=== PATIENT | female | born 1965 | race Caucasian/White ===

== ENCOUNTER 2025-09-09 21:37 | Inpatient (IN) | payer OTHER, SELFPAY ==
--- NOTE | ~2025-09-09 | XR_ITS ---
CLINICAL HISTORY: s p choking event, fever 1 view chest x-ray Comparison: None provided Findings: Strandy density projecting over right lung base. No large pleural effusion. No pneumothorax. Heart size at the upper end of normal. No acute soft tissue or osseous abnormality. Impression: 1. Strandy density projecting overlying lung base representing either atelectasis or developing infiltrate. 2. Additional findings as above. This document has been electronically signed by: Swetha De Souza MD on 09/20/2025 23:01:25
--- OUTSIDE RECORDS SUMMARY | 2025-09-09 21:43 | XMS_ITS | Encounter Summary ---
Author Organization [employer] [facility] ianve Address [address] [place] [address] Care Team Providers Care Lead Nitrate Processor Name Role Phone Gilbert Espinoza Primary Care Provider Unavaila ble Add, Provider Not In System Unavailable Unav ailable Add, Provider Not In System Primary Care Provide r Unavailable Reason for Visit * Reason Onset Date Comments Referral 08/05/2017 [facility] referral req uest Encounter Details Date Type Department Care Team (Late st Contact Info) Description 08/05/2017 Telephone [facility] Primary Care [facility] [address] [place] [address] Babita Hopkins Inactive Referral ([facility] referral request) Social History Tobacco Use Types Packs/Day Years Used Date Smoking Tobacco: Some Days Cigarettes Smokeless Tobacco: Never Comments:quit 3 days ago ( 08/08/16) ; intermittent (10/03/16) Alcohol Use Standard Drinks/Week Comments No 0 (1 standard drink = 0.6 oz pur e alcohol) Comments No Sex and Gender Information Value Date Recorded Sex Assigned at Not on file Legal Sex Female 5:16 PM EDT Gender Identity Not on file Sexual Orientation Not on file documented as of this encounter Plan of Treatment Not on file documented as of this encounter Visit Diagnoses Not on filedocumented in this encounter Care Teams Lead Nitrate Processor Relationship Specialty Start Date End Date Gilbert Espinoza PCP - General Internal Medicine 03/05/16 07/06/18 Add, Provider Not In System PCP - Insurance PCP 04/23/16 Add, Provider Not In System PCP - General Internal Medicine 07/07/18 documented as of this encounter
--- OUTSIDE RECORDS SUMMARY | 2025-09-09 21:43 | XMS_ITS | Encounter Summary ---
Author Organization [facility] iaide Address [address] [place] [address] Care Team Providers Care Hook Puller Name Role Phone Lynda Tate MD Primary Care Provider [phone] Julienne Garner MD Primary Care Provider Unavaila Gilbert Rivera Primary Care Provider Unavaila morales Add, Provider Not In System Unavailable Unav ailable Add, Provider Not In System Primary Care Provide r Unavailable Reason for Referral * Consult and Treat (Routine) - Closed Specialty Diagnoses / Procedures Referred By Contac t Referred To Contact Care Management / [facility] Global Diagnoses Opiate dependence (HCC) Lynda Tate MD Phone: tel:[phone] fax: Other Referral ID Status Reason Start Date Expiration Date V isits Requested Visits Authorized [id number] Closed Specialty not available at [facility] 12/29/2014 12/29/2015 365 365 Question Answer French Polisher Needed? No [10] Comments Reason / clinical indications for referral: For methadone dosing at home. Appointment scheduled for: Visiting Nurse Specialty Location: [facility] Specialist's name: facility planner's NPI#: [id number] Specialty Specialty Reason for appointment: 729.1, 337.00, 304.00, 780.79 Day of appt: Date of appt: 12/29/14 Patient Notification: Facility called requesting 365 visits If you have any questions concerning the referral authorization please call [phone]. If you have any questions concerning your appointment please call the specialty phone number above. Below are the patient's allergies, medications and problem list documented in the medical record as of the signing of this referral order. Patient's current Allergies: Nsaids Current Outpatient Prescriptions: cetirizine (ZYRTEC) 10 MG tablet, Take 1 tablet by mouth daily., Disp: 30 tablet, Rfl: 2 fluticasone (FLONASE) 50 MCG/ACT nasal spray, 2 times a day, Disp: 16 g, Rfl: 2 omeprazole (PRILOSEC) 20 MG capsule, 1 tab daily, Disp: 30 capsule, Rfl: 2 nicotine polacrilex (NICORETTE) 4 MG gum, Take 1 each by mouth as needed for Craving (Nicotine). Fruit flavor please., Disp: 50 each, Rfl: 3 methadone (DOLOPHINE) 10 mg/mL solution, Take 6 mLs by mouth daily. Max Daily Amount: 60 mg. Habit Opco - Giuliana, Disp: , Rfl: OXYCODONE HCL PO, Take by mouth., Disp: , Rfl: BACLOFEN 10 MG OR TABS, 1 tab 4 times a day, Disp: , Rfl: NEURONTIN 300 MG OR CAPS, 1 tab 3 times a day, Disp: , Rfl: PROAIR HFA 108 (90 BASE) MCG/ACT IN AERS, 2 x daily, Disp: , Rfl: DURAGESIC-75 75 MCG/HR TD PT72, every 3 days, Disp: , Rfl: CYMBALTA 60 MG OR CPEP, 2 times a day, Disp: , Rfl: CLONAZEPAM 1 MG OR TABS, 3 times a day, Disp: , Rfl: TRAZODONE HCL 100 MG OR TABS, 2 tabs QHS, Disp: , Rfl: AMBIEN 10 MG OR TABS, 1 tab QHS, Disp: , Rfl: RITALIN 20 MG OR TABS, 1 tab daily, Disp: , Rfl: No current facility-administered medications for this visit. 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 Candidiasis of vulva and vagina Panic disorder with agoraphobia Asthma, mild intermittent, well-controlled Migraine headache Peripheral neuropathy Herpes zoster without mention of complication Chronic pain Myalgia and myositis, unspecified Obesity, unspecified For further correspondence/information please refer to the contact information below: Lynda Tate MD [facility] [address] [facility] [address] Office Office Reason for Visit * Reason Onset Date Comments Referral 01/12/2015 [facility] r eferral request Encounter Details Date Type Department Care Team (Late st Contact Info) Description 01/12/2015 Telephone [facility] Primary Care - [facility] [address] [place] [address] Babita Hopkins Inactive Referral ([facility] referral request) Social History Tobacco Use Types Packs/Day Years Used Date Smoking Tobacco: Every Day Smokeless Tobacco: Never Alcohol Use Standard Drinks/Week Comments No 0 (1 standard drink = 0.6 oz pur e alcohol) Comments No Sex and Gender Information Value Date Recorded Sex Assigned at Not on file Legal Sex Female 5:16 PM EDT Gender Identity Not on file Sexual Orientation Not on file documented as of this encounter Progress Notes * Babita Hopkins - 01/12/2015 2:44 PM EST Appointment scheduled for: Visiting Nurse Specialty Location: [facility] Health Specialist's name: facility planner's NPI#: [id number] Specialty Specialty Reason for appointment: 729.1, 337.00, 304.00, 780.79 Day of appt: Date of appt: 12/29/14 Patient Notification: Facility called requesting 365 visits If you have any questions concerning the referral authorization please call [phone]. If you have any questions concerning your appointment please call the specialty phone number above. documented in this encounter Plan of Treatment Not on file documented as of this encounter Visit Diagnoses Diagnosis Opiate dependence (HCC)- Primary Opioid type dependence, unspecified documented in this encounter Care Teams Hook Puller Relationship Specialty Start Date End Date Lynda Tate MD PCP - General Internal Medicine 12/08/14 05/04/15 Julienne Garner MD PCP - General Internal Medicine 05/05/15 01/22/16 Gilbert Espinoza PCP - General Internal Medicine 03/05/16 07/06/18 Add, Provider Not In System PCP - Insurance PCP 04/23/16 Add, Provider Not In System PCP - General Internal Medicine 07/07/18 documented as of this encounter
--- OUTSIDE RECORDS SUMMARY | 2025-09-09 21:43 | XMS_ITS | Clinical Summary ---
Author Organization [facility] Address [address] [facility] [address] [place] [address] Care Team Providers Care Marketing Analytics Analyst Name Role Phone Gissel Worley MD Primary Care Provider [phone] Allergies Active Allergy Reactions Criticality Noted Date Comments Ciprofloxacin Unknown Medium 04/03/2023 Lactose Unknown High 01/23/2022 Sulfa (Sulfonamide Antibiotics) Unknown 05/22/2016 unknown Tolmetin Unknown Medium 11/14/2014 ? Meningitis vs fibromyalgia flare up Medications albuterol sulfate 90 mcg/actuation aerosol powdr breath activated Inhale 2 Inhalers every 6 (six) hours. 4 Active acetaminophen (Tylenol) 325 mg tablet Take 325 mg by mouth every 6 (six) hours if needed for pain score 1-3. Take 650 mg po Q 6 hours as needed. Active amlodipine besylate (AMLODIPINE ORAL) Take 5 mg by mouth once daily. Active apixaban (Eliquis) 5 mg tablet Take 5 mg by mouth twice daily. Active atorvastatin (Lipitor) 20 mg tablet Take 20 mg by mouth once daily. Active baclofen (Lioresal) 5 mg tablet Take 5 mg by mouth three times daily. Take 3 tablets TID Active cetirizine (ZyrTEC) 10 mg tablet Take 10 mg by mouth once daily. Active clonazePAM (KlonoPIN) 1 mg tablet Take 1 mg by mouth once daily. 1 tablet at bedtime, 1/2 tablet in am and 1/2 tablet at 4 pm Active diclofenac (Voltaren) 1 % topical gel Apply 2 g topically four times daily. 4 times a day to knees bilateral Active docusate sodium (Colace) 100 mg capsule Take 100 mg by mouth if needed in the morning and at bedtime for constipation. Active fluticasone furoate-vilante roL (BREO ELIPTA) 100-25 mcg/dose inhaler Inhale 1 puff once daily. Active FLUTICASONE PROPIONATE NASL Administer 50 mcg into affected nostril(s) once daily. 2 sprays in each nostril Active gabapentin (Neurontin) 300 mg capsule Take 300 mg by mouth three times daily. Take 1 capsule by mouth at 7 am,noon and 2 capsules at bedtime Active ipratropium-alb uteroL (Duo-Neb) 0.5-2.5 mg/3 mL nebulizer solution Take 3 mL by nebulization in the morning, 2 PM, and at bedtime. PRN Active lactobacillus (Culturelle) 10 billion cell capsule Take 1 capsule by mouth once daily. Active lurasidone (Latuda) 20 mg tablet Take 40 mg by mouth with breakfast. 120 mg , BID Active lidocaine (Lidoderm) 5 % patch Apply 1 patch topically once daily. Remove & discard patch within 12 hours or as directed by MD. Active lisinopril 40 mg tablet Take 40 mg by mouth once daily. Active methadone (Dolophine) 10 mg/mL solution Take 90 mg by mouth once daily. Active methylphenidate (Ritalin) 20 mg tablet Take 20 mg by mouth twice daily. Active MULTIVITAMIN ORAL Take 400 mcg by mouth once daily. With Folic Acid Active nicotine polacrilex (Commit) 4 mg lozenge Dissolve 4 mg in the mouth every 2 (two) hours if needed for smoking cessation. 1 lozenge inside cheek every 30 minutes as needed up 20 maximum. Active nystatin (Mycostatin) 100,000 unit/mL suspension Take 500,000 Units by mouth four times daily. As needed. Active ondansetron (Zofran) 4 mg tablet Take 4 mg by mouth every 8 (eight) hours if needed for nausea or vomiting. Active pantoprazole (ProtoNix) 40 mg EC tablet Take 40 mg by mouth before breakfast. Do not crush, chew, or split. Active polyethylene glycol (Glycolax) 17 gram packet Take 17 g by mouth once daily. PRN Active sennosides (Senokot) 8.6 mg tablet Take 1 tablet by mouth once daily. PRN Active traZODone (Desyrel) 150 mg tablet Take 150 mg by mouth at bedtime. Active ibuprofen 200 mg tablet Take 400 mg by mouth every 6 (six) hours if needed for pain score 1-3. Active Active Problems Problem Noted Date Diagnosed Date Malignant neoplasm of lower- outer quadrant of right breast of female, estrogen receptor positive 06/05/2023 Cancer Staging:Pathologic stage from 12/24/2022:Stage IA(pT1c, pN0, cM0, G2, ER+, ME+, HER2-) - Signed by Caro Diez MD on 06/05/2023 Encounters Date Type Department Care Team Description 06/17/2025 External Contact [facility] [address] [place] [address] Ezequiel, Default Authenticator 06/16/2025 External Contact [facility] [address] [place] [address] Bry Boyle MD from Last 3 Months Family History Medical History Relation Name Comments Breast cancer Mother Breast cancer Mother's Sister Relation Name Status Comments Mother Mother's Sister Social History Tobacco Use Types Packs/Day Years Used Date Smoking Tobacco: Every Day Cigarettes 0.5 42.8 Started: 11/1982 Smokeless Tobacco: Never Tobacco Cessation:Ready to Q uit: Not Asked; Counseling Given: Not Answered Alcohol Use Standard Drinks/Week Comments Never 0 (1 standard drink = 0.6 oz pur e alcohol) PHQ-2 Answer Date Recorded Patient Health Questionnaire-2 Score 0 06/05/2023 Comments Unknown Sex and Gender Information Value Date Recorded Sex Assigned at Female 05/07/2024 11:05 AM EDT Legal Sex Female 12:34 AM EST Gender Identity Female 05/07/2024 11:05 AM EDT Sexual Orientation Straight 05/07/2024 11 :05 AM EDT Last Filed Vital Signs Vital Sign Reading Time Taken Comments Blood Pressure 126/80 09/10/2023 1:15 PM EDT Pulse 76 09/10/2023 1:15 PM EDT Temperature 36.2 C (97.1 F) 09/10/2023 1:15 PM EDT Respiratory Rate 18 09/10/2023 1:15 PM EDT Oxygen Saturation 97% 09/10/2023 1:1 5 PM EDT on 2L O2 via nc Inhaled Oxygen Concentration - - Weight 94.1 kg (207 lb 7.3 oz) 09/10/2023 1:15 PM EDT Height 167.6 cm (5' 6 ) 04/03/2023 10:1 4 AM EDT Body Mass Index 33.48 04/03/2023 10:14 AM EDT Plan of Treatment Health Maintenance Due Date Last Done Comments CT Colonography 1965 Colonoscopy 1966 Colorectal Cancer Screening 1965 FIT-DNA 1966 FIT 1965 FOBT 1965 HIV Screening 1965 Sigmoidoscopy 1966 Tobacco Cessation Counseling 1966 MMR Vaccines (1 of 1 - Standard series) 1967 Hepatitis A Vaccines (1 of 2 - Risk 2-dose series) 1985 Zoster Vaccines (1 of 2) 1985 HPV/Cotest 1996 Hepatitis B Vaccines (2 of 3 - 19+ 3-dose series) 07/17/2017 06/19/2017, 12/29/2014 Cervical Cancer Screening 10/21/2018 Pap Smear 10/21/2018 10/21/2015 COVID-19 Vaccine (3 - Modern a risk series) 03/19/2022 02/19/2022, 09/15/2021 Diabetes Screening 11/29/2022 11/29/2019, 04/23/2019 Pneumococcal Vaccine: 50+ Years (2 of 2 - PCV) 03/08/2023 03/08/2022 DTaP/Tdap/Td Vaccines (2 - T d or Tdap) 09/14/2023 09/14/2013 Lipid Panel 09/16/2024 09/16/2019, 04/23/2019 Depression Screening 11/24/2024 06/05/2023 Influenza Vaccine (#1) 2025 2, 09/15/2021, 08/11/2020 Pneumococcal Vaccine: Pediatrics (0 to 5 Years) and At-Risk Patients (6 to 49 Years) Discontinued 03/08/2022 Mammogram Discontinued 05/28/2024, 05/28/2024 HIB Vaccines Aged Out No longer eligi ble based on patient's age to complete this topic HPV Vaccines Aged Out No longer eligi ble based on patient's age to complete this topic IPV Vaccines Aged Out No longer eligi ble based on patient's age to complete this topic Meningococcal B Vaccine Aged Out No l onger eligible based on patient's age to complete this topic Meningococcal Vaccine Aged Out No lupe remedios eligible based on patient's age to complete this topic Rotavirus Vaccines Aged Out No longer eligible based on patient's age to complete this topic Procedures Procedure Name Priority Date/Time Associated Diagnosis Comments DOPPLER ECHO, COMP 06/17/2025 12 :43 PM EDT BI BILATERAL MAMMOGRAM SCREENING Routine 05/28/2024 7:47 AM EDT from Last 3 Months or Most Recently Relevant to Health Maintenance Results * MCMW Dopppler Echo Complete (06/17/2025 12:43 PM EDT) Anatomical Region Laterality Modality Ultrasound 06/17/2025 12:4 3 PM EDT Narrative 06/17/2025 1:09 PM EDT Please click on link to see image. [id number]: Missing Attachment ATTACHMENT Can be viewed in source system Study ID: [id number] [place] [id number] Non-Invasive Cardiology Laboratory Transthoracic Echocardiogram Final Report Name: SHAWNA CADET Study Date: 06/17/2025 12:43 PM BP: 118/64 mmHg Patient Location: : 1965 Height: 66 in Age: 59 yrs Gender: Female Weight: 214 lb Reason For Study: Pulmonary HTN BSA: 2.1 m2 Ordering Physician: NANETTE WOO Referring Physician: ELIAZAR DORAN Performed By: Bianca Puga Fellow: [facility] Interpretation Summary Contrast injection with Definity was performed. 1.3 ml of activated Definity diluted in 8 ml of normal saline was drawn up into a 10 cc syringe. 4 cc of the diluted bolus was administered to the patient by IV injection, the unused portion was discarded. Compared with 04/05/22, similar findings. PASP could not be estimated due to incomplete TR Doppler envelope Left Ventricle Normal left ventricular size, thickness and systolic function with no regional wall motion abnormalities. There is no thrombus. The left ventricular ejection fraction is 60-65%. Right Ventricle Normal right ventricular size and function. Atria The left atrial size is normal. Right atrial size is normal. Mitral Valve Mildly thickened mitral valve leaflets. There is trace mitral regurgitation. Tricuspid Valve The tricuspid valve is normal in structure and function. There is mild tricuspid regurgitation. Pulmonary Artery Systolic Pressure could not be estimated because of incomplete tricuspid regurgitation Doppler jet envelope. Aortic Valve Trileaflet aortic valve with focally thickened leaflets. There is no aortic stenosis. No aortic regurgitation is present. Pulmonic Valve The pulmonic valve is normal in structure and function. Great Vessels The aortic root is normal size. The ascending aorta is normal in size. The Inferior Vena Cava is normal suggesting a normal right atrial pressure of 5 mm Hg. Pericardium/Pleural There is no pericardial effusion. MMode/2D Measurements \T\ Calculations IVSd: 1.0 cm LVIDd: 5.4 cm LVIDs: 2.8 cm LVPWd: 0.98 cm FS: 46.9 % Ao root diam: 3.3 cm EDV(Teich): 138.3 ml Ao root area: 8.6 cm2 ESV(Teich): 30.6 ml LA dimension: 3.7 cm asc Aorta Diam: 3.1 cm LVOT diam: 2.0 cm LVOT area: 3.1 cm2 Doppler Measurements \T\ Calculations MV E max morris: 54.0 cm/sec MV dec time: 0.16 sec MV A max morris: 65.5 cm/sec MV E/A: 0.82 Ao V2 max: 175.0 cm/sec LV V1 max P.7 mmHg Ao max P.3 mmHg LV V1 mean P.0 mmHg Ao V2 mean: 115.0 cm/sec LV V1 max: 138.5 cm/sec Ao mean P.0 mmHg LV V1 mean: 91.2 cm/sec Ao V2 VTI: 33.1 cm LV V1 VTI: 27.6 cm SANGITA(I,D): 2.6 cm2 SANGITA(V,D): 2.5 cm2 SV(LVOT): 86.7 ml E/Lat E': 3.9 E/Med E': 5.5 Electronically Signed By: Namrata Catherine MD 06/17/2025 02:24 PM Authenticated by NAMRATA CATHERINE MD [[id number]] on 06/17/2025 at 13:09:22 Patient Ordering physician: NANETET WOO Other providers: ALEXIA MILLER, ELIAZAR DORAN, ALEXIA MILLER, BRY SHEEHANRS , , , Procedure Note Ezequiel, Default Authenticator / Namrata Catherine MD - 06/17/2025 Please click on link to see image. [id number] Missing Attachment ATTACHMENT Can be viewed in sourcesystem Study ID: [id number] [place] [id number] Non-Invasive Cardiology Laboratory Transthoracic Echocardiogram Final Report Name: SHAWNA CADET Study Date: 06/17/2025 12:43 PM BP: 118/64mmHg Patient Location: : 1965 Height: 66in Age: 59 yrs Gender: Female Weight: 214lb Reason For Study: Pulmonary HTN BSA: 2.1m2 Ordering Physician: NANETTE WOO Referring Physician: ELIAZAR DORAN Performed By: Bianca Puga Fellow: [facility] Interpretation Summary Contrast injection with Definity was performed. 1.3 ml of activatedDefinity diluted in 8 ml of normal saline was drawn up into a 10 cc syringe. 4 ccof the diluted bolus was administered to the patient by IV injection, theunused portion was discarded. Compared with 04/05/22, similar findings. PASP couldnot be estimated due to incomplete TR Doppler envelope Left Ventricle Normal left ventricular size, thickness and systolic function with noregional wall motion abnormalities. There is no thrombus. The left ventricularejection fraction is 60-65%. Right Ventricle Normal right ventricular size and function. Atria The left atrial size is normal. Right atrial size is normal. Mitral Valve Mildly thickened mitral valve leaflets. There is trace mitralregurgitation. Tricuspid Valve The tricuspid valve is normal in structure and function. There is mild tricuspid regurgitation. Pulmonary Artery Systolic Pressure could not be estimated because of incomplete tricuspid regurgitation Doppler jetenvelope. Aortic Valve Trileaflet aortic valve with focally thickened leaflets. There is noaortic stenosis. No aortic regurgitation is present. Pulmonic Valve The pulmonic valve is normal in structure and function. Great Vessels The aortic root is normal size. The ascending aorta is normal in size.The Inferior Vena Cava is normal suggesting a normal right atrial pressure of5 mm Hg. Pericardium/Pleural There is no pericardial effusion. MMode/2D Measurements \T\ Calculations IVSd: 1.0 cm LVIDd: 5.4 cm LVIDs: 2.8 cm LVPWd: 0.98 cm FS: 46.9 % Ao root diam: 3.3 cm EDV(Teich): 138.3 ml Ao root area: 8.6 cm2 ESV(Teich): 30.6 ml LA dimension: 3.7 cm asc Aorta Diam: 3.1 cm LVOT diam: 2.0 cm LVOT area: 3.1 cm2 Doppler Measurements \T\ Calculations MV E max morris: 54.0 cm/sec MV dec time: 0.16 sec MV A max morris: 65.5 cm/sec MV E/A: 0.82 Ao V2 max: 175.0 cm/sec LV V1 max P.7 mmHg Ao max P.3 mmHg LV V1 mean P.0 mmHg Ao V2 mean: 115.0 cm/sec LV V1 max: 138.5 cm/sec Ao mean P.0 mmHg LV V1 mean: 91.2 cm/sec Ao V2 VTI: 33.1 cm LV V1 VTI: 27.6 cm SANGITA(I,D): 2.6 cm2 SANGITA(V,D): 2.5 cm2 SV(LVOT): 86.7 ml E/Lat E': 3.9 E/Med E': 5.5 Electronically Signed By: Namrata Catherine MD 06/17/2025 02:24 PM Authenticated by NAMRATA CATHERINE MD [[id number]] on 06/17/2025 at 13:09:22 Patient Ordering physician: NANETTE WOO Other providers: ALEXIA MILLER, ELIAZAR DORAN, ALEXIA MILLER, BRY BOYLE , , , us Bry Boyle MD CV ECHO PROCEDURES Final Result * BI BILATERAL MAMMOGRAM SCREENING (05/28/2024 7:47 AM EDT) Anatomical Region Laterality Modality Breast Bilateral Mammography us Historical Provider MD AVILEZ BI PROCEDURES Final R esult from Last 3 Months or Most Recently Relevant to Health Maintenance Insurance [place] [id number] Care Teams Marketing Analytics Analyst Relationship Specialty Start Date End Date Gissel Worley MD [address] [place] [address] [address] [place] [address] PCP - General Vocational Education Teacher 09/10/23
--- OUTSIDE RECORDS SUMMARY | 2025-09-09 21:43 | XMS_ITS | Encounter Summary ---
Author Organization [employer] [facility] iarie Address [address] [place] [address] Care Team Providers Care Dust Collector Ore Crushing Name Role Phone Gilbert Espinoza Primary Care Provider Unavaila ble Add, Provider Not In System Unavailable Unav ailable Add, Provider Not In System Primary Care Provide r Unavailable Reason for Visit * Reason Onset Date Comments Referral 10/29/2016 [facility] re ferral request Encounter Details Date Type Department Care Team (Late st Contact Info) Description 10/29/2016 Telephone [facility] Primary Care - [facility] [address] [place] [address] Babita Hopkins Inactive Referral ([facility] referral request) Social History Tobacco Use Types [...] on filedocumented in this encounter Care Teams Dust Collector Ore Crushing Relationship Specialty Start Date End Date Gilbert Espinoza PCP - General Internal Medicine 03/05/16 07/06/18 Add, Provider Not In System PCP - Insurance PCP 04/23/16 Add, Provider Not In System PCP - General Internal Medicine 07/07/18 documented as of this encounter
--- OUTSIDE RECORDS SUMMARY | 2025-09-09 21:43 | XMS_ITS | Encounter Summary ---
Author Organization [facility] [employer] [facility] iavte Address [address] [place] [address] Care Team Providers Care Car Hostler Name Role Phone Gilbert Espinoza Primary Care Provider Unavaila ble Add, Provider Not In System Unavailable Unav ailable Add, Provider Not In System Primary Care Provide r Unavailable Reason for Visit * Reason Onset Date Comments Referral 01/06/2017 [facility] re ferral request Encounter Details Date Type Department Care Team (Late st Contact Info) Description 01/06/2017 Telephone [facility] Primary Care - [facility] [address] [place] [address] Babita Hopkins Inactive Referral ([facility] referral [...] on filedocumented in this encounter Care Teams Car Hostler Relationship Specialty Start Date End Date Gilbert Espinoza PCP - General Internal Medicine 03/05/16 07/06/18 Add, Provider Not In System PCP - Insurance PCP 04/23/16 Add, Provider Not In System PCP - General Internal Medicine 07/07/18 documented as of this encounter
--- OUTSIDE RECORDS SUMMARY | 2025-09-09 21:43 | XMS_ITS | Encounter Summary ---
Author Organization [employer] [facility] Address [address] [place] [address] Care Team Providers Care Fiberglass Technician Name Role Phone Gilbert Espinoza Primary Care Provider Unavaila ble Add, Provider Not In System Unavailable Unav ailable Add, Provider Not In System Primary Care Provide r Unavailable Reason for Visit * Reason Onset Date Comments Prior Authorization 04/23/2017 Encounter Details Date Type Department Care Team (Late st Contact Info) Description 04/23/2017 Telephone [facility] [address] [place] [address] Gilbert Espinoza Prior Authorization Social History Tobacco Use Types Packs/Day Years [...] as of this encounter Visit Diagnoses Diagnosis Fibromyalgia and Myofascial Pain Syndrome Mylagia and myositis, unspecified documented in this encounter Care Teams Fiberglass Technician Relationship Specialty Start Date End Date Gilbert Espinoza PCP - General Internal Medicine 03/05/16 07/06/18 Add, Provider Not In System PCP - Insurance PCP 04/23/16 Add, Provider Not In System PCP - General Internal Medicine 07/07/18 documented as of this encounter
--- OUTSIDE RECORDS SUMMARY | 2025-09-09 21:43 | XMS_ITS | Encounter Summary ---
Author Organization [facility] Address [address] [facility] [address] [place] [address] Care Team Providers Care Bench Chemist Name Role Phone Gissel Worley MD Primary Care Provider [phone] Encounter Details Date Type Department Care Team (Late st Contact Info) Description 06/17/2025 External Contact EXT REF LAB [facility] [address] [facility] [place] [address] Ezequiel, Default Authenticator [address] [id number] Social History Tobacco Use Types Packs/Day Years Used Date Smoking Tobacco: Every Day Cigarettes 0.5 42.8 Started: 11/1982 Smokeless Tobacco: Never Alcohol Use Standard Drinks/Week Comments Never 0 [...] Orientation Straight 05/07/2024 11 :05 AM EDT documented as of this encounter Plan of Treatment Not on file documented as of this encounter Procedures Procedure Name Priority Date/Time Associated Diagnosis Comments DOPPLER ECHO, COMP 06/17/2025 12 :43 PM EDT documented in this encounter Results * MCMW Dopppler Echo Complete (06/17/2025 12:43 PM EDT) Anatomical Region Laterality Modality Ultrasound 06/17/2025 12:4 3 PM EDT Narrative 06/17/2025 1:09 PM EDT Please click on link to see image. [id number]: Missing Attachment ATTACHMENT Can be viewed in source system Study ID: [id number] [place] [id number] Non-Invasive Cardiology Laboratory Transthoracic Echocardiogram Final Report Name: SHAWNA CADET Study Date: 06/17/2025 12:43 PM BP: 118/64 mmHg Patient Location: : 1965 Height: 66 in Age: 59 yrs Gender: Female Weight: 214 lb Reason For Study: Pulmonary HTN BSA: 2.1 m2 Ordering Physician: NANETTE WOO Referring Physician: ELIAZAR DROAN Performed By: Bianca Puga Fellow: [facility] Interpretation Summary Contrast injection with Definity was [...] 02:24 PM Authenticated by NAMRATA CATHERINE MD [[id number]] on 06/17/2025 at 13:09:22 Patient Ordering physician: NANETTE WOO Other providers: ELIAZAR ROA, ALEXIA MILLER, BRY AMRITA , , , Procedure Note Ezequiel, Default Authenticator / Namrata Catherine MD - 06/17/2025 Please click on link to see image. [id number]: Missing Attachment ATTACHMENT Can be viewed in sourcesystem Study ID: [id number] [place] [address] Non-Invasive Cardiology Laboratory Transthoracic Echocardiogram Final Report Name: SHAWNA CADET Study Date: 06/17/2025 12:43 PM BP: 118/64mmHg Patient Location: 5F : 1965 Height: 66in Age: 59 yrs Gender: Female Weight: 214lb Reason For Study: Pulmonary HTN BSA: 2.1m2 Ordering Physician: NANETTE WOO Referring Physician: ELIAZAR DORAN Performed By: Bianca Puga Fellow: [facility] Interpretation Summary Contrast injection with Definity was [...] 02:24 PM Authenticated by NAMRATA CATHERINE MD [[id number]] on 06/17/2025 at 13:09:22 Patient Ordering physician: NANETTE WOO Other providers: ALEXIA MILLER, ELIAZAR DORAN, ALEXIA MILLER, BRY BOYLE , , , Bry Boyle MD CV ECHO PROCEDURES Final Result documented in this encounter Visit Diagnoses Not on filedocumented in this encounter Care Teams Bench Chemist Relationship Specialty Start Date End Date Gissel Worley MD [address] [place] [id number] PCP - General Big Data Solutions Architect 09/10/23 documented as of this encounter
--- OUTSIDE RECORDS SUMMARY | 2025-09-09 21:43 | XMS_ITS | Encounter Summary ---
Author Organization [employer] [facility] Address [address] [place] [address] Care Team Providers Care Production Analyst Name Role Phone Gilbert Espinoza Primary Care Provider Unavaila ble Add, Provider Not In System Unavailable Unav ailable Add, Provider Not In System Primary Care Provide r Unavailable Reason for Visit * Reason Onset Date Comments Referral 05/06/2017 [facility] referral request Encounter Details Date Type Department Care Team (Late st Contact Info) Description 05/06/2017 Telephone [facility] Primary Care - [facility] [address] [place] [address] Babita Hopkins Inactive Referral ([facility] referral request) Social History Tobacco Use Types [...] on filedocumented in this encounter Care Teams Production Analyst Relationship Specialty Start Date End Date Gilbert Espinoza PCP - General Internal Medicine 03/05/16 07/06/18 Add, Provider Not In System PCP - Insurance PCP 04/23/16 Add, Provider Not In System PCP - General Internal Medicine 07/07/18 documented as of this encounter
--- OUTSIDE RECORDS SUMMARY | 2025-09-09 21:43 | XMS_ITS ---
Author Organization [facility] Address [address] [facility] [address] [place] [address] Care Team Providers Care Obstetrics Gynecology Md Name Role Phone Gissel Worley MD Primary Care Provider Active Problems Problem Noted Date Diagnosed Date Malignant neoplasm of lower- outer quadrant of right breast of female, estrogen receptor positive 06/05/2023 Cancer Staging:Pathologic stage from 12/24/2022:Stage IA(pT1c, pN0, cM0, G2, ER+, ME+, HER2-) - Signed by Caro Diez MD on 06/05/2023 Current Treatment and Therapy Plans No current plan information found. Past Treatment and Therapy Plans No past plan information found. Current Radiation Episodes * 3D DYE CAN OPERATOR: Right BreastOverview* First Treatment Date Latest Treatment Date Treatment Site Technique Goal Episode Provider 04/24/2023 06/09/2023 Right Breast 3D DYE CAN OPERATOR Curative Amaris Diez MD * Linked Problems Malignant neoplasm of lower- outer quadrant of right breast of female, estrogen receptor positive Treatment Courses* Course 1 04/24/2023 - 06/09/2023 Treatment Period Fraction Dose Fractions Total Dose Plans Planned Rt Breast CD 05/29/2023 - 06/09/2023 250 cGy 4 / 4 1,000 cGy Rt Breast 04/24/2023 - 05/23/2023 266 cGy 16 16 4 ,256 cGy Reference Points Delivered R Breast CD 05/29/2023 - 06/09/2023 1,000 cGy RX R Breast 04/24/2023 - 05/23/2023 4,256 cGy
--- OUTSIDE RECORDS SUMMARY | 2025-09-09 21:43 | XMS_ITS | Encounter Summary ---
Author Organization [facility] Address [address] [facility] [address] [place] [address] Care Team Providers Care Book Retailer Name Role Phone Rudi Alonso MD Primary Care Provider [phone] Gissel Worley MD Primary Care Provider [phone] Encounter Details Date Type Department Care Team (Late st Contact Info) Description 10/22/2022 External Contact EXT REF LAB [facility] [address] [facility] [address] Ezequiel, Default Authenticator [address] [place], [place] [id number] Social History Tobacco Use Types Packs/Day Years Used Date Smoking Tobacco: Never Assessed Comments Unknown Sex and Gender Information Value Date Recorded Sex Assigned at Female 05/07/2024 11:05 AM EDT Legal Sex Female 12:34 AM EST Gender Identity Female 05/07/2024 11:05 AM EDT Sexual Orientation Straight 05/07/2024 11 :05 AM EDT documented as of this encounter Plan of Treatment Not on file documented as of this encounter Procedures Procedure Name Priority Date/Time Associated Diagnosis Comments EKG NO CHARGE 10/22/2022 6:00 PM EST documented in this encounter Results * MCMW EKG No Charge (10/22/2022 6:00 PM EST) NOTE [facility] Comment: Patient Ordering physician: Jaxon Littlejohn Other providers: Jaxon Littlejohn, , Kvng Delgadillo, No Physician, Kvng Delgadillo, Jaxon Littlejohn, Ada Physician 10/22/2022 6:00 PM EST Narrative [facility] - 10/22/2022 6:00 PM EST PATIENT: [facility] IN/MED F2F EKG INTERPRETATION HEART RATE 79 RR Interval 759 Atrial Rate 79 P-R Interval 156 P Duration 128 P Horizontal [place] 36 P Front [place] 50 Q Onset 504 QRSD Interval 88 QT Interval 408 QTcB 468 QTcF 447 QRS Horizontal [place] -53 QRS [place] 4 I-40 Horizontal [place] -8 I-40 Front [place] 22 T-40 Horizontal [place] -73 T-40 Front [place] 0 T Horizontal [place] -6 T Wave [place] 42 S-T Horizontal [place] 42 S-T Front [place] 59 ECG Severity - NORMAL ECG - ECG Impression Sinus rhythm ECG Impression Poor R Wave Progression ECG Impression No change from the previous tracing <Electronically signed by Kieran Dunham MD, (PO) in OV> (Electronically Signed by) Trans D 1800 Signed D 39 Report #: [id number] Procedure Note Kieran Dunham MD - 10/22/2022 PATIENT: SHAWNA CADET AD[facility] IN/MED F2F EKG INTERPRETATION HEART RATE 79 RR Interval 759 Atrial Rate 79 P-R Interval 156 P Duration 128 P Horizontal [place] 36 P Front [place] 50 Q Onset 504 QRSD Interval 88 QT Interval 408 QTcB 468 QTcF 447 QRS Horizontal [place] -53 QRS [place] 4 I-40 Horizontal [place] -8 I-40 Front [place] 22 T-40 Horizontal [place] -73 T-40 Front [place] 0 T Horizontal [place] -6 T Wave [place] 42 S-T Horizontal [place] 42 S-T Front [place] 59 ECG Severity - NORMAL ECG - ECG Impression Sinus rhythm ECG Impression Poor R Wave Progression ECG Impression No change from the previous tracing <Electronically signed by Kieran Dunham MD, (PO) inOV> (Electronically Signed by) Trans D 1800 Signed D Report #: [id number] us Kieran Dunham MD ECG ORDERABLES Final Result Performing Organization Address City/State/[facility] Co la Phone Number [facility] documented in this encounter Visit Diagnoses Not on filedocumented in this encounter Care Teams Book Retailer Relationship Specialty Start Date End Date Rudi Alonso MD [address] [place] [id number] PCP - General 12/28/21 09/09/23 Gissel Worley MD [address] [place] [address] [address] [place] [address] PCP - General Business And Marketing Teacher 09/10/23 documented as of this encounter
--- OUTSIDE RECORDS SUMMARY | 2025-09-09 21:43 | XMS_ITS | Encounter Summary ---
Author Organization [employer] [facility] Address [address] [place] [address] Care Team Providers Care Executive Creative Director Name Role Phone Gilbert Espinoza Primary Care Provider Unavaila ble Add, Provider Not In System Unavailable Unav ailable Add, Provider Not In System Primary Care Provide r Unavailable Reason for Visit * Reason Onset Date Comments Referral 05/02/2017 bacteriologist medical referr al request Encounter Details Date Type Department Care Team (Late st Contact Info) Description 05/02/2017 Telephone [facility] Care [facility] [address] [place] [address] Babita Hopkins Inactive Referral (bacteriologist medical referral request) Social History Tobacco Use Types [...] on filedocumented in this encounter Care Teams Executive Creative Director Relationship Specialty Start Date End Date Gilbert Espinoza PCP - General Internal Medicine 03/05/16 07/06/18 Add, Provider Not In System PCP - Insurance PCP 04/23/16 Add, Provider Not In System PCP - General Internal Medicine 07/07/18 documented as of this encounter
--- OUTSIDE RECORDS SUMMARY | 2025-09-09 21:43 | XMS_ITS | Encounter Summary ---
Author Organization [facility] Address [address] [facility] [address] [place] [address] Care Team Providers Care Biochemical Development Engineer Name Role Phone Gissel Worley MD Primary Care Provider [phone] Encounter Details Date Type Department Care Team (Late st Contact Info) Description 06/16/2025 External Contact EXT REF LAB [facility] [address] [facility] [place] [address] Bry rCowe MD [address] [facility] [address] [place] [address] Social History Tobacco Use Types Packs/Day Years [...] AM EDT documented as of this encounter Discharge Summaries * Yuri Sexton MD - 06/18/2025 11:24 AM EDT Discharge Summary EMR DATE/TIME NOTE CREATED: 06/18/2025 11:24:45 ADMISSION INFORMATION: DATE OF ADMISSION: 06/15/2025 15:27:00 ADMITTING PHYSICIAN: ALEXIA MCCOY MD [facility] COURSE: Discharge summary: Date of Admission: June 15 2025 Date of discharge: June 182024 Attending physician: Dr. Holley Reyna PCP: Dr. Laurence Connelly Admission diagnosis: Acute Hypoxix Respiratory Failure #AHRF #community acquired pneumonia Primary Discharge Diagnosis: 1.AHRF 2.Community acquired pneumonia Secondary Discharge Diagnosis: #schizoaffective disorder #diverticulosis #chronic sigmoid colitis #ISAIAS not on home CPAP #COPD on 2 L of oxygen at home during the night #hypertension #hyperlipidemia #fibromyalgia #history of pulmonary embolism #GERD #peripheral neuropathy #myofascial pain syndrome #substance use disorder #right breast cancer status post lumpectomy Discharge(Transfer) Medications: New medications: cefpodoxime 200 mg oral tablet 1 tablet(s) Oral Every 12 hours scheduled for 3 day(s) doxycycline 100 mg oral capsule 1 capsule(s) Oral Twice daily for 3 day(s) Beztri inhaler 2 puffs twice daily Changed medications: No change medication Stopped medications: No stop medication Continue home medications: Home Medications (21) Order Details albuterol-ipratropium amLODIPine 5 mg oral tablet apixaban 5 mg oral tablet 1 tablet(s) Oral Twice daily atorvastatin 20 mg oral tablet 1 tablet(s) Oral Daily baclofen 10 mg oral tablet buPROPion 150 mg/24 hours oral extended release tablet 1 tablet(s) Oral Every 24 hours scheduled cetirizine 10 mg oral tablet clonazePAM 0.5 mg oral tablet 1 tablet(s) Oral Three times a day esomeprazole 40 mg oral delayed release capsule fluticasone-vilanterol 200 mcg-25 mcg/inh inhalation powder 1 inhalation Oral Inhalation Once a Day lisinopril 40 mg oral tablet methylphenidate 10 mg oral tablet multivitamin 1 tablet(s) Oral Daily OLANZapine 10 mg oral tablet 1 tablet(s) Oral Nightly at bedtime predniSONE 10 mg oral tablet Days 1-3: Take 4 tablets (40 mg) daily.Days 4-6: Take 3 tablets (30 mg) daily.Days 7-9: Take 2 tablets (20 mg) daily.Days 10-12: Take 1 tablet (10 mg) daily.Day 13: Discontinue prednisone. traZODONE 50 mg oral tablet 3 tablet(s) Oral Nightly at bedtime zolpidem gabapentin 300 mg oral capsule 1 capsule(s) Oral Three times a day budesonide/formoterol/glycopyrrolate 160 mcg-9 mcg-4.8 mcg/inh inhalation aerosol 2 inhalation Oral Inhalation Twice daily cefpodoxime 200 mg oral tablet 1 tablet(s) Oral Every 12 hours scheduled for 3 day(s) doxycycline 100 mg oral capsule 1 capsule(s) Oral Twice daily for 3 day(s) Diet: Cardiac Diet Investigations/Procedures during the Hospitalization: None Pending lab or test results: None Consultants involved in Care: Pulmnology Immunizations given during admission: None Admission History: For the details of the history of present illness, past medical history, family history, social history, please refer to History & Physical written by Chen Hassan MD on behalf of Alexia Mccoy MD. Summary of hospital course: Mrs. Cadet was admitted to the hospital with worsening shortness of breath (SOB) and hypoxia. She has a complex medical history, including schizoaffective disorder, COPD, hypertension, hyperlipidemia, fibromyalgia, a history of pulmonary embolism, and right breast cancer status post-lumpectomy. She was previously hospitalized from June 01 to June 03, 2025, for a COPD exacerbation and pneumonia. Upon admission, Mrs. Cadet presented with acute hypoxia, with oxygen saturation dropping to the 70s on 2 L nasal cannula at home. In the emergency department, her saturation was 90% on 4 L nasal cannula. A chest X-ray revealed possible consolidation in the right lower lobe, suggestive of pneumonia or atelectasis. She was treated with ceftriaxone and doxycycline for suspected community-acquired pneumonia and COPD exacerbation. Throughout her hospital stay, Mrs. Cadet received supportive care, including oxygen therapy, nebulized bronchodilators (Foradil and budesonide), and systemic corticosteroids (prednisone). Her condition gradually improved, with her oxygen saturation stabilizing and her respiratory symptoms lessening. A transthoracic echocardiogram was ordered to evaluate for pulmonary hypertension, given her enlarged pulmonary artery on CT. Mrs. Cadet is to be discharged with instructions to continue her current medication regimen, including a new prescription for Breztri (2 puffs twice daily) to replace Breo Ellipta. She is advised to continue using albuterol as needed for wheezing. Smoking cessation counseling was provided, emphasizing the importance of quitting smoking to prevent future exacerbations. Discharge instructions: Written separately, please refer to discharge instruction documentation. Discharge disposition: Home with visiting services Condition at the time of discharge: Ahsan Follow-up Plans: -Please follow up with your PCP within 7 days of discharge. [ CONSULTING SERVICES: Pulmonology Patients instructions: During your hospital stay, you were treated for a worsening of your COPD and pneumonia, which caused your shortness of breath and low oxygen levels. You received antibiotics, steroids, and breathing treatments to help improve your symptoms. Your oxygen levels have stabilized, and you are feeling better, so you are ready to go home. You will continue taking your medications, including a new inhaler called Breztri, and use your albuterol inhaler as needed. It's important to quit smoking to help prevent future breathing problems. You will follow up with your deaf/hard of hearing specialist, Dr. Kimball, to keep track of your progress. If you notice any worsening of your symptoms, please seek medical attention promptly. Medications: cefpodoxime 200 mg oral tablet 1 tablet(s) Oral Every 12 hours scheduled for 3 day(s) doxycycline 100 mg oral capsule 1 capsule(s) Oral Twice daily for 3 day(s) Beztri inhaler 2 puffs twice daily PHYSICAL EXAM: VITAL SIGNS: Vital Signs: Last Charted: 24 Hr Minimum: 24 Hr Maximum: Temperature Oral 36.3 (06/18 08:18) 36.3 (06/18 08:18) 36.8 (06/17 15:00) Heart Rate 68 (06/18 09:07) 57 (L) (06/18 08:18) 72 (06/17 13:57) Respiratory Rate 17 (06/18 08:18) 16 (06/18 07:29) 20 (06/17 13:57) Systolic BP 124 (06/18 08:18) 112 (06/17 15:00) 124 (06/18 08:18) Diastolic BP 69 (06/18 08:18) 66 (06/17 15:00) 69 (06/18 08:18) SpO2/Pulse Oximetry 95 (06/18 08:18) 91 (06/17 20:00) 95 (06/18 07:29) Oxygen Flow 2 (06/18 08:18) 2 (06/17 15:00) 2 (06/17 15:00) General: ill-appearing, awake and alert, resting comfortably in no acute distress Head: grossly normocephalic, atraumatic Eyes: normal inspection, EOMI, PERRL, no conjunctival pallor, no scleral icterus Ear, Nose, Throat: normal external appearance, hearing grossly intact Neck: normal ROM, non-tender, carotid upstrokes brisk bilaterally Respiratory: Clear breath sounds bilaterally. unclear wheezing, mild rales in BL lungs but no rhonchi Cardiovascular: not tachycardic, RRR without murmur appreciated, normal S1/S2, radial pulses intact and normal GI: flat/nondistended, abdomen soft and nontender with no guarding or rebound; +BS normoactive in all 4 quadrants, no tympany to percussion Back: normal inspection of the back with good strength and ROM throughout all extremities Extremities: cool to touch, no BLE pitting edema, no calf tenderness, with 5/5 bilateral UE/LE strength Neurological: alert and oriented to person, place, and time, appropriately conversive, no gross motor or sensory defects noted; coordination appears adequate Skin: warm, dry, and intact; no noted rash DISCHARGE DIAGNOSES AND PLAN: Hypoxia (R09.02) Orders: cefpodoxime, 200 mg = 1 tab, Oral, Q12hr, X 3 day, # 6 tab, 0 Refill(s), Pharmacy: [facility], 1 tab Oral Q12hr,x3 day, 168, cm, 06/15/2025 18:24:00 EDT, Height, 97.3, kg, 06/15/2025 18:22:00 EDT, Dosing Weight doxycycline, 100 mg = 1 cap, Oral, BID, X 3 day, # 6 cap, 0 Refill(s), Pharmacy: [facility], 1 cap Oral BID,x3 day, 168, cm, 06/15/2025 18:24:00 EDT, Height, 97.3, kg, 06/15/2025 18:22:00 EDT, Dosing Weight PATIENT DISCHARGE CONDITION: Fare Discharge Disposition: Home with Services DATE OF DISCHARGE: 06/18/2025 DISCHARGE MEDICATIONS: Discharge Medications (23) Order Details Status New / Continued Meds: (21) albuterol-ipratropium 3 mL, Nebulizer, Q6hr, PRN: Shortness Continue of Breath and/or Wheezing amLODIPine 5 mg oral tablet 7.5 mg = 1.5 tab, Oral, Daily Continue apixaban 5 mg oral tablet 5 mg = 1 tab, Oral, BID Continue atorvastatin 20 mg oral tablet 20 mg = 1 tab, Oral, Daily Continue baclofen 10 mg oral tablet 10 mg = 1 tab, Oral, Q Bedtime Continue buPROPion 150 mg/24 hours oral extended 150 mg = 1 tab, Oral, Q24hr Continue release tablet cetirizine 10 mg oral tablet 10 mg = 1 tab, Oral, Daily Continue clonazePAM 0.5 mg oral tablet 0.5 mg = 1 tab, Oral, TID Continue esomeprazole 40 mg oral delayed release 40 mg = 1 cap, Oral, QAM Continue capsule fluticasone-vilanterol 200 mcg-25 1 inhalation, Inhalation Oral, RT Daily Continue mcg/inh inhalation powder lisinopril 40 mg oral tablet 40 mg = 1 tab, Oral, Daily Continue methylphenidate 10 mg oral tablet 10 mg = 1 tab, Oral, TID AC, HOLD DOS Continue multivitamin 1 tab, Oral, Daily Continue OLANZapine 10 mg oral tablet 10 mg = 1 tab, Oral, Q Bedtime Continue predniSONE 10 mg oral tablet , Days 1-3: Take 4 tablets (40 mg) Continue daily. Days 4-6: Take 3 tablets (30 mg) daily. Days 7-9: Take 2 tablets (20 mg) daily. Days 10-12: Take 1 tablet (10 mg) daily. Day 13: Discontinue prednisone. traZODONE 50 mg oral tablet 150 mg = 3 tab, Oral, Q Bedtime Continue zolpidem 10 mg, Oral, Q Bedtime Continue gabapentin 300 mg oral capsule 300 mg = 1 cap, Oral, Q Bedtime Continue with Changes budesonide/formoterol/glycopyrrolate 2 inhalation, Inhalation Oral, BID New 160 mcg-9 mcg-4.8 mcg/inh inhalation aerosol cefpodoxime 200 mg oral tablet 200 mg = 1 tab, Oral, Q12hr New doxycycline 100 mg oral capsule 100 mg = 1 cap, Oral, BID New Stopped Meds: (2) methadone 10 mg oral tablet 110 mg = 11 tab, Oral, QAM Stop Misc Prescription , OXYGEN 2L FACEMASK PRN +HS Stop FOLLOW UP: With When Contact Information REINALDO KIMBALL Within 5-7 days [address] [place] [address]- [phone] Business (1) Additional Instructions: IMAGES: Reason For Exam Chest Pain REPORT XR Chest 1 View Portable INDICATION : Chest Pain COMPARISON: June 01, 2025 FINDINGS: The heart is prominent. Aorta is ectatic and the arch is calcified. Hazy opacification is present within the lateral aspect of the right base. Linear opacifications present in the right base. Remote right-sided rib fractures. The left lung is clear. No pneumothorax. No definite pleural effusion. Pulmonary vessels are not engorged. IMPRESSION: 1. Cannot exclude developing airspace disease in the right lower lobe. Superimposed right basilar atelectasis. Reading site: [facility] Signature Line Final Report Dictated: 06/15/2025 3:06 pm Dictated By: MERI ROTHMAN MD Signature: 06/15/2025 3:07 pm Signed By: MERI ROTHMAN MD ATTESTATION: The details of the discharge and follow-up plans have been discussed thoroughly with the patient. nursing staff and residents. Total time spent for discharge, including coordination of care plan on day of dc, communicated with family, PCP, care team: [45 mins] ------ Care plan has been discussed with the patient, and all the concerns are addressed. The decisions regarding the care plan are made with shared decision making. I confirmed that the patient's Advance Care Plan is present, code status is documented, or surrogate decision maker is listed in the patient medical record. I have utilized all available immediate resources to obtain, update, or review the patient's current medications. OUTSTANDING ORDERS: Consults Order Date: Order Status: Dept Order Status: Pharmacy Anti-Microbial Stewardship surveillance 06/18/2025 04:00 Ordered Ordered Pharmacy Anti-Microbial Stewardship surveillance 06/18/2025 04:00 Ordered Ordered Pharmacy Anti-Microbial Stewardship surveillance 06/19/2025 04:00 Ordered Ordered Laboratory Order Date: Order Status: Dept Order Status: C Sputum 06/17/2025 15:58 InProcess Preliminary CovFluA+B 06/15/2025 14:07 Ordered Dispatched Electronically Signed On 06/18/25 12:46 EDT Jordi Wall Electronically Signed On 06/18/25 12:50 EDT Jordi Wall Electronically Signed On 06/18/25 14:34 EDT HOLLEY REYNA MD Patient Ordering physician: , Other providers: ALEXIA MCCOY, ELIAZAR DORAN, ALEXIA MCCOY, YURI SEXTON UNAVAILABLE PCP INFO, , , documented in this encounter Progress Notes * Bry Crowe MD - 06/17/2025 6:21 PM EDT Progress Note EMR SOAP DATE/TIME NOTE CREATED: 06/17/2025 18:21:31 SUBJECTIVE: Patient seen at bedside by medical team. The patient has been feeling much better, the patient mentioned that sill has some SOB and cough and does not feel fully recovered. She denies chest pain, chest pain, palpitation, nauseas, vomting, abdominal pain, diarrhea. REVIEW OF SYSTEMS: As mentioned above OBJECTIVE: VITAL SIGNS: Vital Signs: Last Charted: 24 Hr Minimum: 24 Hr Maximum: Temperature Oral 36.8 (06/17 15:00) 36.8 (06/17 15:00) 36.5 (06/16 20:00) Heart Rate 71 (06/17 15:00) 66 (06/16 19:35) 78 (06/17 07:34) Respiratory Rate 18 (06/17 15:00) 16 (06/16 19:35) 20 (06/17 13:57) Systolic BP 112 (06/17 15:00) 112 (06/17 15:00) 118 (06/16 20:00) Diastolic BP 66 (06/17 15:00) 64 (06/16 20:00) 66 (06/17 15:00) SpO2/Pulse Oximetry 93 (06/17 15:00) 93 (06/16 20:00) 95 (06/16 19:35) Oxygen Flow 2 (06/17 15:00) 2 (06/16 20:00) 2 (06/16 20:00) PHYSICAL EXAM: General: ill-appearing, awake and alert, resting comfortably in no acute distress Head: grossly normocephalic, atraumatic Eyes: normal inspection, EOMI, PERRL, no conjunctival pallor, no scleral icterus Ear, Nose, Throat: normal external appearance, hearing grossly intact Neck: normal ROM, non-tender, carotid upstrokes brisk bilaterally Respiratory: Clear breath sounds bilaterally. unclear wheezing, mild rales in BL lungs but no rhonchi Cardiovascular: not tachycardic, RRR without murmur appreciated, normal S1/S2, radial pulses intact and normal GI: flat/nondistended, abdomen soft and nontender with no guarding or rebound; +BS normoactive in all 4 quadrants, no tympany to percussion Back: normal inspection of the back with good strength and ROM throughout all extremities Extremities: cool to touch, no BLE pitting edema, no calf tenderness, with 5/5 bilateral UE/LE strength Neurological: alert and oriented to person, place, and time, appropriately conversive, no gross motor or sensory defects noted; coordination appears adequate Skin: warm, dry, and intact; no noted rash LAB RESULTS: Hematology Basic - Last 36 hours (19) Result Date/Time WBC 9.7 06/17 07:43 RBC 4.26 06/17 07:43 Hgb 12.4 06/17 07:43 Hct 38.3 06/17 07:43 MCV 89.8 06/17 07:43 MCH 29.2 06/17 07:43 MCHC 32.5 06/17 07:43 RDW 15.4 (H) 06/17 07:43 Platelet Count 258 06/17 07:43 Neutrophil Rel 90.9 06/16 07:07 Lymphocyte Rel 6.6 06/16 07:07 Monocyte Rel 2.4 06/16 07:07 Eosinophil Rel 0.0 06/16 07:07 Basophil Rel 0.1 06/16 07:07 Neutrophil Abs 10.30 (H) 06/16 07:07 Lymphocyte Abs 0.70 (L) 06/16 07:07 Monocyte Abs 0.30 06/16 07:07 Eosinophil Abs 0.00 06/16 07:07 Basophil Abs 0.00 06/16 07:07 Chemistry Comprehensive - Last 36 hours (17) Result Date/time Sodium Lvl 141 06/17 07:43 Potassium Lvl 4.4 06/17 07:43 Chloride Lvl 104 06/17 07:43 CO2 32 (H) 06/17 07:43 Glucose Level 77 06/17 07:43 BUN 18 06/17 07:43 Creatinine Lvl 0.76 06/17 07:43 AGAP 5 (L) 06/17 07:43 Total Protein 6.6 06/16 07:07 Albumin Lvl 3.8 06/16 07:07 Calcium Lvl 9.1 06/17 07:43 Alk Phos 59 06/16 07:07 AST 10 (L) 06/16 07:07 ALT 12 06/16 07:07 Magnesium Lvl 2.30 06/17 07:43 Phosphate 4.0 06/17 07:43 Bili Total 0.3 06/16 07:07 RADIOLOGY/DIAGNOSTIC RESULTS: Radiology - Last 36 hours (0) No results in past 36 hours Diagnostics - Non-Radiology (2) Cardiology Reports (06/17 12:43) Please review the final report in the patient???s chart. ED EKG-CernerCV (06/15 14:05) Please review the final report in the patient???s chart. ASSESSMENT/PLAN: Hypoxia (R09.02) This is a 59-year-old female with a past medical history significant for schizoaffective disorder, diverticulosis, chronic sigmoid colitis, ISAIAS not on home CPAP, COPD on 2 L of oxygen at home during the night, hypertension, hyperlipidemia, fibromyalgia, history of pulmonary embolism, GERD, peripheral neuropathy, myofascial pain syndrome, substance use disorder, right breast cancer status post lumpectomy comes to the hospital after experiencing respiratory symptoms was found to have AHRF likely COPD exacerbation. ACUTE ISSUES #AHRF likely community acquired pneumonia vs aspiration -The patient presented to the ED due to worsening of SOB, productive cough since week ago and acute hypoxia down to 70% at home. -Upon arrival to the ED the patient desalt to 80s on 2L NC (baseline), therefore the patient was on 4L NC. -Xray showed possible consolidation in the right lower lobe. Physical exam mild rales, unclear if she has wheezings. -The patient has received one dose Solu-Medrol 80 mg IV doxycycline 100 mg. -Unclear at this point if the patient is having COPD exacerbation, although the patient might have some pneumonia in the xray. - VBG: Ph7.35, pco2 57.8, pO2 116, BICARB: 31 Plan: -Continue with Ceftriaxone 1 gram (3rd day) - Increase prednisone 60 mg daily x 3 days and taper off. (today she received 60 mg, evaluate tomorrow with Primary team and pulomology) -Wean off the O2 as tolerated. -Follow pulmonology: Continue Foradil and budesonide nebs, and DuoNebs as needed. On discharge, please discontinue her Breo ellipta, and give her a prescription for Breztri 2 puffs twice daily. -Can consider inhaler if the patient really wheezing. CHRONIC ISSUES #schizoaffective disorder #diverticulosis #chronic sigmoid colitis #ISAIAS not on home CPAP #COPD on 2 L of oxygen at home during the night #hypertension #hyperlipidemia #fibromyalgia #history of pulmonary embolism #GERD #peripheral neuropathy #myofascial pain syndrome #substance use disorder #right breast cancer status post lumpectomy - We will switch his omeprazole to pantoprazole given our current formulary - Continue the rest of her home medications - Resume Methadone dose (110mg) after confirmation with [facility]. Medications (25) Active Scheduled: (22) amLODIPine 7.5 mg = 3 tab, Oral, Daily apixaban 5 mg = 1 tab, Oral, BID atorvastatin 20 mg = 1 tab, Oral, Daily baclofen 10 mg = 1 tab, Oral, Q Bedtime budesonide (Pulmicort Respules) 0.25 mg = 2 mL, Nebulizer, RT Q12hr buPROPion 150 mg = 1 tab, Oral, Q24hr cefTRIAXone 1 g, IV Piggyback, [id number] clonazePAM 0.5 mg = 1 tab, Oral, TID ethanol topical (Alcohol-Based Nasal Antiseptic Swab) 1 application, Each Nostril, BID formoterol (Perforomist 20 mcg/2 mL inhalation solution) 20 mcg = 2 mL, Nebulizer, RT Q12hr gabapentin 300 mg = 1 cap, Oral, TID lisinopril 40 mg = 2 tab, Oral, Daily loratadine (Claritin) 10 mg = 1 tab, Oral, Daily methadone 110 mg = 11 tab, Oral, Daily methylphenidate 10 mg = 1 tab, Oral, TID AC multivitamin (Multivitamins oral tablet) 1 tab, Oral, Daily nicotine (nicotine 7 mg/24 hr patch, extended release) 1 patch, TransDermal, Daily OLANZapine 15 mg = 1.5 tab, Oral, Q Bedtime pantoprazole (Protonix) 40 mg = 1 tab, Oral, Daily AC Patch Removal 1 patch, TransDermal, Once Scheduled predniSONE 40 mg = 2 tab, Oral, Daily traZODONE (traZODone) 150 mg = 3 tab, Oral, Q Bedtime Continuous: (0) PRN: (3) albuterol-ipratropium (albuterol-ipratropium inhalation solution) 3 mL, Nebulizer, Q6hr benzocaine-menthol topical (Cepacol Sore Throat) 1 lozenge, Mucous Memb, Q4hr melatonin 3 mg = 1 tab, Oral, Q Bedtime Checklist Fluid: [none] Diet: [cardiac diet] DVT prophylaxis: [Eliquis 5 mg BID] GI prophylaxis: [Pantoprazole 40 PO daily] Code status: Full code HCP: Petey Cadet, son, Disposition: [med/surg on telemetry] SARS COV 2: Negative on admission. Denied sick contacts, or upper resp symptoms. Jordi Marcelo MD PGY 1 TY Green Team Case discussed with Dr. Reyna ATTESTATION: I attest that I personally saw and examined the patient. I have reviewed and agree with the resident's findings, including all diagnostic interpretations and treatment plan as written made modifications to the Resident`s findings and plans of care as documented. I confirmed that the patient's Advance Care Plan is present, code status is documented, or surrogate decision maker is listed in the patient??s medical record. I have utilized all available immediate resources to obtain, update, or review the patient??s current medications (including all prescriptions, [id number]-[id number] products, herbals, cannabis/cannabidiol products, and vitamin/mineral/dietary (nutritional) supplements). Electronically Signed On 06/17/25 18:21 EDT Jordi Wall Electronically Signed On 06/18/25 12:38 EDT HOLLEY REYNA MD Patient Ordering physician: , Other providers: HLOLEY REYNA, ELIAZAR DORAN, ALEXIA MCCOY, BRY CROWE UNAVAILABLE PCP INFO, , , * Bry Crowe MD - 06/17/2025 11:12 AM EDT Progress Note DATE/TIME NOTE CREATED: 06/17/2025 11:13:17 SUBJECTIVE: Mrs. Cadet feels a little better today. She is coughing up thick white-yellow sputum. No hemoptysis. She has no chest pain. She has not exerted herself much today. REVIEW OF SYSTEMS: Review of Systems: CONST: [No fever, fatigue, or weight changes.] EYES: [No recent vision problems.] ENT: [No congestion, ear pain, or sore throat.] C/V: [No chest pain, palpitations, or edema.] RESP: [Shortness of breath cough and wheezing.] GI: [No abdominal pain, nausea, vomiting, constipation, or diarrhea.] : [No incontinence or dysuria.] M/S: [No joint pain or swelling.] SKIN: [No rash.] NEURO: [No headache, focal numbness or weakness, dizziness, or seizures.] PSYCH: [No depression or anxiety.] ENDO: [No thyroid problems. No polyuria or polydipsia.] HEME: [No abnormal bruising or bleeding.] LYMPH: [No swollen glands.] IMMUN: [No itching or hives.] OBJECTIVE: VITAL SIGNS: Vital Signs: Last Charted: 24 Hr Minimum: 24 Hr Maximum: Temperature Oral 36.5 (06/16 20:00) 36.5 (06/16 20:00) 36.6 (06/16 15:00) Heart Rate 78 (06/17 07:34) 66 (06/16 19:35) 78 (06/17 07:34) Respiratory Rate 16 (06/17 07:34) 16 (06/16 19:35) 18 (06/16 15:00) Systolic BP 118 (06/16 20:00) 115 (06/16 15:00) 118 (06/16 20:00) Diastolic BP 64 (06/16 20:00) 58 (L) (06/16 15:00) 64 (06/16 20:00) SpO2/Pulse Oximetry 95 (06/17 07:34) 93 (06/16 15:00) 95 (06/16 19:35) Oxygen Flow 2 (06/17 07:34) 2 (06/16 15:00) 2 (06/16 15:00) PHYSICAL EXAM: Physical Examination: GENERAL:[No acute distress, non-toxic appearing. Overweight.] HEAD: [Normal with no signs of head trauma.] EYES: [PERRLA, EOMI, conjunctiva normal, no discharge.] ENT: [Hearing grossly intact, normal oropharynx.] NECK: [Supple, no tenderness, no lymphadenopathy, no masses, no thyromegaly, no bruits, no JVD.] LUNGS: [Diminished breath sounds bilaterally. Bilateral rhonchi. Scattered expiratory wheezes. No rales.] HEART: [Regular rate and rhythm. Normal S1 and S2, without murmurs, rub or gallop.] VASC: [No edema. Peripheral pulses normal and equal in all extremities.] ABD: [Bowel sounds normal, soft, nontender, no masses, no organomegaly.] : [Normal] LYMPH: [No lymphadenopathy noted.] EXT: [Normal range of motion, no joint swelling, no clubbing, no cyanosis.] SKIN: [No rashes or lesions.] NEURO: [Alert and oriented x 3. Normal affect. Cranial nerves intact. No focal sensory or strength deficits. Reflexes symmetric.] Medications (25) Active Scheduled: (22) amLODIPine 7.5 mg = 3 tab, Oral, Daily apixaban 5 mg = 1 tab, Oral, BID atorvastatin 20 mg = 1 tab, Oral, Daily baclofen 10 mg = 1 tab, Oral, Q Bedtime budesonide (Pulmicort Respules) 0.25 mg = 2 mL, Nebulizer, RT Q12hr buPROPion 150 mg = 1 tab, Oral, Q24hr cefTRIAXone 1 g, IV Piggyback, [id number] clonazePAM 0.5 mg = 1 tab, Oral, TID ethanol topical (Alcohol-Based Nasal Antiseptic Swab) 1 application, Each Nostril, BID formoterol (Perforomist 20 mcg/2 mL inhalation solution) 20 mcg = 2 mL, Nebulizer, RT Q12hr gabapentin 300 mg = 1 cap, Oral, TID lisinopril 40 mg = 2 tab, Oral, Daily loratadine (Claritin) 10 mg = 1 tab, Oral, Daily methadone 110 mg = 11 tab, Oral, Daily methylphenidate 10 mg = 1 tab, Oral, TID AC multivitamin (Multivitamins oral tablet) 1 tab, Oral, Daily nicotine (nicotine 7 mg/24 hr patch, extended release) 1 patch, TransDermal, Daily OLANZapine 15 mg = 1.5 tab, Oral, Q Bedtime pantoprazole (Protonix) 40 mg = 1 tab, Oral, Daily AC Patch Removal 1 patch, TransDermal, Once Scheduled predniSONE 40 mg = 2 tab, Oral, Daily traZODONE (traZODone) 150 mg = 3 tab, Oral, Q Bedtime Continuous: (0) PRN: (3) albuterol-ipratropium (albuterol-ipratropium inhalation solution) 3 mL, Nebulizer, Q6hr benzocaine-menthol topical (Cepacol Sore Throat) 1 lozenge, Mucous Memb, Q4hr melatonin 3 mg = 1 tab, Oral, Q Bedtime LAB RESULTS: Hematology Basic - Last 36 hours (19) Result Date/Time WBC 9.7 06/17 07:43 RBC 4.26 06/17 07:43 Hgb 12.4 06/17 07:43 Hct 38.3 06/17 07:43 MCV 89.8 06/17 07:43 MCH 29.2 06/17 07:43 MCHC 32.5 06/17 07:43 RDW 15.4 (H) 06/17 07:43 Platelet Count 258 06/17 07:43 Neutrophil Rel 90.9 06/16 07:07 Lymphocyte Rel 6.6 06/16 07:07 Monocyte Rel 2.4 06/16 07:07 Eosinophil Rel 0.0 06/16 07:07 Basophil Rel 0.1 06/16 07:07 Neutrophil Abs 10.30 (H) 06/16 07:07 Lymphocyte Abs 0.70 (L) 06/16 07:07 Monocyte Abs 0.30 06/16 07:07 Eosinophil Abs 0.00 06/16 07:07 Basophil Abs 0.00 06/16 07:07 Chemistry Comprehensive - Last 36 hours (17) Result Date/time Sodium Lvl 141 06/17 07:43 Potassium Lvl 4.4 06/17 07:43 Chloride Lvl 104 06/17 07:43 CO2 32 (H) 06/17 07:43 Glucose Level 77 06/17 07:43 BUN 18 06/17 07:43 Creatinine Lvl 0.76 06/17 07:43 AGAP 5 (L) 06/17 07:43 Total Protein 6.6 06/16 07:07 Albumin Lvl 3.8 06/16 07:07 Calcium Lvl 9.1 06/17 07:43 Alk Phos 59 06/16 07:07 AST 10 (L) 06/16 07:07 ALT 12 06/16 07:07 Magnesium Lvl 2.30 06/17 07:43 Phosphate 4.0 06/17 07:43 Bili Total 0.3 06/16 07:07 RADIOLOGY/DIAGNOSTIC RESULTS: Radiology - Last 36 hours (1) XR Chest 1 View Portable (06/15 14:21) FINDINGS: The heart is prominent. Aorta is ectatic and the arch is calcified. Hazy opacification is present within the lateral aspect of the right base. Linear opacifications present in the right base. Remote right-sided rib fractures. The left lung is clear. No pneumothorax. No definite pleural effusion. Pulmonary vessels are not engorged. IMPRESSION: 1. Cannot exclude developing airspace disease in the right lower lobe. Superimposed right basilar atelectasis. Reading site: [facility] Diagnostics - Non-Radiology (1) ED EKG-[place] (06/15 14:05) Please review the final report in the patient???s chart. ASSESSMENT/PLAN: Hypoxia (R09.02) Assessment and plan: 59-year-old female with: 1. Recurrent hypoxemic respiratory failure She has hypercapnia. We are treating her for COPD exacerbation. She does have known underlying COPD and may have pulmonary hypertension. She still needs a transthoracic echo. Her lungs today sound a lot more rhonchorous. She has expiratory wheezes. She is coughing up a lot of thick yellow sputum. Her procalcitonin, however, was low. She just recently completed a course of antibiotics for pneumonia. She is therefore at increased risk of multidrug-resistant organisms. However, given the lack of other features of systemic infection, I would hold off on broadening her antibiotics for now. Her sputum Gram stain and culture is still pending. Continue ceftriaxone for now. Continue prednisone 40 mg daily. Continue Foradil and budesonide nebs, and DuoNebs as needed. On discharge, please discontinue her Breo ellipta, and give her a prescription for Breztri 2 puffs twice daily. She does have oxygen at home. We should continue to employee counselor her regarding smoking cessation. She will follow-up with her deaf/hard of hearing specialist, Dr. Kimball, as an outpatient. Thank you for allowing me to participate in the care of this patient. I will continue to follow along with you. Electronically Signed On 06/17/25 11:20 EDT AMRITA LOVETT ABA Patient Ordering physician: , Other providers: ALEXIA MCCOY, ELIAZAR DORAN, ALEXIA MCCOY, BRY CROWE UNAVAILABLE PCP INFO, , , * Bry Crowe MD - 06/16/2025 11:40 AM EDT Progress Note EMR DATE/TIME NOTE CREATED: 06/16/2025 11:40:17 SUBJECTIVE: Date: 06/16/25 Hospital Day 2 Interval Events -BALAJI overnight Subjective: -Today, the patient has been feeling much better, the patient mentioned that sill has some SOB and cough. REVIEW OF SYSTEMS: denies chest pain, chest pain, palpitation, nauseas, vomting, abdominal pain, diarrhea. OBJECTIVE: VITAL SIGNS: Vital Signs: Last Charted: 24 Hr Minimum: 24 Hr Maximum: Temperature Oral 36.5 (06/16 05:00) 36.5 (06/16 05:00) 36.5 (06/15 14:01) Heart Rate 62 (06/16 07:33) 60 (06/16 05:00) 123 (H) (06/15 23:06) Cardiac Rhythm Normal sin (06/16 05:06) Respiratory Rate 16 (06/16 07:33) 16 (06/16 07:33) 28 (H) (06/15 23:06) Systolic BP 127 (06/16 05:00) 115 (06/15 19:21) 139 (06/15 23:05) Diastolic BP 69 (06/16 05:00) 69 (06/15 19:21) 108 (H) (06/15 23:05) SpO2/Pulse Oximetry 96 (06/16 07:33) 85 (06/15 15:00) 96 (06/15 14:46) Oxygen Flow 4 (06/16 07:33) 2 (06/15 15:00) 4 (06/15 15:09) Dosing BMI 34 (06/15 18:22) 34 (06/15 18:22) 35 (06/15 14:01) BMI 34 (06/15 18:24) 34 (06/15 18:24) 34 (06/15 18:24) PHYSICAL EXAM: GENERAL: [No acute distress, non-toxic appearing.]_ HEAD: [Normal with no signs of head trauma.]_ EYES: [PERRLA, EOMI, conjunctiva normal, no discharge.]_ ENT: [Hearing grossly intact, normal oropharynx.]_ NECK: [Supple, no tenderness, no lymphadenopathy, no masses, no thyromegaly, no bruits, no JVD.]_ LUNGS: [Clear breath sounds bilaterally. unclear wheezing, mild rales in BL lungs but no rhonchi.]_ HEART: [Regular rate and rhythm. Normal S1 and S2, without murmurs, rub, or gallop.]_ VASC: [No edema. Peripheral pulses normal and equal in all extremities.]_ ABD: [Bowel sounds normal, soft, nontender, no masses, no organomegaly.]_ : [Normal.]_ LYMPH: [No lymphadenopathy noted.]_ EXT: [Normal range of motion, no joint swelling, no clubbing, no cyanosis.]_ SKIN: [No rashes or lesions.]_ TUBES/LINES/DRAINS: [None.]_ NEURO: [Alert and oriented x 3. Normal affect. Cranial nerves intact. No focal sensory or strength deficits. Reflexes symmetric.]_ LAB RESULTS: Hematology Basic - Last 36 hours (19) Result Date/Time WBC 11.4 (H) 06/16 07:07 RBC 4.42 06/16 07:07 Hgb 13.0 06/16 07:07 Hct 39.7 06/16 07:07 MCV 89.9 06/16 07:07 MCH 29.5 06/16 07:07 MCHC 32.8 06/16 07:07 RDW 14.9 (H) 06/16 07:07 Platelet Count 284 06/16 07:07 Neutrophil Rel 90.9 06/16 07:07 Lymphocyte Rel 6.6 06/16 07:07 Monocyte Rel 2.4 06/16 07:07 Eosinophil Rel 0.0 06/16 07:07 Basophil Rel 0.1 06/16 07:07 Neutrophil Abs 10.30 (H) 06/16 07:07 Lymphocyte Abs 0.70 (L) 06/16 07:07 Monocyte Abs 0.30 06/16 07:07 Eosinophil Abs 0.00 06/16 07:07 Basophil Abs 0.00 06/16 07:07 Chemistry Comprehensive - Last 36 hours (17) Result Date/time Sodium Lvl 140 06/16 07:07 Potassium Lvl 4.6 06/16 07:07 Chloride Lvl 102 06/16 07:07 CO2 30 06/16 07:07 Glucose Level 108 (H) 06/16 07:07 BUN 11 06/16 07:07 Creatinine Lvl 0.65 06/16 07:07 AGAP 8 (L) 07/24 07:07 Total Protein 6.6 06/16 07:07 Albumin Lvl 3.8 06/16 07:07 Calcium Lvl 9.0 06/16 07:07 Alk Phos 59 06/16 07:07 AST 10 (L) 06/16 07:07 ALT 12 06/16 07:07 Magnesium Lvl 2.40 06/16 07:07 Phosphate 3.5 06/16 07:07 Bili Total 0.3 06/16 07:07 RADIOLOGY/DIAGNOSTIC RESULTS: Radiology - Last 36 hours (1) XR Chest 1 View Portable (06/15 14:21) FINDINGS: The heart is prominent. Aorta is ectatic and the arch is calcified. Hazy opacification is present within the lateral aspect of the right base. Linear opacifications present in the right base. Remote right-sided rib fractures. The left lung is clear. No pneumothorax. No definite pleural effusion. Pulmonary vessels are not engorged. IMPRESSION: 1. Cannot exclude developing airspace disease in the right lower lobe. Superimposed right basilar atelectasis. Reading site: [facility] Diagnostics - Non-Radiology (1) ED EKG-[place]er[place] (06/15 14:05) Please review the final report in the patient???s chart. ASSESSMENT/PLAN: Hypoxia (R09.02) Orders: albuterol-ipratropium, 3 mL, Aerosol Solution, Nebulizer, Q6hr, PRN, For: Shortness of Breath and/or Wheezing, Start date 06/15/2025 17:21:00 EDT amLODIPine, 7.5 mg = 3 tab, Tab, Oral, Daily, Start date 06/16/2025 09:00:00 EDT apixaban, 5 mg = 1 tab, Tab, Oral, BID, Indication: DVT/PE - treatment, 06/15/2025 21:00:00 EDT atorvastatin, 20 mg = 1 tab, Tab, Oral, Daily, Start date 06/15/2025 21:00:00 EDT baclofen, 10 mg = 1 tab, Tab, Oral, Q Bedtime, Start date 06/15/2025 21:00:00 EDT buPROPion, 150 mg = 1 tab, Tab XL, Oral, Q24hr, Start date 06/16/2025 09:00:00 EDT cefTRIAXone, 1 g, Injection, IV Piggyback, [id number], Indication: Pneumonia ??? Aspiration, 06/15/2025 18:00:00 EDT clonazePAM, 0.5 mg = 1 tab, Tab, Oral, TID, Start date 06/15/2025 20:00:00 EDT doxycycline, 100 mg = 1 cap, Cap, Oral, Q12hr, Indication: Empiric Coverage; unknown source, 06/15/2025 21:00:00 EDT gabapentin, 300 mg = 1 cap, Cap, Oral, TID, Start date 06/15/2025 21:00:00 EDT lisinopril, 40 mg = 2 tab, Tab, Oral, Daily, Start date 06/16/2025 09:00:00 EDT methylphenidate, 10 mg = 1 tab, Tab, Oral, TID AC, Start date 06/15/2025 18:00:00 EDT multivitamin, 1 tab, Tab, Oral, Daily, Start date 06/16/2025 09:00:00 EDT nicotine, 1 patch, Patch, TransDermal, Daily, Start date 06/16/2025 09:00:00 EDT pantoprazole, 40 mg = 1 tab, Tab EC, Oral, Daily AC, Start date 06/16/2025 06:30:00 EDT predniSONE, 40 mg = 2 tab, Tab, Oral, Daily, Start date 06/15/2025 19:20:00 EDT traZODONE, 150 mg = 3 tab, Tab, Oral, Q Bedtime, Start date 06/15/2025 21:00:00 EDT Cardiac Diet D Dimer Diabetic Diet Intake and Output Legionella Antigen Urine Mycoplasma Pneumonia Antibody IgG. Mycoplasma Pneumonia Antibody IgM. Notify Care Team Notify Physician/Provider Vital Signs Regular Diet Routine Neurological Checks Routine Pulse Ox Spot Check Nursing Routine Vital Signs Sputum Culture Strep Pneumonia Urine Telemetry Class I (72 hrs) This is a 59-year-old female with a past medical history significant for schizoaffective disorder, diverticulosis, chronic sigmoid colitis, ISAIAS not on home CPAP, COPD on 2 L of oxygen at home during the night, hypertension, hyperlipidemia, fibromyalgia, history of pulmonary embolism, GERD, peripheral neuropathy, myofascial pain syndrome, substance use disorder, right breast cancer status post lumpectomy comes to the hospital after experiencing respiratory symptoms was found to have AHRF likely COPD exacerbation. #AHRF likely community acquired pneumonia vs aspiration -The patient presented to the ED due to worsening of SOB, productive cough since week ago and acute hypoxia down to 70% at home. -Upon arrival to the ED the patient desalt to 80s on 2L NC (baseline), therefore the patient was on 4L NC. -Xray showed possible consolidation in the right lower lobe. Physical exam mild rales, unclear if she has wheezings. -The patient has received one dose Solu-Medrol 80 mg IV doxycycline 100 mg. -Unclear at this point if the patient is having COPD exacerbation, although the patient might have some pneumonia in the xray. Plan: -Follow [facility] -Continue with Ceftriaxone 1 gram and doxycycline 100 mg BID. -Continue with prednisone 40 mg daily. -Wean off the O2 as tolerated. -Follow pulmonology -Can consider inhaler if the patient really wheezing. #schizoaffective disorder #diverticulosis #chronic sigmoid colitis #ISAIAS not on home CPAP #COPD on 2 L of oxygen at home during the night #hypertension #hyperlipidemia #fibromyalgia #history of pulmonary embolism #GERD #peripheral neuropathy #myofascial pain syndrome #substance use disorder #right breast cancer status post lumpectomy - We will switch his omeprazole to pantoprazole given our current formulary - Continue the rest of her home medications - Resume Methadone dose (110mg) after confirmation with [facility]. Checklist Fluid: [none] Diet: [cardiac diet] DVT prophylaxis: [Eliquis 5 mg BID] GI prophylaxis: [Pantoprazole 40 PO daily] Code status: Full code HCP: Petey Cadet, son, Disposition: [med/surg] SARS COV 2: Negative on admission. Denied sick contacts, or upper resp symptoms. Discussed with Dr. Holley Hassan PGY-3. ATTESTATION: I attest that I personally saw and examined the patient. I have reviewed and agree with the resident's findings, including all diagnostic interpretations and treatment plan as written made modifications to the Resident`s findings and plans of care as documented. I confirmed that the patient's Advance Care Plan is present, code status is documented, or surrogate decision maker is listed in the patient??s medical record. I have utilized all available immediate resources to obtain, update, or review the patient??s current medications (including all prescriptions, [id number] products, herbals, cannabis/cannabidiol products, and vitamin/mineral/dietary (nutritional) supplements). Electronically Signed On 06/16/25 11:40 EDT CHEN HASSAN MD Electronically Signed On 06/16/25 13:41 EDT HOLLEY REYNA MD Patient Ordering physician: , Other providers: ALEXIA MCCOY, ELIAZAR DORAN, ALEXIA MCCOY, BRY CROWE UNAVAILABLE PCP INFO, , , documented in this encounter Consult Notes * Bry Crowe MD - 06/16/2025 12:19 PM EDT Consultation Reports DATE/TIME NOTE CREATED: 06/16/2025 12:19:19 CHIEF COMPLAINT: SOB HISTORY OF PRESENT ILLNESS: I was asked to see Mrs. Cadet because of a recurrent COPD exacerbation. Mrs. Cadet is a 59-year-old female who was recently admitted to [facility] from 01 June 2025 to 03 June 2025 after an endoscopy with hypoxemic respiratory failure. She was found to have a pneumonia and COPD exacerbation. She was discharged from the hospital with cefpodoxime and azithromycin as well as a prednisone taper. She states that she was feeling well, but then 10 days later she started feeling short of breath again. She apparently measured her pulse oximetry, and it had gone down to the 70s on 2 L nasal cannula. In the ED, she was found to be saturating 90% on 4 L nasal cannula. She uses oxygen 24 hours daily at home, 2 L by nasal cannula. She sees Dr. Kimball at [facility]. At baseline she walks with a walker. She rarely climbs stairs. She has chronic dyspnea on exertion. She is able to walk down the hallway before having to stop. She sleeps on 1 pillow and has no orthopnea or PND. Her legs are chronically swollen. She has a chronic cough, productive of yellow sputum. No hemoptysis. She wheezes persistently. No chest tightness. She has diffuse body pain, including her chest. This is due to fibromyalgia. She has no pleuritic chest pain. She has had no palpitations or syncopal episodes. She denies any recent fever chills or night sweats. Her weight has been stable. She does describe environmental allergies. She gets hayfever in the spring. She does not suffer from conjunctivitis or eczema/urticaria. She states that she has previously been diagnosed with asthma. She has no current rhinorrhea, nasal congestion or sinus pain or pressure. No postnasal drip. She does not suffer from heartburn. She has a history of obstructive sleep apnea, but does not use CPAP. She continues to smoke 5 to 6 cigarettes a day. REVIEW OF SYSTEMS: Review of Systems: CONST: [No fever, fatigue, or weight changes.] EYES: [No recent vision problems.] ENT: [No congestion, ear pain, or sore throat.] C/V: [No chest pain, palpitations, or edema.] RESP: [Shortness of breath cough and wheezing.] GI: [No abdominal pain, nausea, vomiting, constipation, or diarrhea.] : [No incontinence or dysuria.] M/S: [No joint pain or swelling.] SKIN: [No rash.] NEURO: [No headache, focal numbness or weakness, dizziness, or seizures.] PSYCH: [No depression or anxiety.] ENDO: [No thyroid problems. No polyuria or polydipsia.] HEME: [No abnormal bruising or bleeding.] LYMPH: [No swollen glands.] IMMUN: [No itching or hives.] PHYSICAL EXAM: VITAL SIGNS: Vital Signs: Last Charted: 24 Hr Minimum: 24 Hr Maximum: Temperature Oral 36.5 (06/16 05:00) 36.5 (06/16 05:00) 36.5 (06/15 14:01) Heart Rate 62 (06/16 07:33) 60 (06/16 05:00) 123 (H) (06/15 23:06) Cardiac Rhythm Normal sin (06/16 05:06) Respiratory Rate 16 (06/16 07:33) 16 (06/16 07:33) 28 (H) (06/15 23:06) Systolic BP 127 (06/16 05:00) 115 (06/15 19:21) 139 (06/15 23:05) Diastolic BP 69 (06/16 05:00) 69 (06/15 19:21) 108 (H) (06/15 23:05) SpO2/Pulse Oximetry 96 (06/16 07:33) 85 (06/15 15:00) 96 (06/15 14:46) Oxygen Flow 4 (06/16 07:33) 2 (06/15 15:00) 4 (06/15 15:09) Dosing BMI 34 (06/15 18:22) 34 (06/15 18:22) 35 (06/15 14:01) BMI 34 (06/15 18:24) 34 (06/15 18:24) 34 (06/15 18:24) Physical Examination: GENERAL:[No acute distress, non-toxic appearing. Obese.] HEAD: [Normal with no signs of head trauma.] EYES: [PERRLA, EOMI, conjunctiva normal, no discharge.] ENT: [Hearing grossly intact, normal oropharynx.] NECK: [Supple, no tenderness, no lymphadenopathy, no masses, no thyromegaly, no bruits, no JVD.] LUNGS: [Diminished breath sounds bilaterally. Scattered rhonchi. No wheezes or rales.] HEART: [Regular rate and rhythm. Normal S1 and S2, without murmurs, rub or gallop.] VASC: [No edema. Peripheral pulses normal and equal in all extremities.] ABD: [Bowel sounds normal, soft, nontender, no masses, no organomegaly.] : [Normal] LYMPH: [No lymphadenopathy noted.] EXT: [Normal range of motion, no joint swelling, no clubbing, no cyanosis.] SKIN: [No rashes or lesions.] NEURO: [Alert and oriented x 3. Normal affect. Cranial nerves intact. No focal sensory or strength deficits. Reflexes symmetric.] ASSESSMENT/PLAN: Hypoxia (R09.02) Assessment and plan: 59-year-old female with: 1. Recurrent hypoxemic respiratory failure She was just recently admitted to [facility] and treated for a bibasilar pneumonia as well as COPD exacerbation. Her chest x-ray continues to show some basilar airspace disease. This may be residual from her pneumonia earlier this month. Her procalcitonin is low, arguing against recurrent infection. She does have underlying COPD. She has chronic hypercapnia. However, her CT chest from 01 June fails to show much emphysematous changes. She seems to be too hypoxemic for her age and her degree of COPD. Her CT chest does demonstrate an enlarged pulmonary artery. Please check a transthoracic echo, looking for pulmonary hypertension. Continue to maintain O2 saturations greater than 90% at all times. I am not too concerned that she desaturates when she exerts herself. Pulmonary embolism is unlikely as she takes Eliquis. Her CTPA earlier this month was negative. Continue prednisone 40 mg daily Continue Foradil and budesonide nebs. Continue DuoNebs as needed. Doxycycline can be discontinued. We need to come up with a strategy to prevent frequent hospitalizations in the future. On discharge, she should discontinue Breo Ellipta. Instead, she should be prescribed Breztri, to use 2 puffs twice daily. She can continue using albuterol as needed. I counseled her regarding smoking cessation. It is imperative for her to completely quit smoking. She appears euvolemic. She does not require any diuretics. On discharge she will follow-up with her deaf/hard of hearing specialist, Dr. Kimball. Thank you for the consultation. I will continue to follow along with you. PROBLEM LIST/PAST MEDICAL HISTORY: Ongoing ADHD (Patient Stated) Anxiety and depression (Patient Stated) Arthritis (Patient Stated) Breast cancer (Patient Stated) COPD (chronic obstructive pulmonary disease) (Patient Stated) Fibromyalgia (Patient Stated) GERD (gastroesophageal reflux disease) (Patient Stated) HLD (hyperlipidemia) (Patient Stated) HTN (hypertension) (Patient Stated) IBS (irritable bowel syndrome) (Patient Stated) Myofascial pain syndrome (Patient Stated) OAB (overactive bladder) (Patient Stated) ISAIAS (obstructive sleep apnea) (Patient Stated) PE (pulmonary thromboembolism) (Patient Stated) PTSD (post-traumatic stress disorder) (Patient Stated) Vertigo (Patient Stated) Historical No qualifying data PROCEDURE/SURGICAL HISTORY: Foot Mastectomy SOCIAL HISTORY: Alcohol Use: Denies use., 05/31/2025 Home/Environment Lives with Alone. Human Trafficking Red Flags None., 05/31/2025 Smoking/Tobacco Use Smoking tobacco use: Current every day smoker. per day 4., 06/15/2025 Substance Abuse Use: Denies use., 05/31/2025 She is a current everyday smoker. She smokes 6 cigarettes/day. She used to smoke a pack of cigarettes per day. She does not drink alcohol. She does have a history of prior substance abuse. She currently takes methadone. She is currently on disability. No known occupational exposures. She has no pets or birds at home, and has had no recent travel FAMILY HISTORY: Noncontributory MEDICATIONS: Medications (24) Active Scheduled: (21) amLODIPine 7.5 mg = 3 tab, Oral, Daily apixaban 5 mg = 1 tab, Oral, BID atorvastatin 20 mg = 1 tab, Oral, Daily baclofen 10 mg = 1 tab, Oral, Q Bedtime budesonide (Pulmicort Respules) 0.25 mg = 2 mL, Nebulizer, RT Q12hr buPROPion 150 mg = 1 tab, Oral, Q24hr cefTRIAXone 1 g, IV Piggyback, [id number] clonazePAM 0.5 mg = 1 tab, Oral, TID doxycycline 100 mg = 1 cap, Oral, Q12hr formoterol (Perforomist 20 mcg/2 mL inhalation solution) 20 mcg = 2 mL, Nebulizer, RT Q12hr gabapentin 300 mg = 1 cap, Oral, TID lisinopril 40 mg = 2 tab, Oral, Daily loratadine (Claritin) 10 mg = 1 tab, Oral, Daily methylphenidate 10 mg = 1 tab, Oral, TID AC multivitamin (Multivitamins oral tablet) 1 tab, Oral, Daily nicotine (nicotine 7 mg/24 hr patch, extended release) 1 patch, TransDermal, Daily OLANZapine 15 mg = 1.5 tab, Oral, Q Bedtime pantoprazole (Protonix) 40 mg = 1 tab, Oral, Daily AC Patch Removal 1 patch, TransDermal, Once Scheduled predniSONE 40 mg = 2 tab, Oral, Daily traZODONE (traZODone) 150 mg = 3 tab, Oral, Q Bedtime Continuous: (0) PRN: (3) albuterol-ipratropium (albuterol-ipratropium inhalation solution) 3 mL, Nebulizer, Q6hr benzocaine-menthol topical (Cepacol Sore Throat) 1 lozenge, Mucous Memb, Q4hr melatonin 3 mg = 1 tab, Oral, Q Bedtime ALLERGIES: Allergies (1) Active Reaction NKA None Documented IMMUNIZATIONS: Vaccine Date Status influenza virus vaccine, inactivated 01/11/2025 Given LAB RESULTS: Hematology Basic - Last 36 hours (19) Result Date/Time WBC 11.4 (H) 06/16 07:07 RBC 4.42 06/16 07:07 Hgb 13.0 06/16 07:07 Hct 39.7 06/16 07:07 MCV 89.9 06/16 07:07 MCH 29.5 06/16 07:07 MCHC 32.8 06/16 07:07 RDW 14.9 (H) 06/16 07:07 Platelet Count 284 06/16 07:07 Neutrophil Rel 90.9 06/16 07:07 Lymphocyte Rel 6.6 06/16 07:07 Monocyte Rel 2.4 06/16 07:07 Eosinophil Rel 0.0 06/16 07:07 Basophil Rel 0.1 06/16 07:07 Neutrophil Abs 10.30 (H) 06/16 07:07 Lymphocyte Abs 0.70 (L) 06/16 07:07 Monocyte Abs 0.30 06/16 07:07 Eosinophil Abs 0.00 06/16 07:07 Basophil Abs 0.00 06/16 07:07 Chemistry Comprehensive - Last 36 hours (17) Result Date/time Sodium Lvl 140 06/16 07:07 Potassium Lvl 4.6 06/16 07:07 Chloride Lvl 102 06/16 07:07 CO2 30 06/16 07:07 Glucose Level 108 (H) 06/16 07:07 BUN 11 06/16 07:07 Creatinine Lvl 0.65 06/16 07:07 AGAP 8 (L) 06/16 07:07 Total Protein 6.6 06/16 07:07 Albumin Lvl 3.8 06/16 07:07 Calcium Lvl 9.0 06/16 07:07 Alk Phos 59 06/16 07:07 AST 10 (L) 06/16 07:07 ALT 12 06/16 07:07 Magnesium Lvl 2.40 06/16 07:07 Phosphate 3.5 06/16 07:07 Bili Total 0.3 06/16 07:07 RADIOLOGY/DIAGNOSTIC RESULTS: Radiology - Last 36 hours (1) XR Chest 1 View Portable (06/15 14:21) FINDINGS: The heart is prominent. Aorta is ectatic and the arch is calcified. Hazy opacification is present within the lateral aspect of the right base. Linear opacifications present in the right base. Remote right-sided rib fractures. The left lung is clear. No pneumothorax. No definite pleural effusion. Pulmonary vessels are not engorged. IMPRESSION: 1. Cannot exclude developing airspace disease in the right lower lobe. Superimposed right basilar atelectasis. Reading site: [facility] Diagnostics - Non-Radiology (1) ED EKG-CernerCV (06/15 14:05) Please review the final report in the patient???s chart. Patient Ordering physician: , Other providers: ALEXIA MCCOY, ELIAZAR DORAN, ALEXIA MCCOY, BRY CROWE UNAVAILABLE PCP INFO, , , documented in this encounter Plan of Treatment Not on file documented as of this encounter Visit Diagnoses Not on filedocumented in this encounter Care Teams Biochemical Development Engineer Relationship Specialty Start Date End Date Gissel Worley MD [address] [place] [id number] PCP - General Senior Recruiter 09/10/23 documented as of this encounter
--- OUTSIDE RECORDS SUMMARY | 2025-09-09 21:43 | XMS_ITS | Encounter Summary ---
Author Organization [facility] iaaze Address [address] [place] [address] Care Team Providers Care Telephone Station Repairer Name Role Phone Gilbert Espinoza Primary Care Provider Unavaila ble Add, Provider Not In System Unavailable Unav ailable Add, Provider Not In System Primary Care Provide r Unavailable Reason for Visit * Reason Onset Date Comments Referral 01/06/2017 [facility] Rheumatology referral request Encounter Details Date Type Department Care Team (Late st Contact Info) Description 01/06/[address] [facility] [address] [place] [address] Babita Hopkins Inactive Referral ([facility] Rheumatology referral request) Social History Tobacco Use Types [...] on filedocumented in this encounter Care Teams Telephone Station Repairer Relationship Specialty Start Date End Date Gilbert Espinoza PCP - General Internal Medicine 03/05/16 07/06/18 Add, Provider Not In System PCP - Insurance PCP 04/23/16 Add, Provider Not In System PCP - General Internal Medicine 07/07/18 documented as of this encounter
--- OUTSIDE RECORDS SUMMARY | 2025-09-09 21:43 | XMS_ITS | Encounter Summary ---
Author Organization [facility] iamte Address [address] [place] [address] Care Team Providers Care Memorial Marker Designer Name Role Phone Gilbert Espinoza Primary Care Provider Unavaila ble Add, Provider Not In System Unavailable Unav ailable Add, Provider Not In System Primary Care Provide r Unavailable Reason for Visit * Reason Onset Date Comments Med Question 09/20/2016 Encounter Details Date Type Department Care Team (Late st Contact Info) Description 09/20/2016 Telephone [facility] Primary Care - [facility] [address] [place] [address] Gilbert Espinoza Med Question Social History Tobacco Use Types Packs/Day Years Used Date Smoking Tobacco: Every Day Cigarettes Smokeless Tobacco: Never Comments:quit 3 days ago ( 08/08/16) Alcohol Use Standard Drinks/Week Comments No 0 (1 standard drink = 0.6 oz pur e alcohol) Comments No Sex and Gender Information Value Date Recorded Sex Assigned at Not on file Legal Sex Female 5:16 PM EDT Gender Identity Not on file Sexual Orientation Not on file documented as of this encounter Miscellaneous Notes * Telephone Encounter - Matthew Radha. - 10/08/2016 3:34 PM EST ----- Message from [place] sent at 10/08/2016 2:55 PM EST ----- Regarding: VN requests script for a commode Shawna Cadet [id number], 51 year old, female Calls today: VNA/Intermediate/Other Agency: non urgent call Name of VNA [facility] Name of person calling Elana Pimentel Reason for call - requests a script for a COMMODE Return phone number [phone] FAX NUMBER: [phone] NOTE: Urgent calls are a warm handoff Patient's language of care: Colombian Patient does not need an crown attacher. Patient's PCP: Gilbert Espinoza MD documented in this encounter Plan of Treatment Not on file documented as of this encounter Visit Diagnoses Not on filedocumented in this encounter Care Teams Memorial Marker Designer Relationship Specialty Start Date End Date Gilbert Espinoza PCP - General Internal Medicine 03/05/16 07/06/18 Add, Provider Not In System PCP - Insurance PCP 04/23/16 Add, Provider Not In System PCP - General Internal Medicine 07/07/18 documented as of this encounter
--- OUTSIDE RECORDS SUMMARY | 2025-09-09 21:43 | XMS_ITS | Clinical Summary ---
Author Organization [facility] iamse Address [address] [place] [address] Care Team Providers Care Mcat Instructor Name Role Phone Add, Provider Not In System Unavailable Unav ailable Add, Provider Not In System Primary Care Provide r Unavailable Allergies Active Allergy Reactions Criticality Noted Date Comments Nsaids Other (See Comments) 11/14/2014 ? Meningitis vs fibromyalgia flare up Sulfa Antibiotics Other (See Comments) 05/22/20 16 unknown Medications clonazePAM (KLONOPIN) 1 MG tablet Take 1 mg by mouth 3 (three) times daily as needed for Anxiety (prescribed by Dr Ariza) Active polyethylene glycol (GLYCOLAX/MIRALAX) packet Take 1 packet by mouth daily 1 Package 08/08/20 16 Active docusate sodium (COLACE) 100 MG capsule Take 1 capsule by mouth 3 (three) times daily 90 capsule 11 08/08/20 16 Active cloNIDine (CATAPRES) 0.1 MG tablet TAKE 1 TABLET BY MOUTH 2 (TWO) TIMES DAILY 60 tablet 2 05/26/20 17 Active haloperidol (HALDOL) 10 MG tablet Take 10 mg by mouth 2 (two) times daily 06/25/20 17 Active hydrocortisone 1 % cream Apply 1 Unspecified topically 2 (two) times daily 06/25/20 17 Active sennosides (SENOKOT) 8.6 MG tablet Take 1 tablet by mouth nightly 06/25/20 17 Active simethicone (MYLICON) 80 MG chewable tablet Take 80 mg by mouth every 6 (six) hours as needed for Gas pain 06/25/20 17 Active cholecalciferol (VITAMIN D3) 2000 UNIT tabletIndications: Fibromyalgia,Chron ic pain syndrome Take 1 tablet by mouth daily 30 tablet 11 08/07/20 17 Active methylphenidate (RITALIN) 20 MG tablet Take 20 mg by mouth 3 (three) times daily Per Dr Stormy Murry Active traZODone (DESYREL) 100 MG tablet Take 2 tablets by mouth nightly 60 tablet 5 01/02/20 18 Active mirtazapine (REMERON) 30 MG tabletIndications: Mood disorder (HCC) Take 1 tablet by mouth nightly 30 tablet 02/13/20 18 Active atorvastatin (LIPITOR) 80 MG tabletIndications: Hyperlipidemia, unspecified hyperlipidemia type Take 1 tablet by mouth nightly 30 tablet 02/13/20 18 Active fluticasone (FLOVENT HFA) 110 MCG/ACT inhalerIndications :Centrilobular emphysema (HCC) Inhale 2 puffs into the lungs 2 (two) times daily 1 Inhaler 5 02/13/20 18 Active methadone (DOLOPHINE) 10 mg/mL solution Take 10 mLs by mouth daily Active amitriptyline (ELAVIL) 10 MG tabletIndications: Fibromyalgia Take 2 tablets nightly, increase up to 4 tablets nightly if no effect 90 tablet 05/04/20 18 Active gabapentin (NEURONTIN) 250 MG/5ML solutionIndication s:Peripheral polyneuropathy TAKE ONE TEASPOONFUL BY MOUTH 4 TIMES DAILY 600 mL 1 05/04/20 18 Active lisinopril (PRINIVIL,ZESTRIL) 10 MG tabletIndications: HTN, goal below 140/90 TAKE 1 TABLET BY MOUTH ONCE DAILY 30 tablet 03/11/20 19 Active Active Problems Patient Care Coordination No te Formatting of this note migh t be different from the original. Lynda Tate, 04/10/2015, 2:26 PM Primary nurse is Sohan Mon cell [phone] - she will forward name of psychiatric providers to me. Psychiatry care is in [place] - Dr Ariza is listed in [facility] as providing klonopin rx. Therapist is Stormy Galvan; [address] [place] [address] . Received Home Health certification and Plan of Care - Need to clarify medications - the following meds are on VNA list but not in EPIC: Clonidine 0.1 mg daily. Fluconazole 150 mg weekly. Gabapentin 800 mg TID. Klonopin wafers 0.5 mg TID Lamotrigine 25 mg mg daily Methadone 75 mg daily Promethazine 50 mg TID Seroquel 50 mg nightly Tizanidine 4 mg nightly. Dose of trazodone on VNA list is 100 mg - instead of 200 as in EPIC. Problem Noted Date Diagnosed Date Centrilobular emphysema 02/12/2018 Overview (02/12/2018): On 2L O2 oxygen 24 hours a day (including overnight) Since Dec 2017 Gilbert Espinoza MD, 02/12/2018, 8:34 AM Umbilical hernia without obstruction and without gangrene 10/23/2015 Mood disorder 10/23/2015 Obesity, Class III, BMI 40-49.9 (morbid obesity) 10/23/2015 Overview (02/12/2018): Body mass index is 47.65 kg/m . Gilbert Espinoza MD, 02/12/2018, 9:00 AM Methadone maintenance therapy patient 02/28/2015 Overview (02/28/2015): 02/2015 - [facility] - monitors patient at home. [phone]; fax [phone] Essential hypertension 02/13/2015 Chronic pain 12/12/2014 Overview (02/16/2018): In the setting of fibromyalgia/myofascial pain syndrome Was prescribed opiates by Dr Alonso - rheumatology Pain evaluation by [facility] fall 2013 - Not recommended for opiate thearpy Referral to [facility] for consideration of trigger point injections of back Fibromyalgia and Myofascial Pain Syndrome 2014 Overview (02/12/2018): Previously seen by Answering Service Telephone Operator -Dr Alonso - for trigger point injections. On methadone maintenance therapy Panic disorder with agoraphobia 12/08/2014 Overview (12/23/2014): [facility] - plan is to connect her with psychiatrist at [facility] in [place]. [phone] x [phone].; . 12/23/14 Seen by Guillermo, psych fellow and Jeffrey. This is a 49 years old woman with panic disorder with agoraphobia, fibromyalgia, tobacco use disorder, hep C seen as a consult for further management of her panic symptoms. Currently on lexapro, lamotrigine, clonazepam. Patient started seeing a in home therapist (sees therapist q 2 weeks) last month and a psychiatrist this month (will see him monthly). Based on history gathered likely meet criteria for panic disorder with agoraphobia. In the differential substance induced anxiety disorder. Patient likely would benefit from more therapy visit. We will contact patient psychiatrist for care coordination and update him about this visit. Not manic, not psychotic, no SI/HI DX: Panic disorder with agoraphobia, tobacco use disorder. Rule substance induced mood disorder PLAN: 1.We will communicate with patient's psychiatrist 2- Continue to monitor symptoms 3- Discussed with patient if feeling suicidal/homocidal or worsening symptoms to go to nearest ER or call 911 4- Encourage to follow up with your psychiatrist/therapist 5. Return care to PCP. 6. Patient was seen and discussed with Dr. Murphy who agrees with the plan Shae Li MD Psychosomatic Medicine Service (Consultation-Liaison Service) Migraine headache 12/08/2014 Peripheral neuropathy 12/08/2014 Overview (12/08/2014): Pain bottom of foot - hx of falls - Herpes zoster without mention of complication Overview (12/08/2014): Two episodes Tobacco use disorder 11/14/2014 Overview (08/08/2016): Attempted to quit Jul 2016 Gilbert Espinoza MD, 08/08/2016, 11:07 PM Unspecified viral hepatitis C without hepatic co ma 11/14/2014 Overview (11/14/2014): Positive for Hep C on 10/06/14 - labs obtained from methadone clinic [place] PA-C, 11/14/2014, 7:11 PM Candidiasis of vulva and vagina 11/14/2014 Overview (11/14/2014): Recurrent sharla infection, currently on fluconazole po once/week [place] PA-C, 11/14/2014, 7:11 PM Resolved Problems Problem Noted Date Diagnosed Date Resolved Date Suicidal ideation 06/02/2017 02/12/2018 Overview (06/02/2017): Currently inpatient at [facility] 11 [place] PA-C, 06/02/2017, 6:12 PM Falls frequently 12/05/2016 02/12/2018 Generalized abdominal pain 10/23/2015 0 02/12/2018 DP-CARE COORDINATION PROGRAM PARTICIPANT 11/16/2009 01/22/2010 Overview (01/22/2010): Inactivated in Care Coordination. Not seen by PCP (LG) DPH enrollment Immunizations Immunization Administration Dates Next Due HEP B ADULT 3 DOSE 20 and > 12/29/2014 Tdap 09/14/2013 Family History Medical History Relation Comments Diabetes Father 1 Heart Father 2 s/p CT multiple stents - started age 55 Cancer - Other Mother 1 throat cancer (s moker) Cancer - Other Mother 2 stomach cancer Cancer - Other Mother 3 vaginal cancer Diabetes Paternal Aunt 1 Cancer - Other Paternal Aunt 2 spine cancer - m etastasized. Psychiatric Illness Sister 1 bipolar Alcohol/Drug Abuse Sister 2 heroin Relation Status Comments Father 1 Father 2 Mother 1 Mother 2 Mother 3 Paternal Aunt 1 Paternal Aunt 2 Sister 1 Sister 2 Social History Tobacco Use Types Packs/Day Years Used Date Smoking Tobacco: Some Days Cigarettes Smokeless Tobacco: Never Tobacco Cessation:Ready to Q uit: Yes; Counseling Given: Yes Comments:quit 3 days ago ( 08/08/16) ; intermittent (10/03/16) Alcohol Use Standard Drinks/Week Comments No 0 (1 standard drink = 0.6 oz pur e alcohol) Comments No Sex and Gender Information Value Date Recorded Sex Assigned at Not on file Legal Sex Female 5:16 PM EDT Gender Identity Not on file Sexual Orientation Not on file Last Filed Vital Signs Vital Sign Reading Time Taken Comments Blood Pressure 121/86 05/04/2018 10:25 AM EDT Pulse 84 05/04/2018 10:25 AM EDT Temperature 36.7 C (98 F) 05/04/2018 10:25 AM EDT Respiratory Rate 20 03/04/2016 2:59 PM EDT Oxygen Saturation 92% 05/04/2018 10:25 AM EDT Inhaled Oxygen Concentration - - Weight 122 kg (269 lb) 02/12/2018 8:11 AM EDT Height 160 cm (5' 3 ) 10/03/2016 2:09 PM EST Body Mass Index 47.65 10/03/2016 2:09 PM EST Plan of Treatment Health Maintenance Due Date Last Done Comments COLONOSCOPY 1966 HIV SCREENING 1979 COLON CA SCREENING FLEX SIG EVERY 5 YRS 1984 PNEUMOCOCCAL VACCINE SERIES (< 65) (1 of 2 - PCV) 1985 PHYSICAL EXAM 1988 Colorectal Cancer Screening 2011 FECAL OCCULT BLOOD AGE 45-75 2011 FIT- DNA (Cologuard) 2011 ZOSTER VACCINE (1 of 2) 2016 HEPATITIS B VACCINE SERIES (2 of 3 - 19+ 3-dose series) 07/17/2017 06/19/2017, 06/19/2017, 12/29/2014 AWQ Questionnaire 08/07/2018 08/07/2017, (Completed at [facility]), 03/26/2016, Additional history exists MAMMOGRAPHY 09/05/2018 09/05/2016 (Discussed/Declined (reset due date to next due date per frequency)), 03/18/2003 PAP SMEAR 10/21/2018 10/21/2015, 10/05/2003 HEALTH CARE PROXY 12/08/2019 12/08/2014 Cervical Cancer Screening 10/21/2020 HPV SCREENING 10/21/2020 10/21/2015 LIPID SCREENING 02/12/2023 02/12/2018 TETANUS VACCINE (2 - Td or Tdap) 09/14/2023 09/14/2013 COVID-19 Vaccine (3 - 2025-26 season) 2025 02/19/2022, 09/15/2021 INFLUENZA VACCINE (#1) 2025 3, 11/15/2022, 08/11/2020, Additional history exists HEP C SCREEN Completed 08/18/2015, 08/18/2015 MENINGOCOCCAL B VACCINE SERIES Aged Out No longer eligible based on patient's age to complete this topic Procedures Procedure Name Priority Date/Time Associated Diagnosis Comments LIPID PANEL Routine 02/12/2018 9:46 AM EDT Screening for cholesterol level HUMAN PAPILLOMAVIRUS (HPV) Routine 10/21/2015 3:08 PM EST Screening for cervical cancer CYTOPATH, C/V, THIN LAYER Routine 10/21/2015 12:00 AM EST Screening for cervical cancer HEPATITIS C VIRUS GENOTYPING Routine 08/18/2015 12:18 PM EDT Unspecified viral hepatitis C without hepatic coma Epigastric abdominal pain MA SCREENING MAMMO BILATERAL WITH CAD Routine 03/18/2003 11:22 AM EDT from Last 3 Months or Most Recently Relevant to Health Maintenance Results * (ABNORMAL) LIPID PANEL (02/12/2018 9:46 AM EDT) Cholesterol 168 0 - 239 mg/dL [facility] Comment: The ATP Classification of Cholesterol: <200 Desirable 200-239 Borderline High >ms=690 High TRIGLYCERIDES 154(H) 0 - 150 mg/dL [facility] HIGH DENSITY LIPOPROTEIN 62 40- mg/dL [facility] LOW DENSITY LIPOPROTEIN DIRECT 91 0 - 189 mg/dL [facility] Comment: The ATP III Classification of LDL Cholesterol: < 100 Optimal 100-129 Near Optimal 130-159 Borderline High 160-189 High >se=511 Very High Patients with CHD or CHD risk equivalents (10 year risk >20%)should have an LDL goal of <100. Patients with 2 or more risk factors (10 year risk < or = 20%)should have an LDL goal of <130. Patients with 0-1 risk factor should have an LDL goal of <160. For further information consult the complete guidelines at: https://www.nhlbi.nih.gov/guidelines/cholesterol 02/12/2018 9:46 AM EDT 02/12/2018 3:45 PM EDT Gilbert Espinoza LABORATORY Final Result Performing Organization Address City/[facility]/[place] [address], [place] * HUMAN PAPILLOMAVIRUS (10/21/2015 3:08 PM EST) HUMAN PAPILLOMAVIRUS Negative for HPV High Risk mRNA (HPV types: 16,18,31,33, 35,39,45,51, 52,56,58,59, 66,68) [facility] THINPREP CYTOLOGY TECHNIQUE / Unknown 10/21/2015 3:08 PM EST 10/23/2015 7:24 AM EST Sanjuanita Garner MD MICROBIOLOGY Final Result Performing Organization Address [facility] [place] [address], [place] * CYTP CERV/VAG AUTO THIN LAYER PREP MNL SCREEN (10/21/2015 12:00 AM EST) Pathologist [facility] PATHOLOGY REPORT SPEC #: [id number] RECD: 10/21/15 STATUS: ISABEL SP TYPE: ANSWERING SERVICE TELEPHONE OPERATOR JULIANA: 10/21/15- SUB DR: SANJUANITA GARNER MD ENTERED: 10/21/15 ORDERED: [id number] THIN PREP >>FINAL DIAGNOSIS<< ENDOCERVIX/EXOCERV IX (THINPREP PAP): NEGATIVE FOR INTRAEPITHELIAL LESION OR MALIGNANCY. SATISFACTORY FOR EVALUATION, TRANSFORMATION ZONE COMPONENT IS PRESENT. The Pap smear is a screening test in which both false positive and false negative results can occur. Thus, it should not be the sole means to diagnosis or exclude malignancy or a premalignant condition. Diagnosis by: TRIXIE FUCHS(ASCP) Cytology patient information Cancer screening? Y ThinPrep ONLY? Y Number of slides? 1 Clinical diagnosis? SCREENING FOR CERVICAL CA First day LMP? 12/31/09 Regular cycle? ? Postmenopausal? Y Hx of abnormal PAP? UNKNOWN Current ANSWERING SERVICE TELEPHONE OPERATOR exam? VAGINITIS NON SPECIFIC VAGINITIS Reason for PAP: SCREENING Path procedures [id number] THIN PREP PAP (59703) RKT Signed (signatu re on file) TRIXIE FUCHS(ASCP) 10/30/15 -- Endocervix/Exocer vix 10/21/2015 10/21/2015 7:00 PM EST Sanjuanita Garner MD PATHOLOGY Final Result * HEPATITIS C VIRUS GENOTYPING (08/18/2015 12:18 PM EDT) Pathologist [facility] HEPATITIS C VIRUS GENOTYPE 1b . [facility] HCV GENOTYPE PLEASE NOTE [facility] Comment: This test was developed and its performance characteristics determined by [facility]. It has not been cleared or approved by the U.S. Food and Drug Administration. The FDA has determined that such clearance or approval is not necessary. This test is used for clinical purposes. It should not be regarded as investigational or for research. Performed at: [address] [id number] Coal Trimmer: Rudi Mcqueen MD, Phone: [phone] 08/18/2015 12:1 8 PM EDT 08/18/2015 7:41 PM EDT us Sanjuanita Garner MD LABORATORY Final Result [facility] [address] [place] [address], * BILATERAL MAMMOGRAM-SCREENING (03/18/2003 11:22 AM EDT) MAMMOGRAPHY REPORT-[address] [address] Department of Diagnostic Radiology PATIENT: LARISSA CADET : 67 AGE: 38 S[facility]: [id number] UNIT#: [id number] STATUS: REG REF ORD PHY: NATALIA PEACE MD Exam Date: 03/09/03 Exam Status: Signed EXAMS: BILATERAL MAMMOGRAM-SCREENING CLINICAL INDICATION: SCREENING MAMMOGRAM: The patient's previous mammogram from an outside institution dated 08/11/88 is now available for comparison. Routine views plus true lateral and exaggerate craniocaudal views of both breasts were obtained on today's examination. Examination shows some involution of breast stroma over this interval since 08/11/98. Nevertheless, there is still inhomogeneously dense stroma, especially in the upper quadrant of both breasts, which does decrease the sensitivity of this examination. As seen, there is no evidence of dominant mass, developing density or areas of architectural distortion. No abnormal clustering of microcalcifications are noted. IMPRESSION: Since previous examination of 08/11/98, there has been some involution of breast stroma, though dense stroma does still persist, which does decrease the sensitivity of this examination. As seen, there is no evidence of dominant mass. Comment: The patient gives a history of lumpy breasts. Therefore, the decision to biopsy a lump should be based on clinical criteria. Based on the mammogram itself, would recommend a follow-up examination in 1 year as per guideline. BIRADS 1, negative. Send a normal letter to the patient. MILO/giuliano Technologist: CPShaq Transcribed Date/Time: [id number] 112 by [id number] Printed Date/Time: 03/22/03 0710Report #: [id number] Ordering Doctor: NATALIA PEACE MD Dictating Doctor: Marsha LINDO Primary Care Location: Anatomical Region Laterality Modality Chest Bilateral Other 03/18/2003 11:2 2 AM EDT Cedric Peace RAD BREAST IMAGING ORDER DISHA Final Result from Last 3 Months or Most Recently Relevant to Health Maintenance Insurance [facility] [place] [phone] Advance Directives * Not Discussed (Latest Code Status on File) Date Activated Date Inactivated Comments 12/08/2014 5:56 PM Alternate - Ib monik Cadet (son) [phone]. Question Answer Comments Proxy Name: Alex Cadet Proxy Relationship: son Proxy Care Teams Mcat Instructor Relationship Specialty Start Date End Date Add, Provider Not In System PCP - Insurance PCP 04/23/16 Add, Provider Not In System PCP - General Internal Medicine 07/07/18
--- OUTSIDE RECORDS SUMMARY | 2025-09-09 21:43 | XMS_ITS | Encounter Summary ---
Author Organization [facility] iaaze Address [address] [place] [address] Care Team Providers Care Cardiovascular Surgeon Name Role Phone Gilbert Espinoza Primary Care Provider Unavaila ble Add, Provider Not In System Unavailable Unav ailable Add, Provider Not In System Primary Care Provide r Unavailable Encounter Details Date Type Department Care Team (Late st Contact Info) Description 03/09/2016 Brief Documentation Enc [facility] Primary Care - [facility] [address] [place] [address] Anam Romano Inactive Social History Tobacco Use Types Packs/Day Years Used Date Smoking Tobacco: Former Smokeless Tobacco: Never Alcohol Use Standard Drinks/Week [...] on filedocumented in this encounter Care Teams Cardiovascular Surgeon Relationship Specialty Start Date End Date Gilbert Espinoza PCP - General Internal Medicine 03/05/16 07/06/18 Add, Provider Not In System PCP - Insurance PCP 04/23/16 Add, Provider Not In System PCP - General Internal Medicine 07/07/18 documented as of this encounter
--- OUTSIDE RECORDS SUMMARY | 2025-09-09 21:43 | XMS_ITS | Encounter Summary ---
Author Organization [facility] Address [address] [facility] [address] [place] [address] Care Team Providers Care Manager Transfer Name Role Phone Rudi Alonso MD Primary Care Provider [phone] Gissel Worley MD Primary Care Provider [phone] Encounter Details Date Type Department Care Team (Late st Contact Info) Description 04/05/2022 External Contact EXT REF LAB [facility] [address] [facility] [place] [address] Ezequiel, Default Authenticator [address] [place], [place] [id number] Social History Tobacco Use Types Packs/Day Years [...] Procedure Name Priority Date/Time Associated Diagnosis Comments ECHO - CMP 2D DOP-COLOR 04/05/2022 2:00 PM EDT documented in this encounter Results * MCMW Complete 2D Echo (04/05/2022 2:00 PM EDT) NOTE [facility] Comment: Patient Ordering physician: Elicia Gan Other providers: Benedict Phelps, , Lindsey Soria, No Physician, Elicia Gan, No Physician, Benedict Soria Anatomical Region Laterality Modality Ultrasound 04/05/2022 2:00 PM EDT Narrative 04/05/2022 2:00 PM EDT [facility] Echocardiogram [address] [address] Name: SHAWNAAISHWARYA CADET Ordering Physician: Lucy Gallegos MD : 67 Exam: ECHO - CMP 2D DOP-COLOR DOS: 04/05/22 Study ID: [id number] [address] [address] Non-Invasive Cardiology Laboratory Transthoracic Echocardiogram Final Report Name: SHAWNA CADET Study Date: 04/05/2022 02:00 PMBP: 132/76 mmHg : 1965 Height: 66 in Age: 56 yrs Gender: Female Weight: 190 lb Reason For Study: PE, to assess RV BSA: 2.0 m2 Ordering Physician: Elicia aGn Referring Physician: MIKE Performed By: Bianca Puga Fellow: [facility], Interpretation Summary There is no comparison study available. Left Ventricle Normal left ventricular size, thickness and systolic function with no regional wall motion abnormalities. The left ventricular ejection fraction is 60-65%. Normal left ventricular diastolic doppler indices. Right Ventricle Right ventricular size, wall thickness, and function are normal. Atria The left atrium is mildly dilated. Right atrial size is normal. Mitral Valve Mildly thickened mitral valve leaflets. There is mild mitral regurgitation. Tricuspid Valve There is mild to moderate tricuspid regurgitation. Pulmonary Artery Systolic Pressure is 35 mms of Hg. Aortic Valve The aortic valve is trileaflet. There is no aortic stenosis. No aortic regurgitation is present. Pulmonic Valve The pulmonic valve is not well seen, but is grossly normal. Great Vessels The aortic root is normal size. The ascending aorta is normal in size. The Inferior Vena Cava is normal suggesting a normal right atrial pressure of 5 mm Hg. Pericardium/Pleural There is no pericardial effusion. MMode/2D Measurements Calculations IVSd: 1.0 cm LVIDd: 5.1 cm LVIDs: 3.0 cm LVPWd: 0.92 cm FS: 41.1 % Ao root diam: 3.5 cm EDV(Teich): 121.8 ml Ao root area: 9.9 cm2 ESV(Teich): 34.4 ml LA dimension: 3.4 cm asc Aorta Diam: 3.3 cm LVOT diam: 2.0 cm LVOT area: 3.1 cm2 LA Area AP2C: 20.8 cm2 LA Area AP4C: 20.0 cm2 LA Length: 5.7 cm LA Vol: 61.9 ml LA Vol Index: 31.6 ml/m2 Time Measurements Aortic R-R: 0.70 sec Aortic HR: 85.7 BPM Doppler Measurements Calculations MV E max morris: 95.6 cm/sec MV dec slope: 724.3 cm/sec2 MV A max morris: 70.3 cm/sec MV dec time: 0.13 sec MV E/A: 1.4 Ao V2 max: 143.9 cm/sec LV V1 max P.6 mmHg Ao max P.3 mmHg LV V1 mean P.9 mmHg Ao V2 mean: 107.6 cm/sec LV V1 max: 118.4 cm/sec Ao mean P.1 mmHg LV V1 mean: 78.1 cm/sec Ao V2 VTI: 29.0 cm LV V1 VTI: 22.7 cm SANGITA(I,D): 2.4 cm2 SANGITA(V,D): 2.6 cm2 CO(LVOT): 6.1 l/min TR max morris: 271.5 cm/sec SV(LVOT): 70.9 ml TR max P.5 mmHg E/Lat E': 8.6 E/Med E': 10.3 Electronically Signed By: Cj Ritchie MD 04/05/2022 03:20 PM [email or web address] modality=us <Electronically signed by Cj Ritchie MD, (PO) in OV> Electronically Signed by: Transcribed by: TAI Pearson Trans D 1400 Report #: [id number] Signed D 1520 Copies to: Lucy Sotomayor MD Procedure Note Cj Ritchie MD - 07/04/2022 [facility] [address] Name: SHAWNA CADET Ordering Physician: Lucy Gallegos MD : 67 Exam: ECHO - CMP 2D DOP-COLOR DOS: 04/05/22 Study ID: [id number] [place] [address] Non-Invasive Cardiology Laboratory Transthoracic Echocardiogram Final Report Name: SHAWNA CADET Study Date: 04/05/2022 02:00 PMBP: 132/76 mmHg : 1965 Height: 66 in Age: 56 yrs Gender: Female Weight: 190 lb Reason For Study: PE, to assess RV BSA: 2.0 m2 Ordering Physician: Elicia Gan Referring Physician: Performed By: Bianca Puga Fellow: [facility], Interpretation Summary There is no comparison study available. Left Ventricle Normal left ventricular size, thickness and systolic function with no regional wall motion abnormalities. The left ventricular ejection fraction is 60-65%. Normal left ventricular diastolic doppler indices. Right Ventricle Right ventricular size, wall thickness, and function are normal. Atria The left atrium is mildly dilated. Right atrial size is normal. Mitral Valve Mildly thickened mitral valve leaflets. There is mild mitral regurgitation. Tricuspid Valve There is mild to moderate tricuspid regurgitation. Pulmonary Artery Systolic Pressure is 35 mms of Hg. Aortic Valve The aortic valve is trileaflet. There is no aortic stenosis. No aortic regurgitation is present. Pulmonic Valve The pulmonic valve is not well seen, but is grossly normal. Great Vessels The aortic root is normal size. The ascending aorta is normal in size. The Inferior Vena Cava is normal suggesting a normal right atrial pressure of 5 mm Hg. Pericardium/Pleural There is no pericardial effusion. MMode/2D Measurements Calculations IVSd: 1.0 cm LVIDd: 5.1 cm LVIDs: 3.0 cm LVPWd: 0.92 cm FS: 41.1 % Ao root diam: 3.5 cm EDV(Teich): 121.8 ml Ao root area: 9.9 cm2 ESV(Teich): 34.4 ml LA dimension: 3.4 cm asc Aorta Diam: 3.3 cm LVOT diam: 2.0 cm LVOT area: 3.1 cm2 LA Area AP2C: 20.8 cm2 LA Area AP4C: 20.0 cm2 LA Length: 5.7 cm LA Vol: 61.9 ml LA Vol Index: 31.6 ml/m2 Time Measurements Aortic R-R: 0.70 sec Aortic HR: 85.7 BPM Doppler Measurements Calculations MV E max morris: 95.6 cm/sec MV dec slope: 724.3 cm/sec2 MV A max morris: 70.3 cm/sec MV dec time: 0.13 sec MV E/A: 1.4 Ao V2 max: 143.9 cm/sec LV V1 max P.6 mmHg Ao max P.3 mmHg LV V1 mean P.9 mmHg Ao V2 mean: 107.6 cm/sec LV V1 max: 118.4 cm/sec Ao mean P.1 mmHg LV V1 mean: 78.1 cm/sec Ao V2 VTI: 29.0 cm LV V1 VTI: 22.7 cm SANGITA(I,D): 2.4 cm2 SANGITA(V,D): 2.6 cm2 CO(LVOT): 6.1 l/min TR max morris: 271.5 cm/sec SV(LVOT): 70.9 ml TR max P.5 mmHg E/Lat E': 8.6 E/Med E': 10.3 Electronically Signed By: Cj Ritchie MD 04/05/2022 03:20 PM [email or web address] = [email or web address] modality=us <Electronically signed by Cj Ritchie MD, (PO) in OV> Electronically Signed by: Transcribed by: ReportsTo,ITS Trans D 1400 Report #: [id number] Signed D 1520 Copies to: Lucy Sotomayor MD us Cj Ritchie MD CV ECHO PROCEDURES Final Result documented in this encounter Visit Diagnoses Not on filedocumented in this encounter Care Teams Manager Transfer Relationship Specialty Start Date End Date Rudi Alonso MD [address] [place] [id number] PCP - General 12/28/21 09/09/23 Gissel Worley MD [address] [place] [address] [address] [place] [address] PCP - [employer] 09/10/23 documented as of this encounter
[2025-09-09 22:17] VITALS: BP 137/70; PULSE 62; RESP 18; TEMP 36.4; O2SAT 88
[2025-09-10 03:37] VITALS: BMI 33.1
--- NOTE | 2025-09-10 03:47 | PC.ADMIT ---
Shawna arrived at [facility] on M5 at 22:00 on 09/09/2015. She was initially seen at [facility] in [place] on 09/08/2025 where after presenting for abdominal and generalized pain she was found to be paranoid, delusional and was experiencing AVH. Immediately upon entering the unit a full body skin check was done which was negative. She was compliant with the admission process and per the N2N her son stated that she had not been taking her medications for an unknown amount of time. There is a questionable history of substance abuse in the past and she is on Methadone, through [facility]. Pt. stated that she is taking this medication for pain.
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
--- NOTE | 2025-09-10 08:49 | HE.PHANOTE ---
Re Methadone Pt recieves 120mg from [facility], last there on 09/01/25 where they got a dose and 13 take home bottles to last through 09/14/25.
[2025-09-10 08:55] VITALS: BP 154/79; PULSE 71; TEMP 36.8; O2SAT 94
[2025-09-10] MEDS: methADONE HCl 20 MG/2 ML ORAL.CONC 120 MG PO (08:58)
[2025-09-10] MEDS: Nicotine 7 MG PATCH.TD24 TRANSDERMA (08:59)
[2025-09-10] MEDS: buPROPion HCl XL 150 MG TAB.ER.24H PO (09:00)
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
[2025-09-10] MEDS: Nicotine Polacrilex Lozenge 2 MG LOZENGE BUCCAL ×3 (13:38→20:40)
[2025-09-10] MEDS: Lidocaine 4 % Patch ADH..PATCH 1 PATCH TRANSDERMA (13:38)
[2025-09-10 19:50] VITALS: BP 105/58; PULSE 67; RESP 18; TEMP 36.9; O2SAT 93
[2025-09-11 08:00] VITALS: BP 138/65; PULSE 68; TEMP 36.4; O2SAT 94
[2025-09-11] MEDS: methADONE HCl 20 MG/2 ML ORAL.CONC 120 MG PO (08:07)
[2025-09-11] MEDS: Nicotine 7 MG PATCH.TD24 TRANSDERMA (08:09)
[2025-09-11] MEDS: Lidocaine 4 % Patch ADH..PATCH 1 PATCH TRANSDERMA (08:09)
[2025-09-11] MEDS: buPROPion HCl XL 150 MG TAB.ER.24H PO (08:09)
[2025-09-11] MEDS: Nicotine Polacrilex Lozenge 2 MG LOZENGE BUCCAL (08:13)
--- NOTE | 2025-09-11 09:31 | HO.PSYCHPN ---
Subjective Subjective Date of Service: 09/11/25 Reason For Visit: F25.0 Interim History: Patient with multiple requests. Asks for increase in nicotine patch dose. (counseled about smoking cessation and risks being on home O2 and smoking. Says she does it outside). Biotene for dry mouth. Asking for her Breo inhaler she said she has in her belongings (RN saw only Ventolin inhaler), Diflucan for Peggy on my tongue, esophagus and vagina . No evidence of thrush. Rollator that son will be bringing, CPAP (respiratory evaluation ordered), and wants RN to bring her the Methadone in the morning because she has pain on walking to the RN station. She appears in no distress. She is cooperative. Polite. Denies SI. Denies perceptual disturbances or delusional thoughts she had prior to admission. Review of Systems Review of Systems endorses generalized pain Yes all other systems are reviewed and are negative Constitutional: Denies chills and Denies fever(s) Cardiovascular: Denies chest pain and Denies dyspnea Respiratory: Denies cough and Denies dyspnea Gastrointestinal: Denies abdominal pain and Denies diarrhea Mental Status Exam Mental Status Exam Narrative: General appearance: hospital gown. Good hygiene.? Eye contact: WNL. Musculoskeletal: Uses a walker. .??? Manner/behavior: cooperative and not guarded Speech:? Fluent, with normal rate, tone and volume. Language: No receptive or expressive language impairment? Mood: Anxious Affect: Constricted range, congruent to mood and without lability? Thought process/associations: Linear with no flight of ideas or loose associations.?? Thought content:?Paranoid delusions?? Hallucinations: AVH reported when at home. Subsided. Suicidality/self-destructive behavior: SI without a plan? ? Homicidally/violence: none.? Reliability: good.? ? Judgment: preserved.? ? Insight: preserved Cognition: Alert and oriented to time, place and person. Attention, concentration and fund of knowledge are normal.? Impulse control and emotional regulation: preserved. Intelligence estimate: average.? Diagnostics Vital Signs (24Hr): Vital Signs - 24 hr 09/10/25 19:50 09/11/25 08:00 Temperature 98.5 F 97.5 F Pulse Rate 67 68 Respiratory Rate 18 Blood Pressure 105/58 L 138/65 Pulse Oximetry 93 94 Oxygen Delivery Method Room Air Room Air BMI result Body Mass Index 33.1 Medications Medications Current Medications Acetaminophen (Acetaminophen 325 Mg Tablet) 650 mg PO Q6H PRN PRN Reason: Headache/Pain, Scale 1-10 Last Admin: 09/10/25 20:40 Dose: 650 mg Al Hydroxide/Mg Hydroxide (Magnesium Hydrox/Alum Hydrox 30 Ml Oral.Susp) 30 ml PO Q6H PRN PRN Reason: Heartburn/Nausea Albuterol/Ipratropium (Albuterol/Iprat 2.5/0.5mg 3 Ml Ampul.Neb) 3 ml INHALE RQ6H WHILE AWAKE PRN PRN Reason: Shortness of Breath/Wheezing Amlodipine Besylate (Amlodipine Besylate 5 Mg Tablet) 5 mg PO DAILY [facility]; Protocol Last Admin: 09/11/25 08:09 Dose: 5 mg Apixaban (Apixaban 5 Mg Tablet) 5 mg PO BID [facility] Last Admin: 09/11/25 08:09 Dose: 5 mg Baclofen (Baclofen 10 Mg Tablet) 10 mg PO BID [facility] Last Admin: 09/11/25 08:09 Dose: 10 mg Benzocaine (Throat Lozenge, Medicated Lozenge) 1 lozenge MUCOUS MEM Q2H PRN PRN Reason: Sore Throat Bupropion HCl (Bupropion Hcl Xl 150 Mg Tab.Er.24h) 150 mg PO DAILY [facility] Last Admin: 09/11/25 08:09 Dose: 150 mg Clonazepam (Clonazepam 0.5 Mg Tablet) 0.5 mg PO TID PRN PRN Reason: Anxiety Last Admin: 09/10/25 21:50 Dose: 0.5 mg Fluticasone Propionate (Fluticasone Propionate Nasal 16 Gm [place]) 2 spray NOSTRIL-B DAILY [facility] Last Admin: 09/11/25 08:09 Dose: 2 spray Gabapentin (Gabapentin 300 Mg Capsule) 300 mg PO BID@0800,1500 [facility] Last Admin: 09/11/25 08:09 Dose: 300 mg Gabapentin (Gabapentin 600 Mg Tablet) 600 mg PO BEDTIME [facility] Last Admin: 09/10/25 20:40 Dose: 600 mg Hydroxyzine HCl (Hydroxyzine Hcl 25 Mg Tablet) 25 mg PO Q6H PRN PRN Reason: mild anxiety Last Admin: 09/10/25 01:54 Dose: 25 mg Lidocaine (Lidocaine 4 % Patch Adh..Patch) 1 patch TRANSDERMA DAILY [facility]; Protocol Last Admin: 09/11/25 08:09 Dose: 1 patch Lisinopril (Lisinopril 20 Mg Tablet) 40 mg PO DAILY [facility]; Protocol Last Admin: 09/11/25 08:09 Dose: 40 mg Loratadine (Loratadine 10 Mg Tablet) 10 mg PO DAILY PRN PRN Reason: allergies Magnesium Hydroxide (Milk Of Magnesia 30 Ml Oral.Susp) 30 ml PO DAILY PRN PRN Reason: Constipation Melatonin (Melatonin 3 Mg Tablet) 6 mg PO BEDTIME [facility] Last Admin: 09/10/25 21:50 Dose: 6 mg Methadone HCl (Methadone Hcl 20 Mg/2 Ml Oral.Conc) 120 mg PO DAILY@0800 [facility] Last Admin: 09/11/25 08:07 Dose: 120 mg Methylphenidate HCl (Methylphenidate Hcl 10 Mg Tablet) 10 mg PO TID@0700,1100,1600 [facility] Last Admin: 09/11/25 07:02 Dose: 10 mg Nicotine (Nicotine 7 Mg Patch.Td24) 7 mg TRANSDERMA DAILY [facility] Last Admin: 09/11/25 08:09 Dose: 7 mg Nicotine Polacrilex (Nicotine Polacrilex Lozenge 2 Mg Lozenge) 2 mg BUCCAL Q2H PRN PRN Reason: Nicotine Cravings Last Admin: 09/11/25 08:13 Dose: 2 mg Olanzapine (Olanzapine 5 Mg Tablet) 5 mg PO BID PRN PRN Reason: agitation Last Admin: 09/10/25 01:54 Dose: 5 mg Olanzapine (Olanzapine 5 Mg Tablet) 5 mg PO BEDTIME [facility] Last Admin: 09/10/25 21:50 Dose: 5 mg Olanzapine (Olanzapine 10 Mg Tablet) 10 mg PO BEDTIME [facility] Last Admin: 09/10/25 21:50 Dose: 10 mg Omeprazole (Omeprazole 20 Mg Capsule.Dr) 20 mg PO DAILY [facility] Last Admin: 09/11/25 08:09 Dose: 20 mg Ondansetron HCl (Ondansetron Odt 4 Mg Tab.Rapdis) 4 mg TRANSLINGU DAILY PRN PRN Reason: Nausea Trazodone HCl (Trazodone Hcl 50 Mg Tablet) 50 mg PO BEDTIME MRX1 PRN PRN Reason: Insomnia Last Admin: 09/10/25 01:53 Dose: 50 mg Trazodone HCl (Trazodone Hcl 50 Mg Tablet) 150 mg PO BEDTIME [facility] Last Admin: 09/10/25 21:51 Dose: 150 mg Allergies Allergies Allergy/AdvReac Type Severity Reaction Status Date / Time No Known Allergies Allergy Verified 09/09/25 20:29 Assessment & Plan Assessment & Plan (1) Schizoaffective disorder: Status: Acute Code(s): F25.9 - Schizoaffective disorder, unspecified Plan 60 year old female with history of schizoaffective disorder bipolar type admitted with worsening psychosis. She has chronic pain and multiple medical comorbidities. PLAN: - Admit to inpatient psychiatry - CV - Collateral information from family and providers. - Milieu treatment and group therapy. - Medications: Continue home medications for now. - Social work evaluation. - Disposition planning. 09/11: Continue current management and treatment plan. Patient's requests addressed. Would clarify with PCP patient's home medications. Reason for continued inpatient stay Substantial Risk for: harm to self, inability to function, rapid decompensation and med/psych decompensation Time Spent With Patient Time: Total time managing care of this patient today ____ minutes.
[2025-09-11] MEDS: Nicotine 14 MG PATCH.TD24 TRANSDERMA (10:53)
[2025-09-11 20:30] VITALS: BP 125/80; PULSE 85; RESP 16; TEMP 37; O2SAT 94
[2025-09-12] MEDS: methADONE HCl 20 MG/2 ML ORAL.CONC 120 MG PO (08:06)
[2025-09-12 08:11] VITALS: BP 149/60
[2025-09-12 08:12] VITALS: BP 140/66; PULSE 67; RESP 14; TEMP 36.6; O2SAT 88
[2025-09-12] MEDS: buPROPion HCl XL 150 MG TAB.ER.24H PO (08:12)
[2025-09-12] MEDS: Nicotine 14 MG PATCH.TD24 TRANSDERMA (08:13)
[2025-09-12] MEDS: Nicotine Polacrilex Lozenge 2 MG LOZENGE BUCCAL ×4 (08:14→15:56)
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
[2025-09-12] MEDS: Fluticasone/Vilanterol 200/25 BLST.W.DEV 1 PUFF INHALE (08:16)
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
[2025-09-12] MEDS: Lidocaine 4 % Patch ADH..PATCH 1 PATCH TRANSDERMA (11:44)
[2025-09-12 21:36] VITALS: BP 120/59; PULSE 75; RESP 18; TEMP 36.4; O2SAT 91
[2025-09-13 08:00] VITALS: BP 132/61; PULSE 55; TEMP 36.3; O2SAT 92
[2025-09-13] MEDS: methADONE HCl 20 MG/2 ML ORAL.CONC 120 MG PO (08:07)
[2025-09-13] MEDS: Nicotine 14 MG PATCH.TD24 TRANSDERMA (08:10)
[2025-09-13] MEDS: buPROPion HCl XL 150 MG TAB.ER.24H PO (08:10)
[2025-09-13] MEDS: Fluticasone/Vilanterol 200/25 BLST.W.DEV 1 PUFF INHALE (08:11)
[2025-09-13 08:45] LABS: Alanine Aminotransferase 11 U/L (0-31); Albumin Level 3.8 g/dL (3.5-5.0); Alkaline Phosphatase 63 U/L (39-117); Anion Gap 10 (12-20); Aspartate Amino Transferase 16 U/L (5-31); Blood Urea Nitrogen 12 mg/dL (9-16); Calcium 8.9 mg/dL (8.4-10.2); Carbon Dioxide 33 mmol/L (22-29); Chloride 104 mmol/L (96-108); Cholesterol 170 mg/dL (<200); Creatinine Clr Calc Pharmacy 103.9; Estimated Glomerular Filt Rate > 60; HDL Cholesterol 57 mg/dL (>40); Potassium 4.2 mmol/L (3.3-5.1); Sodium 143 mmol/L (135-145); Total Protein 6.5 g/dL (6.5-8.0); Triglycerides 127 mg/dL (<150)
[2025-09-13] MEDS: Nicotine Polacrilex Lozenge 2 MG LOZENGE BUCCAL ×4 (09:46→15:31)
[2025-09-13] MEDS: Lidocaine 4 % Patch ADH..PATCH 1 PATCH TRANSDERMA (09:59)
[2025-09-13 11:06] LABS: Free T4 (Free Thyroxine) 0.95 ng/dL (0.71-1.85); Thyroid Stimulating Hormone 1.43 uIU/mL (0.32-4.0)
--- NOTE | 2025-09-13 18:05 | HO.PSYCHPN ---
Subjective Subjective Date of Service: 09/13/25 Reason For Visit: F25.0 Subjective Notes: Conditional Voluntary Healthcare Proxy: No Guardianship: No Medical Problems Affecting Mental Status: No Interim History: Team report observing agitation, lability, paranoia. Asks for help with washing her hair, however, declines as her son has not brought in her conditioner at this time. Pt reports she slept well last evening, but still is not in receipt of CPAP. Will reorder. Declines med changes, denies AH today, So much looks better since I slept. Denies SI,HI,AH,VH. Depressive, anxious sx persist. Medication Compliance: Yes Side effects from medications: No Attending Groups: Intermittent Review of Systems Acute medical concerns: Yes Chronic pain Medical Review of Systems: unchanged Review of Systems Review of Systems Chronic pain described by Shawna Mental Status Exam Mental Status Exam Patient Appearance: Fatigued Patient Orientation: Person, Place, Time and Situation Level of Consciousness: Alert Patient Behavior: Talkative and Good Eye Contact Mood Description: Depressed and Sad Affect Description: Flat Patient Cognition Impaired: No Ability to Follow Directions: Good Speech Pattern: Spontaneous Speech Memory Description: Episodic Impaired Hallucinations: Auditory Delusions: Not Present Perceptual Disturbances: Depersonalization and Derealization Thought Process: Rumination Thought Content: positive for Perseveration and positive for Suicidal Ideation (denies) Depressive Symptoms: Thoughts of /Suicide (denies) Judgement: Fair Diagnostics Vital Signs (24Hr): Vital Signs - 24 hr 09/12/25 21:36 09/13/25 08:00 Temperature 97.5 F 97.3 F Pulse Rate 75 55 Respiratory Rate 18 Blood Pressure 120/59 L 132/61 Pulse Oximetry 91 L 92 Oxygen Delivery Method Room Air Room Air BMI result Body Mass Index 33.1 Labs 09/13/25 08:01 Labs: Laboratory Results - last 48 hr 09/13/25 08:01 Sodium 143 Potassium 4.2 Chloride 104 Carbon Dioxide 33 H Anion Gap 10 L BUN 12 Creatinine 0.67 Estim Creat Clear Calc 103.9 Estimated GFR > 60 Random Glucose 99 Estimat Average Glucose 123 Hemoglobin A1c % 5.9 Calcium 8.9 Total Bilirubin 0.3 AST 16 ALT 11 Alkaline Phosphatase 63 Total Protein 6.5 Albumin 3.8 Triglycerides 127 Cholesterol 170 LDL Cholesterol, Calc 88 HDL Cholesterol 57 TSH 1.43 Free T4 0.95 Medications Medications Current Medications Acetaminophen (Acetaminophen 325 Mg Tablet) 650 mg PO Q6H PRN PRN Reason: Headache/Pain, Scale 1-10 Last Admin: 09/12/25 12:07 Dose: 650 mg Al Hydroxide/Mg Hydroxide (Magnesium Hydrox/Alum Hydrox 30 Ml Oral.Susp) 30 ml PO Q6H PRN PRN Reason: Heartburn/Nausea Albuterol/Ipratropium (Albuterol/Iprat 2.5/0.5mg 3 Ml Ampul.Neb) 3 ml INHALE RQ6H WHILE AWAKE PRN PRN Reason: Shortness of Breath/Wheezing Amlodipine Besylate (Amlodipine Besylate 5 Mg Tablet) 5 mg PO DAILY [facility]; Protocol Last Admin: 09/13/25 08:10 Dose: 5 mg Apixaban (Apixaban 5 Mg Tablet) 5 mg PO BID [facility] Last Admin: 09/13/25 08:10 Dose: 5 mg Baclofen (Baclofen 10 Mg Tablet) 10 mg PO BID [facility] Last Admin: 09/13/25 08:10 Dose: 10 mg Benzocaine (Throat Lozenge, Medicated Lozenge) 1 lozenge MUCOUS MEM Q2H PRN PRN Reason: Sore Throat Bupropion HCl (Bupropion Hcl Xl 150 Mg Tab.Er.24h) 150 mg PO DAILY [facility] Last Admin: 09/13/25 08:10 Dose: 150 mg Clonazepam (Clonazepam 0.5 Mg Tablet) 0.5 mg PO TID PRN PRN Reason: Anxiety Last Admin: 09/13/25 08:52 Dose: 0.5 mg Fluticasone Propionate (Fluticasone Propionate Nasal 16 Gm Hematite) 2 spray NOSTRIL-B DAILY [facility] Last Admin: 09/13/25 08:11 Dose: 2 spray Fluticasone/Vilanterol (Fluticasone/Vilanterol 200/25 Blst.W.Dev) 1 puff INHALE RDAILY [facility] Last Admin: 09/13/25 08:11 Dose: 1 puff Gabapentin (Gabapentin 300 Mg Capsule) 300 mg PO BID@0800,1500 [facility] Last Admin: 09/13/25 15:32 Dose: 300 mg Gabapentin (Gabapentin 600 Mg Tablet) 600 mg PO BEDTIME [facility] Last Admin: 09/12/25 21:39 Dose: 600 mg Hydroxyzine HCl (Hydroxyzine Hcl 25 Mg Tablet) 25 mg PO Q6H PRN PRN Reason: mild anxiety Last Admin: 09/13/25 11:48 Dose: 25 mg Lidocaine (Lidocaine 4 % Patch Adh..Patch) 1 patch TRANSDERMA DAILY [facility]; Protocol Last Admin: 09/13/25 09:59 Dose: 1 patch Lisinopril (Lisinopril 20 Mg Tablet) 40 mg PO DAILY [facility]; Protocol Last Admin: 09/13/25 08:09 Dose: 40 mg Loratadine (Loratadine 10 Mg Tablet) 10 mg PO DAILY PRN PRN Reason: allergies Magnesium Hydroxide (Milk Of Magnesia 30 Ml Oral.Susp) 30 ml PO DAILY PRN PRN Reason: Constipation Melatonin (Melatonin 3 Mg Tablet) 6 mg PO BEDTIME [facility] Last Admin: 09/12/25 21:40 Dose: 6 mg Methadone HCl (Methadone Hcl 20 Mg/2 Ml Oral.Conc) 120 mg PO DAILY@0800 [facility] Last Admin: 09/13/25 08:07 Dose: 120 mg Methylphenidate HCl (Methylphenidate Hcl 10 Mg Tablet) 10 mg PO TID@0700,1100,1600 [facility] Last Admin: 09/13/25 15:32 Dose: 10 mg Nicotine (Nicotine 14 Mg Patch.Td24) 14 mg TRANSDERMA DAILY [facility] Last Admin: 09/13/25 08:10 Dose: 14 mg Nicotine Polacrilex (Nicotine Polacrilex Lozenge 2 Mg Lozenge) 2 mg BUCCAL Q2H PRN PRN Reason: Nicotine Cravings Last Admin: 09/13/25 15:31 Dose: 2 mg Non-Formulary Medication (Biotene) 1 spray PO 5XD PRN PRN Reason: Dry Mouth Non-Formulary Medication (Clean Coat Mouthwash) 5 ml PO TID [facility] Olanzapine (Olanzapine 5 Mg Tablet) 5 mg PO BID PRN PRN Reason: agitation Last Admin: 09/11/25 21:01 Dose: 5 mg Olanzapine (Olanzapine 5 Mg Tablet) 5 mg PO BEDTIME [facility] Last Admin: 09/12/25 21:40 Dose: 5 mg Olanzapine (Olanzapine 10 Mg Tablet) 10 mg PO BEDTIME [facility] Last Admin: 09/12/25 21:40 Dose: 10 mg Omeprazole (Omeprazole 20 Mg Capsule.Dr) 20 mg PO DAILY [facility] Last Admin: 09/13/25 08:10 Dose: 20 mg Ondansetron HCl (Ondansetron Odt 4 Mg Tab.Rapdis) 4 mg TRANSLINGU DAILY PRN PRN Reason: Nausea Last Admin: 09/12/25 19:47 Dose: 4 mg Trazodone HCl (Trazodone Hcl 50 Mg Tablet) 50 mg PO BEDTIME MRX1 PRN PRN Reason: Insomnia Last Admin: 09/11/25 21:00 Dose: 50 mg Trazodone HCl (Trazodone Hcl 50 Mg Tablet) 150 mg PO BEDTIME [facility] Last Admin: 09/12/25 21:41 Dose: 150 mg Allergies Allergies Allergy/AdvReac Type Severity Reaction Status Date / Time No Known Allergies Allergy Verified 09/09/25 20:29 Assessment & Plan Assessment & Plan (1) Schizoaffective disorder: Status: Acute Code(s): F25.9 - Schizoaffective disorder, unspecified Assessment and Plan: 09/13/25: No med changes Continue tx. Plan 60-year-old female with a past medical history listed below, presents to the ED with hallucinations, now admitted for further care and treatment. Schizoaffective disorder/hallucinations Treatment per psychiatric team COPD Not in acute exacerbation Continue Breo Ellipta and DuoNeb inhalers as needed Hypertension Continue Norvasc and lisinopril Blood pressure stable on review Fibromyalgia/myofascial pain Patient on methadone 120 mg daily, baclofen, gabapentin Tylenol as needed History of PE on Eliquis Continue omeprazole and Eliquis as needed No outside records available for review Thank you for allowing me to participate in the care of this patient. Will follow with you, please notify medical provider with any changes in condition or concerns. Reason for continued inpatient stay Substantial Risk for: med/psych decompensation Time Spent With Patient Time: Total time managing care of this patient today ____ minutes.
[2025-09-13 21:01] VITALS: BP 129/62; PULSE 69; RESP 18; TEMP 36.3; O2SAT 89
[2025-09-13 22:18] VITALS: PULSE 72; RESP 12; O2SAT 93
[2025-09-14] MEDS: methADONE HCl 20 MG/2 ML ORAL.CONC 120 MG PO (07:45)
[2025-09-14 08:00] VITALS: BP 154/67; PULSE 62; RESP 15; TEMP 36.2; O2SAT 90
[2025-09-14] MEDS: buPROPion HCl XL 150 MG TAB.ER.24H PO (08:18)
[2025-09-14] MEDS: Nicotine 14 MG PATCH.TD24 TRANSDERMA (08:19)
[2025-09-14] MEDS: Fluticasone/Vilanterol 200/25 BLST.W.DEV 1 PUFF INHALE (08:20)
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
[2025-09-14] MEDS: Nicotine Polacrilex Lozenge 2 MG LOZENGE BUCCAL ×2 (11:26→15:52)
[2025-09-14] MEDS: Lidocaine 4 % Patch ADH..PATCH 1 PATCH TRANSDERMA (11:26)
[2025-09-14 20:00] VITALS: BP 125/61; PULSE 63; RESP 16; TEMP 36.4; O2SAT 91
[2025-09-14 23:07] VITALS: RESP 15
[2025-09-15 07:00] VITALS: BMI 33.7
[2025-09-15] MEDS: methADONE HCl 20 MG/2 ML ORAL.CONC 120 MG PO (07:49)
[2025-09-15 08:00] VITALS: BP 137/82; PULSE 60; TEMP 37.2; O2SAT 92
[2025-09-15] MEDS: Lidocaine 4 % Patch ADH..PATCH 1 PATCH TRANSDERMA (08:41)
[2025-09-15] MEDS: buPROPion HCl XL 150 MG TAB.ER.24H PO (08:41)
[2025-09-15] MEDS: Fluticasone/Vilanterol 200/25 BLST.W.DEV 1 PUFF INHALE (08:41)
[2025-09-15] MEDS: Nicotine 14 MG PATCH.TD24 TRANSDERMA (08:41)
[2025-09-15] MEDS: Nicotine Polacrilex Lozenge 2 MG LOZENGE BUCCAL ×2 (08:52→21:37)
--- NOTE | 2025-09-15 16:04 | HO.PSYCHPN ---
Subjective Subjective Date of Service: 09/15/25 Reason For Visit: F25.0 Subjective Notes: Conditional Voluntary Healthcare Proxy: No Guardianship: No Medical Problems Affecting Mental Status: No Interim History: Reports pain secondary to mattress- Requests bed transfer to [facility] for a medical bed. Discussed discharge planning. Asks for a methadone clinic closer to her home. [facility] she reports are helpful- will leave in place Asks to re-start Ritalin 20 mg tid- discussed doing this with OP provider when discharged. Asks to increase Klonopin due to sx of anxiety, panic- will increase prn to 0.75 mg tid from 0.5 mg tid, an increase of 0.75 daily. Overall pt reports feeling better. Reports her children have checked on her home and no one has been in the home which is reassuring for her and helps her to feel calmer. Seems to be initiating her own reality testing on some of these concerns which is offering her relief. Medication Compliance: Yes Side effects from medications: No Attending Groups: Intermittent Review of Systems chronic pain Medical Review of Systems: unchanged Review of Systems Review of Systems chronic pain Mental Status Exam Mental Status Exam Patient Appearance: Appropriate Patient Orientation: Person, Place, Time and Situation Level of Consciousness: Alert Patient Behavior: Talkative and Good Eye Contact Mood Description: Appropriate Affect Description: Appropriate Patient Cognition Impaired: No Ability to Follow Directions: Good Speech Pattern: Spontaneous Speech Memory Description: Episodic Impaired Hallucinations: None (denies today) and Auditory Delusions: Not Present (increase in her reality testing) Perceptual Disturbances: Depersonalization and Derealization Thought Process: Goal Oriented Thought Content: positive for Goal Oriented and positive for Suicidal Ideation (denies) Depressive Symptoms: Thoughts of /Suicide (denies) Judgement: Good Diagnostics Vital Signs (24Hr): Vital Signs - 24 hr 09/14/25 20:00 09/14/25 23:07 09/15/25 08:00 Temperature 97.6 F 99 F Pulse Rate 63 60 Respiratory Rate 16 15 Blood Pressure 125/61 137/82 Pulse Oximetry 91 L 92 Oxygen Delivery Method Room Air Room Air BMI result Body Mass Index 33.7 Labs 09/13/25 08:01 Medications Medications Current Medications Acetaminophen (Acetaminophen 325 Mg Tablet) 650 mg PO Q6H PRN PRN Reason: Headache/Pain, Scale 1-10 Last Admin: 09/15/25 11:48 Dose: 650 mg Al Hydroxide/Mg Hydroxide (Magnesium Hydrox/Alum Hydrox 30 Ml Oral.Susp) 30 ml PO Q6H PRN PRN Reason: Heartburn/Nausea Albuterol/Ipratropium (Albuterol/Iprat 2.5/0.5mg 3 Ml Ampul.Neb) 3 ml INHALE RQ6H WHILE AWAKE PRN PRN Reason: Shortness of Breath/Wheezing Amlodipine Besylate (Amlodipine Besylate 5 Mg Tablet) 5 mg PO DAILY [facility]; Protocol Last Admin: 09/15/25 08:41 Dose: 5 mg Apixaban (Apixaban 5 Mg Tablet) 5 mg PO BID [facility] Last Admin: 09/15/25 08:40 Dose: 5 mg Baclofen (Baclofen 10 Mg Tablet) 10 mg PO BID [facility] Last Admin: 09/15/25 08:40 Dose: 10 mg Benzocaine (Throat Lozenge, Medicated Lozenge) 1 lozenge MUCOUS MEM Q2H PRN PRN Reason: Sore Throat Bupropion HCl (Bupropion Hcl Xl 150 Mg Tab.Er.24h) 150 mg PO DAILY [facility] Last Admin: 09/15/25 08:41 Dose: 150 mg Clonazepam (Clonazepam 0.5 Mg Tablet) 0.5 mg PO TID PRN PRN Reason: Anxiety Last Admin: 09/15/25 12:56 Dose: 0.5 mg Fluticasone Propionate (Fluticasone Propionate Nasal 16 Gm [place]) 2 spray NOSTRIL-B DAILY [facility] Last Admin: 09/15/25 08:41 Dose: 2 spray Fluticasone/Vilanterol (Fluticasone/Vilanterol 200/25 Blst.W.Dev) 1 puff INHALE RDAILY [facility] Last Admin: 09/15/25 08:41 Dose: 1 puff Gabapentin (Gabapentin 300 Mg Capsule) 300 mg PO BID@0800,1500 [facility] Last Admin: 09/15/25 15:47 Dose: 300 mg Gabapentin (Gabapentin 600 Mg Tablet) 600 mg PO BEDTIME [facility] Last Admin: 09/14/25 22:33 Dose: 600 mg Hydroxyzine HCl (Hydroxyzine Hcl 25 Mg Tablet) 25 mg PO Q6H PRN PRN Reason: mild anxiety Last Admin: 09/15/25 11:48 Dose: 25 mg Lidocaine (Lidocaine 4 % Patch Adh..Patch) 1 patch TRANSDERMA DAILY [facility]; Protocol Last Admin: 09/15/25 08:41 Dose: 1 patch Lisinopril (Lisinopril 20 Mg Tablet) 40 mg PO DAILY [facility]; Protocol Last Admin: 09/15/25 08:41 Dose: 40 mg Loratadine (Loratadine 10 Mg Tablet) 10 mg PO DAILY PRN PRN Reason: allergies Magnesium Hydroxide (Milk Of Magnesia 30 Ml Oral.Susp) 30 ml PO DAILY PRN PRN Reason: Constipation Melatonin (Melatonin 3 Mg Tablet) 6 mg PO BEDTIME [facility] Last Admin: 09/14/25 22:35 Dose: 6 mg Methadone HCl (Methadone Hcl 20 Mg/2 Ml Oral.Conc) 120 mg PO DAILY@0800 [facility] Last Admin: 09/15/25 07:49 Dose: 120 mg Methylphenidate HCl (Methylphenidate Hcl 10 Mg Tablet) 10 mg PO TID@0700,1100,1600 [facility] Last Admin: 09/15/25 15:47 Dose: 10 mg Nicotine (Nicotine 14 Mg Patch.Td24) 14 mg TRANSDERMA DAILY [facility] Last Admin: 09/15/25 08:41 Dose: 14 mg Nicotine Polacrilex (Nicotine Polacrilex Lozenge 2 Mg Lozenge) 2 mg BUCCAL Q2H PRN PRN Reason: Nicotine Cravings Last Admin: 09/15/25 08:52 Dose: 2 mg Olanzapine (Olanzapine 5 Mg Tablet) 5 mg PO BID PRN PRN Reason: agitation Last Admin: 09/11/25 21:01 Dose: 5 mg Olanzapine (Olanzapine 5 Mg Tablet) 5 mg PO BEDTIME [facility] Last Admin: 09/14/25 22:34 Dose: 5 mg Olanzapine (Olanzapine 10 Mg Tablet) 10 mg PO BEDTIME [facility] Last Admin: 09/14/25 22:34 Dose: 10 mg Omeprazole (Omeprazole 20 Mg Capsule.Dr) 20 mg PO DAILY [facility] Last Admin: 09/15/25 08:41 Dose: 20 mg Ondansetron HCl (Ondansetron Odt 4 Mg Tab.Rapdis) 4 mg TRANSLINGU DAILY PRN PRN Reason: Nausea Last Admin: 09/12/25 19:47 Dose: 4 mg Pregabalin (Pregabalin 25 Mg Capsule) 25 mg PO BID [facility] Last Admin: 09/15/25 08:41 Dose: 25 mg Risperidone (Risperidone 0.5 Mg Tablet) 0.5 mg PO BID [facility] Last Admin: 09/15/25 08:41 Dose: 0.5 mg Trazodone HCl (Trazodone Hcl 50 Mg Tablet) 50 mg PO BEDTIME MRX1 PRN PRN Reason: Insomnia Last Admin: 09/11/25 21:00 Dose: 50 mg Trazodone HCl (Trazodone Hcl 50 Mg Tablet) 150 mg PO BEDTIME [facility] Last Admin: 09/14/25 22:34 Dose: 150 mg Allergies Allergies Allergy/AdvReac Type Severity Reaction Status Date / Time No Known Allergies Allergy Verified 09/09/25 20:29 Assessment & Plan Assessment & Plan (1) Schizoaffective disorder: Status: Acute Code(s): F25.9 - Schizoaffective disorder, unspecified Assessment and Plan: 09/13/25: No med changes Continue tx. Plan 60-year-old female with a past medical history listed below, presents to the ED with hallucinations, now admitted for further care and treatment. Schizoaffective disorder/hallucinations Treatment per psychiatric team COPD Not in acute exacerbation Continue Breo Ellipta and DuoNeb inhalers as needed Hypertension Continue Norvasc and lisinopril Blood pressure stable on review Fibromyalgia/myofascial pain Patient on methadone 120 mg daily, baclofen, gabapentin Tylenol as needed History of PE on Eliquis Continue omeprazole and Eliquis as needed No outside records available for review Thank you for allowing me to participate in the care of this patient. Will follow with you, please notify medical provider with any changes in condition or concerns. 09/14: Risperdal 0.5 mg bid Lyrica 25 mg bid 09/15: Increase Klonopin to 0.75 mg tid prn from 0.5 mg tid prn Patient educated on: medication risk/benefits Informed Consent: understands Reason for continued inpatient stay Substantial Risk for: rapid decompensation and med/psych decompensation Time Spent With Patient Time: Total time managing care of this patient today ____ minutes.
[2025-09-15 20:00] VITALS: BP 142/69; PULSE 78; RESP 16; TEMP 36.8; O2SAT 96
[2025-09-16 01:30] VITALS: RESP 16
[2025-09-16] MEDS: methADONE HCl 20 MG/2 ML ORAL.CONC 120 MG PO (07:57)
[2025-09-16 08:00] VITALS: BP 134/67; PULSE 66; TEMP 36.2; O2SAT 89
[2025-09-16] MEDS: Fluticasone/Vilanterol 200/25 BLST.W.DEV 1 PUFF INHALE (08:43)
[2025-09-16] MEDS: Lidocaine 4 % Patch ADH..PATCH 1 PATCH TRANSDERMA (08:43)
[2025-09-16] MEDS: Nicotine 14 MG PATCH.TD24 TRANSDERMA (08:44)
[2025-09-16] MEDS: buPROPion HCl XL 150 MG TAB.ER.24H PO (08:45)
[2025-09-16] MEDS: Nicotine Polacrilex Lozenge 2 MG LOZENGE BUCCAL ×3 (09:08→21:25)
--- NOTE | 2025-09-16 12:40 | P.PNPSI_ITS ---
Subjective Subjective Date of Service: 09/16/25 Reason For Visit: F25.0 Subjective Notes: Conditional Voluntary Healthcare Proxy: No Guardianship: No Medical Problems Affecting Mental Status: No Interim History: Pt interactive in milieu. Reports some improvement. Today, she is up, dressed, makeup on, doing stretching in the kitchen with peers. Continues to ask to move to geriatrics for a bed that is more accomodating. Reports a derease in symptoms and is brighter and more engaged. She continues to challenge some of her own fears regarding people being in her home and sabotaging her. Medication Compliance: Yes Side effects from medications: No Attending Groups: Intermittent Review of Systems Acute medical concerns: No Medical Review of Systems: unchanged Review of Systems Review of Systems chronic pain Mental Status Exam Mental Status Exam Patient Appearance: Appropriate Patient Orientation: Person, Place, Time and Situation Level of Consciousness: Alert Patient Behavior: Talkative and Good Eye Contact Mood Description: Appropriate Affect Description: Appropriate Patient Cognition Impaired: No Ability to Follow Directions: Good Speech Pattern: Spontaneous Speech Memory Description: Episodic Impaired Hallucinations: None (denies today) and Auditory Delusions: Not Present (increase in her reality testing) Perceptual Disturbances: Depersonalization and Derealization Thought Process: Goal Oriented Thought Content: positive for Goal Oriented and positive for Suicidal Ideation (denies) Depressive Symptoms: Thoughts of /Suicide (denies) Judgement: Good Diagnostics Vital Signs (24Hr): Vital Signs - 24 hr 09/15/25 20:00 09/16/25 01:30 09/16/25 08:00 Temperature 98.2 F 97.2 F Pulse Rate 78 66 Respiratory Rate 16 16 Blood Pressure 142/69 H 134/67 Pulse Oximetry 96 89 L Oxygen Delivery Method Room Air Room Air BMI result Body Mass Index 33.7 Labs 09/13/25 08:01 Medications Medications Current Medications Acetaminophen (Acetaminophen 325 Mg Tablet) 650 mg PO Q6H PRN PRN Reason: Headache/Pain, Scale 1-10 Last Admin: 09/15/25 21:13 Dose: 650 mg Al Hydroxide/Mg Hydroxide (Magnesium Hydrox/Alum Hydrox 30 Ml Oral.Susp) 30 ml PO Q6H PRN PRN Reason: Heartburn/Nausea Albuterol/Ipratropium (Albuterol/Iprat 2.5/0.5mg 3 Ml Ampul.Neb) 3 ml INHALE RQ6H WHILE AWAKE PRN PRN Reason: Shortness of Breath/Wheezing Amlodipine Besylate (Amlodipine Besylate 5 Mg Tablet) 5 mg PO DAILY [facility]; Protocol Last Admin: 09/16/25 08:45 Dose: 5 mg Apixaban (Apixaban 5 Mg Tablet) 5 mg PO BID [facility] Last Admin: 09/16/25 08:45 Dose: 5 mg Baclofen (Baclofen 10 Mg Tablet) 10 mg PO BID [facility] Last Admin: 09/16/25 08:45 Dose: 10 mg Benzocaine (Throat Lozenge, Medicated Lozenge) 1 lozenge MUCOUS MEM Q2H PRN PRN Reason: Sore Throat Bupropion HCl (Bupropion Hcl Xl 150 Mg Tab.Er.24h) 150 mg PO DAILY [facility] Last Admin: 09/16/25 08:45 Dose: 150 mg Clonazepam (Clonazepam 0.5 Mg Tablet) 0.75 mg PO TID PRN PRN Reason: Anxiety Last Admin: 09/16/25 11:54 Dose: 0.75 mg Fluticasone Propionate (Fluticasone Propionate Nasal 16 Gm [place]) 2 spray NOSTRIL-B DAILY [facility] Last Admin: 09/16/25 08:42 Dose: 2 spray Fluticasone/Vilanterol (Fluticasone/Vilanterol 200/25 Blst.W.Dev) 1 puff INHALE RDAILY [facility] Last Admin: 09/16/25 08:43 Dose: 1 puff Gabapentin (Gabapentin 300 Mg Capsule) 300 mg PO BID@0800,1500 [facility] Last Admin: 09/16/25 08:45 Dose: 300 mg Gabapentin (Gabapentin 600 Mg Tablet) 600 mg PO BEDTIME [facility] Last Admin: 09/15/25 22:03 Dose: 600 mg Hydroxyzine HCl (Hydroxyzine Hcl 25 Mg Tablet) 25 mg PO Q6H PRN PRN Reason: mild anxiety Last Admin: 09/15/25 22:03 Dose: 25 mg Lidocaine (Lidocaine 4 % Patch Adh..Patch) 1 patch TRANSDERMA DAILY [facility]; Protocol Last Admin: 09/16/25 08:43 Dose: 1 patch Lisinopril (Lisinopril 20 Mg Tablet) 40 mg PO DAILY [facility]; Protocol Last Admin: 09/16/25 08:45 Dose: 40 mg Loratadine (Loratadine 10 Mg Tablet) 10 mg PO DAILY PRN PRN Reason: allergies Magnesium Hydroxide (Milk Of Magnesia 30 Ml Oral.Susp) 30 ml PO DAILY PRN PRN Reason: Constipation Melatonin (Melatonin 3 Mg Tablet) 6 mg PO BEDTIME [facility] Last Admin: 09/15/25 22:09 Dose: 6 mg Methadone HCl (Methadone Hcl 20 Mg/2 Ml Oral.Conc) 120 mg PO DAILY@0800 [facility] Last Admin: 09/16/25 07:57 Dose: 120 mg Methylphenidate HCl (Methylphenidate Hcl 10 Mg Tablet) 10 mg PO TID@0700,1100,1600 [facility] Last Admin: 09/16/25 12:22 Dose: 10 mg Nicotine (Nicotine 14 Mg Patch.Td24) 14 mg TRANSDERMA DAILY [facility] Last Admin: 09/16/25 08:44 Dose: 14 mg Nicotine Polacrilex (Nicotine Polacrilex Lozenge 2 Mg Lozenge) 2 mg BUCCAL Q2H PRN PRN Reason: Nicotine Cravings Last Admin: 09/16/25 09:08 Dose: 2 mg Olanzapine (Olanzapine 5 Mg Tablet) 5 mg PO BID PRN PRN Reason: agitation Last Admin: 09/11/25 21:01 Dose: 5 mg Olanzapine (Olanzapine 5 Mg Tablet) 5 mg PO BEDTIME [facility] Last Admin: 09/15/25 22:03 Dose: 5 mg Olanzapine (Olanzapine 10 Mg Tablet) 10 mg PO BEDTIME [facility] Last Admin: 09/15/25 22:10 Dose: 10 mg Omeprazole (Omeprazole 20 Mg Capsule.Dr) 20 mg PO DAILY [facility] Last Admin: 09/16/25 08:45 Dose: 20 mg Ondansetron HCl (Ondansetron Odt 4 Mg Tab.Rapdis) 4 mg TRANSLINGU DAILY PRN PRN Reason: Nausea Last Admin: 09/12/25 19:47 Dose: 4 mg Pregabalin (Pregabalin 25 Mg Capsule) 25 mg PO BID [facility] Last Admin: 09/16/25 08:45 Dose: 25 mg Risperidone (Risperidone 0.5 Mg Tablet) 0.5 mg PO BID [facility] Last Admin: 09/16/25 08:45 Dose: 0.5 mg Trazodone HCl (Trazodone Hcl 50 Mg Tablet) 50 mg PO BEDTIME MRX1 PRN PRN Reason: Insomnia Last Admin: 09/11/25 21:00 Dose: 50 mg Trazodone HCl (Trazodone Hcl 50 Mg Tablet) 150 mg PO BEDTIME [facility] Last Admin: 09/15/25 22:04 Dose: 150 mg Allergies Allergies Allergy/AdvReac Type Severity Reaction Status Date / Time No Known Allergies Allergy Verified 09/09/25 20:29 Assessment & Plan Assessment & Plan (1) Schizoaffective disorder: Status: Acute Code(s): F25.9 - Schizoaffective disorder, unspecified Assessment and Plan: 09/13/25: No med changes Continue tx. Plan 60-year-old female with a past medical history listed below, presents to the ED with hallucinations, now admitted for further care and treatment. Schizoaffective disorder/hallucinations Treatment per psychiatric team COPD Not in acute exacerbation Continue Breo Ellipta and DuoNeb inhalers as needed Hypertension Continue Norvasc and lisinopril Blood pressure stable on review Fibromyalgia/myofascial pain Patient on methadone 120 mg daily, baclofen, gabapentin Tylenol as needed History of PE on Eliquis Continue omeprazole and Eliquis as needed No outside records available for review Thank you for allowing me to participate in the care of this patient. Will follow with you, please notify medical provider with any changes in condition or concerns. 09/14: Risperdal 0.5 mg bid Lyrica 25 mg bid 09/15: Increase Klonopin to 0.75 mg tid prn from 0.5 mg tid prn 09/16: Continue tx Reason for continued inpatient stay Substantial Risk for: rapid decompensation Time Spent With Patient Time: Total time managing care of this patient today ____ minutes.
[2025-09-16 20:00] VITALS: BP 128/60; PULSE 86; RESP 16; TEMP 36.1; O2SAT 94
[2025-09-16 22:51] VITALS: O2SAT 96
[2025-09-17 08:00] VITALS: BP 149/79; PULSE 66; RESP 18; TEMP 35.7; O2SAT 95
[2025-09-17] MEDS: methADONE HCl 20 MG/2 ML ORAL.CONC 120 MG PO (08:12)
[2025-09-17] MEDS: Fluticasone/Vilanterol 200/25 BLST.W.DEV 1 PUFF INHALE (08:50)
[2025-09-17] MEDS: buPROPion HCl XL 150 MG TAB.ER.24H PO (08:52)
[2025-09-17] MEDS: Nicotine 14 MG PATCH.TD24 TRANSDERMA (08:52)
--- NOTE | 2025-09-17 09:46 | HO.PSYCHPN ---
Subjective Subjective Date of Service: 09/17/25 Reason For Visit: F25.0 Interim History: Pt interactive in milieu. More visible. Coming out of room. Reports some improvement. Complains of the pain and wants a medical bed to sleep because it is uncomfortable. Today, she is up, dressed, makeup on. Continues to ask to move to geriatrics for a bed that is more accommodating. Reports a derease in symptoms and is brighter and more engaged. Denies SI. Denies AH. Review of Systems Review of Systems chronic pain Yes all other systems are reviewed and are negative Constitutional: Denies chills and Denies fever(s) Cardiovascular: Denies chest pain and Denies dyspnea Respiratory: Denies cough and Denies dyspnea Gastrointestinal: Denies abdominal pain and Denies diarrhea Mental Status Exam Mental Status Exam Narrative: General appearance: hospital gown. Good hygiene.? Eye contact: WNL. Musculoskeletal: Uses a walker. .??? Manner/behavior: cooperative and not guarded Speech:? Fluent, with normal rate, tone and volume. Language: No receptive or expressive language impairment? Mood: Anxious Affect: Constricted range, congruent to mood and without lability? Thought process/associations: Linear with no flight of ideas or loose associations.?? Thought content:?Paranoid delusions?? Hallucinations: AVH reported when at home. Subsided. Suicidality/self-destructive behavior: SI without a plan? ? Homicidally/violence: none.? Reliability: good.? ? Judgment: preserved.? ? Insight: preserved Cognition: Alert and oriented to time, place and person. Attention, concentration and fund of knowledge are normal.? Impulse control and emotional regulation: preserved. Intelligence estimate: average.? Patient Appearance: Appropriate Patient Orientation: Person, Place, Time and Situation Level of Consciousness: Alert Patient Behavior: Talkative and Good Eye Contact Mood Description: Appropriate Affect Description: Appropriate Patient Cognition Impaired: No Ability to Follow Directions: Good Speech Pattern: Spontaneous Speech Memory Description: Episodic Impaired Diagnostics Vital Signs (24Hr): Vital Signs - 24 hr 09/16/25 20:00 09/16/25 22:51 09/17/25 08:00 Temperature 97 F 96.3 F L Pulse Rate 86 66 Respiratory Rate 16 18 Blood Pressure 128/60 149/79 H Pulse Oximetry 94 96 95 Oxygen Delivery Method Room Air Nasal Cannula Nasal Cannula Oxygen Flow Rate 2 BMI result Body Mass Index 33.7 Labs 09/13/25 08:01 Medications Medications Current Medications Acetaminophen (Acetaminophen 325 Mg Tablet) 650 mg PO Q6H PRN PRN Reason: Headache/Pain, Scale 1-10 Last Admin: 09/15/25 21:13 Dose: 650 mg Al Hydroxide/Mg Hydroxide (Magnesium Hydrox/Alum Hydrox 30 Ml Oral.Susp) 30 ml PO Q6H PRN PRN Reason: Heartburn/Nausea Albuterol/Ipratropium (Albuterol/Iprat 2.5/0.5mg 3 Ml Ampul.Neb) 3 ml INHALE RQ6H WHILE AWAKE PRN PRN Reason: Shortness of Breath/Wheezing Amlodipine Besylate (Amlodipine Besylate 5 Mg Tablet) 5 mg PO DAILY [facility]; Protocol Last Admin: 09/17/25 08:52 Dose: 5 mg Apixaban (Apixaban 5 Mg Tablet) 5 mg PO BID [facility] Last Admin: 09/17/25 08:52 Dose: 5 mg Baclofen (Baclofen 10 Mg Tablet) 10 mg PO BID [facility] Last Admin: 09/17/25 08:52 Dose: 10 mg Benzocaine (Throat Lozenge, Medicated Lozenge) 1 lozenge MUCOUS MEM Q2H PRN PRN Reason: Sore Throat Bupropion HCl (Bupropion Hcl Xl 150 Mg Tab.Er.24h) 150 mg PO DAILY [facility] Last Admin: 09/17/25 08:52 Dose: 150 mg Clonazepam (Clonazepam 0.5 Mg Tablet) 0.75 mg PO TID PRN PRN Reason: Anxiety Last Admin: 09/17/25 06:23 Dose: 0.75 mg Fluticasone Propionate (Fluticasone Propionate Nasal 16 Gm [place]) 2 spray NOSTRIL-B DAILY [facility] Last Admin: 09/17/25 08:50 Dose: 2 spray Fluticasone/Vilanterol (Fluticasone/Vilanterol 200/25 Blst.W.Dev) 1 puff INHALE RDAILY [facility] Last Admin: 09/17/25 08:50 Dose: 1 puff Gabapentin (Gabapentin 300 Mg Capsule) 300 mg PO BID@0800,1500 [facility] Last Admin: 09/17/25 08:52 Dose: 300 mg Gabapentin (Gabapentin 600 Mg Tablet) 600 mg PO BEDTIME [facility] Last Admin: 09/16/25 21:25 Dose: 600 mg Hydroxyzine HCl (Hydroxyzine Hcl 25 Mg Tablet) 25 mg PO Q6H PRN PRN Reason: mild anxiety Last Admin: 09/15/25 22:03 Dose: 25 mg Lidocaine (Lidocaine 4 % Patch Adh..Patch) 1 patch TRANSDERMA DAILY [facility]; Protocol Last Admin: 09/16/25 08:43 Dose: 1 patch Lisinopril (Lisinopril 20 Mg Tablet) 40 mg PO DAILY [facility]; Protocol Last Admin: 09/17/25 08:51 Dose: 40 mg Loratadine (Loratadine 10 Mg Tablet) 10 mg PO DAILY PRN PRN Reason: allergies Magnesium Hydroxide (Milk Of Magnesia 30 Ml Oral.Susp) 30 ml PO DAILY PRN PRN Reason: Constipation Melatonin (Melatonin 3 Mg Tablet) 6 mg PO BEDTIME [facility] Last Admin: 09/16/25 21:25 Dose: 6 mg Methadone HCl (Methadone Hcl 20 Mg/2 Ml Oral.Conc) 120 mg PO DAILY@0800 [facility] Last Admin: 09/17/25 08:12 Dose: 120 mg Methylphenidate HCl (Methylphenidate Hcl 10 Mg Tablet) 10 mg PO TID@0700,1100,1600 [facility] Last Admin: 09/17/25 06:25 Dose: 10 mg Nicotine (Nicotine 14 Mg Patch.Td24) 14 mg TRANSDERMA DAILY [facility] Last Admin: 09/17/25 08:52 Dose: 14 mg Nicotine Polacrilex (Nicotine Polacrilex Lozenge 2 Mg Lozenge) 2 mg BUCCAL Q2H PRN PRN Reason: Nicotine Cravings Last Admin: 09/16/25 21:25 Dose: 2 mg Pt Own ([place] ([place])) 1 each PO TID PRN PRN Reason: dry mouth Last Admin: 09/17/25 08:50 Dose: 1 each Olanzapine (Olanzapine 5 Mg Tablet) 5 mg PO BID PRN PRN Reason: agitation Last Admin: 09/11/25 21:01 Dose: 5 mg Olanzapine (Olanzapine 5 Mg Tablet) 5 mg PO BEDTIME [facility] Last Admin: 09/16/25 21:25 Dose: 5 mg Olanzapine (Olanzapine 10 Mg Tablet) 10 mg PO BEDTIME [facility] Last Admin: 09/16/25 21:26 Dose: 10 mg Omeprazole (Omeprazole 20 Mg Capsule.Dr) 20 mg PO DAILY [facility] Last Admin: 09/17/25 08:52 Dose: 20 mg Ondansetron HCl (Ondansetron Odt 4 Mg Tab.Rapdis) 4 mg TRANSLINGU DAILY PRN PRN Reason: Nausea Last Admin: 09/12/25 19:47 Dose: 4 mg Pregabalin (Pregabalin 25 Mg Capsule) 25 mg PO BID [facility] Last Admin: 09/17/25 08:52 Dose: 25 mg Risperidone (Risperidone 0.5 Mg Tablet) 0.5 mg PO BID [facility] Last Admin: 09/17/25 08:52 Dose: 0.5 mg Trazodone HCl (Trazodone Hcl 50 Mg Tablet) 50 mg PO BEDTIME MRX1 PRN PRN Reason: Insomnia Last Admin: 09/11/25 21:00 Dose: 50 mg Trazodone HCl (Trazodone Hcl 50 Mg Tablet) 150 mg PO BEDTIME [facility] Last Admin: 09/16/25 21:25 Dose: 150 mg Allergies Allergies Allergy/AdvReac Type Severity Reaction Status Date / Time No Known Allergies Allergy Verified 09/09/25 20:29 Assessment & Plan Assessment & Plan (1) Schizoaffective disorder: Status: Acute Code(s): F25.9 - Schizoaffective disorder, unspecified Assessment and Plan: 09/13/25: No med changes Continue tx. Plan 60-year-old female with a past medical history listed below, presents to the ED with hallucinations, now admitted for further care and treatment. Schizoaffective disorder/hallucinations Treatment per psychiatric team COPD Not in acute exacerbation Continue Breo Ellipta and DuoNeb inhalers as needed Hypertension Continue Norvasc and lisinopril Blood pressure stable on review Fibromyalgia/myofascial pain Patient on methadone 120 mg daily, baclofen, gabapentin Tylenol as needed History of PE on Eliquis Continue omeprazole and Eliquis as needed No outside records available for review Thank you for allowing me to participate in the care of this patient. Will follow with you, please notify medical provider with any changes in condition or concerns. 09/14: Risperdal 0.5 mg bid Lyrica 25 mg bid 09/15: Increase Klonopin to 0.75 mg tid prn from 0.5 mg tid prn 09/16: Continue tx 09/17: continue current management and treatment plan. Reason for continued inpatient stay Substantial Risk for: inability to function and rapid decompensation Time Spent With Patient Time: Total time managing care of this patient today ____ minutes.
[2025-09-17] MEDS: Nicotine Polacrilex Lozenge 2 MG LOZENGE BUCCAL ×2 (10:29→13:52)
[2025-09-17] MEDS: Lidocaine 4 % Patch ADH..PATCH 1 PATCH TRANSDERMA (12:01)
[2025-09-17 20:00] VITALS: BP 132/65; PULSE 78; RESP 15; TEMP 36.1; O2SAT 94
[2025-09-18] MEDS: methADONE HCl 20 MG/2 ML ORAL.CONC 120 MG PO (07:45)
[2025-09-18 08:00] VITALS: BP 134/80; PULSE 69; RESP 16; TEMP 36.3; O2SAT 95
--- NOTE | 2025-09-18 09:34 | P.PNPSI_ITS ---
Subjective Subjective Date of Service: 09/18/25 Reason For Visit: F25.0 Interim History: Pt interactive in milieu. More visible. Coming out of room. Reports some improvement. Would like to increase her ADHD meds to 20 mg three times a day and the Klonopin to 1 mg three times a day . Will defer to primary team for final decision on this. She appears well, more engaged, not focused on her fears and paranoid thoughts. Today, she is up, dressed, makeup on. Overall reports a decrease in symptoms and is brighter and more engaged. Denies SI. Denies AH. Review of Systems Review of Systems chronic pain Yes all other systems are reviewed and are negative Constitutional: Denies chills and Denies fever(s) Cardiovascular: Denies chest pain and Denies dyspnea Respiratory: Denies cough and Denies dyspnea Gastrointestinal: Denies abdominal pain and Denies diarrhea Mental Status Exam Mental Status Exam Narrative: General appearance: hospital gown. Good hygiene.? Eye contact: WNL. Musculoskeletal: Uses a walker. .??? Manner/behavior: cooperative and not guarded Speech:? Fluent, with normal rate, tone and volume. Language: No receptive or expressive language impairment? Mood: Anxious Affect: Constricted range, congruent to mood and without lability? Thought process/associations: Linear with no flight of ideas or loose associations.?? Thought content:?Paranoid delusions?? Hallucinations: AVH reported when at home. Subsided. Suicidality/self-destructive behavior: SI without a plan? ? Homicidally/violence: none.? Reliability: good.? ? Judgment: preserved.? ? Insight: preserved Cognition: Alert and oriented to time, place and person. Attention, concentration and fund of knowledge are normal.? Impulse control and emotional regulation: preserved. Intelligence estimate: average.? Patient Appearance: Appropriate Patient Orientation: Person, Place, Time and Situation Level of Consciousness: Alert Patient Behavior: Talkative and Good Eye Contact Mood Description: Appropriate Affect Description: Appropriate Patient Cognition Impaired: No Ability to Follow Directions: Good Speech Pattern: Spontaneous Speech Memory Description: Episodic Impaired Diagnostics Vital Signs (24Hr): Vital Signs - 24 hr 09/17/25 20:00 09/18/25 08:00 Temperature 97.0 F 97.3 F Pulse Rate 78 69 Respiratory Rate 15 16 Blood Pressure 132/65 134/80 Pulse Oximetry 94 95 BMI result Body Mass Index 33.7 Labs 09/13/25 08:01 Medications Medications Current Medications Acetaminophen (Acetaminophen 325 Mg Tablet) 650 mg PO Q6H PRN PRN Reason: Headache/Pain, Scale 1-10 Last Admin: 09/17/25 22:08 Dose: 650 mg Al Hydroxide/Mg Hydroxide (Magnesium Hydrox/Alum Hydrox 30 Ml Oral.Susp) 30 ml PO Q6H PRN PRN Reason: Heartburn/Nausea Albuterol/Ipratropium (Albuterol/Iprat 2.5/0.5mg 3 Ml Ampul.Neb) 3 ml INHALE RQ6H WHILE AWAKE PRN PRN Reason: Shortness of Breath/Wheezing Amlodipine Besylate (Amlodipine Besylate 5 Mg Tablet) 5 mg PO DAILY [facility]; Protocol Last Admin: 09/17/25 08:52 Dose: 5 mg Apixaban (Apixaban 5 Mg Tablet) 5 mg PO BID [facility] Last Admin: 09/17/25 21:55 Dose: 5 mg Baclofen (Baclofen 10 Mg Tablet) 10 mg PO BID [facility] Last Admin: 09/17/25 21:55 Dose: 10 mg Benzocaine (Throat Lozenge, Medicated Lozenge) 1 lozenge MUCOUS MEM Q2H PRN PRN Reason: Sore Throat Bupropion HCl (Bupropion Hcl Xl 150 Mg Tab.Er.24h) 150 mg PO DAILY [facility] Last Admin: 09/17/25 08:52 Dose: 150 mg Clonazepam (Clonazepam 0.5 Mg Tablet) 0.75 mg PO TID PRN PRN Reason: Anxiety Last Admin: 09/17/25 22:07 Dose: 0.75 mg Fluticasone Propionate (Fluticasone Propionate Nasal 16 Gm [place]) 2 spray NOSTRIL-B DAILY [facility] Last Admin: 09/17/25 08:50 Dose: 2 spray Fluticasone/Vilanterol (Fluticasone/Vilanterol 200/25 Blst.W.Dev) 1 puff INHALE RDAILY [facility] Last Admin: 09/17/25 08:50 Dose: 1 puff Gabapentin (Gabapentin 300 Mg Capsule) 300 mg PO BID@0800,1500 [facility] Last Admin: 09/17/25 15:39 Dose: 300 mg Gabapentin (Gabapentin 600 Mg Tablet) 600 mg PO BEDTIME [facility] Last Admin: 09/17/25 21:54 Dose: 600 mg Hydroxyzine HCl (Hydroxyzine Hcl 25 Mg Tablet) 25 mg PO Q6H PRN PRN Reason: mild anxiety Last Admin: 09/15/25 22:03 Dose: 25 mg Lidocaine (Lidocaine 4 % Patch Adh..Patch) 1 patch TRANSDERMA DAILY [facility]; Protocol Last Admin: 09/17/25 12:01 Dose: 1 patch Lisinopril (Lisinopril 20 Mg Tablet) 40 mg PO DAILY [facility]; Protocol Last Admin: 09/17/25 08:51 Dose: 40 mg Loratadine (Loratadine 10 Mg Tablet) 10 mg PO DAILY PRN PRN Reason: allergies Last Admin: 09/17/25 10:27 Dose: 10 mg Magnesium Hydroxide (Milk Of Magnesia 30 Ml Oral.Susp) 30 ml PO DAILY PRN PRN Reason: Constipation Melatonin (Melatonin 3 Mg Tablet) 6 mg PO BEDTIME [facility] Last Admin: 09/17/25 21:54 Dose: 6 mg Methadone HCl (Methadone Hcl 20 Mg/2 Ml Oral.Conc) 120 mg PO DAILY@0800 [facility] Last Admin: 09/18/25 07:45 Dose: 120 mg Methylphenidate HCl (Methylphenidate Hcl 10 Mg Tablet) 10 mg PO TID@0700,1100,1600 [facility] Last Admin: 09/17/25 15:43 Dose: 10 mg Nicotine (Nicotine 14 Mg Patch.Td24) 14 mg TRANSDERMA DAILY [facility] Last Admin: 09/17/25 08:52 Dose: 14 mg Nicotine Polacrilex (Nicotine Polacrilex Lozenge 2 Mg Lozenge) 2 mg BUCCAL Q2H PRN PRN Reason: Nicotine Cravings Last Admin: 09/17/25 13:52 Dose: 2 mg Pt Own (Dry Mouth ([place])) 1 each PO TID PRN PRN Reason: dry mouth Last Admin: 09/17/25 15:40 Dose: 1 each Olanzapine (Olanzapine 5 Mg Tablet) 5 mg PO BID PRN PRN Reason: agitation Last Admin: 09/11/25 21:01 Dose: 5 mg Olanzapine (Olanzapine 5 Mg Tablet) 5 mg PO BEDTIME [facility] Last Admin: 09/17/25 21:56 Dose: 5 mg Olanzapine (Olanzapine 10 Mg Tablet) 10 mg PO BEDTIME [facility] Last Admin: 09/17/25 21:55 Dose: 10 mg Omeprazole (Omeprazole 20 Mg Capsule.Dr) 20 mg PO DAILY [facility] Last Admin: 09/17/25 08:52 Dose: 20 mg Ondansetron HCl (Ondansetron Odt 4 Mg Tab.Rapdis) 4 mg TRANSLINGU DAILY PRN PRN Reason: Nausea Last Admin: 09/12/25 19:47 Dose: 4 mg Pregabalin (Pregabalin 25 Mg Capsule) 25 mg PO BID [facility] Last Admin: 09/17/25 21:55 Dose: 25 mg Risperidone (Risperidone 0.5 Mg Tablet) 0.5 mg PO BID [facility] Last Admin: 09/17/25 21:55 Dose: 0.5 mg Trazodone HCl (Trazodone Hcl 50 Mg Tablet) 50 mg PO BEDTIME MRX1 PRN PRN Reason: Insomnia Last Admin: 09/17/25 22:09 Dose: 50 mg Trazodone HCl (Trazodone Hcl 50 Mg Tablet) 150 mg PO BEDTIME [facility] Last Admin: 09/17/25 21:54 Dose: 150 mg Allergies Allergies Allergy/AdvReac Type Severity Reaction Status Date / Time No Known Allergies Allergy Verified 09/09/25 20:29 Assessment & Plan Assessment & Plan (1) Schizoaffective disorder: Status: Acute Code(s): F25.9 - Schizoaffective disorder, unspecified Assessment and Plan: 09/13/25: No med changes Continue tx. Plan 60-year-old female with a past medical history listed below, presents to the ED with hallucinations, now admitted for further care and treatment. Schizoaffective disorder/hallucinations Treatment per psychiatric team COPD Not in acute exacerbation Continue Breo Ellipta and DuoNeb inhalers as needed Hypertension Continue Norvasc and lisinopril Blood pressure stable on review Fibromyalgia/myofascial pain Patient on methadone 120 mg daily, baclofen, gabapentin Tylenol as needed History of PE on Eliquis Continue omeprazole and Eliquis as needed No outside records available for review Thank you for allowing me to participate in the care of this patient. Will follow with you, please notify medical provider with any changes in condition or concerns. 09/14: Risperdal 0.5 mg bid Lyrica 25 mg bid 09/15: Increase Klonopin to 0.75 mg tid prn from 0.5 mg tid prn 09/16: Continue tx 09/17: continue current management and treatment plan. 09/18: continue current management and treatment plan. Reason for continued inpatient stay Substantial Risk for: inability to function and rapid decompensation Time Spent With Patient Time: Total time managing care of this patient today ____ minutes.
[2025-09-18] MEDS: Fluticasone/Vilanterol 200/25 BLST.W.DEV 1 PUFF INHALE (09:38)
[2025-09-18] MEDS: buPROPion HCl XL 150 MG TAB.ER.24H PO (09:40)
[2025-09-18] MEDS: Lidocaine 4 % Patch ADH..PATCH 1 PATCH TRANSDERMA (09:41)
[2025-09-18] MEDS: Nicotine 14 MG PATCH.TD24 TRANSDERMA (09:42)
[2025-09-18] MEDS: Nicotine Polacrilex Lozenge 2 MG LOZENGE BUCCAL ×3 (12:54→20:53)
[2025-09-18 20:00] VITALS: BP 134/63; PULSE 67; RESP 15; TEMP 36.8; O2SAT 94
[2025-09-19] MEDS: methADONE HCl 20 MG/2 ML ORAL.CONC 120 MG PO (07:49)
[2025-09-19 08:00] VITALS: BP 136/76; PULSE 60; TEMP 36.1; O2SAT 95
[2025-09-19] MEDS: Nicotine 14 MG PATCH.TD24 TRANSDERMA (08:22)
[2025-09-19] MEDS: Fluticasone/Vilanterol 200/25 BLST.W.DEV 1 PUFF INHALE (08:22)
[2025-09-19] MEDS: Lidocaine 4 % Patch ADH..PATCH 1 PATCH TRANSDERMA (08:23)
[2025-09-19] MEDS: buPROPion HCl XL 150 MG TAB.ER.24H PO (08:24)
--- NOTE | 2025-09-19 09:43 | P.PNPSI_ITS ---
Subjective Subjective Date of Service: 09/19/25 Reason For Visit: F25.0 Subjective Notes: Conditional Voluntary Healthcare Proxy: No Guardianship: No Medical Problems Affecting Mental Status: No Interim History: Pt discussed wanting to increase Ritalin and Klonopin. Reviewed OP team decrease of dose and discussed risks/benefits of klonopin titration. Discussed sx prior to admission-premonitions, feeling that she is being called the devil, a serpent, feeling that she was being burned alive and tortured. Discussed meds for these current sx would be an increase in Risperdal and that titrations of Ritalin/Klonopin could precipitate sx increase. She is willing to trial an increase. Meeting with team 09/21 11am Medication Compliance: Yes Side effects from medications: No Attending Groups: Intermittent Review of Systems Acute medical concerns: No Medical Review of Systems: unchanged Review of Systems Review of Systems Denied today Mental Status Exam Mental Status Exam Patient Appearance: Appropriate Patient Orientation: Person, Place, Time and Situation Level of Consciousness: Alert Patient Behavior: Talkative, Distractible and Good Eye Contact Mood Description: Constricted Affect Description: Constricted Patient Cognition Impaired: No Ability to Follow Directions: Good Speech Pattern: Spontaneous Speech Memory Description: Episodic Impaired Hallucinations: Auditory Delusions: Paranoid Ideation and Present Thought Process: Distracted Thought Content: positive for Circumstantial, positive for Perseveration and positive for Suicidal Ideation (denies) Depressive Symptoms: Increased Fatigue and Loss of Energy Judgement: Fair Diagnostics Vital Signs (24Hr): Vital Signs - 24 hr 09/18/25 20:00 09/19/25 08:00 Temperature 98.2 F 96.9 F Pulse Rate 67 60 Respiratory Rate 15 Blood Pressure 134/63 136/76 Pulse Oximetry 94 95 Oxygen Delivery Method Room Air BMI result Body Mass Index 33.7 Labs 09/13/25 08:01 Medications Medications Current Medications Acetaminophen (Acetaminophen 325 Mg Tablet) 650 mg PO Q6H PRN PRN Reason: Headache/Pain, Scale 1-10 Last Admin: 09/18/25 21:53 Dose: 650 mg Al Hydroxide/Mg Hydroxide (Magnesium Hydrox/Alum Hydrox 30 Ml Oral.Susp) 30 ml PO Q6H PRN PRN Reason: Heartburn/Nausea Albuterol/Ipratropium (Albuterol/Iprat 2.5/0.5mg 3 Ml Ampul.Neb) 3 ml INHALE RQ6H WHILE AWAKE PRN PRN Reason: Shortness of Breath/Wheezing Amlodipine Besylate (Amlodipine Besylate 5 Mg Tablet) 5 mg PO DAILY [facility]; Protocol Last Admin: 09/19/25 08:25 Dose: 5 mg Apixaban (Apixaban 5 Mg Tablet) 5 mg PO BID [facility] Last Admin: 09/19/25 08:24 Dose: 5 mg Baclofen (Baclofen 10 Mg Tablet) 10 mg PO BID [facility] Last Admin: 09/19/25 08:25 Dose: 10 mg Benzocaine (Throat Lozenge, Medicated Lozenge) 1 lozenge MUCOUS MEM Q2H PRN PRN Reason: Sore Throat Bupropion HCl (Bupropion Hcl Xl 150 Mg Tab.Er.24h) 150 mg PO DAILY [facility] Last Admin: 09/19/25 08:24 Dose: 150 mg Clonazepam (Clonazepam 0.5 Mg Tablet) 0.75 mg PO TID PRN PRN Reason: Anxiety Last Admin: 09/19/25 08:24 Dose: 0.75 mg Docusate Sodium (Docusate Sodium 100 Mg Capsule) 100 mg PO BID [facility] Last Admin: 09/19/25 08:24 Dose: 100 mg Fluticasone Propionate (Fluticasone Propionate Nasal 16 Gm [place]) 2 spray NOSTRIL-B DAILY [facility] Last Admin: 09/19/25 08:22 Dose: 2 spray Fluticasone/Vilanterol (Fluticasone/Vilanterol 200/25 Blst.W.Dev) 1 puff INHALE RDAILY [facility] Last Admin: 09/19/25 08:22 Dose: 1 puff Gabapentin (Gabapentin 300 Mg Capsule) 300 mg PO BID@0800,1500 [facility] Last Admin: 09/19/25 08:25 Dose: 300 mg Gabapentin (Gabapentin 600 Mg Tablet) 600 mg PO BEDTIME [facility] Last Admin: 09/18/25 21:53 Dose: 600 mg Hydroxyzine HCl (Hydroxyzine Hcl 25 Mg Tablet) 25 mg PO Q6H PRN PRN Reason: mild anxiety Last Admin: 09/19/25 00:32 Dose: 25 mg Lidocaine (Lidocaine 4 % Patch Adh..Patch) 1 patch TRANSDERMA DAILY [facility]; Protocol Last Admin: 09/19/25 08:23 Dose: 1 patch Lisinopril (Lisinopril 20 Mg Tablet) 40 mg PO DAILY [facility]; Protocol Last Admin: 09/19/25 08:25 Dose: 40 mg Loratadine (Loratadine 10 Mg Tablet) 10 mg PO DAILY PRN PRN Reason: allergies Last Admin: 09/18/25 09:40 Dose: 10 mg Magnesium Hydroxide (Milk Of Magnesia 30 Ml Oral.Susp) 30 ml PO DAILY PRN PRN Reason: Constipation Melatonin (Melatonin 3 Mg Tablet) 6 mg PO BEDTIME [facility] Last Admin: 09/18/25 21:53 Dose: 6 mg Methadone HCl (Methadone Hcl 20 Mg/2 Ml Oral.Conc) 120 mg PO DAILY@0800 [facility] Last Admin: 09/19/25 07:49 Dose: 120 mg Methylphenidate HCl (Methylphenidate Hcl 10 Mg Tablet) 10 mg PO TID@0700,1100,1600 [facility] Last Admin: 09/19/25 08:24 Dose: 10 mg Nicotine (Nicotine 14 Mg Patch.Td24) 14 mg TRANSDERMA DAILY [facility] Last Admin: 09/19/25 08:22 Dose: 14 mg Nicotine Polacrilex (Nicotine Polacrilex Lozenge 2 Mg Lozenge) 2 mg BUCCAL Q2H PRN PRN Reason: Nicotine Cravings Last Admin: 09/18/25 20:53 Dose: 2 mg Pt Own (Dry Mouth ([place])) 1 each PO TID PRN PRN Reason: dry mouth Last Admin: 09/18/25 15:04 Dose: 1 each Non-Formulary Medication (Biotene Dry Mouth [place]) 2 sprays PO QID PRN PRN Reason: dry mouth Olanzapine (Olanzapine 5 Mg Tablet) 5 mg PO BID PRN PRN Reason: agitation Last Admin: 09/11/25 21:01 Dose: 5 mg Olanzapine (Olanzapine 5 Mg Tablet) 5 mg PO BEDTIME [facility] Last Admin: 09/18/25 21:54 Dose: 5 mg Olanzapine (Olanzapine 10 Mg Tablet) 10 mg PO BEDTIME [facility] Last Admin: 09/18/25 21:53 Dose: 10 mg Omeprazole (Omeprazole 20 Mg Capsule.Dr) 20 mg PO DAILY [facility] Last Admin: 09/19/25 08:24 Dose: 20 mg Ondansetron HCl (Ondansetron Odt 4 Mg Tab.Rapdis) 4 mg TRANSLINGU DAILY PRN PRN Reason: Nausea Last Admin: 09/12/25 19:47 Dose: 4 mg Pregabalin (Pregabalin 25 Mg Capsule) 25 mg PO BID [facility] Last Admin: 09/19/25 08:25 Dose: 25 mg Risperidone (Risperidone 0.5 Mg Tablet) 0.5 mg PO BID [facility] Last Admin: 09/19/25 08:25 Dose: 0.5 mg Trazodone HCl (Trazodone Hcl 50 Mg Tablet) 50 mg PO BEDTIME MRX1 PRN PRN Reason: Insomnia Last Admin: 09/19/25 00:32 Dose: 50 mg Trazodone HCl (Trazodone Hcl 50 Mg Tablet) 150 mg PO BEDTIME [facility] Last Admin: 09/18/25 21:54 Dose: 150 mg Allergies Allergies Allergy/AdvReac Type Severity Reaction Status Date / Time No Known Allergies Allergy Verified 09/09/25 20:29 Assessment & Plan Assessment & Plan (1) Schizoaffective disorder: Status: Acute Code(s): F25.9 - Schizoaffective disorder, unspecified Assessment and Plan: 09/13/25: No med changes Continue tx. Plan 60-year-old female with a past medical history listed below, presents to the ED with hallucinations, now admitted for further care and treatment. Schizoaffective disorder/hallucinations Treatment per psychiatric team COPD Not in acute exacerbation Continue Breo Ellipta and DuoNeb inhalers as needed Hypertension Continue Norvasc and lisinopril Blood pressure stable on review Fibromyalgia/myofascial pain Patient on methadone 120 mg daily, baclofen, gabapentin Tylenol as needed History of PE on Eliquis Continue omeprazole and Eliquis as needed No outside records available for review Thank you for allowing me to participate in the care of this patient. Will follow with you, please notify medical provider with any changes in condition or concerns. 09/14: Risperdal 0.5 mg bid Lyrica 25 mg bid 09/15: Increase Klonopin to 0.75 mg tid prn from 0.5 mg tid prn 09/16: Continue tx 09/17: continue current management and treatment plan. 09/18: continue current management and treatment plan. 09/19: Increase Risperdal to 1 mg bid Patient educated on: medication risk/benefits Reason for continued inpatient stay Substantial Risk for: rapid decompensation Time Spent With Patient Time: Total time managing care of this patient today ____ minutes.
[2025-09-19] MEDS: Nicotine Polacrilex Lozenge 2 MG LOZENGE BUCCAL ×4 (10:59→20:47)
[2025-09-19] MEDS: Throat Lozenge, Medicated LOZENGE 1 LOZENGE MUCOUS MEM (17:58)
[2025-09-19 19:52] VITALS: BP 113/62; PULSE 81; RESP 16; TEMP 37.3; O2SAT 93
[2025-09-20] MEDS: methADONE HCl 20 MG/2 ML ORAL.CONC 120 MG PO (07:55)
[2025-09-20] MEDS: buPROPion HCl XL 150 MG TAB.ER.24H PO (07:58)
[2025-09-20] MEDS: Nicotine 14 MG PATCH.TD24 TRANSDERMA (07:59)
[2025-09-20 08:00] VITALS: BP 129/71; PULSE 59; RESP 16; TEMP 36.4; O2SAT 93
[2025-09-20] MEDS: Fluticasone/Vilanterol 200/25 BLST.W.DEV 1 PUFF INHALE (08:02)
[2025-09-20] MEDS: Lidocaine 4 % Patch ADH..PATCH 1 PATCH TRANSDERMA (08:03)
--- NOTE | 2025-09-20 08:56 | P.PNPSI_ITS ---
Subjective Subjective Date of Service: 09/20/25 Reason For Visit: F25.0 Subjective Notes: Conditional Voluntary Healthcare Proxy: No Guardianship: No Medical Problems Affecting Mental Status: No Interim History: Pt continues to discuss feeling that her ADHD is not properly treated without Ritalin increase. Discussed calling her out pt provider to discuss potential interventions that they are comfortable keepin when pt discharges, however, she declined, stating she was aware provider would not agree. Discussed other options for treating sx, she declined. Team reports pt had an episode of choking at lunch. Hospitalist consult was requested, bedside swallow eval was ordered. Hospitalist recommended to continue to check temperature q shift. Pt reports no further adverse sx. She reports she had esophageal stretching in July and has choked in the past. We await bedside swallow results. Medication Compliance: Yes Side effects from medications: No Attending Groups: Intermittent Review of Systems episode of choking at lunch today Medical Review of Systems: unchanged Review of Systems Review of Systems episode of choking at lunch today. Denies further adverse effects Mental Status Exam Mental Status Exam Patient Appearance: Appropriate Patient Orientation: Person, Place, Time and Situation Level of Consciousness: Alert Patient Behavior: Talkative and Good Eye Contact Mood Description: Flat Affect Description: Flat Patient Cognition Impaired: No Ability to Follow Directions: Good Speech Pattern: Spontaneous Speech Memory Description: Episodic Impaired Hallucinations: None Delusions: Paranoid Ideation (fears what is going on at home) Thought Process: Rumination Thought Content: positive for Circumstantial, positive for Perseveration (focus on ritalin dosing) and positive for Suicidal Ideation (denies) Depressive Symptoms: Thoughts of /Suicide (denies) Judgement: Fair Diagnostics Vital Signs (24Hr): Vital Signs - 24 hr 09/19/25 19:52 09/20/25 08:00 Temperature 99.1 F 97.5 F Pulse Rate 81 59 Respiratory Rate 16 16 Blood Pressure 113/62 129/71 Pulse Oximetry 93 93 Oxygen Delivery Method Room Air Room Air BMI result Body Mass Index 33.7 Labs 09/13/25 08:01 Medications Medications Current Medications Acetaminophen (Acetaminophen 325 Mg Tablet) 650 mg PO Q6H PRN PRN Reason: Headache/Pain, Scale 1-10 Last Admin: 09/19/25 17:58 Dose: 650 mg Al Hydroxide/Mg Hydroxide (Magnesium Hydrox/Alum Hydrox 30 Ml Oral.Susp) 30 ml PO Q6H PRN PRN Reason: Heartburn/Nausea Albuterol/Ipratropium (Albuterol/Iprat 2.5/0.5mg 3 Ml Ampul.Neb) 3 ml INHALE RQ6H WHILE AWAKE PRN PRN Reason: Shortness of Breath/Wheezing Amlodipine Besylate (Amlodipine Besylate 5 Mg Tablet) 5 mg PO DAILY [facility]; Protocol Last Admin: 09/20/25 07:57 Dose: 5 mg Apixaban (Apixaban 5 Mg Tablet) 5 mg PO BID [facility] Last Admin: 09/20/25 07:58 Dose: 5 mg Baclofen (Baclofen 10 Mg Tablet) 10 mg PO BID [facility] Last Admin: 09/20/25 07:58 Dose: 10 mg Benzocaine (Throat Lozenge, Medicated Lozenge) 1 lozenge MUCOUS MEM Q2H PRN PRN Reason: Sore Throat Last Admin: 09/19/25 17:58 Dose: 1 lozenge Bupropion HCl (Bupropion Hcl Xl 150 Mg Tab.Er.24h) 150 mg PO DAILY [facility] Last Admin: 09/20/25 07:58 Dose: 150 mg Clonazepam (Clonazepam 0.5 Mg Tablet) 0.75 mg PO TID PRN PRN Reason: Anxiety Last Admin: 09/20/25 07:58 Dose: 0.75 mg Docusate Sodium (Docusate Sodium 100 Mg Capsule) 100 mg PO BID [facility] Last Admin: 09/20/25 07:57 Dose: 100 mg Fluticasone Propionate (Fluticasone Propionate Nasal 16 Gm [place]) 2 spray NOSTRIL-B DAILY [facility] Last Admin: 09/20/25 08:03 Dose: 2 spray Fluticasone/Vilanterol (Fluticasone/Vilanterol 200/25 Blst.W.Dev) 1 puff INHALE RDAILY [facility] Last Admin: 09/20/25 08:02 Dose: 1 puff Gabapentin (Gabapentin 300 Mg Capsule) 300 mg PO BID@0800,1500 [facility] Last Admin: 09/20/25 07:59 Dose: 300 mg Gabapentin (Gabapentin 600 Mg Tablet) 600 mg PO BEDTIME [facility] Last Admin: 09/19/25 22:04 Dose: 600 mg Hydroxyzine HCl (Hydroxyzine Hcl 25 Mg Tablet) 25 mg PO Q6H PRN PRN Reason: mild anxiety Last Admin: 09/19/25 00:32 Dose: 25 mg Lidocaine (Lidocaine 4 % Patch Adh..Patch) 1 patch TRANSDERMA DAILY [facility]; Protocol Last Admin: 09/20/25 08:03 Dose: 1 patch Lisinopril (Lisinopril 20 Mg Tablet) 40 mg PO DAILY [facility]; Protocol Last Admin: 09/20/25 07:58 Dose: 40 mg Loratadine (Loratadine 10 Mg Tablet) 10 mg PO DAILY PRN PRN Reason: allergies Last Admin: 09/18/25 09:40 Dose: 10 mg Magnesium Hydroxide (Milk Of Magnesia 30 Ml Oral.Susp) 30 ml PO DAILY PRN PRN Reason: Constipation Melatonin (Melatonin 3 Mg Tablet) 6 mg PO BEDTIME [facility] Last Admin: 09/19/25 22:03 Dose: 6 mg Methadone HCl (Methadone Hcl 20 Mg/2 Ml Oral.Conc) 120 mg PO DAILY@0800 [facility] Last Admin: 09/20/25 07:55 Dose: 120 mg Methylphenidate HCl (Methylphenidate Hcl 10 Mg Tablet) 10 mg PO TID@0700,1100,1600 [facility] Last Admin: 09/20/25 06:51 Dose: 10 mg Nicotine (Nicotine 14 Mg Patch.Td24) 14 mg TRANSDERMA DAILY [facility] Last Admin: 09/20/25 07:59 Dose: 14 mg Nicotine Polacrilex (Nicotine Polacrilex Lozenge 2 Mg Lozenge) 2 mg BUCCAL Q2H PRN PRN Reason: Nicotine Cravings Last Admin: 09/19/25 20:47 Dose: 2 mg Pt Own (Dry Mouth ([place])) 1 each PO TID PRN PRN Reason: dry mouth Last Admin: 09/18/25 15:04 Dose: 1 each Pt Own (Biotene Dry Mouth [place] 2 Sprays ) 2 sprays PO QID PRN PRN Reason: dry mouth Last Admin: 09/20/25 08:02 Dose: 2 sprays Olanzapine (Olanzapine 5 Mg Tablet) 5 mg PO BID PRN PRN Reason: agitation Last Admin: 09/11/25 21:01 Dose: 5 mg Olanzapine (Olanzapine 5 Mg Tablet) 5 mg PO BEDTIME [facility] Last Admin: 09/19/25 22:04 Dose: 5 mg Olanzapine (Olanzapine 10 Mg Tablet) 10 mg PO BEDTIME [facility] Last Admin: 09/19/25 22:03 Dose: 10 mg Omeprazole (Omeprazole 20 Mg Capsule.) 20 mg PO DAILY [facility] Last Admin: 09/20/25 07:58 Dose: 20 mg Ondansetron HCl (Ondansetron Odt 4 Mg Tab.Rapdis) 4 mg TRANSLINGU DAILY PRN PRN Reason: Nausea Last Admin: 09/19/25 22:03 Dose: 4 mg Pregabalin (Pregabalin 25 Mg Capsule) 25 mg PO BID [facility] Last Admin: 09/20/25 07:57 Dose: 25 mg Risperidone (Risperidone 1 Mg Tablet) 1 mg PO BID [facility] Last Admin: 09/20/25 07:58 Dose: 1 mg Trazodone HCl (Trazodone Hcl 50 Mg Tablet) 50 mg PO BEDTIME MRX1 PRN PRN Reason: Insomnia Last Admin: 09/19/25 00:32 Dose: 50 mg Trazodone HCl (Trazodone Hcl 50 Mg Tablet) 150 mg PO BEDTIME [facility] Last Admin: 09/19/25 22:04 Dose: 150 mg Allergies Allergies Allergy/AdvReac Type Severity Reaction Status Date / Time No Known Allergies Allergy Verified 09/09/25 20:29 Assessment & Plan Assessment & Plan (1) Schizoaffective disorder: Status: Acute Code(s): F25.9 - Schizoaffective disorder, unspecified Assessment and Plan: 09/13/25: No med changes Continue tx. Plan 60-year-old female with a past medical history listed below, presents to the ED with hallucinations, now admitted for further care and treatment. Schizoaffective disorder/hallucinations Treatment per psychiatric team COPD Not in acute exacerbation Continue Breo Ellipta and DuoNeb inhalers as needed Hypertension Continue Norvasc and lisinopril Blood pressure stable on review Fibromyalgia/myofascial pain Patient on methadone 120 mg daily, baclofen, gabapentin Tylenol as needed History of PE on Eliquis Continue omeprazole and Eliquis as needed No outside records available for review Thank you for allowing me to participate in the care of this patient. Will follow with you, please notify medical provider with any changes in condition or concerns. 09/14: Risperdal 0.5 mg bid Lyrica 25 mg bid 09/15: Increase Klonopin to 0.75 mg tid prn from 0.5 mg tid prn 09/16: Continue tx 09/17: continue current management and treatment plan. 09/18: continue current management and treatment plan. 09/20: continue regime team meeting with pt 09/21. Reason for continued inpatient stay Substantial Risk for: rapid decompensation Time Spent With Patient Time: Total time managing care of this patient today ____ minutes.
[2025-09-20] MEDS: Nicotine Polacrilex Lozenge 2 MG LOZENGE BUCCAL ×3 (09:08→15:32)
--- NOTE | 2025-09-20 13:24 | PC.NURSE ---
Staff overheard several patients shout She's choking from the kitchen. When staff entered the kitchen pt was alert and talking. Peers reported pt had an episode of choking while eating her lunch and stated another patient performd the Heimlich maneuver (unwitnessed by staff but reported by pt and peers). Pt then stated she was able to cough up remaining pieces of her food. Pt then finished her lunch without issue. Covering provider made aware of incident.
--- NOTE | 2025-09-20 13:46 | P.PNIM_ITS ---
Subjective Subjective Date of Service: 09/21/25 Interval History: Choked Physical Exam 2 Vital Signs: Vital Signs: Last Vital Signs Temp 97.5 F 09/20/25 08:00 Pulse 59 09/20/25 08:00 Resp 16 09/20/25 08:00 BP 129/71 09/20/25 08:00 Pulse Ox 93 09/20/25 08:00 O2 Del Method Room Air 09/20/25 08:00 O2 Flow Rate 2 09/17/25 08:00 Oxygen Flow Rate 2 09/10/25 03:38 BMI result Body Mass Index 33.7 Objective Data Active Medications Acetaminophen (Acetaminophen 325 Mg Tablet) 650 mg PO Q6H PRN PRN Reason: Headache/Pain, Scale 1-10 Last Admin: 09/19/25 17:58 Dose: 650 mg Documented By: MARTINE Al Hydroxide/Mg Hydroxide (Magnesium Hydrox/Alum Hydrox 30 Ml Oral.Susp) 30 ml PO Q6H PRN PRN Reason: Heartburn/Nausea Albuterol/Ipratropium (Albuterol/Iprat 2.5/0.5mg 3 Ml Ampul.Neb) 3 ml INHALE RQ6H WHILE AWAKE PRN PRN Reason: Shortness of Breath/Wheezing Amlodipine Besylate (Amlodipine Besylate 5 Mg Tablet) 5 mg PO DAILY [facility]; Protocol Last Admin: 09/20/25 07:57 Dose: 5 mg Documented By: REBECA Apixaban (Apixaban 5 Mg Tablet) 5 mg PO BID [facility] Last Admin: 09/20/25 07:58 Dose: 5 mg Documented By: REBECA Baclofen (Baclofen 10 Mg Tablet) 10 mg PO BID [facility] Last Admin: 09/20/25 07:58 Dose: 10 mg Documented By: REBECA Benzocaine (Throat Lozenge, Medicated Lozenge) 1 lozenge MUCOUS MEM Q2H PRN PRN Reason: Sore Throat Last Admin: 09/19/25 17:58 Dose: 1 lozenge Documented By: MARTINE Bupropion HCl (Bupropion Hcl Xl 150 Mg Tab.Er.24h) 150 mg PO DAILY [facility] Last Admin: 09/20/25 07:58 Dose: 150 mg Documented By: REBECA Clonazepam (Clonazepam 0.5 Mg Tablet) 0.75 mg PO TID PRN PRN Reason: Anxiety Last Admin: 09/20/25 07:58 Dose: 0.75 mg Documented By: REBECA Docusate Sodium (Docusate Sodium 100 Mg Capsule) 100 mg PO BID [facility] Last Admin: 09/20/25 07:57 Dose: 100 mg Documented By: REBECA Fluticasone Propionate (Fluticasone Propionate Nasal 16 Gm [place]) 2 spray NOSTRIL-B DAILY [facility] Last Admin: 09/20/25 08:03 Dose: 2 spray Documented By: REBECA Fluticasone/Vilanterol (Fluticasone/Vilanterol 200/25 Blst.W.Dev) 1 puff INHALE RDAILY [facility] Last Admin: 09/20/25 08:02 Dose: 1 puff Documented By: REBECA Gabapentin (Gabapentin 300 Mg Capsule) 300 mg PO BID@0800,1500 [facility] Last Admin: 09/20/25 07:59 Dose: 300 mg Documented By: REBECA Gabapentin (Gabapentin 600 Mg Tablet) 600 mg PO BEDTIME [facility] Last Admin: 09/19/25 22:04 Dose: 600 mg Documented By: JOSE CARLOS Hydroxyzine HCl (Hydroxyzine Hcl 25 Mg Tablet) 25 mg PO Q6H PRN PRN Reason: mild anxiety Last Admin: 09/19/25 00:32 Dose: 25 mg Documented By: LUCINA Lidocaine (Lidocaine 4 % Patch Adh..Patch) 1 patch TRANSDERMA DAILY [facility]; Protocol Last Admin: 09/20/25 08:03 Dose: 1 patch Documented By: REBECA Lisinopril (Lisinopril 20 Mg Tablet) 40 mg PO DAILY [facility]; Protocol Last Admin: 09/20/25 07:58 Dose: 40 mg Documented By: REBECA Loratadine (Loratadine 10 Mg Tablet) 10 mg PO DAILY PRN PRN Reason: allergies Last Admin: 09/18/25 09:40 Dose: 10 mg Documented By: MAIKEL Magnesium Hydroxide (Milk Of Magnesia 30 Ml Oral.Susp) 30 ml PO DAILY PRN PRN Reason: Constipation Melatonin (Melatonin 3 Mg Tablet) 6 mg PO BEDTIME [facility] Last Admin: 09/19/25 22:03 Dose: 6 mg Documented By: JOSE CARLOS Methadone HCl (Methadone Hcl 20 Mg/2 Ml Oral.Conc) 120 mg PO DAILY@0800 [facility] Last Admin: 09/20/25 07:55 Dose: 120 mg Documented By: REBECA Co-signed By: ALDO Methylphenidate HCl (Methylphenidate Hcl 10 Mg Tablet) 10 mg PO TID@0700,1100,1600 [facility] Last Admin: 09/20/25 11:23 Dose: 10 mg Documented By: REBECA Nicotine (Nicotine 14 Mg Patch.Td24) 14 mg TRANSDERMA DAILY [facility] Last Admin: 09/20/25 07:59 Dose: 14 mg Documented By: REBECA Nicotine Polacrilex (Nicotine Polacrilex Lozenge 2 Mg Lozenge) 2 mg BUCCAL Q2H PRN PRN Reason: Nicotine Cravings Last Admin: 09/20/25 12:42 Dose: 2 mg Documented By: PB Pt Own (Dry Mouth ([place])) 1 each PO TID PRN PRN Reason: dry mouth Last Admin: 09/18/25 15:04 Dose: 1 each Documented By: MAIKEL Pt Own (Biotene Dry Mouth [place] 2 Sprays ) 2 sprays PO QID PRN PRN Reason: dry mouth Last Admin: 09/20/25 08:02 Dose: 2 sprays Documented By: REBECA Olanzapine (Olanzapine 5 Mg Tablet) 5 mg PO BID PRN PRN Reason: agitation Last Admin: 09/11/25 21:01 Dose: 5 mg Documented By: EVELIN Olanzapine (Olanzapine 5 Mg Tablet) 5 mg PO BEDTIME [facility] Last Admin: 09/19/25 22:04 Dose: 5 mg Documented By: JOSE CARLOS Olanzapine (Olanzapine 10 Mg Tablet) 10 mg PO BEDTIME [facility] Last Admin: 09/19/25 22:03 Dose: 10 mg Documented By: JOSE CARLOS Omeprazole (Omeprazole 20 Mg Capsule.Dr) 20 mg PO DAILY [facility] Last Admin: 09/20/25 07:58 Dose: 20 mg Documented By: REBECA Ondansetron HCl (Ondansetron Odt 4 Mg Tab.Rapdis) 4 mg TRANSLINGU DAILY PRN PRN Reason: Nausea Last Admin: 09/19/25 22:03 Dose: 4 mg Documented By: JOSE CARLOS Pregabalin (Pregabalin 25 Mg Capsule) 25 mg PO BID [facility] Last Admin: 09/20/25 07:57 Dose: 25 mg Documented By: REBECA Risperidone (Risperidone 1 Mg Tablet) 1 mg PO BID [facility] Last Admin: 09/20/25 07:58 Dose: 1 mg Documented By: REBECA Trazodone HCl (Trazodone Hcl 50 Mg Tablet) 50 mg PO BEDTIME MRX1 PRN PRN Reason: Insomnia Last Admin: 09/19/25 00:32 Dose: 50 mg Documented By: LUCINA Trazodone HCl (Trazodone Hcl 50 Mg Tablet) 150 mg PO BEDTIME [facility] Last Admin: 09/19/25 22:04 Dose: 150 mg Documented By: JOSE CARLOS [facility] 09/20/25 22:51 09/20/25 22:51
[2025-09-20 15:28] VITALS: TEMP 36.8
[2025-09-20 19:50] VITALS: BP 133/63; PULSE 76; RESP 16; TEMP 38.4; O2SAT 92
--- NOTE | 2025-09-20 21:08 | PC.NURSE ---
Addendum entered by Tina Wade RN 09/20/25 22:55: MD notified of changes in VS. Hospitalist notified as well and Stat CXR, BW ordered. Pt temp not resolved after PO Tylenol at 101.8 MD aware. Pt returned from XR and One time order of Motrin given. Hospitalist will transfer pt to medical floor for treatment. Original Note: Fever, Patient alert and orientated x3. Walking with WW and boot. O2 on 2L at night. Patient states she had a choking episode today. Evening vitals showed a 101.1 temp done by [facility]. Recheck by RN is also 101.1, RR 17 HR 76 BP 133/63 O2 93%. Lungs Dim throughout, No acute respiratory distress at this time of assessment, encouraged pt to go to room if need to have her O2. Pt concerned she may be getting sick.
[2025-09-20 21:17] VITALS: PULSE 76; RESP 17; TEMP 38.4; O2SAT 93
[2025-09-20 22:16] VITALS: BP 136/66; PULSE 69; RESP 24; TEMP 38.8; O2SAT 92
[2025-09-20 23:00] LABS: MANUAL DIFF FLAG NO
[2025-09-20 23:01] LABS: Hematocrit 39.9 % (37.0-47.0); Hemoglobin 12.5 g/dl (12.0-16.0); Imm Gran Abs Auto 0.01 X10*3/uL (0.00-0.03); Imm Gran Pct Auto 0.2 % (0.0-0.4); Lymphocytes Absolute Auto 2.0 X10*3/uL (1.2-4.9); Mean Corpuscular HGB Conc 31.3 g/dl (31.0-35.0); Mean Corpuscular Hemoglobin 26.9 pg (27.0-33.0); Mean Corpuscular Volume 85.8 fL (80.0-98.0); NRBC Abs Auto 0.000 X10*3/uL (0.0-0.012); NRBC Pct Auto 0.0 /100WBC (0.0-0.2); Platelet Count 233 X10*3/uL (160-400); Red Blood Count 4.65 X10*6/uL (4.20-5.50); White Blood Count 4.5 X10*3/uL (4.8-10.8)
--- NOTE | 2025-09-20 23:04 | PM.PSYDC ---
DS: Providers Provider Date of Service: 09/20/25 Date of admission: 09/09/25 21:37 Date of discharge: 09/20/25 Primary care physician: Unknown Physician Admitting clinician: Rachel Saenz Consults: 09/09/25 20:29 Consult to Hospitalist Routine Comment: Consulting Provider: [facility] Reason For Exam: New external admit H+P 09/20/25 13:44 Consult to Hospitalist Routine Comment: Consulting Provider: [facility] Reason For Exam: s/p choking episode Attending physician on discharge: Ko Weaver DS: Diagnosis Discharge Diagnosis (1) Schizoaffective disorder: Status: Acute DS: Medications Discharge Medications Home Medications: Home Medications ?Medication ?Instructions ?Recorded ?Confirmed amlodipine 5 mg tablet 5 mg PO DAILY 09/10/25 09/10/25 apixaban 5 mg tablet (Eliquis) 5 mg PO BID 09/10/25 09/10/25 baclofen 10 mg tablet 10 mg PO DAILY 09/10/25 09/10/25 bupropion HCl 150 mg tablet,12 hr 150 mg PO DAILY 09/10/25 09/10/25 sustained-release cetirizine 10 mg tablet 10 mg PO DAILY PRN allergies 09/10/25 09/10/25 clonazepam 0.5 mg tablet 0.5 mg PO TID PRN anxiety 09/10/25 09/10/25 esomeprazole magnesium 40 mg 40 mg PO QAM 09/10/25 09/10/25 capsule,delayed release gabapentin 300 mg capsule 300 mg PO BID@0900,1700 09/10/25 09/10/25 gabapentin 300 mg capsule 600 mg PO BEDTIME 09/10/25 09/10/25 gabapentin 300 mg capsule 600 mg PO DAILY PRN pain / anxiety 09/10/25 09/10/25 lisinopril 40 mg tablet 40 mg PO DAILY 09/10/25 09/10/25 melatonin 5 mg tablet 5 mg PO BEDTIME 09/10/25 09/10/25 methadone 10 mg/mL oral 120 mg PO DAILY 09/10/25 09/10/25 concentrate (Methadone Intensol) methylphenidate HCl 10 mg tablet 10 mg PO TID 09/10/25 09/10/25 olanzapine 10 mg tablet 10 mg PO BEDTIME 09/10/25 09/10/25 olanzapine 5 mg tablet 5 mg PO BEDTIME 09/10/25 09/10/25 ondansetron HCl 4 mg tablet 4 mg PO DAILY PRN nausea 09/10/25 09/10/25 trazodone 150 mg tablet 150 mg PO BEDTIME 09/10/25 09/10/25 Previous Rx's ?Medication ?Instructions ?Recorded Biotene Dry Mouth [place] 2 sprays PO QID PRN ##0 09/20/25 Non-Formulary Medication 1 ea PO TID PRN ##0 09/20/25 benzocaine 15 mg-menthol 3.6 mg 1 nandini mucous membrane Q2H PRN Sore 09/20/25 lozenges (Sore Throat (benzocaine Throat #0 ea with menthol)) docusate sodium 100 mg capsule 100 mg PO BID #0 caps 09/20/25 fluticasone furoate 200 1 inh inhalation RDAILY #0 ea 09/20/25 mcg-vilanterol 25 mcg/dose inhalation powder (Breo Ellipta) fluticasone propionate 50 2 spray intranasal DAILY #0 grams 09/20/25 mcg/actuation nasal spray,suspension gabapentin 300 mg capsule 300 mg PO BID@0800,1500 #0 caps 09/20/25 hydroxyzine HCl 25 mg tablet 25 mg PO Q6H PRN mild anxiety #0 09/20/25 tabs ipratropium 0.5 mg-albuterol 3 mg 3 ml inhalation RQ6H WHILE AWAKE 09/20/25 (2.5 mg base)/3 mL nebulization PRN Shortness Of Breath/Wheezing soln #0 mL lidocaine 4 % topical patch 1 patch transdermal DAILY #0 ea 09/20/25 (Lidocaine Pain Relief) magnesium hydroxide 400 mg/5 mL 30 ml PO DAILY PRN Constipation #0 09/20/25 oral suspension (Milk of Magnesia) mL methadone 10 mg/mL oral 120 mg (12 mL) PO DAILY@0800 #0 mL 09/20/25 concentrate (Methadose) nicotine (polacrilex) 2 mg buccal 2 mg buccal Q2H PRN Nicotine 09/20/25 lozenge Cravings #0 ea nicotine 14 mg/24 hr daily 14 mg transdermal DAILY #0 ea 09/20/25 transdermal patch olanzapine 5 mg tablet 5 mg PO BID PRN agitation #0 tabs 09/20/25 pregabalin 25 mg capsule 25 mg PO BID #0 caps 09/20/25 risperidone 1 mg tablet 1 mg PO BID #0 tabs 09/20/25 trazodone 50 mg tablet 50 mg PO BEDTIME MRX1 PRN Insomnia 09/20/25 #0 tabs Mental Status Exam Mental Status Exam Narrative: transferred to medical floor Data Data Completed and Pending Completed studies during hospitalization [Text1]: 09/20/25 09/20/25 14:02 22:51 WBC 4.5 L RBC 4.65 Hgb 12.5 Hct 39.9 MCV 85.8 MCH 26.9 L MCHC 31.3 RDW 16.4 H Plt Count 233 MPV 9.5 Immature Gran % (Auto) 0.2 Neut % (Auto) 41.4 L Lymph % (Auto) 44.9 H [place] % (Auto) 11.3 H Eos % (Auto) 1.8 Baso % (Auto) 0.4 Lymph # (Auto) 2.0 [place] # (Auto) 0.5 Eos # (Auto) 0.1 Baso # (Auto) 0.0 Abs Immat Gran (auto) 0.01 Absolute Neuts (auto) 1.9 L Absolute Nucleated RBC 0.000 Nucleated RBC % (auto) 0.0 Sodium Pending Potassium Pending Chloride Pending Carbon Dioxide Pending Anion Gap Pending BUN Pending Creatinine Pending Estim Creat Clear Calc Pending Estimated GFR Pending Random Glucose Pending Lactic Acid Pending Calcium Pending Total Bilirubin Pending AST Pending ALT Pending Alkaline Phosphatase Pending Total Protein Pending Albumin Pending Ceruloplasmin Pending 09/20/25 22:51 Blood - Venous Blood Culture - Pending 09/20/25 22:51 Blood - Venous Blood Culture - Pending DS: Summary Hospital Course Hospital Course: 60-year-old female with a past medical history listed below, presents to the ED with hallucinations treated but transferred to medical floor for possible pneumonia Time Spent with Patient Time attestation: Total time managing care of this patient today ____ minutes. Discharge Plan Discharge Anticipated Discharge Date/Time: 09/20/25 23:03 Patient Disposition: Xfer Other Discharge Diagnosis: schizoaffective Referrals: [facility] [Other] - 1 Week Referral Note: Ct will resume services at D/C when she returns home. Physician,Unknown J [Primary Care Provider, Medical] - 1 Week Discharge Medications: New nicotine 14 mg/24 hr Patch 24 Hour 14 mg transdermal DAILY Qty: 0 0RF ipratropium-albuterol 0.5 mg-3 mg(2.5 mg base)/3 mL Solution For Nebulization 3 ml inhalation RQ6H WHILE AWAKE PRN (Reason: Shortness Of Breath/Wheezing) Qty: 0 0RF lidocaine [Lidocaine Pain Relief] 4 % Adhesive Patch,Medicated 1 patch transdermal DAILY Qty: 0 0RF Protocol: Apply to: Apply to: back trazodone 50 mg Tablet 50 mg PO BEDTIME MRX1 PRN (Reason: Insomnia) Qty: 0 0RF olanzapine 5 mg Tablet 5 mg PO BID PRN (Reason: agitation) Qty: 0 0RF magnesium hydroxide [Milk of Magnesia] 400 mg/5 mL Suspension 30 ml PO DAILY PRN (Reason: Constipation) Qty: 0 0RF docusate sodium 100 mg Capsule 100 mg PO BID Qty: 0 0RF gabapentin 300 mg Capsule 300 mg PO BID@0800,1500 Qty: 0 0RF hydroxyzine HCl 25 mg Tablet 25 mg PO Q6H PRN (Reason: mild anxiety) Qty: 0 0RF methadone [Methadose] 10 mg/mL Concentrate 120 mg PO DAILY@0800 Qty: 0 0RF Rx Instructions: Partial Fill upon patient request. fluticasone propionate 50 mcg/actuation [place],Suspension 2 spray intranasal DAILY Qty: 0 0RF risperidone 1 mg Tablet 1 mg PO BID Qty: 0 0RF nicotine (polacrilex) 2 mg Lozenge 2 mg buccal Q2H PRN (Reason: Nicotine Cravings) Qty: 0 0RF pregabalin 25 mg Capsule 25 mg PO BID Qty: 0 0RF Sore Throat (benzocaine-menth) 15-3.6 mg Lozenge 1 nandini mucous membrane Q2H PRN (Reason: Sore Throat) Qty: 0 0RF fluticasone furoate-vilanterol [Breo Ellipta] 200-25 mcg/dose Blister With Device 1 inh inhalation RDAILY Qty: 0 0RF Biotene Dry [place] 2 sprays PO QID PRNQty: 0 0RF Non-Formulary Medication 1 ea PO TID PRNQty: 0 0RF Continued bupropion HCl 150 mg tablet sustained-release 12 hr 150 mg PO DAILY cetirizine 10 mg tablet 10 mg PO DAILY PRN (Reason: allergies) methylphenidate HCl 10 mg tablet 10 mg PO TID clonazepam 0.5 mg tablet 0.5 mg PO TID PRN (Reason: anxiety) olanzapine 5 mg tablet 5 mg PO BEDTIME amlodipine 5 mg tablet 5 mg PO DAILY trazodone 150 mg tablet 150 mg PO BEDTIME gabapentin 300 mg capsule 300 mg PO BID@0900,1700 lisinopril 40 mg tablet 40 mg PO DAILY melatonin 5 mg tablet 5 mg PO BEDTIME Eliquis 5 mg tablet 5 mg PO BID ondansetron HCl 4 mg tablet 4 mg PO DAILY PRN (Reason: nausea) olanzapine 10 mg tablet 10 mg PO BEDTIME baclofen 10 mg tablet 10 mg PO DAILY esomeprazole magnesium 40 mg capsule,delayed release(DR/EC) 40 mg PO QAM methadone [Methadone Intensol] 10 mg/mL Concentrate 120 mg PO DAILY gabapentin 300 mg capsule 600 mg PO BEDTIME gabapentin 300 mg capsule 600 mg PO DAILY PRN (Reason: pain / anxiety) Discharge Orders: Discharge Order (Routine); Ordered 09/20/25 Ordered By: Ko Weaver Diet: Regular diet Activity on Discharge: As tolerated Stand Alone Forms: Patient Portal Discharge page Print Language: Sami Care Plan Goals: transferred to medical floor Health Concerns: transferred to medical floor Plan of Treatment: transferred to medical floor Assessment: transferred to medical floor
[2025-09-20 23:18] LABS: Alanine Aminotransferase 25 U/L (0-31); Albumin Level 4.3 g/dL (3.5-5.0); Alkaline Phosphatase 110 U/L (39-117); Anion Gap 14 (12-20); Aspartate Amino Transferase 21 U/L (5-31); Blood Urea Nitrogen 13 mg/dL (9-16); Calcium 9.3 mg/dL (8.4-10.2); Carbon Dioxide 31 mmol/L (22-29); Chloride 100 mmol/L (96-108); Creatinine Clr Calc Pharmacy 86.6; Estimated Glomerular Filt Rate > 60; Potassium 4.3 mmol/L (3.3-5.1); Sodium 141 mmol/L (135-145); Total Protein 7.5 g/dL (6.5-8.0)
[2025-09-21 00:58] LABS: Reflex Lactate? Lactic Acid Added
[2025-09-21 02:12] LABS: ~Lactic Acid-LAB USE ONLY 1.2 mmol/L (0.5-2.0)
--- NOTE | 2025-09-21 14:56 | PM.EVENT ---
Event Note Date of Service: 09/21/25 Event Note: Patient reported to have choked during lunch. Per nursing notes staff over her patient's yelling that patient was choking and another patient performed the Heimlich maneuver. Arrived to floor to evaluate patient she was in a group unavailable for physical evaluation. Advised staff to monitor her temp Q shift and notify hospitalist with any fevers or hypoxia. Time Spent With Patient Time: Total time managing care of this patient today ____ minutes.
== END 2025-09-20 23:38 | disposition other institution (70) | DRG 885 ==
PROVIDERS: Nurse Practitioner Family; Nurse Practitioner Psychiatric/Mental Health; Admitting Provider Psychiatry & Neurology Psychiatry; Visit Provider Clinical Nurse Specialist Psychiatric/Mental Health, Adult
DX: F25.9 Schizoaffective disorder, unspecified (principal); F11.20 Opioid dependence, uncomplicated; I10 Essential (primary) hypertension; G89.29 Other chronic pain; M79.7 Fibromyalgia; G62.9 Polyneuropathy, unspecified; J44.9 Chronic obstructive pulmonary disease, unspecified; G47.33 Obstructive sleep apnea (adult) (pediatric); F17.210 Nicotine dependence, cigarettes, uncomplicated; Z71.6 Tobacco abuse counseling; Z86.711 Personal history of pulmonary embolism; Z79.899 Other long term (current) drug therapy
CPT/HCPCS: 36415; 71045; 80053; 80061; 82390; 83036; 83605; 84439; 84443; 85025; 87040; 94660

== ENCOUNTER 2025-09-09 21:37 | Outpatient (BNV) | payer MEDICAID, SELFPAY | END 2025-09-20 22:00 | PROVIDERS: Admitting Provider Psychiatry & Neurology Psychiatry; Visit Provider Radiology Diagnostic Radiology | DX: R50.9 Fever, unspecified (principal) | CPT/HCPCS: 71045 ==

== ENCOUNTER → 2025-09-09 21:37 | Outpatient (BNV) | payer MEDICAID, SELFPAY | PROVIDERS: Admitting Provider Psychiatry & Neurology Psychiatry; Visit Provider Physician Assistant Medical | DX: Z00.00 Encounter for general adult medical examination without abnormal findings (principal) | CPT/HCPCS: 99429 ==

== ENCOUNTER → 2025-09-09 21:37 | Outpatient (BNV) | payer OTHER, SELFPAY | PROVIDERS: Admitting Provider Psychiatry & Neurology Psychiatry; Visit Provider Psychiatry & Neurology Psychiatry | DX: F25.9 Schizoaffective disorder, unspecified (principal) | CPT/HCPCS: 99223; 99232 ==

== ENCOUNTER 2025-09-20 23:18 | Outpatient (BNV) | payer MEDICAID, SELFPAY | END 2025-09-21 11:49 | PROVIDERS: Admitting Provider Nurse Practitioner Family; Visit Provider Internal Medicine | DX: R94.31 Abnormal electrocardiogram [ECG] [EKG] (principal); Z13.6 Encounter for screening for cardiovascular disorders | CPT/HCPCS: 93010 ==

== ENCOUNTER 2025-09-20 23:18 | Inpatient (IN) | payer MEDICAID, SELFPAY ==
--- NOTE | 2025-09-20 23:20 | PM.IMHP ---
History of Present Illness Date of Service: 09/20/25 Attending physician on admission: Cyn Michael Chief Complaint: Fever s/p choking episode Pt is a 60 yo female with PMH HTN. COPD, Fibromyalgia, Myofascial syndrome, ISAIAS, GERD, HTN and schizoaffective D/O is being transferred from psychiatry inpt floor to medical surgical floor for concerns of aspiration PNA s/p earlier choking episode during the day requiring the Heimlich manuever. Pt developed a temp 101.8 tonight without hypoxia. CXR ordered and notes developing RLL PNA. Pt stated earlier at lunch time, pt was eating a chicken sandwich and the food bolus got lodged and she could not cough or speak. Pt received Heimlich manuever with success. Pt states she has dysphagia due to her fibromyalgia but has not been worked up for this in the community. Pt otherwise offers no specific medical complaints to include chest pain, SOB at rest or with exertion, ABD pain, N/V, lower leg pain, STILL or feeling SI, HI or having hallucinations. Pt does use inhouse CPAP for her ISAIAS. Plan discussed with Dr. Weaver and Dr. Palomino regarding need to manage pt's current symptoms and suspicion for Aspiration PNA on medical floor requiring DC from psych and admission to medical surgical unit. All in agreement and worked with warehouse inventory clerk to manage transfer. Dr. Weaver was able to completed DC summary and place DC order. Review of Systems Review of Systems: Pt states she has dysphagia due to her fibromyalgia but has not been worked up for this in the community. Pt otherwise offers no specific medical complaints to include chest pain, SOB at rest or with exertion, ABD pain, N/V, lower leg pain, STILL or feeling SI, HI or having hallucinations.Pt denies productive cough, chills and temp has gone down since earlier. Yes all other systems are reviewed and are negative [facility] Medical History (Updated 09/20/25 @ 23:21 by BEATRIZ Butt) ISAIAS (obstructive sleep apnea) Pulmonary embolism Fibromyalgia Myofascial pain dysfunction syndrome HTN (hypertension) COPD (chronic obstructive pulmonary disease) Cognitive capacity: A/O X3 Functional capacity: independent ambulation Patient : No Social History Household Members: None Housing: Apartment Do you presently have visiting nurse or other home services: Yes (PC 2hours a day and VNA for meds daily) Patient Tobacco Use Status: Current everyday Tobacco user Tobacco use type: Cigarette Cigarettes Per Day: 7 Second Hand Smoke Exposure: No Advance Directives: No Advance Directives Information Provided: No service: No Sexual orientation: Straight/Heterosexual Ebola Risk: Travel/Contact With Anyone From Affected Area/s: No Has Patient Experienced Ebola Symptoms: No Meds Allergies Allergy/AdvReac Type Severity Reaction Status Date / Time No Known Allergies Allergy Verified 09/09/25 20:29 Home Medications ?Medication ?Instructions ?Recorded ?Confirmed ?Last Taken ?Type amlodipine 5 mg tablet 5 mg PO DAILY 09/10/25 09/10/25 09/08/25 History 5 mg apixaban 5 mg tablet (Eliquis) 5 mg PO BID 09/10/25 09/10/25 09/08/25 History 5 mg baclofen 10 mg tablet 10 mg PO DAILY 09/10/25 09/10/25 09/08/25 History 10 mg bupropion HCl 150 mg tablet,12 hr 150 mg PO DAILY 09/10/25 09/10/25 09/08/25 History sustained-release 150 mg cetirizine 10 mg tablet 10 mg PO DAILY PRN allergies 09/10/25 09/10/25 09/08/25 History 10 mg clonazepam 0.5 mg tablet 0.5 mg PO TID PRN anxiety 09/10/25 09/10/25 09/09/25 History 0.5 mg esomeprazole magnesium 40 mg 40 mg PO QAM 09/10/25 09/10/25 09/08/25 History capsule,delayed release 40 mg gabapentin 300 mg capsule 300 mg PO BID@0900,1700 09/10/25 09/10/25 09/09/25 History 300 mg gabapentin 300 mg capsule 600 mg PO BEDTIME 09/10/25 09/10/25 Unknown History gabapentin 300 mg capsule 600 mg PO DAILY PRN pain / anxiety 09/10/25 09/10/25 Unknown History lisinopril 40 mg tablet 40 mg PO DAILY 09/10/25 09/10/25 09/08/25 History 40 mg melatonin 5 mg tablet 5 mg PO BEDTIME 09/10/25 09/10/25 09/08/25 History 5 mg methadone 10 mg/mL oral 120 mg PO DAILY 09/10/25 09/10/25 09/09/25 08:00 History concentrate (Methadone Intensol) methylphenidate HCl 10 mg tablet 10 mg PO TID 09/10/25 09/10/25 09/09/25 History 10 olanzapine 10 mg tablet 10 mg PO BEDTIME 09/10/25 09/10/25 09/08/25 History 10 mg olanzapine 5 mg tablet 5 mg PO BEDTIME 09/10/25 09/10/25 09/08/25 History 5 mg ondansetron HCl 4 mg tablet 4 mg PO DAILY PRN nausea 09/10/25 09/10/25 09/08/25 History 4 mg trazodone 150 mg tablet 150 mg PO BEDTIME 09/10/25 09/10/25 09/08/25 History 150 Physical Exam Vital Signs and Narrative: Pt A/O X3, NAD Neuro: CN II-XII intact HEENT: PERRLA, sclera nonicteric, conjunctiva pink, lips moist, oral mucosa moist, thyroid normal in size Cardiac: S1S2 RRR, no murmur Resp: Lungs dimsinehd R>L no adventitous sounds EXT: no edema Psych: mood stable, insight and judgement good Results Imaging Radiologist's Impressions: CXR Findings: Strandy density projecting over right lung base. No large pleural effusion. No pneumothorax. Heart size at the upper end of normal. No acute soft tissue or osseous abnormality. Impression: 1. Strandy density projecting overlying lung base representing either atelectasis or developing infiltrate. 2. Additional findings as above. Assessment and Plan (1) Choking: Qualifiers: Encounter type: initial encounter Qualified Code(s): T17.308A - Unspecified foreign body in larynx causing other injury, initial encounter Status: Acute (2) Aspiration pneumonia: Qualifiers: Aspiration pneumonia type: due to regurgitated food Laterality: unspecified laterality Lung location: unspecified part of lung Qualified Code(s): J69.0 - Pneumonitis due to inhalation of food and vomit Status: Acute Plan Pt is a 60 yo female with PMH HTN. COPD, Fibromyalgia, Myofascial syndrome, GERD, ISAIAS, HTN and schizoaffective D/O is being transferred from psychiatry inpt floor to medical surgical floor for concerns of aspiration PNA s/p earlier choking episode during the day requiring the Heimlich manuever. pt developed a temp 101.8 tonight without hypoxia. CXR ordered and notes developing RLL PNA. Pt admitted on RA, fever trending down. Aspiration PNA likely secondary to choking episode earlier in the day/ Hx of dysphagia secondary to fibromyalgia Pt started on ceftriaxone and doxycyline Pt does not meet criteria for sepsis on admission LA 2.1, IVF ordered low rate BC X2 pending Screen for COVID, FLU, RSV IS Supportive care with antitussives, nebs, oxygen prn ST eval requested noting choking episode earlier today, pt notes chronic dysphaghia secondary to fibromyalgia, no work up as an outpatient COPD Duo nebs prn HTN Continue Amlodipine Low Na diet ISAIAS CPAP ordered HX of PE Continue Eliquis Fibromyalgia Continue gabapentin and Lyrica YOEL on methadone Continue methadone Tobacco use disorder Continue Nicotine patch Pt counselled on importance of continued smoking cessation with known COPD Schizoaffective D/O Psychiatry consulted to follow pt while admitted to the medical surgical floor Pt will likely transfer back to psychiatry inpatient once medically cleared DVT prophylaxis: Eliquis MED REC PENDING FULL CODE Quality Stroke Does the patient have a stroke diagnosis?: No Reason for No Anti-thrombotic by Day Two: N/A - Med Ordered VTE Prior VTE?: No VTE Risk Level:: Medical - moderate - high VTE Device Contraindication: N/A - Device Ordered VTE Drug Contraindication: N/A - Med Ordered
--- NOTE | 2025-09-21 | ECG_ITS ---
Test Reason : QTC CHECK Blood Pressure : */* mmHG Vent. Rate : 67 BPM Atrial Rate : 67 BPM P-R Int : 166 ms QRS Dur : 78 ms QT Int : 428 ms P-R-T Axes : 33 9 22 degrees QTcB Int : 452 ms Normal sinus rhythm cannot exclude old Inferior infarct , age undetermined could be related to body habitus Abnormal ECG No previous ECGs available Referred By: Yesenia Rodríguez Electronically Signed By: RILEY OLGUIN
[2025-09-21 00:08] VITALS: BMI 34.7
[2025-09-21] MEDS: 0.9 % Sodium Chloride Flush 3 ML SYRINGE IVFLUSH ×2 (00:50→21:31)
[2025-09-21 02:59] VITALS: BP 120/58; PULSE 60; RESP 18; TEMP 36.6; O2SAT 94
[2025-09-21 04:00] VITALS: BP 120/60; PULSE 58; RESP 19; TEMP 36.1; O2SAT 94
[2025-09-21 04:05] LABS: Resp Syncy Virus RNA Qual PCR NEGATIVE (Negative); SARS COV2 PCR INHOUSE NEGATIVE (Negative)
[2025-09-21 05:46] LABS: Hematocrit 34.5 % (37.0-47.0); Hemoglobin 11.1 g/dl (12.0-16.0); Mean Corpuscular HGB Conc 32.2 g/dl (31.0-35.0); Mean Corpuscular Hemoglobin 27.5 pg (27.0-33.0); Mean Corpuscular Volume 85.4 fL (80.0-98.0); NRBC Abs Auto 0.000 X10*3/uL (0.0-0.012); NRBC Pct Auto 0.0 /100WBC (0.0-0.2); Platelet Count 211 X10*3/uL (160-400); Red Blood Count 4.04 X10*6/uL (4.20-5.50); White Blood Count 4.2 X10*3/uL (4.8-10.8)
[2025-09-21 06:14] LABS: Alanine Aminotransferase 17 U/L (0-31); Albumin Level 3.5 g/dL (3.5-5.0); Alkaline Phosphatase 85 U/L (39-117); Anion Gap 11 (12-20); Aspartate Amino Transferase 18 U/L (5-31); Blood Urea Nitrogen 15 mg/dL (9-16); Calcium 8.4 mg/dL (8.4-10.2); Carbon Dioxide 31 mmol/L (22-29); Chloride 103 mmol/L (96-108); Creatinine Clr Calc Pharmacy 108.0; Estimated Glomerular Filt Rate > 60; Potassium 3.9 mmol/L (3.3-5.1); Sodium 141 mmol/L (135-145); Total Protein 6.2 g/dL (6.5-8.0)
[2025-09-21 07:48] VITALS: BP 120/55; PULSE 59; RESP 16; TEMP 36; O2SAT 94
--- NOTE | 2025-09-21 07:51 | HE.PHANOTE ---
Re Methadone 09/10/25: Pt receives 120mg from [facility], last there on 09/01/25 where they got a dose and 13 take home bottles to last through 09/14/25. 09/21/25: Pt transferred from M5 to S3 on 09/20/25. Last dose in M5 was 120mg 09/20/28 @ 0755.
--- NOTE | 2025-09-21 07:53 | PHA.MEDREC ---
Pharmacy Consult ? Medication Reconciliation Pharmacy has completed the medication reconciliation. Pt was transferred from ([id number]). Utilized discharge packet to complete med rec.
[2025-09-21] MEDS: BIOTENE DRY MOUTH 2 EACH PO (09:45)
[2025-09-21] MEDS: Nicotine 14 MG PATCH.TD24 TRANSDERMA (10:40)
[2025-09-21] MEDS: buPROPion HCl XL 150 MG TAB.ER.24H PO (10:40)
[2025-09-21] MEDS: methADONE HCl 20 MG/2 ML ORAL.CONC 120 MG PO (10:40)
[2025-09-21] MEDS: Fluticasone/Vilanterol 200/25 BLST.W.DEV 1 PUFF INHALE (11:04)
[2025-09-21] MEDS: Nicotine Polacrilex Lozenge 2 MG LOZENGE BUCCAL ×3 (11:04→19:49)
--- NOTE | 2025-09-21 11:20 | MHC.SL.SWA ---
Speech Pathologist Impression: Mild orophayrngeal dysphagia Risk of Aspiration Due to: recent choking episode and ? developing aspiration pneumonia Dysphasia Diet Status: REC: NDD3, Thin Liquids Liquid Consistency and Strategies for Safe Swallow: Liquid Intake Recommendation: Thin Liquid Intake Strategies: Solid Food Consistency: Dietary Recommendations: Chopped/Advanced (NDD3) Additional Modifications to Solid Foods: Oral Medication Intake: Whole with Liquid Please contact the pharmacy regarding appropriate crushable or liquid drug formulations that are available whenever modified delivery is recommended. Compensatory Strategies and Precautions to be Taken for Safe Swallow: Supervision While Eating and Drinking for Safe Swallow: Intermittent Supervision Foods to Avoid: Swallowing Recommended Treatments: 1-2x follow-up Recommendation for Speech: Inpatient Speech Therapy Comment: Patient presents with mild oropharyngeal dysphagia characterized by occasional munch vs rotary chew, patient reported difficulties with swallowing, adequate cohesion, adequate clearance. Patient with no s/sx of penetration/aspiration during evaluation. Patient's dysphagia exacerbated by dentition status, current conditioning and recent choking episode. Patient reports eating regular diet at baseline- does cut up meats into bite sizes for management. Patient with PMHx of GERD, manages with prescription medication and does endorse occasional globus sensation. No esophageal s/sx noted during evaluation. Recommend DOWNGRADE to NDD3, Thin liquids. SLEEVE PRESSER OPERATOR to follow-up. Medications whole w/ thin liquids. Encourage patient OOB during meals to increase alterness. Recommendations commmunicated with MD, RD, and RN via secure chat. Frequency/Duration: Date Range for Service Req: Timeline to reassess: Personalized Living Assistant Clinican/Clinical Fellow: No Supervisory Statement: I have reviewed and agree with the student/clinical fellow's documentation: No Speech Language Pathologist: Chelsea Live M.A., [facility] PRESSER OPERATOR
--- NOTE | 2025-09-21 12:55 | P.PNIM_ITS ---
Subjective Subjective Date of Service: 09/21/25 Interval History: Pt seen this am, sitting in chair eating her food, speech therapist at bedside, reccs DL3 diet, pt does not have dentures which makes eating hard/solid food difficult, currently she denies any sx, Review of Systems -ve except as stated above Physical Exam 2 Exam: Exam: Pt A/O X3, NAD Neuro: CN II-XII intact , moving all extremities, sensations intact, Cardiac: S1S2 RRR, no murmur Resp: CTAB, on RA EXT: no edema Psych: mood stable, insight and judgement good Vital Signs: Vital Signs: Last Vital Signs Temp 96.8 F 09/21/25 07:48 Pulse 59 09/21/25 07:48 Resp 16 09/21/25 07:48 BP 120/55 L 09/21/25 07:48 Pulse Ox 94 09/21/25 07:48 O2 Del Method Nasal Cannula 09/21/25 07:48 O2 Flow Rate 2 09/21/25 07:48 BMI result Body Mass Index 34.7 Objective Data Active Medications Acetaminophen (Acetaminophen 325 Mg Tablet) 650 mg PO Q6H PRN PRN Reason: Pain, Mild 1-3,fever,headache Albuterol/Ipratropium (Albuterol/Iprat 2.5/0.5mg 3 Ml Ampul.Neb) 3 ml INHALE Q4H PRN PRN Reason: Shortness of Breath/Wheezing Apixaban (Apixaban 5 Mg Tablet) 5 mg PO BID [facility] Last Admin: 09/21/25 10:40 Dose: 5 mg Documented By: SARAH Baclofen (Baclofen 10 Mg Tablet) 10 mg PO BID [facility] Last Admin: 09/21/25 10:40 Dose: 10 mg Documented By: SARAH Bupropion HCl (Bupropion Hcl Xl 150 Mg Tab.Er.24h) 150 mg PO DAILY [facility] Last Admin: 09/21/25 10:40 Dose: 150 mg Documented By: SARAH Calcium Carbonate (Calcium Carbonate 750 Mg Tab.Chew) 750 mg PO Q4H PRN PRN Reason: Heartburn Clonazepam (Clonazepam 0.5 Mg Tablet) 0.75 mg PO TID PRN PRN Reason: Anxiety Last Admin: 09/21/25 10:54 Dose: 0.75 mg Documented By: SARAH Fluticasone Propionate (Fluticasone Propionate Nasal 16 Gm [place]) 2 spray NOSTRIL-B DAILY [facility] Last Admin: 09/21/25 10:54 Dose: 2 spray Documented By: SARAH Fluticasone/Vilanterol (Fluticasone/Vilanterol 200/25 Blst.W.Dev) 1 puff INHALE RDAILY [facility] Last Admin: 09/21/25 11:04 Dose: 1 puff Documented By: SARAH Gabapentin (Gabapentin 300 Mg Capsule) 600 mg PO BEDTIME [facility] Gabapentin (Gabapentin 300 Mg Capsule) 300 mg PO BID@0800,1500 [facility] Last Admin: 09/21/25 10:40 Dose: 300 mg Documented By: SARAH Guaifenesin (Guaifenesin 200 Mg/10 Ml 10 Ml Liquid) 10 ml PO Q4H PRN PRN Reason: Cough Hydroxyzine HCl (Hydroxyzine Hcl 25 Mg Tablet) 25 mg PO Q6H PRN PRN Reason: mild anxiety Sodium Chloride (Ns) 1,000 mls @ 80 mls/hr IVCONT .[id number] [facility] Last Infusion: 09/21/25 02:55 Dose: 80 mls/hr Documented By: DANITA Ceftriaxone Sodium 1 gm/ (Sodium Chloride) 50 mls @ 100 mls/hr IV Q24H [facility] Last Infusion: 09/21/25 01:18 Dose: Infused Documented By: DANITA Doxycycline Hyclate 100 mg/ (Sodium Chloride) 250 mls @ 166.67 mls/hr IV Q12H [facility] Last Infusion: 09/21/25 12:13 Dose: Infused Documented By: SARAH Magnesium Hydroxide (Milk Of Magnesia 30 Ml Oral.Susp) 30 ml PO DAILY PRN PRN Reason: Constipation Melatonin (Melatonin 3 Mg Tablet) 6 mg PO BEDTIME PRN PRN Reason: Insomnia Methadone HCl (Methadone Hcl 20 Mg/2 Ml Oral.Conc) 120 mg PO DAILY@0800 [facility] Last Admin: 09/21/25 10:40 Dose: 120 mg Documented By: SARAH Co-signed By: HARRY Nicotine (Nicotine 14 Mg Patch.Td24) 14 mg TRANSDERMA DAILY [facility] Last Admin: 09/21/25 10:40 Dose: 14 mg Documented By: SARAH Nicotine Polacrilex (Nicotine Polacrilex Lozenge 2 Mg Lozenge) 2 mg BUCCAL Q2H PRN PRN Reason: Nicotine Cravings Last Admin: 09/21/25 11:04 Dose: 2 mg Documented By: SARAH Olanzapine (Olanzapine 5 Mg Tablet) 5 mg PO BEDTIME [facility] Olanzapine (Olanzapine 10 Mg Tablet) 10 mg PO BEDTIME [facility] Olanzapine (Olanzapine 5 Mg Tablet) 5 mg PO BID PRN PRN Reason: agitation Polyethylene Glycol (Polyethylene Glycol 3350 17 Gm Powd.Pack) 17 gm PO DAILY PRN PRN Reason: Constipation Pregabalin (Pregabalin 25 Mg Capsule) 25 mg PO BID [facility] Risperidone (Risperidone 1 Mg Tablet) 1 mg PO BID [facility] Last Admin: 09/21/25 10:40 Dose: 1 mg Documented By: SARAH Sodium Chloride (0.9 % Sodium Chloride Flush 3 Ml Syringe) 3 ml IVFLUSH QSHIFT [facility] Last Admin: 09/21/25 09:36 Dose: Not Given Documented By: SARAH Non-Admin Reason: IV Running Trazodone HCl (Trazodone Hcl 50 Mg Tablet) 150 mg PO BEDTIME [facility] Trazodone HCl (Trazodone Hcl 50 Mg Tablet) 50 mg PO BEDTIME MRX1 PRN PRN Reason: Insomnia Labs 09/21/25 05:22 09/21/25 05:22 Labs: Laboratory Results - last 24 hr 09/21/25 09/21/25 03:00 05:22 MCV 85.4 MCH 27.5 MCHC 32.2 RDW 16.2 H Plt Count 211 MPV 9.6 Absolute Nucleated RBC 0.000 Nucleated RBC % (auto) 0.0 Anion Gap 11 L Estim Creat Clear Calc 108.0 Estimated GFR > 60 Random Glucose 97 Lactic Acid 1.2 Calcium 8.4 D Total Bilirubin 0.2 AST 18 ALT 17 Alkaline Phosphatase 85 Total Protein 6.2 L Albumin 3.5 Influenza Type A (PCR) NEGATIVE Influenza Type B (PCR) NEGATIVE RSV RNA Qual (PCR) NEGATIVE SARS-CoV-2 RNA (RT-PCR) NEGATIVE Assessment and Plan (1) Schizoaffective disorder: Status: Acute (2) Choking: Status: Acute (3) Aspiration pneumonia: Status: Acute Plan Pt is a 60 yo female with PMH HTN. COPD, Fibromyalgia, Myofascial syndrome, GERD, ISAIAS, HTN and schizoaffective D/O is being transferred from psychiatry inpt floor to medical surgical floor for concerns of aspiration PNA s/p earlier choking episode during the day requiring the Heimlich manuever. pt developed a temp 101.8 tonight without hypoxia. CXR ordered and notes developing RLL PNA. Pt admitted on RA, fever trending down. Aspiration PNA likely secondary to choking episode earlier in the day/ Hx of dysphagia secondary to fibromyalgia Pt started on ceftriaxone and doxycycline Pt does not meet criteria for sepsis on admission LA 2.1, BC X2 pending IS Supportive care with antitussives, nebs, oxygen prn ST eval , given absence of dentures, DL3 diet, dc IVF today COPD Duo nebs prn HTN Continue Amlodipine Low Na diet ISAIAS CPAP ordered HX of PE Continue Eliquis Fibromyalgia Continue gabapentin and Lyrica YOEL on methadone Continue methadone Tobacco use disorder Continue Nicotine patch Pt counselled on importance of continued smoking cessation with known COPD Schizoaffective D/O Psychiatry consulted to follow pt while admitted to the medical surgical floor Pt will likely transfer back to psychiatry inpatient once medically cleared DVT prophylaxis: Eliquis FULL CODE OMN: dc IVF today, monitor on DL3 diet, if remains stable, ok to dc back to psych tomorrow. Quality Stroke Does the patient have a stroke diagnosis?: No Reason for No Anti-thrombotic by Day Two: N/A - Med Ordered VTE Prior VTE?: No VTE Risk Level:: Medical - moderate - high VTE Device Contraindication: N/A - Device Ordered VTE Drug Contraindication: N/A - Med Ordered
[2025-09-21 15:39] VITALS: BP 133/64; PULSE 59; RESP 18; TEMP 36.3; O2SAT 93
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
[2025-09-21 19:10] VITALS: BP 138/68; PULSE 81; RESP 18; TEMP 36.1; O2SAT 92
[2025-09-22 03:38] VITALS: BP 122/59; PULSE 57; RESP 18; TEMP 36.5; O2SAT 97
[2025-09-22 07:17] VITALS: BP 137/68; PULSE 56; RESP 14; TEMP 36.3; O2SAT 94
[2025-09-22] MEDS: buPROPion HCl XL 150 MG TAB.ER.24H PO (09:40)
[2025-09-22] MEDS: methADONE HCl 20 MG/2 ML ORAL.CONC 120 MG PO (09:41)
[2025-09-22] MEDS: Nicotine 14 MG PATCH.TD24 TRANSDERMA (09:41)
[2025-09-22] MEDS: Nicotine Polacrilex Lozenge 2 MG LOZENGE BUCCAL ×2 (10:22→14:42)
[2025-09-22] MEDS: Lidocaine 4 % Patch ADH..PATCH 1 PATCH TRANSDERMA (10:22)
[2025-09-22] MEDS: Fluticasone/Vilanterol 200/25 BLST.W.DEV 1 PUFF INHALE (11:16)
[2025-09-22 11:18] VITALS: PULSE 63; RESP 18; O2SAT 93
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
--- NOTE | 2025-09-22 12:00 | PC.NURSE ---
Approximately 1100- plan was for patient to discharge home after clearance by CARE team. Patient then endorsed SI if she was sent home. MD and CM notified. 1:1 sitter placed at bedside. Safety scan of room performed and ligature risk items secured.
--- NOTE | 2025-09-22 12:07 | HO.PM.IMPN ---
Subjective Subjective Date of Service: 09/22/25 Interval History: Pt seen this am, denies any sx, tolerating PO ok, on DL3 diet, cleared medically to go back to [facility]. Review of Systems -ve for all sx Physical Exam Exam: Exam: Pt A/O X3, NAD Neuro: CN II-XII intact , moving all extremities, sensations intact, Cardiac: S1S2 RRR, no murmur Resp: CTAB, on RA EXT: no edema Psych: mood stable, insight and judgement good Vital Signs: Vital Signs: Last Vital Signs Temp 97.4 F 09/22/25 07:17 Pulse 63 09/22/25 11:18 Resp 18 09/22/25 11:18 BP 137/68 09/22/25 07:17 Pulse Ox 94 09/22/25 07:17 O2 Del Method Nasal Cannula 09/22/25 07:17 O2 Flow Rate 2 09/22/25 07:17 BMI result Body Mass Index 34.7 Objective Data Active Medications Acetaminophen (Acetaminophen 325 Mg Tablet) 650 mg PO Q6H PRN PRN Reason: Pain, Mild 1-3,fever,headache Last Admin: 09/21/25 19:49 Dose: 650 mg Documented By: TOSIN Albuterol/Ipratropium (Albuterol/Iprat 2.5/0.5mg 3 Ml Ampul.Neb) 3 ml INHALE Q4H PRN PRN Reason: Shortness of Breath/Wheezing Apixaban (Apixaban 5 Mg Tablet) 5 mg PO BID [facility] Last Admin: 09/22/25 09:40 Dose: 5 mg Documented By: KOBE Baclofen (Baclofen 10 Mg Tablet) 10 mg PO BID [facility] Last Admin: 09/22/25 09:40 Dose: 10 mg Documented By: KOBE Bupropion HCl (Bupropion Hcl Xl 150 Mg Tab.Er.24h) 150 mg PO DAILY [facility] Last Admin: 09/22/25 09:40 Dose: 150 mg Documented By: KOBE Calcium Carbonate (Calcium Carbonate 750 Mg Tab.Chew) 750 mg PO Q4H PRN PRN Reason: Heartburn Clonazepam (Clonazepam 0.5 Mg Tablet) 0.75 mg PO TID PRN PRN Reason: Anxiety Last Admin: 09/22/25 10:23 Dose: 0.75 mg Documented By: KOBE Doxycycline Monohydrate (Doxycycline Monohydrate 100 Mg Capsule) 100 mg PO Q12H [facility] Last Admin: 09/22/25 10:22 Dose: 100 mg Documented By: KOBE Fluticasone Propionate (Fluticasone Propionate Nasal 16 Gm [place]) 2 spray NOSTRIL-B DAILY [facility] Last Admin: 09/22/25 09:41 Dose: 2 spray Documented By: KOBE Fluticasone/Vilanterol (Fluticasone/Vilanterol 200/25 Blst.W.Dev) 1 puff INHALE RDAILY [facility] Last Admin: 09/22/25 11:16 Dose: 1 puff Documented By: BORIS Gabapentin (Gabapentin 300 Mg Capsule) 600 mg PO BEDTIME [facility] Last Admin: 09/21/25 21:30 Dose: 600 mg Documented By: TOSIN Gabapentin (Gabapentin 300 Mg Capsule) 300 mg PO BID@0800,1500 [facility] Last Admin: 09/22/25 09:40 Dose: 300 mg Documented By: KOBE Guaifenesin (Guaifenesin 200 Mg/10 Ml 10 Ml Liquid) 10 ml PO Q4H PRN PRN Reason: Cough Hydroxyzine HCl (Hydroxyzine Hcl 25 Mg Tablet) 25 mg PO Q6H PRN PRN Reason: mild anxiety Ceftriaxone Sodium 1 gm/ (Sodium Chloride) 50 mls @ 100 mls/hr IV Q24H [facility] Last Infusion: 09/21/25 23:41 Dose: Infused Documented By: TOSIN Lidocaine (Lidocaine 4 % Patch Adh..Patch) 1 patch TRANSDERMA DAILY [facility]; Protocol Last Admin: 09/22/25 10:22 Dose: 1 patch Documented By: KOBE Magnesium Hydroxide (Milk Of Magnesia 30 Ml Oral.Susp) 30 ml PO DAILY PRN PRN Reason: Constipation Melatonin (Melatonin 3 Mg Tablet) 6 mg PO BEDTIME PRN PRN Reason: Insomnia Methadone HCl (Methadone Hcl 20 Mg/2 Ml Oral.Conc) 120 mg PO DAILY@0800 [facility] Last Admin: 09/22/25 09:41 Dose: 120 mg Documented By: KOBE Co-signed By: SUZY Comments: Patient requested to take after breakfast. Methylphenidate HCl (Methylphenidate Hcl 10 Mg Tablet) 10 mg PO TID@0700,1100,1600 [facility] Nicotine (Nicotine 14 Mg Patch.Td24) 14 mg TRANSDERMA DAILY [facility] Last Admin: 09/22/25 09:41 Dose: 14 mg Documented By: KOBE Nicotine Polacrilex (Nicotine Polacrilex Lozenge 2 Mg Lozenge) 2 mg BUCCAL Q2H PRN PRN Reason: Nicotine Cravings Last Admin: 09/22/25 10:22 Dose: 2 mg Documented By: KOBE Pt Own Medication ( Biotene Dry Mouth [place] 2 Sprays) 2 sprays PO QID PRN PRN Reason: Dry Mouth Last Admin: 09/21/25 09:45 Dose: 2 sprays Documented By: SARAH Olanzapine (Olanzapine 5 Mg Tablet) 5 mg PO BEDTIME [facility] Last Admin: 09/21/25 21:31 Dose: 5 mg Documented By: TOSIN Olanzapine (Olanzapine 10 Mg Tablet) 10 mg PO BEDTIME [facility] Last Admin: 09/21/25 21:31 Dose: 10 mg Documented By: TOSIN Olanzapine (Olanzapine 5 Mg Tablet) 5 mg PO BID PRN PRN Reason: agitation Polyethylene Glycol (Polyethylene Glycol 3350 17 Gm Powd.Pack) 17 gm PO DAILY PRN PRN Reason: Constipation Pregabalin (Pregabalin 25 Mg Capsule) 25 mg PO BID [facility] Last Admin: 09/22/25 09:40 Dose: 25 mg Documented By: KOBE Risperidone (Risperidone 1 Mg Tablet) 1 mg PO BID [facility] Last Admin: 09/22/25 09:40 Dose: 1 mg Documented By: KOBE Sodium Chloride (0.9 % Sodium Chloride Flush 3 Ml Syringe) 3 ml IVFLUSH QSHIFT [facility] Last Admin: 09/22/25 09:46 Dose: Not Given Documented By: KOBE Non-Admin Reason: Previously Administered Trazodone HCl (Trazodone Hcl 50 Mg Tablet) 150 mg PO BEDTIME [facility] Last Admin: 09/21/25 21:31 Dose: 150 mg Documented By: TOSIN Trazodone HCl (Trazodone Hcl 50 Mg Tablet) 50 mg PO BEDTIME MRX1 PRN PRN Reason: Insomnia Labs 09/21/25 05:22 09/21/25 05:22 Assessment and Plan (1) Schizoaffective disorder: Status: Acute (2) Choking: Status: Acute (3) Aspiration pneumonia: Status: Acute Plan Pt is a 60 yo female with PMH HTN. COPD, Fibromyalgia, Myofascial syndrome, GERD, ISAIAS, HTN and schizoaffective D/O is being transferred from psychiatry inpt floor to medical surgical floor for concerns of aspiration PNA s/p earlier choking episode during the day requiring the Heimlich manuever. pt developed a temp 101.8 tonight without hypoxia. CXR ordered and notes developing RLL PNA. Pt admitted on RA, fever trending down. Aspiration PNA likely secondary to choking episode earlier in the day/ Hx of dysphagia secondary to fibromyalgia Pt started on ceftriaxone and doxycycline dx2 Pt does not meet criteria for sepsis on admission LA 2.1, BC X2 NTD IS Supportive care with antitussives, nebs, oxygen prn ST eval , given absence of dentures, DL3 diet, dc IVF switch to PO Abx upon dc COPD Duo nebs prn HTN hold Amlodipine, interpretive naturalist stable wo it Low Na diet ISAIAS CPAP ordered HX of PE Continue Eliquis Fibromyalgia Continue gabapentin and Lyrica YOEL on methadone Continue methadone Tobacco use disorder Continue Nicotine patch Pt counselled on importance of continued smoking cessation with known COPD Schizoaffective D/O cont psych meds, medically ready for dc to psych unit, accepted, awaiting bed DVT prophylaxis: Shaila FULL CODE OMN: medically ready for psych dc Quality Stroke Does the patient have a stroke diagnosis?: No Reason for No Anti-thrombotic by Day Two: N/A - Med Ordered VTE Prior VTE?: No VTE Risk Level:: Medical - moderate - high VTE Device Contraindication: N/A - Device Ordered VTE Drug Contraindication: N/A - Med Ordered
--- NOTE | 2025-09-22 14:54 | PM.DS ---
DS: Providers Provider Date of Service: 09/22/25 Date of admission: 09/20/25 23:18 Date of discharge: 09/22/25 Primary care physician: Unknown Physician Consults: 09/20/25 23:22 Consult to Psychiatry Routine Consulting Provider: [facility] Psych Covering Reason for consultation: following pt while on med surg was transferred from psych Has provider been notified: No 09/22/25 09:09 Inpt CARE Team Crisis Consult Routine Comment: Reason for consultation: pt is medically ready for discharge DS: Diagnosis Discharge Diagnosis (1) Schizoaffective disorder: Status: Acute (2) Choking: Status: Acute (3) Aspiration pneumonia: Status: Acute DS: Summary Hospital Course Hospital Course: Pt is a 60 yo female with PMH HTN. COPD, Fibromyalgia, Myofascial syndrome, GERD, ISAIAS, HTN and schizoaffective D/O is being transferred from psychiatry inpt floor to medical surgical floor for concerns of aspiration PNA s/p earlier choking episode during the day requiring the Heimlich manuever. pt developed a temp 101.8 tonight without hypoxia. CXR ordered and notes developing RLL PNA. Pt admitted on RA, fever trending down. Aspiration PNA likely secondary to choking episode earlier in the day/ Hx of dysphagia secondary to fibromyalgia Pt started on ceftriaxone and doxycycline dx2 Pt does not meet criteria for sepsis on admission LA 2.1, BC X2 NTD IS Supportive care with antitussives, nebs, oxygen prn ST eval , given absence of dentures, DL3 diet, dc IVF switch to PO Abx upon dc COPD Duo nebs prn HTN hold Amlodipine, hospital pharmacy director stable wo it Low Na diet ISAIAS CPAP ordered HX of PE Continue Eliquis Fibromyalgia Continue gabapentin and Lyrica YOEL on methadone Continue methadone Tobacco use disorder Continue Nicotine patch Pt counselled on importance of continued smoking cessation with known COPD Schizoaffective D/O cont psych meds, medically ready for dc to psych unit, accepted, awaiting bed Time Attestation Discharge Coordination Time (in mins): 40 mins Quality: Safe Use of Opioids Does Pt have an Active Cancer Diagnosis on the Problem List?: No Quality: Stroke Does the patient have a stroke diagnosis?: No Physical Exam Exam: Exam: Pt A/O X3, NAD Neuro: CN II-XII intact , moving all extremities, sensations intact, Cardiac: S1S2 RRR, no murmur Resp: CTAB, on RA EXT: no edema Psych: mood stable, insight and judgement good Vital Signs: Vital Signs: Last Vital Signs Temp 97.4 F 09/22/25 07:17 Pulse 63 09/22/25 11:18 Resp 18 09/22/25 11:18 BP 137/68 09/22/25 07:17 Pulse Ox 94 09/22/25 07:17 O2 Del Method Nasal Cannula 09/22/25 07:17 O2 Flow Rate 2 09/22/25 07:17 BMI result Body Mass Index 34.7 Discharge Plan Discharge Anticipated Discharge Date/Time: 09/22/25 10:38 Patient Disposition: Home Health Service Discharge Diagnosis: dysphagia, PNA Referrals: Physician,Unknown J [Primary Care Provider, Medical] - 1 Week Discharge Medications: New lidocaine [Lidocaine Pain Relief] 4 % Adhesive Patch,Medicated 1 patch transdermal DAILY Qty: 5 0RF Protocol: Apply to: Apply to: Back amoxicillin-pot clavulanate [Augmentin] 500-125 mg tablet 1 tab PO BID 3 Days Qty: 6 0RF doxycycline hyclate 100 mg tablet 100 mg PO BID 3 Days Qty: 6 0RF Continued bupropion HCl 150 mg tablet sustained-release 12 hr 150 mg PO DAILY cetirizine 10 mg tablet 10 mg PO DAILY PRN (Reason: allergies) methylphenidate HCl 10 mg tablet 10 mg PO TID@0700,1100,1600 clonazepam 0.5 mg tablet 0.75 mg PO TID PRN (Reason: anxiety) olanzapine 5 mg tablet 5 mg PO BEDTIME amlodipine 5 mg tablet 5 mg PO DAILY trazodone 150 mg tablet 150 mg PO BEDTIME lisinopril 40 mg tablet 40 mg PO DAILY melatonin 5 mg tablet 5 mg PO BEDTIME Eliquis 5 mg tablet 5 mg PO BID ondansetron HCl 4 mg tablet 4 mg PO DAILY PRN (Reason: nausea) olanzapine 10 mg tablet 10 mg PO BEDTIME baclofen 10 mg tablet 10 mg PO BID esomeprazole magnesium 40 mg capsule,delayed release(DR/EC) 40 mg PO DAILY@0630 gabapentin 300 mg capsule 600 mg PO BEDTIME nicotine 14 mg/24 hr Patch 24 Hour 14 mg transdermal DAILY Qty: 0 0RF ipratropium-albuterol 0.5 mg-3 mg(2.5 mg base)/3 mL Solution For Nebulization 3 ml inhalation RQ6H WHILE AWAKE PRN (Reason: Shortness Of Breath/Wheezing) Qty: 0 0RF lidocaine [Lidocaine Pain Relief] 4 % Adhesive Patch,Medicated 1 patch transdermal DAILY Qty: 0 0RF Protocol: Apply to: Apply to: back trazodone 50 mg Tablet 50 mg PO BEDTIME MRX1 PRN (Reason: Insomnia) Qty: 0 0RF olanzapine 5 mg Tablet 5 mg PO BID PRN (Reason: agitation) Qty: 0 0RF magnesium hydroxide [Milk of Magnesia] 400 mg/5 mL Suspension 30 ml PO DAILY PRN (Reason: Constipation) Qty: 0 0RF docusate sodium 100 mg Capsule 100 mg PO BID Qty: 0 0RF gabapentin 300 mg Capsule 300 mg PO BID@0800,1500 Qty: 0 0RF hydroxyzine HCl 25 mg Tablet 25 mg PO Q6H PRN (Reason: mild anxiety) Qty: 0 0RF methadone [Methadose] 10 mg/mL Concentrate 120 mg PO DAILY@0800 Qty: 0 0RF Rx Instructions: Partial Fill upon patient request. fluticasone propionate 50 mcg/actuation [place],Suspension 2 spray intranasal DAILY Qty: 0 0RF risperidone 1 mg Tablet 1 mg PO BID Qty: 0 0RF nicotine (polacrilex) 2 mg Lozenge 2 mg buccal Q2H PRN (Reason: Nicotine Cravings) Qty: 0 0RF pregabalin 25 mg Capsule 25 mg PO BID Qty: 0 0RF Sore Throat (benzocaine-menth) 15-3.6 mg Lozenge 1 nandini mucous membrane Q2H PRN (Reason: Sore Throat) Qty: 0 0RF fluticasone furoate-vilanterol [Breo Ellipta] 200-25 mcg/dose Blister With Device 1 inh inhalation RDAILY Qty: 0 0RF Biotene Dry Jackie 2 sprays PO QID PRNQty: 0 0RF Discharge Orders: Discharge Order (Routine); Ordered 09/22/25 Ordered By: Yesenia Rodríguez Activity on Discharge: As tolerated Stand Alone Forms: Patient Portal Discharge page Print Language: Occitan Care Plan Goals: Pt was admitted to medicine service due to choking on food while eating and ?? aspiration. She was transiently hypoxic and was started on Abx for aspiration PNA. evaluated by speech, reccs DL3 diet, discharged on PO abx, Health Concerns: see above Plan of Treatment: see above Assessment: see above
--- NOTE | 2025-09-22 15:30 | MHC.SL.SWA ---
Speech Pathologist Impression: Risk of Aspiration Due to: Dysphasia Diet Status: Liquid Consistency and Strategies for Safe Swallow: Liquid Intake Recommendation: Thin Liquid Intake Strategies: Solid Food Consistency: Dietary Recommendations: Chopped/Advanced (NDD3) Additional Modifications to Solid Foods: Oral Medication Intake: Whole with Liquid Please contact the pharmacy regarding appropriate crushable or liquid drug formulations that are available whenever modified delivery is recommended. Compensatory Strategies and Precautions to be Taken for Safe Swallow: Sitting Upright (90 deg) Small Bites and Sips Alternate Liquids/Solids Rate of Ingestion Change Supervision While Eating and Drinking for Safe Swallow: Intermittent Supervision Foods to Avoid: Swallowing Recommended Treatments: Compens. Strategy Educat. Recommendation for Speech: Inpatient Speech Therapy Comment: Patient met in room during lunch for dysphagia therapy. Patient seen OOB in chair with lunch of NDD3 solids, Thin liquids. teacher's aide in room upon arrival, directly supervising patient. Patient consuming adequate amount of lunch. Patient observed with bite-sized pieces of chicken; adequate mastication, adequate cohesion and adequate clearance. Patient also seen with ice cream, raspberry sherbet and thin liquids. Patient with no overt s/sx of penetration/aspiration. Patient reporting no mastication difficulties of softer solids. Patient medically cleared by MD and discharged from med unit for re-admission to psych. Per Hospitalist Discharge note: Pt was admitted to medicine service due to choking on food while eating and ?? aspiration.She was transiently hypoxic and was started on Abx for aspiration PNA. evaluated by speech, reccs DL3 diet, discharged on PO abx. Patient educated on compensatory strategies of OOB for meals, Upright 90 degrees for PO intake, small sips/bites, alternate liquids solids, and modification of self-feeding rate. Patient tolerating current diet. Patient educated on reasons for modifications; patient showing understanding and agreeing to ST POC. ST to follow-up. Frequency/Duration: M-F daily Date Range for Service Req: Timeline to reassess: Dinkey Mechanic Clinican/Clinical Fellow: No Supervisory Statement: I have reviewed and agree with the student/clinical fellow's documentation: No Speech Language Pathologist: Chelsea Live M.A., CCC-[employer]ARCH FACTORY LABORER
[2025-09-22 16:00] VITALS: BP 133/76; PULSE 72; RESP 16; TEMP 36.6; O2SAT 92
--- NOTE | 2025-09-22 16:11 | PHA.MEDREC ---
Pharmacy Consult ? Medication Reconciliation Pharmacy has completed the medication reconciliation. Patient was Admitted to 09/09/25 and moved to Floor 350 today. Utilized discharge summary notes from 09/20/25 to confirm med list
== END 2025-09-22 16:26 | disposition home health service (06) | DRG 137 ==
LOC: HO.EDOVER 23:44 → HO.S3 23:59
PROVIDERS: Admitting Provider Nurse Practitioner Family; Visit Provider Hospitalist
DX: J69.0 Pneumonitis due to inhalation of food and vomit (principal); F25.9 Schizoaffective disorder, unspecified; F11.20 Opioid dependence, uncomplicated; F17.210 Nicotine dependence, cigarettes, uncomplicated; Z71.6 Tobacco abuse counseling; G47.33 Obstructive sleep apnea (adult) (pediatric); M79.7 Fibromyalgia; R13.10 Dysphagia, unspecified; Z20.822 Contact with and (suspected) exposure to COVID-19; Z86.711 Personal history of pulmonary embolism; Z79.01 Long term (current) use of anticoagulants; Z79.51 Long term (current) use of inhaled steroids; Z79.899 Other long term (current) drug therapy
CPT/HCPCS: 36415; 80053; 83605; 85027; 87637; 92610; 93005; J0696; J1271; S9485

== ENCOUNTER → 2025-09-20 23:18 | Outpatient (BNV) | payer MEDICAID, SELFPAY | PROVIDERS: Admitting Provider Nurse Practitioner Family; Visit Provider Hospitalist | DX: J69.0 Pneumonitis due to inhalation of food and vomit (principal); T17.308A Unspecified foreign body in larynx causing other injury, initial encounter; F25.9 Schizoaffective disorder, unspecified | CPT/HCPCS: 99239; 99499 ==

== ENCOUNTER → 2025-09-20 23:18 | Outpatient (BNV) | payer OTHER, SELFPAY | PROVIDERS: Admitting Provider Nurse Practitioner Family; Visit Provider Clinical Nurse Specialist Psychiatric/Mental Health, Adult | DX: F25.0 Schizoaffective disorder, bipolar type (principal) | CPT/HCPCS: 99222 ==

== ENCOUNTER 2025-09-22 15:00 | Inpatient (IN) | payer OTHER, MEDICAID, SELFPAY ==
--- NOTE | 2025-09-22 16:26 | HE.PHANOTE ---
Re Methadone 09/10/25: Pt receives 120mg from [facility], last there on 09/01/25 where they got a dose and 13 take home bottles to last through 09/14/25. 09/21/25: Pt transferred from M5 to S3 on 09/20/25. Last dose in M5 was 120mg 09/20/25 @ 0755. 09/22/25: Pt transferred from S3 to M5 on 09/22/25. Last dose in S3 was 120mg 09/22/25 @ 0941.
[2025-09-22 18:02] VITALS: BP 138/89; PULSE 99; RESP 16; TEMP 36.8; O2SAT 99
--- OUTSIDE RECORDS SUMMARY | 2025-09-22 18:22 | XMS_ITS | Encounter Summary ---
Author Organization [employer] [facility] iaore Address [address] [place] [address] Care Team Providers Care Surveyor Rod Helper Name Role Phone Gilbert Espinoza Primary Care Provider Unavaila ble Add, Provider Not In System Unavailable Unav ailable Add, Provider Not In System Primary Care Provide r Unavailable Reason for Visit * Reason Onset Date Comments Referral 05/02/2017 coach cleaner referr al request Encounter Details Date Type Department Care Team (Late st Contact Info) Description 05/02/2017 Telephone [facility] [address] [place] [address] Babita Hopkins Inactive Referral (coach cleaner referral request) Social History Tobacco Use Types [...] on filedocumented in this encounter Care Teams Surveyor Rod Helper Relationship Specialty Start Date End Date Gilbert Espinoza PCP - General Internal Medicine 03/05/16 07/06/18 Add, Provider Not In System PCP - Insurance PCP 04/23/16 Add, Provider Not In System PCP - General Internal Medicine 07/07/18 documented as of this encounter
--- OUTSIDE RECORDS SUMMARY | 2025-09-22 18:22 | XMS_ITS | Encounter Summary ---
Author Organization [facility] Address [address] [place] [address] Care Team Providers Care Commanding Officer Motorized Squad Name Role Phone Gissel Worley MD Primary Care Provider [phone] Encounter Details Date Type Department Care Team (Late st Contact Info) Description 06/16/2025 External Contact EXT REF LAB [facility] [address] [place] [address] Bry Crowe MD [address] [place] [address] Social History Tobacco Use Types Packs/Day Years [...] 06/15/2025 15:27:00 ADMITTING PHYSICIAN: ALEXIA MCCOY MD [facility] COURSE: Discharge summary: Date of Admission: June [...] problems. You will follow up with your box order person, Dr. Kimball, to keep track of your [...] day, # 6 tab, 0 Refill(s), Pharmacy: [facility], 1 tab Oral Q12hr,x3 day, 168, cm, 06/15/2025 18:24:00 EDT, Height, 97.3, kg, 06/15/2025 18:22:00 EDT, Dosing Weight doxycycline, 100 mg = 1 cap, Oral, BID, X 3 day, # 6 cap, 0 Refill(s), Pharmacy: [facility], 1 cap Oral [...] Information REINALDO KIMBALL Within 5-7 days [address] [place] [address]- [phone] Business (1) Additional Instructions: IMAGES: Reason For [...] lobe. Superimposed right basilar atelectasis. Reading site: [facility] Signature Line Final Report Dictated: 06/15/2025 3:06 [...] in this encounter Progress Notes * Bry Corwe MD - 06/17/2025 6:21 PM EDT Progress [...] Resume Methadone dose (110mg) after [facility]. Medications (25) Active Scheduled: (22) amLODIPine 7.5 mg = 3 tab, Oral, Daily apixaban 5 mg = 1 tab, Oral, BID atorvastatin 20 mg = 1 tab, Oral, Daily baclofen 10 mg = 1 tab, Oral, Q Bedtime budesonide (Pulmicort Respules) 0.25 mg = 2 mL, Nebulizer, RT Q12hr buPROPion 150 mg = 1 tab, Oral, Q24hr cefTRIAXone 1 g, IV Piggyback, [id number] clonazePAM 0.5 mg = 1 tab, Oral, [...] the patient??s current medications (including all prescriptions, bruo-bpm-tlshbsx products, herbals, cannabis/cannabidiol products, and vitamin/mineral/dietary (nutritional) supplements). Electronically Signed On 06/17/25 18:21 EDT Jordi Wall Electronically Signed On 06/18/25 12:38 EDT HOLLEY REYNA MD Patient Ordering physician: , Other providers: HOLLEY REYNA, ELIAZAR DORAN, ALEXIA MCCOY, BRY CROWE [...] Oral, Q24hr cefTRIAXone 1 g, IV Piggyback, [id number] clonazePAM 0.5 mg = 1 tab, Oral, [...] lobe. Superimposed right basilar atelectasis. Reading site: [facility] Diagnostics - Non-Radiology (1) ED EKG-Hyacinth (06/15 [...] oxygen at home. We should continue to residential child care counselor her regarding smoking cessation. She will follow-up with her box order person, Dr. Kimball, as an outpatient. Thank you [...] lobe. Superimposed right basilar atelectasis. Reading site: [facility] Diagnostics - Non-Radiology (1) ED EKG-CernerCV (06/15 [...] EDT cefTRIAXone, 1 g, Injection, IV Piggyback, [id number], Indication: Pneumonia ??? Aspiration, 06/15/2025 18:00:00 EDT [...] Resume Methadone dose (110mg) after confirmation [facility]. Checklist Fluid: [none] Diet: [cardiac diet] [...] the patient??s current medications (including all prescriptions, royt-deh-xgopqzb products, herbals, cannabis/cannabidiol products, and vitamin/mineral/dietary (nutritional) [...] 59-year-old female who was recently admitted to [facility] from 01 June 2025 to 03 [...] nasal cannula. She sees Dr. Kimball at [facility]. At baseline she walks with a [...] failure She was just recently admitted to [facility] and treated for a bibasilar pneumonia [...] On discharge she will follow-up with her box order person, Dr. Kimball. Thank you for the consultation. [...] Oral, Q24hr cefTRIAXone 1 g, IV Piggyback, [id number] clonazePAM 0.5 mg = 1 tab, Oral, [...] lobe. Superimposed right basilar atelectasis. Reading site: [facility] Diagnostics - Non-Radiology (1) ED EKG-CernerCV (06/15 14:05) Please review the final report in the patient???s chart. Patient Ordering physician: , Other providers: ALEXIA MCCOY, ELIAZAR DORAN, ALEXIA MCCOY, BRY CROWE UNAVAILABLE PCP INFO, , , documented in this encounter Plan of Treatment Not on file documented as of this encounter Visit Diagnoses Not on filedocumented in this encounter Care Teams Commanding Officer Motorized Squad Relationship Specialty Start Date End Date Gissel Worley MD [address] [place] [id number] PCP - General Shuttlecock Feather Trimmer 09/10/23 documented as of this encounter
--- OUTSIDE RECORDS SUMMARY | 2025-09-22 18:22 | XMS_ITS | Encounter Summary ---
Author Organization [employer] [facility] iasce Address [address] [place] [address] Care Team Providers Care Linen Tech Name Role Phone Gilbert Espinoza Primary Care Provider Unavaila ble Add, Provider Not In System Unavailable Unav ailable Add, Provider Not In System Primary Care Provide r Unavailable Reason for Visit * Reason Onset Date Comments Referral 01/06/2017 [facility] Rheumatology referral request Encounter Details Date Type Department Care Team (Late st Contact Info) Description 01/06/2017 [facility] [address] [place] [address] Babita Hopkins Inactive Referral ([facility] Rheumatology referral request) Social History Tobacco Use [...] on filedocumented in this encounter Care Teams Linen Tech Relationship Specialty Start Date End Date Gilbert Espinoza PCP - General Internal Medicine 03/05/16 07/06/18 Add, Provider Not In System PCP - Insurance PCP 04/23/16 Add, Provider Not In System PCP - General Internal Medicine 07/07/18 documented as of this encounter
--- OUTSIDE RECORDS SUMMARY | 2025-09-22 18:22 | XMS_ITS | Encounter Summary ---
Author Organization [facility] [facility] iaake Address [address] [place] [address] Care Team Providers Care Machine Candle Molder Name Role Phone Gilbert Espinoza Primary Care Provider Unavaila ble Add, Provider Not In System Unavailable Unav ailable Add, Provider Not In System Primary Care Provide r Unavailable Reason for Visit * Reason Onset Date Comments Referral 01/06/2017 [facility] re ferral request Encounter Details Date Type Department Care Team (Late st Contact Info) Description 01/06/2017 Telephone [facility] Primary Care - [facility] [address] [place] [address] Babita Hopkins Inactive Referral ([facility] referral [...] on filedocumented in this encounter Care Teams Machine Candle Molder Relationship Specialty Start Date End Date Gilbert Espinoza PCP - General Internal Medicine 03/05/16 07/06/18 Add, Provider Not In System PCP - Insurance PCP 04/23/16 Add, Provider Not In System PCP - General Internal Medicine 07/07/18 documented as of this encounter
--- OUTSIDE RECORDS SUMMARY | 2025-09-22 18:22 | XMS_ITS | Encounter Summary ---
Author Organization [facility] iawae Address [address] [place] [address] Care Team Providers Care Optimization Consultant Name Role Phone Gilbert Espinoza Primary Care Provider Unavaila ble Add, Provider Not In System Unavailable Unav ailable Add, Provider Not In System Primary Care Provide r Unavailable Reason for Visit * Reason Onset Date Comments Med Question 09/20/2016 Encounter Details Date Type Department Care Team (Late st Contact Info) Description 09/20/2016 Telephone [facility] Primary Care - [facility] [address] [place] [address] Gilbert Espinoza Med Question Social History Tobacco [...] requests script for a commode Shawna Cadet [id number], 51 year old, female Calls today: [facility]Other Agency: non urgent call Name of [facility] Name of person calling Elana Pimentel Reason for call - requests a script for a COMMODE Return phone number [phone] FAX NUMBER: [phone] NOTE: Urgent calls are a warm handoff Patient's language of care: [place] Patient does not need an family counselor. Patient's PCP: Gilbert Espinoza MD documented in this encounter Plan of Treatment Not on file documented as of this encounter Visit Diagnoses Not on filedocumented in this encounter Care Teams Optimization Consultant Relationship Specialty Start Date End Date Gilbert Espinoza PCP - General Internal Medicine 03/05/16 07/06/18 Add, Provider Not In System PCP - Insurance PCP 04/23/16 Add, Provider Not In System PCP - General Internal Medicine 07/07/18 documented as of this encounter
--- OUTSIDE RECORDS SUMMARY | 2025-09-22 18:22 | XMS_ITS | Encounter Summary ---
Author Organization [employer] [facility] iaoke Address [address] [place] [address] Care Team Providers Care Janitor Head Name Role Phone Gilbert Espinoza Primary Care Provider Unavaila ble Add, Provider Not In System Unavailable Unav ailable Add, Provider Not In System Primary Care Provide r Unavailable Reason for Visit * Reason Onset Date Comments Referral 10/29/2016 [facility] re ferral request Encounter Details Date Type Department Care Team (Late st Contact Info) Description 10/29/2016 Telephone [facility] Primary Care - [facility] [address] [place] [address] Babita Hopkins Inactive Referral ([facility] referral [...] on filedocumented in this encounter Care Teams Janitor Head Relationship Specialty Start Date End Date Gilbert Espinoza PCP - General Internal Medicine 03/05/16 07/06/18 Add, Provider Not In System PCP - Insurance PCP 04/23/16 Add, Provider Not In System PCP - General Internal Medicine 07/07/18 documented as of this encounter
--- OUTSIDE RECORDS SUMMARY | 2025-09-22 18:22 | XMS_ITS | Encounter Summary ---
Author Organization [facility] Address [address] [facility] [address] [place] [address] Care Team Providers Care Contact Clerk Name Role Phone Gissel Worley MD Primary Care Provider [phone] Encounter Details Date Type Department Care Team (Late st Contact Info) Description 06/17/2025 External Contact EXT REF LAB [facility] [address] [facility] [place] [address] Ezequiel, Default Authenticator [address] [id number] Social History Tobacco Use Types Packs/Day Years [...] Please click on link to see image. [id number]: Missing Attachment ATTACHMENT Can be viewed in source system Study ID: [id number] [place] [id number] Non-Invasive Cardiology Laboratory Transthoracic Echocardiogram Final Report Name: SHAWNA CADET Study Date: 06/17/2025 12:43 PM BP: 118/64 mmHg Patient Location: : 1965 Height: 66 in Age: 59 yrs Gender: Female Weight: 214 lb Reason For Study: Pulmonary HTN BSA: 2.1 m2 Ordering Physician: NANETTE WOO Referring Physician: ELIAZAR DORAN Performed By: Bianca Puga Fellow: [facility] Interpretation Summary Contrast injection with Definity [...] 02:24 PM Authenticated by NAMRATA CATHERINE MD [[id number]] on 06/17/2025 at 13:09:22 Patient Ordering physician: NANETTE WOO Other providers: ELIAZAR ROA, ALEXIA MILLER, BRY AMRITA , , , Procedure Note Ezequiel, Default Authenticator / Namrata Catherine MD - 06/17/2025 Please click on link to see image. [id number]: Missing Attachment ATTACHMENT Can be viewed in sourcesystem Study ID: [id number] [place] [address] Non-Invasive Cardiology Laboratory Transthoracic Echocardiogram Final Report [...] 02:24 PM Authenticated by NAMRATA CATHERINE MD [[id number]] on 06/17/2025 at 13:09:22 Patient Ordering physician: NANETTE WOO Other providers: ALEXIA MILLER, ELIAZAR DORAN, ALEXIA MILLER, BRY BOYLE , , , Bry Boyle MD CV ECHO PROCEDURES Final Result documented in this encounter Visit Diagnoses Not on filedocumented in this encounter Care Teams Contact Clerk Relationship Specialty Start Date End Date Gissel Worley MD [address] [place] [address] PCP - General Railway Head Tender 09/10/23 documented as of this encounter
--- OUTSIDE RECORDS SUMMARY | 2025-09-22 18:22 | XMS_ITS | Encounter Summary ---
Author Organization [employer] [facility] iamae Address [address] [place] [address] Care Team Providers Care Final Block Press Operator Name Role Phone Gilbert Espinoza Primary Care Provider Unavaila ble Add, Provider Not In System Unavailable Unav ailable Add, Provider Not In System Primary Care Provide r Unavailable Reason for Visit * Reason Onset Date Comments Referral 08/05/2017 [facility] referral req uest Encounter Details Date Type Department Care Team (Late st Contact Info) Description 08/05/2017 Telephone [facility] Primary Care [facility] [address] [place] [address] Babita Hopkins Inactive Referral ([facility] referral request) [...] on filedocumented in this encounter Care Teams Final Block Press Operator Relationship Specialty Start Date End Date Gilbert Espinoza PCP - General Internal Medicine 03/05/16 07/06/18 Add, Provider Not In System PCP - Insurance PCP 04/23/16 Add, Provider Not In System PCP - General Internal Medicine 07/07/18 documented as of this encounter
--- OUTSIDE RECORDS SUMMARY | 2025-09-22 18:22 | XMS_ITS | Encounter Summary ---
Author Organization [facility] Address [address] [facility] [address] [place] [address] Care Team Providers Care Casino Accountant Name Role Phone Rudi Alonso MD Primary Care Provider [phone] Gissel Worley MD Primary Care Provider [phone] Encounter Details Date Type Department Care Team (Late st Contact Info) Description 10/22/2022 External Contact EXT REF LAB [facility] [address] [place] [address] Ezequiel, Default Authenticator [address] [place], [place] [phone] Social History Tobacco Use Types Packs/Day Years [...] 10/22/2022 6:00 PM EST PATIENT: SHAWNA CADET [facility] IN/MED F2F EKG INTERPRETATION HEART RATE 79 RR Interval 759 Atrial Rate 79 P-R Interval 156 P Duration 128 P Horizontal [place] 36 P Front [place] 50 Q Onset 504 QRSD Interval 88 QT Interval 408 QTcB 468 QTcF 447 QRS Horizontal [place] -53 QRS [place] 4 I-40 Horizontal [place] -8 I-40 Front [place] 22 T-40 Horizontal [place] -73 T-40 Front [place] 0 T Horizontal [place] -6 T Wave [place] 42 S-T Horizontal [place] 42 S-T Front [place] 59 ECG Severity - NORMAL ECG - ECG Impression Sinus rhythm ECG Impression Poor R Wave Progression ECG Impression No change from the previous tracing <Electronically signed by Kieran Dunham MD, (PO) in OV> (Electronically Signed by) Trans D 1800 Signed D 39 Report #: [id number] Procedure Note Kieran Dunham MD - 10/22/2022 PATIENT: SHAWNA CADET ADM IN/MED F2F EKG INTERPRETATION HEART RATE 79 RR Interval 759 Atrial Rate 79 P-R Interval 156 P Duration 128 P Horizontal [place] 36 P Front [place] 50 Q Onset 504 QRSD Interval 88 QT Interval 408 QTcB 468 QTcF 447 QRS Horizontal [place] -53 QRS [place] 4 I-40 Horizontal [place] -8 I-40 Front [place] 22 T-40 Horizontal [place] -73 T-40 Front [place] 0 T Horizontal [place] -6 T Wave [place] 42 S-T Horizontal [place] 42 S-T Front [place] 59 ECG Severity - NORMAL ECG - ECG Impression Sinus rhythm ECG Impression Poor R Wave Progression ECG Impression No change from the previous tracing <Electronically signed by Kieran Dunham MD, (PO) inOV> (Electronically Signed by) Trans D 1800 Signed D Report #: [id number] us Kieran Dunham MD ECG ORDERABLES Final Result Performing Organization Address City/State/[facility] Co hi Phone Number [facility] documented in this encounter Visit Diagnoses Not on filedocumented in this encounter Care Teams Casino Accountant Relationship Specialty Start Date End Date Rudi Alonso MD [address] [place] [address] PCP - General 12/28/21 09/09/23 Gissel Worley MD [address] [place] [address] [address] [place] [address] PCP - General Labor Utilization Superintendent 09/10/23 documented as of this encounter
--- OUTSIDE RECORDS SUMMARY | 2025-09-22 18:22 | XMS_ITS | Encounter Summary ---
Author Organization [facility] Address [address] [facility] [address] [place] [address] Care Team Providers Care Aerobics Instructor Name Role Phone Rudi Alonso MD Primary Care Provider [phone] Gissel Worley MD Primary Care Provider [phone] Encounter Details Date Type Department Care Team (Late st Contact Info) Description 04/05/2022 External Contact EXT REF LAB [facility] [address] [facility] [place] [address] Ezequiel, Default Authenticator [address] [place], [place] [id number] Social History Tobacco Use Types Packs/Day Years [...] PM EDT Narrative 04/05/2022 2:00 PM EDT [facility] Echocardiogram [address] [address] Name: SHAWNAAISHWARYA CADET Ordering Physician: Lucy Gallegos MD : 67 Exam: ECHO - CMP 2D DOP-COLOR DOS: 04/05/22 Study ID: [id number] [address] [address] Non-Invasive Cardiology Laboratory Transthoracic Echocardiogram Final Report Name: SHAWNA CADET Study Date: 04/05/2022 02:00 PMBP: 132/76 mmHg : 1965 Height: 66 in Age: 56 yrs Gender: Female Weight: 190 lb Reason For Study: PE, to assess RV BSA: 2.0 m2 Ordering Physician: Elicia Gan Referring Physician: MIKE Performed By: Bianca Puga Fellow: [facility], Interpretation Summary There is no comparison study [...] By: Cj Ritchie MD 04/05/2022 03:20 PM [email or web address] = [email or web address] modality=us <Electronically signed by Cj Ritchie MD, (PO) in OV> Electronically Signed by: Transcribed by: TAI Pearson Trans D 1400 Report #: [id number] Signed D 1520 Copies to: Lucy Sotomayor MD Procedure Note Cj Ritchie MD - 07/04/2022 [facility] [place] [address] Name: SHAWNA CADET Ordering Physician: Lucy Gallegos MD : [birth year] Exam: ECHO - CMP 2D DOP-COLOR DOS: 04/05/22 Study ID: [id number] [place] [address] Non-Invasive Cardiology Laboratory Transthoracic Echocardiogram Final Report Name: SHAWNA CADET Study Date: 04/05/2022 02:00 PMBP: 132/76 mmHg : 1965 Height: 66 in Age: 56 yrs Gender: Female Weight: 190 lb Reason For Study: PE, to assess RV BSA: 2.0 m2 Ordering Physician: Elicia Gan Referring Physician: Performed By: Bianca Puga Fellow: [facility], Interpretation Summary There is no comparison study [...] By: Cj Ritchie MD 04/05/2022 03:20 PM [email or web address] = [email or web address] modality=us <Electronically signed by Cj Ritchie MD, (PO) in OV> Electronically Signed by: Transcribed by: ReportsTo,ITS Trans D 1400 Report #: [id number] Signed D 1520 Copies to: Lucy Sotomayor MD us Cj Ritchie MD CV ECHO PROCEDURES Final Result documented in this encounter Visit Diagnoses Not on filedocumented in this encounter Care Teams Aerobics Instructor Relationship Specialty Start Date End Date Rudi Alonso MD [address] [place] [address] PCP - General 12/28/21 09/09/23 Gissel Worley MD [address] [place] [address] 9 [place] [address] PCP - General Paramedic Supervisor 09/10/23 documented as of this encounter
--- OUTSIDE RECORDS SUMMARY | 2025-09-22 18:22 | XMS_ITS | Clinical Summary ---
Author Organization [employer] [facility] iavae Address [address] [place] [address] Care Team Providers Care Dealer Development Manager Name Role Phone Add, Provider Not In [...] PM Primary nurse is Sohan Mon cell [phone] - she will forward name of psychiatric providers to me. Psychiatry care is in [place] - Dr Ariza is listed in [facility] as providing klonopin rx. Therapist is Stormy Galvan; [address] [place] [address] . Received Home Health certification and Plan [...] therapy patient 02/28/2015 Overview (02/28/2015): 02/2015 - [facility] - monitors patient at home. [phone]; fax [phone] Essential hypertension 02/13/2015 Chronic pain 12/12/2014 Overview (02/16/2018): In the setting of fibromyalgia/myofascial pain syndrome Was prescribed opiates by Dr Alonso - rheumatology Pain evaluation by [facility] fall 2013 - Not recommended for opiate thearpy Referral to [facility] for consideration of trigger point injections of back Fibromyalgia and Myofascial Pain Syndrome 2014 Overview (02/12/2018): Previously seen by Market Risk Manager -Dr Alonso - for trigger point injections. On methadone maintenance therapy Panic disorder with agoraphobia 12/08/2014 Overview (12/23/2014): [facility] home - [facility] - plan is to connect her with psychiatrist at [facility] in [place]. [phone] x [phone].; . 12/23/14 Seen by Guillermo, [...] 06/02/2017 02/12/2018 Overview (06/02/2017): Currently inpatient at [facility] [address] PA-C, 06/02/2017, 6:12 PM [...] Diabetes Father 1 Heart Father 2 s/p [place] multiple stents - started age 56 Cancer [...] EVERY 5 YRS 1984 PNEUMOCOCCAL VACCINE SERIES (1 of 2 - PCV) 1985 PHYSICAL EXAM 1988 Colorectal Cancer Screening 2011 FECAL OCCULT BLOOD AGE 45-75 2011 FIT- DNA (Cologuard) 2011 ZOSTER VACCINE (1 of 2) 2016 HEPATITIS B VACCINE SERIES (2 of 3 - 19+ 3-dose series) 07/17/2017 06/19/2017, 06/19/2017, 12/29/2014 AWQ Questionnaire 08/07/2018 08/07/2017, (Completed at [facility]), 03/26/2016, Additional history exists MAMMOGRAPHY 09/05/2018 09/05/2016 (Discussed/Declined (reset due date to next due date per frequency)), 03/18/2003 PAP SMEAR 10/21/2018 10/21/2015, 10/05/2003 HEALTH CARE PROXY 12/08/2019 12/08/2014 Cervical Cancer Screening 10/21/2020 HPV SCREENING 10/21/2020 10/21/2015 LIPID SCREENING 02/12/2023 02/12/2018 TETANUS VACCINE (2 - Td or Tdap) 09/14/2023 09/14/2013 COVID-19 Vaccine (3 - season) 2025 02/19/2022, 09/15/2021 INFLUENZA VACCINE (#1) 2025 3, 11/15/2022, 08/11/2020, Additional history exists HEP C SCREEN Completed 08/18/2015, 08/18/2015 HPV VACCINE SERIES Aged Out No longer eligible based on patient's age to complete this topic MENINGOCOCCAL (MCV4) VACCINE SERIES Aged Out No longer eligible based on patient's age to complete this topic MENINGOCOCCAL B VACCINE SERIES Aged Out No [...] EDT) Cholesterol 168 0 - 239 mg/dL [facility] Comment: The ATP Classification of Cholesterol: <200 Desirable 200-239 Borderline High >hw=556 High TRIGLYCERIDES 154(H) 0 - 150 mg/dL [facility] HIGH DENSITY LIPOPROTEIN 62 40- mg/dL [facility] LOW DENSITY LIPOPROTEIN DIRECT 91 0 - 189 mg/dL [facility] Comment: The ATP III Classification of LDL Cholesterol: < 100 Optimal 100-129 Near Optimal 130-159 Borderline High 160-189 High >xz=045 Very High Patients with CHD or CHD [...] Espinoza LABORATORY Final Result Performing Organization Address City/[facility]/[place]IP [place] [address], [place] * HUMAN PAPILLOMAVIRUS (10/21/2015 3:08 PM EST) Pathologist [facility] HUMAN PAPILLOMAVIRUS Negative for HPV High Risk mRNA (HPV types: 16,18,31,33, 35,39,45,51, 52,56,58,59, 66,68) [facility] THINPREP CYTOLOGY TECHNIQUE / Unknown 10/21/2015 3:08 PM EST 10/23/2015 7:24 AM EST Sanjuanita Garner MD MICROBIOLOGY Final Result Performing Organization Address [facility] [place] [address], [place] * CYTP CERV/VAG AUTO THIN LAYER PREP MNL SCREEN (10/21/2015 12:00 AM EST) Pathologist [facility] PATHOLOGY REPORT SPEC #: [id number] RECD: 10/21/15 STATUS: ISABEL TAMAYO TYPE: ORDER PROCESSING CLERK JULIANA: 10/21/15- SUB DR: SANJUANITA GARNER MD ENTERED: 10/21/15 ORDERED: [id number] THIN PREP >>FINAL DIAGNOSIS<< ENDOCERVIX/EXOCERV IX (THINPREP [...] Y Hx of abnormal PAP? UNKNOWN Current ORDER PROCESSING CLERK exam? VAGINITIS NON SPECIFIC VAGINITIS Reason for PAP: SCREENING Path procedures [id number] THIN PREP PAP (12286) RKT Signed (signatu re on file) TRIXIE FUCHS(ASCP) 10/30/15 -- Endocervix/Exocer vix 10/21/2015 10/21/2015 7:00 PM EST Sanjuanita Garner MD PATHOLOGY Final Result * HEPATITIS C VIRUS GENOTYPING (08/18/2015 12:18 PM EDT) HEPATITIS C VIRUS GENOTYPE 1b . [facility] HCV GENOTYPE PLEASE NOTE [facility] Comment: This test was developed and its performance characteristics determined by [facility]. It has not been cleared or approved by the U.S. Food and Drug Administration. The FDA has determined that such clearance or approval is not necessary. This test is used for clinical purposes. It should not be regarded as investigational or for research. Performed at: [address] [id number] Auto Service Dispatcher: Rudi Mcqueen MD, Phone: [phone] 08/18/2015 12:1 8 PM EDT 08/18/2015 7:41 PM EDT Sanjuanita Garner MD LABORATORY Final Result [facility] [address] [place] [address], * BILATERAL MAMMOGRAM-SCREENING (03/18/2003 11:22 AM EDT) MAMMOGRAPHY REPORT-[facility] [address] [facility] [address] Department of Diagnostic Radiology PATIENT: LARISSA CADET : [birth year] AGE: 38 SEX: F LOCATION: [facility] UNIT#: [id number] STATUS: REG REF ORD PHY: NATALIA PEACE [...] patient. MILO/giuliano Technologist: CPShaq Transcribed Date/Time: [id number] 1122 by [email or web address] Printed Date/Time: 03/22/03 0710Report #: [id number] Ordering Doctor: NATALIA PEACE MD Dictating Doctor: Marsha LINDO Primary Care Location: Anatomical Region Laterality Modality Chest Bilateral Other 03/18/2003 11:2 2 AM EDT Cedric Peace RAD BREAST IMAGING ORDER DISHA Final Result from Last 3 Months or Most Recently Relevant to Health Maintenance Insurance [facility] [place] [id number] Advance Directives * Not Discussed (Latest Code Status on File) Date Activated Date Inactivated Comments 12/08/2014 5:56 PM Alternate - Ib monik Cadet (son) [phone]. Question Answer Comments Proxy Name: Alex Cadet Proxy Relationship: son Proxy Care Teams Dealer Development Manager Relationship Specialty Start Date End Date Add, Provider Not In System PCP - Insurance PCP 04/23/16 Add, Provider Not In System PCP - General Internal Medicine 07/07/18
--- OUTSIDE RECORDS SUMMARY | 2025-09-22 18:22 | XMS_ITS | Clinical Summary ---
Author Organization [facility] Address [address] [facility] [address] [place] [address] Care Team Providers Care Clinical Research Tech Name Role Phone Gissel Worley MD Primary Care Provider [phone] Allergies Active Allergy Reactions Criticality Noted Date [...] from 12/24/2022:Stage IA(pT1c, pN0, cM0, G2, ER+, TN+, HER2-) - Signed by Caro Diez MD on 06/05/2023 Family History Medical History Relation Name Comments [...] Procedure Name Priority Date/Time Associated Diagnosis Comments BI BILATERAL MAMMOGRAM SCREENING Routine 05/28/2024 7:47 AM EDT from Last 3 Months or Most Recently Relevant to Health Maintenance Results * BI BILATERAL MAMMOGRAM SCREENING (05/28/2024 7:47 AM EDT) Anatomical Region Laterality Modality Breast Bilateral Mammography [facility] Provider MD AVILEZ BI PROCEDURES Final R esult from Last 3 Months or Most Recently Relevant to Health [place] [id number] Care Teams Clinical Research Tech Relationship Specialty Start Date End Date Gissel Worley MD [address] [place] [address] PCP - General Account Services Specialist 09/10/23
--- OUTSIDE RECORDS SUMMARY | 2025-09-22 18:22 | XMS_ITS | Encounter Summary ---
Author Organization [facility] Address [address] [place] [address] Care Team Providers Care Model And Dye Person Name Role Phone Gilbert Espinoza Primary Care Provider Unavaila ble Add, Provider Not In System Unavailable Unav ailable Add, Provider Not In System Primary Care Provide r Unavailable Reason for Visit * Reason Onset Date Comments Referral 05/06/2017 [facility] referral request Encounter Details Date Type Department Care Team (Late st Contact Info) Description 05/06/2017 Telephone [facility] Primary Care - [facility] [address] [place] [address] Babita Hopkins Inactive Referral ([facility] referral request) Social History Tobacco [...] on filedocumented in this encounter Care Teams Model And Dye Person Relationship Specialty Start Date End Date Gilbert Espinoza PCP - General Internal Medicine 03/05/16 07/06/18 Add, Provider Not In System PCP - Insurance PCP 04/23/16 Add, Provider Not In System PCP - General Internal Medicine 07/07/18 documented as of this encounter
--- OUTSIDE RECORDS SUMMARY | 2025-09-22 18:22 | XMS_ITS ---
Author Organization [facility] Address [address] [place] [address] Care Team Providers Care Synthetic Filament Extruder Name Role Phone Gissel Worley MD Primary Care Provider [phone] Active Problems Problem Noted Date Diagnosed Date Malignant neoplasm of lower- outer quadrant of right breast of female, estrogen receptor positive 06/05/2023 Cancer Staging:Pathologic stage from 12/24/2022:Stage IA(pT1c, pN0, cM0, G2, ER+, MN+, HER2-) - Signed by Caro Diez MD on 06/05/2023 Current Treatment and Therapy Plans No current plan information found. Past Treatment and Therapy Plans No past plan information found. Current Radiation Episodes * 3D CELL CHANGER: Right BreastOverview* First Treatment Date Latest Treatment Date Treatment Site Technique Goal Episode Provider 04/24/2023 06/09/2023 Right Breast 3D CELL CHANGER Curative Amaris Diez MD * Linked Problems Malignant neoplasm of lower- outer quadrant of right breast of female, estrogen receptor positive Treatment Courses* Course 1 04/24/2023 - 06/09/2023 Treatment Period Fraction Dose Fractions Total Dose Plans Planned Rt Breast CD 05/29/2023 - 06/09/2023 250 cGy 4 / 4 1,000 cGy Rt Breast 04/24/2023 - 05/23/2023 266 cGy 16 / 16 4 ,256 cGy Reference Points Delivered R Breast CD 05/29/2023 - 06/09/2023 1,000 cGy RX R Breast 04/24/2023 - 05/23/2023 4,256 cGy
--- OUTSIDE RECORDS SUMMARY | 2025-09-22 18:22 | XMS_ITS | Encounter Summary ---
Author Organization [facility] Address [address] [place] [address] Care Team Providers Care Commercial Leasing Manager Name Role Phone Gilbert Espinoza Primary Care Provider Unavaila ble Add, Provider Not In System Unavailable Unav ailable Add, Provider Not In System Primary Care Provide r Unavailable Reason for Visit * Reason Onset Date Comments Prior Authorization 04/23/2017 Encounter Details Date Type Department Care Team (Late st Contact Info) Description 04/23/2017 Telephone [facility] [address] [place] [address] Gilbert Espinoza Prior Authorization Social History Tobacco [...] unspecified documented in this encounter Care Teams Commercial Leasing Manager Relationship Specialty Start Date End Date Gilbert Espinoza PCP - General Internal Medicine 03/05/16 07/06/18 Add, Provider Not In System PCP - Insurance PCP 04/23/16 Add, Provider Not In System PCP - General Internal Medicine 07/07/18 documented as of this encounter
--- OUTSIDE RECORDS SUMMARY | 2025-09-22 18:22 | XMS_ITS | Encounter Summary ---
Author Organization [facility] Address [address] [place] [address] Care Team Providers Care Wood Sawyer Name Role Phone Gilbert Espinoza Primary Care Provider Unavaila ble Add, Provider Not In System Unavailable Unav ailable Add, Provider Not In System Primary Care Provide r Unavailable Encounter Details Date Type Department Care Team (Late st Contact Info) Description 03/09/2016 Brief Documentation Enc [facility] Primary Care - [facility] [address] [place] [address] Anam Romano Inactive Social History Tobacco Use [...] on filedocumented in this encounter Care Teams Wood Sawyer Relationship Specialty Start Date End Date Gilbert Espinoza PCP - General Internal Medicine 03/05/16 07/06/18 Add, Provider Not In System PCP - Insurance PCP 04/23/16 Add, Provider Not In System PCP - General Internal Medicine 07/07/18 documented as of this encounter
--- OUTSIDE RECORDS SUMMARY | 2025-09-22 18:22 | XMS_ITS | Encounter Summary ---
Author Organization [facility] Address [address] [place] [address] Care Team Providers Care Lard Mixer Name Role Phone Lynda Tate MD Primary Care Provider [phone] Julienne Garner MD Primary Care Provider Unavaila [...] Opiate dependence (HCC) Lynda Tate MD Phone: tel:[phone] fax: Other Referral ID Status Reason Start Date Expiration Date V isits Requested Visits Authorized [id number] Closed Specialty not available at [facility] 12/29/2014 12/29/2015 365 365 Question Answer Sterilizer Machine Operator Needed? No [10] Comments Reason / clinical indications for referral: For methadone dosing at home. Appointment scheduled for: Visiting Nurse Specialty Location: [facility] Specialist's name: facility operations manager's NPI#: [id number] Specialty Specialty Reason for appointment: 729.1, 337.00, 304.00, 780.79 Day of appt: Date of appt: 12/29/14 Patient Notification: Facility called requesting 365 visits If you have any questions concerning the referral authorization please call [phone]. If you have any questions concerning your [...] the contact information below: Lynda Tate MD [facility] [address] [facility] [address] Office Office Reason for Visit * Reason Onset Date Comments Referral 01/12/2015 [facility] r eferral request Encounter Details Date Type Department Care Team (Late st Contact Info) Description 01/12/2015 Telephone [facility] Primary Care - [facility] [address] [place] [address] Babita Hopkins Inactive Referral ([facility] referral request) Social History Tobacco Use [...] Appointment scheduled for: Visiting Nurse Specialty Location: [facility] Home Health Specialist's name: facility operations manager's NPI#: [id number] Specialty Specialty Reason for appointment: 729.1, 337.00, 304.00, 780.79 Day of appt: Date of appt: 12/29/14 Patient Notification: Facility called requesting 365 visits If you have any questions concerning the referral authorization please call [phone]. If you have any questions concerning your appointment please call the specialty phone number above. documented in this encounter Plan of Treatment Not on file documented as of this encounter Visit Diagnoses Diagnosis Opiate dependence (HCC)- Primary Opioid type dependence, unspecified documented in this encounter Care Teams Lard Mixer Relationship Specialty Start Date End Date Lynda [...]
[2025-09-22] MEDS: Throat Lozenge, Medicated LOZENGE 1 LOZENGE MUCOUS MEM (18:40)
--- NOTE | 2025-09-22 18:43 | PC.ADMIT ---
Pt is a 60-y/o single female with HTN, COPD, Fibromyalgia, Myofascial syndrome, GERD, ISAIAS, and Schizoaffective disorder who arrived to [facility] @1730 from the medical floor for tx of SI & Schizoaffective disorder. Pt was previously on the medical floor for aspiration pneumonia. Pt is on a chopped diet d/t dysphagia. Pt uses a walker & sleeps with 2L of O2 at night for ISAIAS. Pt does not use CPAP at home due to not qualifying yet per [facility] - next year . Pt hears voices telling her negative things about her but no command AH. She reports 8/10 for both depression & anxiety. She denies current active SI/HI. She has services at home such as visiting nurse and SUPERCHARGE REPAIR SUPERVISOR. She is not able to identify any recent stressors but acknowledges that living alone is difficult for her. Pt does not use any other substances other than the ones prescribed to her. No alcohol use. Pt smokes 7 cigs a day. She is on NRT. Flu vaccine already done.
[2025-09-22 18:56] VITALS: BMI 33.9
[2025-09-22 20:00] VITALS: BP 99/71; PULSE 74; RESP 16; TEMP 36.7; O2SAT 96
[2025-09-22] MEDS: OLANZapine 7.5 MG TABLET 15 MG PO (23:37)
[2025-09-23] MEDS: methADONE HCl 20 MG/2 ML ORAL.CONC 120 MG PO (07:53)
[2025-09-23 08:00] VITALS: BP 159/72; PULSE 65; RESP 16; TEMP 36.6; O2SAT 94
--- NOTE | 2025-09-23 08:22 | P.CONHOSP_ITS ---
History of Present Illness Data of Consult Service Date: 09/23/25 Primary Care Provider: Unknown Physician HPI Reason for consult: Medical consult Pt is a 60 yo female with PMH HTN. COPD, Fibromyalgia, Myofascial syndrome, GERD, ISAIAS, HTN and schizoaffective D/O is being transferred from psychiatry inpt floor to medical surgical floor for concerns of aspiration PNA s/p earlier choking episode during the day requiring the Heimlich manuever. pt developed a temp 101.8without hypoxia, transferred to medical unit after developing RLL PNA. Patient started on ceftriaxone and doxy, supportive care. Diet modified due to absence of dentures. Patient discharged on doxy and Augmentin until 09/26/2025. On exam she is resting in bed, denies any shortness of breath, chest pain, or any other concerning symptoms. She is afebrile with no oxygen requirements. She denies any medical concerns. Review of Systems Review of Systems: Denies any shortness of breath, chest pain, headaches, dysuria, abdominal pain or discomfort, nausea, vomiting or diarrhea. Denies fever or chills. [facility] Medical History ISAIAS (obstructive sleep apnea) Pulmonary embolism Fibromyalgia Myofascial pain dysfunction syndrome HTN (hypertension) COPD (chronic obstructive pulmonary disease) Social History Household Members: None Household Members Other:: lives alone Housing: Apartment Do you presently have visiting nurse or other home services: Yes Patient Tobacco Use Status: Current everyday Tobacco user Tobacco use type: Cigarette Cigarettes Per Day: 7 Years Smoked: 20 Smoked in Last 30 Days: Yes e-Cigarette/Vaping Use: Never Used Patient Interested in Nicotine Replacement: Yes Patient Given Instructions on How to Stop Smoking: Yes Date Education Initiated: 09/22/25 Second Hand Smoke Exposure: No Currently Displaying Signs/Symptoms of Drug Intoxication Withdrawal: No Have you been hit, kicked, punched, or otherwise hurt by someone within the past year? If so, by whom?: No Do you feel safe in your current relationship?: No Current Relationship Is there a partner from a previous relationship who is making you feel unsafe now?: No Are you made to feel afraid or neglected: No Spiritual Healthcare Practices: none Sikh Healthcare Practices: none Cultural Healthcare Practices: none Advance Directives: No Advance Directives Information Provided: Yes Do you have thoughts of harming others: None Do you have a plan to hurt others: No Plan Recently lost weight without trying: No How much weight loss: Not applicable Eating poorly because of decreased appetite: No Nutrition screen score: 0 Nutrition Risks: No Nutritional Risk Patient : No : No Poor oral hygiene: No service: No Sexual orientation: Straight/Heterosexual Meds Allergies Allergy/AdvReac Type Severity Reaction Status Date / Time No Known Allergies Allergy Verified 09/09/25 20:29 Active Medications: Current Medications Al Hydroxide/Mg Hydroxide (Magnesium Hydrox/Alum Hydrox 30 Ml Oral.Susp) 30 ml PO Q6H PRN PRN Reason: Heartburn/Nausea Amlodipine Besylate (Amlodipine Besylate 5 Mg Tablet) 5 mg PO DAILY [facility]; Protocol Amoxicillin/Clavulanate Potassium (Amoxicillin/Potassium Clav 500 Mg Tablet) 500 mg PO BID [facility] Stop: 09/26/25 09:00 Last Admin: 09/22/25 23:37 Dose: 500 mg Apixaban (Apixaban 5 Mg Tablet) 5 mg PO BID [facility] Last Admin: 09/22/25 23:39 Dose: 5 mg Baclofen (Baclofen 10 Mg Tablet) 10 mg PO BID [facility] Last Admin: 09/22/25 21:22 Dose: 10 mg Benzocaine (Throat Lozenge, Medicated Lozenge) 1 lozenge MUCOUS MEM Q2H PRN PRN Reason: Sore Throat Last Admin: 09/22/25 18:40 Dose: 1 lozenge Bupropion HCl (Bupropion Hcl Xl 150 Mg Tab.Er.24h) 150 mg PO DAILY [facility] Clonazepam (Clonazepam 0.5 Mg Tablet) 0.75 mg PO TID PRN PRN Reason: anxiety Last Admin: 09/22/25 23:32 Dose: 0.75 mg Docusate Sodium (Docusate Sodium 100 Mg Capsule) 100 mg PO BID [facility] Last Admin: 09/22/25 23:40 Dose: 100 mg Doxycycline Monohydrate (Doxycycline Monohydrate 100 Mg Capsule) 100 mg PO Q12H [facility] Stop: 09/26/25 21:59 Last Admin: 09/22/25 23:38 Dose: 100 mg Fluticasone/Vilanterol (Fluticasone/Vilanterol 200/25 Blst.W.Dev) 1 puff INHALE RDAILY [facility] Gabapentin (Gabapentin 300 Mg Capsule) 300 mg PO BID [facility] Last Admin: 09/22/25 23:39 Dose: 300 mg Gabapentin (Gabapentin 600 Mg Tablet) 600 mg PO BEDTIME [facility] Last Admin: 09/22/25 23:35 Dose: 600 mg Hydroxyzine HCl (Hydroxyzine Hcl 25 Mg Tablet) 25 mg PO Q6H PRN PRN Reason: mild anxiety Lidocaine (Lidocaine 4 % Patch Adh..Patch) 1 patch TRANSDERMA DAILY [facility]; Protocol Lisinopril (Lisinopril 40 Mg Tablet) 40 mg PO DAILY [facility]; Protocol Loratadine (Loratadine 10 Mg Tablet) 10 mg PO DAILY PRN PRN Reason: allergy sx Magnesium Hydroxide (Milk Of Magnesia 30 Ml Oral.Susp) 30 ml PO DAILY PRN PRN Reason: Constipation Melatonin (Melatonin 3 Mg Tablet) 6 mg PO BEDTIME PRN PRN Reason: Insomnia Methadone HCl (Methadone Hcl 20 Mg/2 Ml Oral.Conc) 120 mg PO DAILY@0800 [facility] Last Admin: 09/23/25 07:53 Dose: 120 mg Methylphenidate HCl (Methylphenidate Hcl 10 Mg Tablet) 10 mg PO 0700,1100,1600 [facility] Last Admin: 09/22/25 23:28 Dose: Not Given Nicotine (Nicotine 14 Mg Patch.Td24) 14 mg TRANSDERMA DAILY [facility] Nicotine Polacrilex (Nicotine Polacrilex 2 Mg Gum) 2 mg BUCCAL Q2H PRN PRN Reason: Nicotine Cravings Last Admin: 09/22/25 21:22 Dose: 2 mg Pt Own Medication ( (Biotene 2 Sprays)) 2 sprays PO QID PRN PRN Reason: Dry Mouth Olanzapine (Olanzapine 7.5 Mg Tablet) 15 mg PO BEDTIME [facility] Last Admin: 09/22/25 23:37 Dose: 15 mg Olanzapine (Olanzapine 5 Mg Tablet) 5 mg PO BID PRN PRN Reason: psychosis,agitation Omeprazole (Omeprazole 20 Mg Capsule.Dr) 20 mg PO DAILY@0630 [facility] Last Admin: 09/23/25 07:18 Dose: 20 mg Ondansetron HCl (Ondansetron Odt 4 Mg Tab.Rapdis) 4 mg TRANSLINGU Q12H PRN PRN Reason: Nausea and Vomiting Last Admin: 09/22/25 21:24 Dose: 4 mg Risperidone (Risperidone 1 Mg Tablet) 1 mg PO BID [facility] Last Admin: 09/22/25 23:40 Dose: 1 mg Trazodone HCl (Trazodone Hcl 50 Mg Tablet) 150 mg PO BEDTIME [facility] Last Admin: 09/22/25 23:34 Dose: 150 mg Home Medications ?Medication ?Instructions ?Recorded ?Confirmed ?Last Taken ?Type amlodipine 5 mg tablet 5 mg PO DAILY 09/10/2509/2209/20/25 History apixaban 5 mg tablet (Eliquis) 5 mg PO BID 09/10/2509/22/25 History baclofen 10 mg tablet 10 mg PO BID 09/10/2509/20/25 History bupropion HCl 150 mg tablet,12 hr 150 mg PO DAILY 08/2409/22/25 09/20/25 History sustained-release cetirizine 10 mg tablet 10 mg PO DAILY PRN allergies 09/10/25 09/22/25 09/18/25 History clonazepam 0.5 mg tablet 0.75 mg PO TID PRN anxiety 1 09/22/25 09/20/25 History esomeprazole magnesium 40 mg 40 mg PO DAILY@0630 09/1009/22/25 09/20/25 History capsule,delayed release gabapentin 300 mg capsule 600 mg PO BEDTIME 09/10/25 1 Unknown History lisinopril 40 mg tablet 40 mg PO DAILY 09/10/25 1009/20/25 History melatonin 5 mg tablet 5 mg PO BEDTIME 09/10/2509/20/25 History methylphenidate HCl 10 mg tablet 10 mg PO TID@0700,110 0,1600 09/10/25 09/22/25 09/20/25 History olanzapine 10 mg tablet 10 mg PO BEDTIME 09/10/2509/20/25 History olanzapine 5 mg tablet 5 mg PO BEDTIME 09/10/2509/20/25 History ondansetron HCl 4 mg tablet 4 mg PO DAILY PRN nausea 1 09/22/25 09/20/25 History trazodone 150 mg tablet 150 mg PO BEDTIME 09/10/25 1 09/20/25 History Physical Exam Vital Signs and Narrative: Vital Signs: Last Vital Signs Temp 98.0 F 09/22/25 20:00 Pulse 74 09/22/25 20:00 Resp 16 09/22/25 20:00 BP 99/71 09/22/25 20:00 Pulse Ox 96 09/22/25 20:00 O2 Del Method Room Air 09/22/25 20:00 BMI result Body Mass Index 33.9 Alert and oriented X3, calm and cooperative. Answers questions. Neuro: CN II-X11 intact, no deficits, visual acuity intact EYES: PERRLA, EOM intact ENT: Hearing intact, MMM Cardiac: S1 S2 RRR, No ectopy Pulmonary: Lungs clear to auscultation, No increased WOB. Abdominal: BS active in all 4 quadrants, no guarding or tenderness MSK: Strength 5/5 upper and lower extremities : Deferred Extremities: No edema in lower extremities Psych: Mood stable, Quiet and cooperative. Skin: Warm and dry, Intact Assessment and Plan (1) Aspiration pneumonia: Qualifiers: Aspiration pneumonia type: due to regurgitated food Laterality: unspecified laterality Lung location: unspecified part of lung Qualified Code(s): J69.0 - Pneumonitis due to inhalation of food and vomit Status: Acute Plan 60-year-old female with a past medical history listed below, presents to the ED with hallucinations, now admitted for further care and treatment. Schizoaffective disorder/hallucinations Treatment per psychiatric team COPD/recent aspiration pneumonia after choking Not in acute exacerbation. Blood cultures negative to date after 48 hours Continue Breo Ellipta and DuoNeb inhalers as needed Continue doxy and Augmentin No fever or hypoxia Hypertension Continue Norvasc and lisinopril Blood pressure stable on review Fibromyalgia/myofascial pain Patient on methadone 120 mg daily, baclofen, gabapentin Tylenol as needed History of PE on Eliquis Continue omeprazole and Eliquis Thank you for allowing me to participate in the care of this patient. Will follow with you, please notify medical provider with any changes in condition or concerns.
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
--- NOTE | 2025-09-23 09:53 | MHC.CLN ---
CONSULT FOR DIET CONSISTENCY PATIENT SEEN BY DRAFTING LAYOUT MAN 09/22 WITH DIET REC FOR CHOPPED/ADVANCED (NDD3) AND THIN LIQUIDS. CURRENT DIET ORDER AGREES WITH DRAFTING [employer]AYOUT MAN REC. NO ADDITIONAL NUTRITION INTERVENTIONS AT THIS TIME.
[2025-09-23] MEDS: buPROPion HCl XL 150 MG TAB.ER.24H PO (09:59)
[2025-09-23] MEDS: Fluticasone/Vilanterol 200/25 BLST.W.DEV 1 PUFF INHALE (10:00)
[2025-09-23] MEDS: Nicotine 14 MG PATCH.TD24 TRANSDERMA (10:04)
[2025-09-23] MEDS: Lidocaine 4 % Patch ADH..PATCH 1 PATCH TRANSDERMA (10:06)
[2025-09-23] MEDS: Nicotine Polacrilex Lozenge 4 MG LOZENGE BUCCAL ×3 (11:53→21:09)
--- NOTE | 2025-09-23 16:03 | MHC.SL.SWA ---
Speech Pathologist Impression: Mild oropharyngeal dysphagia Risk of Aspiration Due to: Dentition status and PMHx of dysphagia related to fibromyalgia Dysphagia Diet Status: CONTINUE NDD3, Thin liquids with intermittent supervision Liquid Consistency and Strategies for Safe Swallow: Liquid Intake Recommendation: Thin Liquids Liquid Intake Strategies: Solid Food Consistency: Dietary Recommendations: Chopped/Advanced (NDD3) Additional Modifications to Solid Foods: Oral Medication Intake: Whole with Liquid Please contact the pharmacy regarding appropriate crushable or liquid drug formulations that are available whenever modified delivery is recommended. Compensatory Strategies and Precautions to be Taken for Safe Swallow: Small bites/sips, alternated liquids/solids, modification of feeding rate and bolus size Supervision While Eating and Drinking for Safe Swallow: Intermittent Foods to Avoid: Swallowing Recommended Treatments: Patient seen for follow-up to ensure diet tolerance. Per psych charge nurse, patient tolerating current diet and no concerns noted. Patient met in room and given small pieces of dave cracker and water. Patient with no s/sx of penetration/aspiration. Noted occasional prolonged mastication, adequate cohesion, adequate clearance. Patient educated on diet modifications and reason for modification. Patient showing and demonstrating understanding. Recommend continuing on NDD3, Thin liquids. Current diet deemed baseline and SLRD. ST no longer warranted at this level of care. Recommendation for Speech: Re-consult if any difficulties/concerns. Comment: Frequency/Duration: Date Range for Service Req: Timeline to reassess: Aluminum Molding Machine Operator Clinican/Clinical Fellow: No Supervisory Statement: I have reviewed and agree with the student/clinical fellow's documentation: Speech Language Pathologist:
[2025-09-23 20:00] VITALS: BP 123/67; PULSE 81; RESP 18; TEMP 36.6; O2SAT 91
[2025-09-23] MEDS: OLANZapine 7.5 MG TABLET 15 MG PO (23:05)
[2025-09-24 08:00] VITALS: BP 116/59; PULSE 52; RESP 16; TEMP 36.4; O2SAT 93
[2025-09-24] MEDS: methADONE HCl 20 MG/2 ML ORAL.CONC 60 MG PO ×2 (08:30→17:55)
[2025-09-24] MEDS: Nicotine 14 MG PATCH.TD24 TRANSDERMA (08:32)
[2025-09-24] MEDS: Lidocaine 4 % Patch ADH..PATCH 1 PATCH TRANSDERMA (08:32)
[2025-09-24] MEDS: Fluticasone/Vilanterol 200/25 BLST.W.DEV 1 PUFF INHALE (08:32)
[2025-09-24] MEDS: buPROPion HCl XL 150 MG TAB.ER.24H PO (08:33)
[2025-09-24] MEDS: Nicotine Polacrilex Lozenge 4 MG LOZENGE BUCCAL ×4 (09:17→23:05)
--- NOTE | 2025-09-24 09:43 | HO.PSYCHPN ---
Subjective Subjective Date of Service: 09/24/25 Reason For Visit: schizoaffective disorder Interim History: met with pt; discussed with team Patient reports doing better; denies paranoid delusional thinking on inquiry. Staff reports patient remains self dialogueing. Patient asked for increase in both clonazepam and Adderall saying week day provider agreed to increase; loan underwriter agreed to inquire further Mental Status Exam Mental Status Exam Patient Appearance: Fatigued Patient Orientation: Person, Place, Time and Situation Level of Consciousness: Alert Patient Behavior: Talkative (intermittently internally preoccupied) and Good Eye Contact Mood Description: Calm Affect Description: Calm Patient Cognition Impaired: No Ability to Follow Directions: Fair Speech Pattern: Spontaneous Speech Memory Description: Intact Hallucinations: Auditory (intermittently internally preoccupied) Delusions: Not Present (denies) Thought Process: Goal Oriented Thought Content: positive for Circumstantial and positive for Suicidal Ideation (denies) Depressive Symptoms: Insomnia, Difficulty Sleeping, Increased Fatigue and Loss of Energy Judgement: Fair Diagnostics Vital Signs (24Hr): Vital Signs - 24 hr 09/23/25 20:00 09/24/25 08:00 Temperature 97.8 F 97.5 F Pulse Rate 81 52 Respiratory Rate 18 16 Blood Pressure 123/67 116/59 L Pulse Oximetry 91 L 93 Oxygen Delivery Method Room Air Room Air BMI result Body Mass Index 33.9 Medications Medications Current Medications Al Hydroxide/Mg Hydroxide (Magnesium Hydrox/Alum Hydrox 30 Ml Oral.Susp) 30 ml PO Q6H PRN PRN Reason: Heartburn/Nausea Amlodipine Besylate (Amlodipine Besylate 5 Mg Tablet) 5 mg PO DAILY [facility]; Protocol Last Admin: 09/24/25 08:33 Dose: 5 mg Amoxicillin/Clavulanate Potassium (Amoxicillin/Potassium Clav 500 Mg Tablet) 500 mg PO BID [facility] Stop: 09/26/25 09:00 Last Admin: 09/24/25 08:33 Dose: 500 mg Apixaban (Apixaban 5 Mg Tablet) 5 mg PO BID [facility] Last Admin: 09/24/25 08:33 Dose: 5 mg Baclofen (Baclofen 10 Mg Tablet) 10 mg PO BID [facility] Last Admin: 09/24/25 08:33 Dose: 10 mg Benzocaine (Throat Lozenge, Medicated Lozenge) 1 lozenge MUCOUS MEM Q2H PRN PRN Reason: Sore Throat Last Admin: 09/22/25 18:40 Dose: 1 lozenge Bupropion HCl (Bupropion Hcl Xl 150 Mg Tab.Er.24h) 150 mg PO DAILY [facility] Last Admin: 09/24/25 08:33 Dose: 150 mg Clonazepam (Clonazepam 0.5 Mg Tablet) 0.75 mg PO TID PRN PRN Reason: anxiety Last Admin: 09/23/25 23:06 Dose: 0.75 mg Docusate Sodium (Docusate Sodium 100 Mg Capsule) 100 mg PO BID [facility] Last Admin: 09/24/25 08:33 Dose: 100 mg Doxycycline Monohydrate (Doxycycline Monohydrate 100 Mg Capsule) 100 mg PO Q12H [facility] Stop: 09/26/25 21:59 Last Admin: 09/23/25 23:06 Dose: 100 mg Fluticasone Propionate (Fluticasone Propionate Nasal 16 Gm [place]) 2 spray NOSTRIL-B DAILY [facility] Last Admin: 09/24/25 09:16 Dose: 2 spray Fluticasone/Vilanterol (Fluticasone/Vilanterol 200/25 Blst.W.Dev) 1 puff INHALE RDAILY [facility] Last Admin: 09/24/25 08:32 Dose: 1 puff Gabapentin (Gabapentin 300 Mg Capsule) 300 mg PO 0900,1500 [facility] Last Admin: 09/24/25 08:33 Dose: 300 mg Gabapentin (Gabapentin 600 Mg Tablet) 900 mg PO BEDTIME [facility] Last Admin: 09/23/25 23:03 Dose: 900 mg Hydroxyzine HCl (Hydroxyzine Hcl 25 Mg Tablet) 25 mg PO Q6H PRN PRN Reason: mild anxiety Last Admin: 09/24/25 00:33 Dose: 25 mg Lidocaine (Lidocaine 4 % Patch Adh..Patch) 1 patch TRANSDERMA DAILY [facility]; Protocol Last Admin: 09/24/25 08:32 Dose: 1 patch Lisinopril (Lisinopril 40 Mg Tablet) 40 mg PO DAILY [facility]; Protocol Last Admin: 09/24/25 08:33 Dose: 40 mg Loratadine (Loratadine 10 Mg Tablet) 10 mg PO DAILY PRN PRN Reason: allergy sx Last Admin: 09/24/25 08:33 Dose: 10 mg Magnesium Hydroxide (Milk Of Magnesia 30 Ml Oral.Susp) 30 ml PO DAILY PRN PRN Reason: Constipation Melatonin (Melatonin 3 Mg Tablet) 6 mg PO BEDTIME PRN PRN Reason: Insomnia Last Admin: 09/24/25 00:33 Dose: 6 mg Methadone HCl (Methadone Hcl 20 Mg/2 Ml Oral.Conc) 60 mg PO 0800,1800 [facility] Last Admin: 09/24/25 08:30 Dose: 60 mg Methylphenidate HCl (Methylphenidate Hcl 10 Mg Tablet) 10 mg PO 0700,1100,1600 [facility] Last Admin: 09/24/25 08:33 Dose: 10 mg Nicotine (Nicotine 14 Mg Patch.Td24) 14 mg TRANSDERMA DAILY [facility] Last Admin: 09/24/25 08:32 Dose: 14 mg Nicotine Polacrilex (Nicotine Polacrilex Lozenge 4 Mg Lozenge) 4 mg BUCCAL Q2H PRN PRN Reason: Nicotine Cravings Last Admin: 09/24/25 09:17 Dose: 4 mg Pt Own Medication ( (Biotene 2 Sprays)) 2 sprays PO QID PRN PRN Reason: Dry Mouth Last Admin: 09/24/25 00:34 Dose: 2 sprays Olanzapine (Olanzapine 7.5 Mg Tablet) 15 mg PO BEDTIME [facility] Last Admin: 09/23/25 23:05 Dose: 15 mg Olanzapine (Olanzapine 5 Mg Tablet) 5 mg PO BID PRN PRN Reason: psychosis,agitation Last Admin: 09/24/25 00:33 Dose: 5 mg Omeprazole (Omeprazole 20 Mg Capsule.Dr) 20 mg PO DAILY@0630 [facility] Last Admin: 09/24/25 07:10 Dose: 20 mg Ondansetron HCl (Ondansetron Odt 4 Mg Tab.Rapdis) 4 mg TRANSLINGU Q12H PRN PRN Reason: Nausea and Vomiting Last Admin: 09/23/25 17:21 Dose: 4 mg Paliperidone (Paliperidone Er 3 Mg Tab.Er.24) 3 mg PO DAILY [facility] Last Admin: 09/24/25 08:33 Dose: 3 mg Trazodone HCl (Trazodone Hcl 50 Mg Tablet) 150 mg PO BEDTIME [facility] Last Admin: 09/23/25 23:06 Dose: 150 mg Allergies Allergies Allergy/AdvReac Type Severity Reaction Status Date / Time No Known Allergies Allergy Verified 09/09/25 20:29 Assessment & Plan Assessment & Plan (1) Schizoaffective disorder: Status: Acute Code(s): F25.9 - Schizoaffective disorder, unspecified (2) Dysphagia: Status: Acute Code(s): R13.10 - Dysphagia, unspecified (3) Myofascial pain dysfunction syndrome: Status: Acute Code(s): M79.18 - Myalgia, other site (4) COPD (chronic obstructive pulmonary disease): Status: Acute Code(s): J44.9 - Chronic obstructive pulmonary disease, unspecified (5) Aspiration pneumonia: Qualifiers: Aspiration pneumonia type: due to regurgitated food Laterality: unspecified laterality Lung location: unspecified part of lung Qualified Code(s): J69.0 - Pneumonitis due to inhalation of food and vomit Status: Acute Code(s): J69.0 - Pneumonitis due to inhalation of food and vomit Plan 60 yo female, history of schizoaffective disorder, fibromyalgia, myofascial pain dysfunction syndrome, admitted from [facility] 09/09-09/20. Pt had reported poor sleep, fearful delusions-seeing flashes in her apartment, thinking someone was photographing her, feeling a presence in her home, belief that her furniture was controlled by an agency, and that someone was planning to kill her as they thought she was the devil and were planning to burn her alive. Family reported she had been off medicines and had recently moved to a new area, closer to her children as she felt her previous apartment was infested with rodents. Pt has been working with the team, adjusting medications, attending groups. She was focused on increasing Klonopin and Ritalin prior to experiencing a choking incident on 09/20 where she subsequently had an elevated temp and needed medical transfer for aspiration pneumonia. On medicine, antibiotics were started and continue PO upon return. Pt tells crisis she continues with SI and was not prepared for discharge although she has made improvements. She returns to the unit to continue to work on her symptoms. 09/24 Patient reports doing better; denies paranoid delusional thinking on inquiry. Staff reports patient remains self dialogueing. Patient asked for increase in both clonazepam and Adderall saying day provider agreed to increase; loan underwriter agreed to inquire further Plan: Admit, CV, 5 minute checks with the walker Continue current regime Split Methadone for pain to 60 mg bid Meeting with OP Team via Zoom next week to prepare for discharge Message left for OP prescriber-pt wanting to increase Klonopin/Ritalin Patient educated on: diagnosis and medication risk/benefits Informed Consent: understands and further education needed Reason for continued inpatient stay Substantial Risk for: rapid decompensation Time Spent With Patient Time: Total time managing care of this patient today ____ minutes.
[2025-09-24 20:00] VITALS: BP 135/75; PULSE 72; RESP 18; TEMP 36.9; O2SAT 91
[2025-09-24] MEDS: OLANZapine 7.5 MG TABLET 15 MG PO (23:03)
[2025-09-25] MEDS: methADONE HCl 20 MG/2 ML ORAL.CONC 60 MG PO ×2 (07:42→17:54)
[2025-09-25 07:58] VITALS: BP 124/73; PULSE 60; TEMP 36.3; O2SAT 97
[2025-09-25] MEDS: Nicotine 14 MG PATCH.TD24 TRANSDERMA (08:33)
[2025-09-25] MEDS: Fluticasone/Vilanterol 200/25 BLST.W.DEV 1 PUFF INHALE (08:34)
[2025-09-25] MEDS: Lidocaine 4 % Patch ADH..PATCH 1 PATCH TRANSDERMA (08:35)
[2025-09-25] MEDS: buPROPion HCl XL 150 MG TAB.ER.24H PO (08:36)
[2025-09-25] MEDS: Nicotine Polacrilex Lozenge 4 MG LOZENGE BUCCAL ×3 (08:36→21:58)
[2025-09-25 20:00] VITALS: BP 134/69; PULSE 71; RESP 18; TEMP 37; O2SAT 92
--- NOTE | 2025-09-25 23:13 | HO.PSYCHPN ---
Subjective Subjective Date of Service: 09/25/25 Reason For Visit: schizoaffective disorder Interim History: Met with patient; discussed with team Patient remains overall more organized in both speech and behavior. 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 Patient says she has no history of choking on food and in this situation the other day she just took a piece of chicken that was too big for her. Dry Wall Nailer agrees that she can have hard candy Mental Status Exam Mental Status Exam Patient Appearance: Fatigued Patient Orientation: Person, Place, Time and Situation Level of Consciousness: Alert Patient Behavior: Appropriate, Talkative, Cooperative and Good Eye Contact Mood Description: Calm Affect Description: Calm Patient Cognition Impaired: No Ability to Follow Directions: Fair Speech Pattern: Spontaneous Speech Memory Description: Intact Hallucinations: Auditory (intermittently internally preoccupied but less so) Delusions: Not Present (denies) Thought Process: Goal Oriented Thought Content: positive for Circumstantial and positive for Suicidal Ideation (denies) Depressive Symptoms: Insomnia, Difficulty Sleeping, Increased Fatigue and Loss of Energy Judgement: Fair Diagnostics Vital Signs (24Hr): Vital Signs - 24 hr 09/25/25 07:58 09/25/25 20:00 Temperature 97.3 F 98.6 F Pulse Rate 60 71 Respiratory Rate 18 Blood Pressure 124/73 134/69 Pulse Oximetry 97 92 Oxygen Delivery Method Room Air Room Air BMI result Body Mass Index 33.9 Medications Medications Current Medications Acetaminophen (Acetaminophen 325 Mg Tablet) 650 mg PO Q6H PRN PRN Reason: pain 1-10 Last Admin: 09/25/25 12:14 Dose: 650 mg Al Hydroxide/Mg Hydroxide (Magnesium Hydrox/Alum Hydrox 30 Ml Oral.Susp) 30 ml PO Q6H PRN PRN Reason: Heartburn/Nausea Amlodipine Besylate (Amlodipine Besylate 5 Mg Tablet) 5 mg PO DAILY [facility]; Protocol Last Admin: 09/25/25 08:57 Dose: 5 mg Amoxicillin/Clavulanate Potassium (Amoxicillin/Potassium Clav 500 Mg Tablet) 500 mg PO BID [facility] Stop: 09/26/25 09:00 Last Admin: 09/25/25 08:35 Dose: 500 mg Apixaban (Apixaban 5 Mg Tablet) 5 mg PO BID [facility] Last Admin: 09/25/25 08:36 Dose: 5 mg Baclofen (Baclofen 10 Mg Tablet) 10 mg PO BID [facility] Last Admin: 09/25/25 08:35 Dose: 10 mg Benzocaine (Throat Lozenge, Medicated Lozenge) 1 lozenge MUCOUS MEM Q2H PRN PRN Reason: Sore Throat Last Admin: 09/22/25 18:40 Dose: 1 lozenge Bupropion HCl (Bupropion Hcl Xl 150 Mg Tab.Er.24h) 150 mg PO DAILY [facility] Last Admin: 09/25/25 08:36 Dose: 150 mg Clonazepam (Clonazepam 0.5 Mg Tablet) 0.75 mg PO TID PRN PRN Reason: anxiety Last Admin: 09/25/25 14:19 Dose: 0.75 mg Docusate Sodium (Docusate Sodium 100 Mg Capsule) 100 mg PO BID [facility] Last Admin: 09/25/25 08:36 Dose: 100 mg Doxycycline Monohydrate (Doxycycline Monohydrate 100 Mg Capsule) 100 mg PO Q12H [facility] Stop: 09/26/25 21:59 Last Admin: 09/25/25 09:58 Dose: 100 mg Fluticasone Propionate (Fluticasone Propionate Nasal 16 Gm [place]) 2 spray NOSTRIL-B DAILY [facility] Last Admin: 09/25/25 08:34 Dose: 2 spray Fluticasone/Vilanterol (Fluticasone/Vilanterol 200/25 Blst.W.Dev) 1 puff INHALE RDAILY [facility] Last Admin: 09/25/25 08:34 Dose: 1 puff Gabapentin (Gabapentin 300 Mg Capsule) 300 mg PO 0900,1500 [facility] Last Admin: 09/25/25 14:10 Dose: 300 mg Gabapentin (Gabapentin 600 Mg Tablet) 900 mg PO BEDTIME [facility] Last Admin: 09/24/25 23:00 Dose: 900 mg Hydroxyzine HCl (Hydroxyzine Hcl 25 Mg Tablet) 25 mg PO Q6H PRN PRN Reason: mild anxiety Last Admin: 09/24/25 23:05 Dose: 25 mg Lidocaine (Lidocaine 4 % Patch Adh..Patch) 1 patch TRANSDERMA DAILY [facility]; Protocol Last Admin: 09/25/25 08:35 Dose: 1 patch Lisinopril (Lisinopril 40 Mg Tablet) 40 mg PO DAILY [facility]; Protocol Last Admin: 09/25/25 08:36 Dose: 40 mg Loratadine (Loratadine 10 Mg Tablet) 10 mg PO DAILY PRN PRN Reason: allergy sx Last Admin: 09/25/25 08:36 Dose: 10 mg Magnesium Hydroxide (Milk Of Magnesia 30 Ml Oral.Susp) 30 ml PO DAILY PRN PRN Reason: Constipation Melatonin (Melatonin 3 Mg Tablet) 6 mg PO BEDTIME PRN PRN Reason: Insomnia Last Admin: 09/24/25 00:33 Dose: 6 mg Methadone HCl (Methadone Hcl 20 Mg/2 Ml Oral.Conc) 60 mg PO 0800,1800 [facility] Last Admin: 09/25/25 17:54 Dose: 60 mg Methylphenidate HCl (Methylphenidate Hcl 10 Mg Tablet) 10 mg PO 0700,1100,1600 [facility] Last Admin: 09/25/25 15:17 Dose: 10 mg Nicotine (Nicotine 14 Mg Patch.Td24) 14 mg TRANSDERMA DAILY [facility] Last Admin: 09/25/25 08:33 Dose: 14 mg Nicotine Polacrilex (Nicotine Polacrilex Lozenge 4 Mg Lozenge) 4 mg BUCCAL Q2H PRN PRN Reason: Nicotine Cravings Last Admin: 09/25/25 21:58 Dose: 4 mg Pt Own Medication ( (Biotene 2 Sprays)) 2 sprays PO QID PRN PRN Reason: Dry Mouth Last Admin: 09/25/25 08:56 Dose: 2 sprays Olanzapine (Olanzapine 7.5 Mg Tablet) 15 mg PO BEDTIME [facility] Last Admin: 09/24/25 23:03 Dose: 15 mg Olanzapine (Olanzapine 5 Mg Tablet) 5 mg PO BID PRN PRN Reason: psychosis,agitation Last Admin: 09/24/25 00:33 Dose: 5 mg Omeprazole (Omeprazole 20 Mg Capsule.Dr) 20 mg PO DAILY@0630 [facility] Last Admin: 09/25/25 07:29 Dose: 20 mg Ondansetron HCl (Ondansetron Odt 4 Mg Tab.Rapdis) 4 mg TRANSLINGU Q12H PRN PRN Reason: Nausea and Vomiting Last Admin: 09/25/25 21:58 Dose: 4 mg Paliperidone (Paliperidone Er 3 Mg Tab.Er.24) 3 mg PO DAILY [facility] Last Admin: 09/25/25 08:36 Dose: 3 mg Trazodone HCl (Trazodone Hcl 50 Mg Tablet) 150 mg PO BEDTIME [facility] Last Admin: 09/24/25 23:03 Dose: 150 mg Allergies Allergies Allergy/AdvReac Type Severity Reaction Status Date / Time No Known Allergies Allergy Verified 09/09/25 20:29 Assessment & Plan Assessment & Plan (1) Schizoaffective disorder: Status: Acute Code(s): F25.9 - Schizoaffective disorder, unspecified (2) Dysphagia: Status: Acute Code(s): R13.10 - Dysphagia, unspecified (3) Myofascial pain dysfunction syndrome: Status: Acute Code(s): M79.18 - Myalgia, other site (4) COPD (chronic obstructive pulmonary disease): Status: Acute Code(s): J44.9 - Chronic obstructive pulmonary disease, unspecified (5) Aspiration pneumonia: Qualifiers: Aspiration pneumonia type: due to regurgitated food Laterality: unspecified laterality Lung location: unspecified part of lung Qualified Code(s): J69.0 - Pneumonitis due to inhalation of food and vomit Status: Acute Code(s): J69.0 - Pneumonitis due to inhalation of food and vomit Plan 60 yo female, history of schizoaffective disorder, fibromyalgia, myofascial pain dysfunction syndrome, admitted from [facility] 09/09-09/20. Pt had reported poor sleep, fearful delusions-seeing flashes in her apartment, thinking someone was photographing her, feeling a presence in her home, belief that her furniture was controlled by an agency, and that someone was planning to kill her as they thought she was the devil and were planning to burn her alive. Family reported she had been off medicines and had recently moved to a new area, closer to her children as she felt her previous apartment was infested with rodents. Pt has been working with the team, adjusting medications, attending groups. She was focused on increasing Klonopin and Ritalin prior to experiencing a choking incident on 09/20 where she subsequently had an elevated temp and needed medical transfer for aspiration pneumonia. On medicine, antibiotics were started and continue PO upon return. Pt tells crisis she continues with SI and was not prepared for discharge although she has made improvements. She returns to the unit to continue to work on her symptoms. 09/24 Patient reports doing better; denies paranoid delusional thinking on inquiry. Staff reports patient remains self dialogueing. Patient asked for increase in both clonazepam and Adderall saying provider agreed to increase; technical publications writer agreed to inquire further 09/25 Patient remains overall more organized in both speech and behavior. 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 Patient says she has no history of choking on food and in this situation the other day she just took a piece of chicken that was too big for her. Dry Wall Nailer agrees that she can have hard candy Plan: Admit, CV, 5 minute checks with the walker Continue current regime Split Methadone for pain to 60 mg bid Meeting with OP Team via Zoom next week to prepare for discharge Message left for OP prescriber-pt wanting to increase Klonopin/Ritalin Patient educated on: diagnosis, medication risk/benefits and medical condition Informed Consent: understands Reason for continued inpatient stay Substantial Risk for: rapid decompensation Time Spent With Patient Time: Total time managing care of this patient today ____ minutes.
[2025-09-25] MEDS: OLANZapine 7.5 MG TABLET 15 MG PO (23:15)
--- NOTE | 2025-09-26 07:07 | PC.NURSE ---
Medications Pt does not want to take Ritalin or Omeprazole at this time. Pt wants to take with other am meds, so she can sleep. Pt continues on 2L [place].
[2025-09-26] MEDS: methADONE HCl 20 MG/2 ML ORAL.CONC 60 MG PO ×2 (07:54→17:02)
[2025-09-26 08:00] VITALS: BP 117/55; PULSE 61; RESP 17; TEMP 36.2; O2SAT 90
[2025-09-26] MEDS: buPROPion HCl XL 150 MG TAB.ER.24H PO (09:00)
[2025-09-26 09:01] VITALS: BP 114/55; BP 117/55
[2025-09-26] MEDS: Nicotine 14 MG PATCH.TD24 TRANSDERMA (09:04)
[2025-09-26] MEDS: Lidocaine 4 % Patch ADH..PATCH 1 PATCH TRANSDERMA (09:04)
[2025-09-26] MEDS: Nicotine Polacrilex Lozenge 4 MG LOZENGE BUCCAL ×4 (09:10→19:22)
[2025-09-26] MEDS: Fluticasone/Vilanterol 200/25 BLST.W.DEV 1 PUFF INHALE (09:10)
--- NOTE | 2025-09-26 09:50 | HO.PSYCHPN ---
Subjective Subjective Date of Service: 09/26/25 Reason For Visit: schizoaffective disorder Subjective Notes: Conditional Voluntary Healthcare Proxy: No Guardianship: No Medical Problems Affecting Mental Status: No Interim History: No return call from OP prescriber. As a result Ritalin and Klonopin returned to pre admit dosages. Pt asks to return to a regular diet-chopped diet is not satisfactory for her she reports. Reviewed plans for meeting with her team via zoom on 09/27. She is prepared-wanting to ask her son to live with him on the weekends so she may spend time with her grandchildren. It is very lonely living alone and being ill. Denies SI,HI,AH, VH. No sx of acute alan or psychosis. Medication Compliance: Yes Side effects from medications: No Attending Groups: Intermittent Review of Systems Acute medical concerns: No Medical Review of Systems: unchanged Review of Systems Review of Systems chronic pain Mental Status Exam Mental Status Exam Patient Appearance: Appropriate Patient Orientation: Person, Place, Time and Situation Level of Consciousness: Alert Patient Behavior: Talkative Mood Description: Flat Affect Description: Flat Patient Cognition Impaired: No Ability to Follow Directions: Good Speech Pattern: Spontaneous Speech Memory Description: Intact Hallucinations: None Delusions: Paranoid Ideation Thought Process: Goal Oriented Thought Content: positive for Goal Oriented and positive for Suicidal Ideation (denies) Depressive Symptoms: Increased Fatigue and Low Self Esteem Judgement: Good Diagnostics Vital Signs (24Hr): Vital Signs - 24 hr 09/25/25 20:00 09/26/25 08:00 09/26/25 09:01 Temperature 98.6 F 97.2 F Pulse Rate 71 61 Respiratory Rate 18 17 Blood Pressure 134/69 117/55 L 117/55 L Pulse Oximetry 92 90 L Oxygen Delivery Method Room Air Room Air 09/26/25 09:01 Temperature Pulse Rate Respiratory Rate Blood Pressure 114/55 L Pulse Oximetry Oxygen Delivery Method BMI result Body Mass Index 33.9 Medications Medications Current Medications Acetaminophen (Acetaminophen 325 Mg Tablet) 650 mg PO Q6H PRN PRN Reason: pain 1-10 Last Admin: 09/25/25 23:29 Dose: 650 mg Al Hydroxide/Mg Hydroxide (Magnesium Hydrox/Alum Hydrox 30 Ml Oral.Susp) 30 ml PO Q6H PRN PRN Reason: Heartburn/Nausea Amlodipine Besylate (Amlodipine Besylate 5 Mg Tablet) 5 mg PO DAILY [facility]; Protocol Last Admin: 09/26/25 09:01 Dose: 5 mg Apixaban (Apixaban 5 Mg Tablet) 5 mg PO BID [facility] Last Admin: 09/26/25 09:02 Dose: 5 mg Baclofen (Baclofen 10 Mg Tablet) 10 mg PO BID [facility] Last Admin: 09/26/25 09:02 Dose: 10 mg Benzocaine (Throat Lozenge, Medicated Lozenge) 1 lozenge MUCOUS MEM Q2H PRN PRN Reason: Sore Throat Last Admin: 09/22/25 18:40 Dose: 1 lozenge Bupropion HCl (Bupropion Hcl Xl 150 Mg Tab.Er.24h) 150 mg PO DAILY [facility] Last Admin: 09/26/25 09:00 Dose: 150 mg Clonazepam (Clonazepam 0.5 Mg Tablet) 0.75 mg PO TID PRN PRN Reason: anxiety Last Admin: 09/26/25 09:02 Dose: 0.75 mg Docusate Sodium (Docusate Sodium 100 Mg Capsule) 100 mg PO BID [facility] Last Admin: 09/26/25 08:59 Dose: 100 mg Doxycycline Monohydrate (Doxycycline Monohydrate 100 Mg Capsule) 100 mg PO Q12H [facility] Stop: 09/26/25 21:59 Last Admin: 09/26/25 09:09 Dose: 100 mg Fluticasone Propionate (Fluticasone Propionate Nasal 16 Gm [place]) 2 spray NOSTRIL-B DAILY [facility] Last Admin: 09/26/25 09:10 Dose: 2 spray Fluticasone/Vilanterol (Fluticasone/Vilanterol 200/25 Blst.W.Dev) 1 puff INHALE RDAILY [facility] Last Admin: 09/26/25 09:10 Dose: 1 puff Gabapentin (Gabapentin 300 Mg Capsule) 300 mg PO 0900,1500 [facility] Last Admin: 09/26/25 09:01 Dose: 300 mg Gabapentin (Gabapentin 600 Mg Tablet) 900 mg PO BEDTIME [facility] Last Admin: 09/25/25 23:13 Dose: 900 mg Hydroxyzine HCl (Hydroxyzine Hcl 25 Mg Tablet) 25 mg PO Q6H PRN PRN Reason: mild anxiety Last Admin: 09/26/25 00:30 Dose: 25 mg Lidocaine (Lidocaine 4 % Patch Adh..Patch) 1 patch TRANSDERMA DAILY [facility]; Protocol Last Admin: 09/26/25 09:04 Dose: 1 patch Lisinopril (Lisinopril 40 Mg Tablet) 40 mg PO DAILY [facility]; Protocol Last Admin: 09/26/25 09:01 Dose: 40 mg Loratadine (Loratadine 10 Mg Tablet) 10 mg PO DAILY PRN PRN Reason: allergy sx Last Admin: 09/25/25 08:36 Dose: 10 mg Magnesium Hydroxide (Milk Of Magnesia 30 Ml Oral.Susp) 30 ml PO DAILY PRN PRN Reason: Constipation Melatonin (Melatonin 3 Mg Tablet) 6 mg PO BEDTIME PRN PRN Reason: Insomnia Last Admin: 09/26/25 00:30 Dose: 6 mg Methadone HCl (Methadone Hcl 20 Mg/2 Ml Oral.Conc) 60 mg PO 0800,1800 [facility] Last Admin: 09/26/25 07:54 Dose: 60 mg Methylphenidate HCl (Methylphenidate Hcl 10 Mg Tablet) 10 mg PO 0700,1100,1600 [facility] Last Admin: 09/26/25 09:10 Dose: 10 mg Nicotine (Nicotine 14 Mg Patch.Td24) 14 mg TRANSDERMA DAILY [facility] Last Admin: 09/26/25 09:04 Dose: 14 mg Nicotine Polacrilex (Nicotine Polacrilex Lozenge 4 Mg Lozenge) 4 mg BUCCAL Q2H PRN PRN Reason: Nicotine Cravings Last Admin: 09/26/25 09:10 Dose: 4 mg Pt Own Medication ( (Biotene 2 Sprays)) 2 sprays PO QID PRN PRN Reason: Dry Mouth Last Admin: 09/26/25 09:10 Dose: 2 sprays Olanzapine (Olanzapine 7.5 Mg Tablet) 15 mg PO BEDTIME [facility] Last Admin: 09/25/25 23:15 Dose: 15 mg Olanzapine (Olanzapine 5 Mg Tablet) 5 mg PO BID PRN PRN Reason: psychosis,agitation Last Admin: 09/24/25 00:33 Dose: 5 mg Omeprazole (Omeprazole 20 Mg Capsule.Dr) 20 mg PO DAILY@0630 [facility] Last Admin: 09/26/25 08:59 Dose: 20 mg Ondansetron HCl (Ondansetron Odt 4 Mg Tab.Rapdis) 4 mg TRANSLINGU Q12H PRN PRN Reason: Nausea and Vomiting Last Admin: 09/25/25 21:58 Dose: 4 mg Paliperidone (Paliperidone Er 3 Mg Tab.Er.24) 3 mg PO DAILY [facility] Last Admin: 09/26/25 09:00 Dose: 3 mg Trazodone HCl (Trazodone Hcl 50 Mg Tablet) 150 mg PO BEDTIME [facility] Last Admin: 09/25/25 23:15 Dose: 150 mg Allergies Allergies Allergy/AdvReac Type Severity Reaction Status Date / Time No Known Allergies Allergy Verified 09/09/25 20:29 Assessment & Plan Assessment & Plan (1) Schizoaffective disorder: Status: Acute Code(s): F25.9 - Schizoaffective disorder, unspecified (2) Dysphagia: Status: Acute Code(s): R13.10 - Dysphagia, unspecified (3) Myofascial pain dysfunction syndrome: Status: Acute Code(s): M79.18 - Myalgia, other site (4) COPD (chronic obstructive pulmonary disease): Status: Acute Code(s): J44.9 - Chronic obstructive pulmonary disease, unspecified (5) Aspiration pneumonia: Qualifiers: Aspiration pneumonia type: due to regurgitated food Laterality: unspecified laterality Lung location: unspecified part of lung Qualified Code(s): J69.0 - Pneumonitis due to inhalation of food and vomit Status: Acute Code(s): J69.0 - Pneumonitis due to inhalation of food and vomit Plan 60 yo female, history of schizoaffective disorder, fibromyalgia, myofascial pain dysfunction syndrome, admitted from [facility] 09/09-09/20. Pt had reported poor sleep, fearful delusions-seeing flashes in her apartment, thinking someone was photographing her, feeling a presence in her home, belief that her furniture was controlled by an agency, and that someone was planning to kill her as they thought she was the devil and were planning to burn her alive. Family reported she had been off medicines and had recently moved to a new area, closer to her children as she felt her previous apartment was infested with rodents. Pt has been working with the team, adjusting medications, attending groups. She was focused on increasing Klonopin and Ritalin prior to experiencing a choking incident on 09/20 where she subsequently had an elevated temp and needed medical transfer for aspiration pneumonia. On medicine, antibiotics were started and continue PO upon return. Pt tells crisis she continues with SI and was not prepared for discharge although she has made improvements. She returns to the unit to continue to work on her symptoms. 09/24 Patient reports doing better; denies paranoid delusional thinking on inquiry. Staff reports patient remains self dialogueing. Patient asked for increase in both clonazepam and Adderall saying week day provider agreed to increase; proposal writer agreed to inquire further 09/25 Patient remains overall more organized in both speech and behavior. 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 Patient says she has no history of choking on food and in this situation the other day she just took a piece of chicken that was too big for her. Surveying Crew Stake Runner agrees that she can have hard candy. 09/26 Ritalin and Klonopin returned to pre admission dosages as we have not heard from out pt prescriber during the week. Pt will meet with her team on Zoom on 09/27 to discuss aftercare and discharge planning. Plan: Admit, CV, 5 minute checks with the walker Continue current regime Split Methadone for pain to 60 mg bid Meeting with OP Team via Zoom next week to prepare for discharge Message left for OP prescriber-pt wanting to increase Klonopin/Ritalin Patient educated on: medication risk/benefits and therapeutic strategies Informed Consent: understands Reason for continued inpatient stay Substantial Risk for: rapid decompensation and med/psych decompensation Time Spent With Patient Time: Total time managing care of this patient today ____ minutes.
[2025-09-26 09:51] VITALS: O2SAT 94
[2025-09-26 20:00] VITALS: BP 130/74; PULSE 77; RESP 16; TEMP 36.6; O2SAT 992
[2025-09-26] MEDS: OLANZapine 7.5 MG TABLET 15 MG PO (23:51)
[2025-09-27 08:00] VITALS: BP 124/58; PULSE 57; RESP 17; TEMP 36.3; O2SAT 95
[2025-09-27] MEDS: methADONE HCl 20 MG/2 ML ORAL.CONC 60 MG PO ×2 (08:01→18:04)
[2025-09-27] MEDS: Nicotine Polacrilex Lozenge 4 MG LOZENGE BUCCAL ×3 (08:59→16:36)
[2025-09-27] MEDS: Lidocaine 4 % Patch ADH..PATCH 1 PATCH TRANSDERMA (09:00)
[2025-09-27] MEDS: Fluticasone/Vilanterol 200/25 BLST.W.DEV 1 PUFF INHALE (09:00)
[2025-09-27 09:02] VITALS: BP 124/58
[2025-09-27 09:03] VITALS: BP 124/58
[2025-09-27] MEDS: Nicotine 14 MG PATCH.TD24 TRANSDERMA (09:04)
[2025-09-27] MEDS: buPROPion HCl XL 150 MG TAB.ER.24H PO (09:04)
--- NOTE | 2025-09-27 11:00 | P.PNPSI_ITS ---
Subjective Subjective Date of Service: 09/27/25 Reason For Visit: schizoaffective disorder Subjective Notes: Conditional Voluntary Healthcare Proxy: No Guardianship: No Medical Problems Affecting Mental Status: No Interim History: Per team, pt is not participating in groups over the past few days. She reports wanting to remain in pt until current fibromyalgia flare has subsided. She met with team on zoom today. She is tolerating return of Ritalin and Klonopin dosing. She denies SI,HI,AH,VH She is visable in the milieu and social with select peers. Medication Compliance: Yes Side effects from medications: No Attending Groups: Intermittent Review of Systems Acute medical concerns: No Medical Review of Systems: unchanged Review of Systems Review of Systems chronic pain Mental Status Exam Mental Status Exam Patient Appearance: Appropriate Patient Orientation: Person, Place, Time and Situation Level of Consciousness: Alert Patient Behavior: Talkative Mood Description: Flat Affect Description: Flat Patient Cognition Impaired: No Ability to Follow Directions: Good Speech Pattern: Spontaneous Speech Memory Description: Intact Hallucinations: None Delusions: Paranoid Ideation Thought Process: Goal Oriented Thought Content: positive for Goal Oriented and positive for Suicidal Ideation (denies) Depressive Symptoms: Increased Fatigue and Low Self Esteem Judgement: Good Diagnostics Vital Signs (24Hr): Vital Signs - 24 hr 09/26/25 20:00 09/27/25 08:00 09/27/25 09:02 Temperature 97.8 F 97.3 F Pulse Rate 77 57 Respiratory Rate 16 17 Blood Pressure 130/74 124/58 L 124/58 L Pulse Oximetry 992 H 95 Oxygen Delivery Method Room Air Room Air 09/27/25 09:03 Temperature Pulse Rate Respiratory Rate Blood Pressure 124/58 L Pulse Oximetry Oxygen Delivery Method BMI result Body Mass Index 33.9 Medications Medications Current Medications Acetaminophen (Acetaminophen 325 Mg Tablet) 650 mg PO Q6H PRN PRN Reason: pain 1-10 Last Admin: 09/25/25 23:29 Dose: 650 mg Al Hydroxide/Mg Hydroxide (Magnesium Hydrox/Alum Hydrox 30 Ml Oral.Susp) 30 ml PO Q6H PRN PRN Reason: Heartburn/Nausea Amlodipine Besylate (Amlodipine Besylate 5 Mg Tablet) 5 mg PO DAILY [facility]; Protocol Last Admin: 09/27/25 09:02 Dose: 5 mg Apixaban (Apixaban 5 Mg Tablet) 5 mg PO BID [facility] Last Admin: 09/27/25 09:03 Dose: 5 mg Baclofen (Baclofen 10 Mg Tablet) 10 mg PO BID [facility] Last Admin: 09/27/25 09:01 Dose: 10 mg Benzocaine (Throat Lozenge, Medicated Lozenge) 1 lozenge MUCOUS MEM Q2H PRN PRN Reason: Sore Throat Last Admin: 09/22/25 18:40 Dose: 1 lozenge Bupropion HCl (Bupropion Hcl Xl 150 Mg Tab.Er.24h) 150 mg PO DAILY [facility] Last Admin: 09/27/25 09:04 Dose: 150 mg Clonazepam (Clonazepam 1 Mg Tablet) 1 mg PO TID PRN PRN Reason: anxiety Last Admin: 09/27/25 08:59 Dose: 1 mg Docusate Sodium (Docusate Sodium 100 Mg Capsule) 100 mg PO BID [facility] Last Admin: 09/27/25 09:03 Dose: 100 mg Fluticasone Propionate (Fluticasone Propionate Nasal 16 Gm [place]) 2 spray NOSTRIL-B DAILY [facility] Last Admin: 09/27/25 09:04 Dose: 2 spray Fluticasone/Vilanterol (Fluticasone/Vilanterol 200/25 Blst.W.Dev) 1 puff INHALE RDAILY [facility] Last Admin: 09/27/25 09:00 Dose: 1 puff Gabapentin (Gabapentin 300 Mg Capsule) 300 mg PO 0900,1500 [facility] Last Admin: 09/27/25 09:02 Dose: 300 mg Gabapentin (Gabapentin 600 Mg Tablet) 900 mg PO BEDTIME [facility] Last Admin: 09/26/25 23:50 Dose: 900 mg Hydroxyzine HCl (Hydroxyzine Hcl 25 Mg Tablet) 25 mg PO Q6H PRN PRN Reason: mild anxiety Last Admin: 09/26/25 00:30 Dose: 25 mg Lidocaine (Lidocaine 4 % Patch Adh..Patch) 1 patch TRANSDERMA DAILY [facility]; Protocol Last Admin: 09/27/25 09:00 Dose: 1 patch Lisinopril (Lisinopril 40 Mg Tablet) 40 mg PO DAILY [facility]; Protocol Last Admin: 09/27/25 09:03 Dose: 40 mg Loratadine (Loratadine 10 Mg Tablet) 10 mg PO DAILY PRN PRN Reason: allergy sx Last Admin: 09/25/25 08:36 Dose: 10 mg Magnesium Hydroxide (Milk Of Magnesia 30 Ml Oral.Susp) 30 ml PO DAILY PRN PRN Reason: Constipation Melatonin (Melatonin 3 Mg Tablet) 6 mg PO BEDTIME PRN PRN Reason: Insomnia Last Admin: 09/26/25 00:30 Dose: 6 mg Methadone HCl (Methadone Hcl 20 Mg/2 Ml Oral.Conc) 60 mg PO 0800,1800 [facility] Last Admin: 09/27/25 08:01 Dose: 60 mg Methylphenidate HCl (Methylphenidate Hcl 10 Mg Tablet) 20 mg PO TID@0700,1100,1600 [facility] Last Admin: 09/27/25 08:59 Dose: 20 mg Nicotine (Nicotine 14 Mg Patch.Td24) 14 mg TRANSDERMA DAILY [facility] Last Admin: 09/27/25 09:04 Dose: 14 mg Nicotine Polacrilex (Nicotine Polacrilex Lozenge 4 Mg Lozenge) 4 mg BUCCAL Q2H PRN PRN Reason: Nicotine Cravings Last Admin: 09/27/25 08:59 Dose: 4 mg Pt Own Medication ( (Biotene 2 Sprays)) 2 sprays PO QID PRN PRN Reason: Dry Mouth Last Admin: 09/27/25 09:00 Dose: 2 sprays Olanzapine (Olanzapine 7.5 Mg Tablet) 15 mg PO BEDTIME [facility] Last Admin: 09/26/25 23:51 Dose: 15 mg Olanzapine (Olanzapine 5 Mg Tablet) 5 mg PO BID PRN PRN Reason: psychosis,agitation Last Admin: 09/24/25 00:33 Dose: 5 mg Omeprazole (Omeprazole 20 Mg Capsule.Dr) 20 mg PO DAILY@0630 [facility] Last Admin: 09/27/25 06:10 Dose: 20 mg Ondansetron HCl (Ondansetron Odt 4 Mg Tab.Rapdis) 4 mg TRANSLINGU Q12H PRN PRN Reason: Nausea and Vomiting Last Admin: 09/25/25 21:58 Dose: 4 mg Paliperidone (Paliperidone Er 3 Mg Tab.Er.24) 3 mg PO DAILY [facility] Last Admin: 09/27/25 09:02 Dose: 3 mg Trazodone HCl (Trazodone Hcl 50 Mg Tablet) 150 mg PO BEDTIME [facility] Last Admin: 09/26/25 23:51 Dose: 150 mg Allergies Allergies Allergy/AdvReac Type Severity Reaction Status Date / Time No Known Allergies Allergy Verified 09/09/25 20:29 Assessment & Plan Assessment & Plan (1) Schizoaffective disorder: Status: Acute Code(s): F25.9 - Schizoaffective disorder, unspecified (2) Dysphagia: Status: Acute Code(s): R13.10 - Dysphagia, unspecified (3) Myofascial pain dysfunction syndrome: Status: Acute Code(s): M79.18 - Myalgia, other site (4) COPD (chronic obstructive pulmonary disease): Status: Acute Code(s): J44.9 - Chronic obstructive pulmonary disease, unspecified (5) Aspiration pneumonia: Qualifiers: Aspiration pneumonia type: due to regurgitated food Laterality: unspecified laterality Lung location: unspecified part of lung Qualified Code(s): J69.0 - Pneumonitis due to inhalation of food and vomit Status: Acute Code(s): J69.0 - Pneumonitis due to inhalation of food and vomit Plan 60 yo female, history of schizoaffective disorder, fibromyalgia, myofascial pain dysfunction syndrome, admitted from [facility] 09/09-09/20. Pt had reported poor sleep, fearful delusions-seeing flashes in her apartment, thinking someone was photographing her, feeling a presence in her home, belief that her furniture was controlled by an agency, and that someone was planning to kill her as they thought she was the devil and were planning to burn her alive. Family reported she had been off medicines and had recently moved to a new area, closer to her children as she felt her previous apartment was infested with rodents. Pt has been working with the team, adjusting medications, attending groups. She was foc used on increasing Klonopin and Ritalin prior to experiencing a choking incident on 09/20 where she subsequently had an elevated temp and needed medical transfer for aspiration pneumonia. On medicine, antibiotics were started and continue PO upon return. Pt tells crisis she continues with SI and was not prepared for discharge although she has made improvements. She returns to the unit to continue to work on her symptoms. 09/24 Patient reports doing better; denies paranoid delusional thinking on inquiry. Staff reports patient remains self dialogueing. Patient asked for increase in both clonazepam and Adderall saying week day provider agreed to increase; junior underwriter agreed to inquire further 09/25 Patient remains overall more organized in both speech and behavior. 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 Patient says she has no history of choking on food and in this situation the other day she just took a piece of chicken that was too big for her. Multimedia Producer agrees that she can have hard candy 09/27: No med changes today. Discharge planning with her team. Plan: Admit, CV, 5 minute checks with the walker Continue current regime Split Methadone for pain to 60 mg bid Meeting with OP Team via Zoom next week to prepare for discharge Message left for OP prescriber-pt wanting to increase Klonopin/Ritalin Reason for continued inpatient stay Substantial Risk for: med/psych decompensation Time Spent With Patient Time: Total time managing care of this patient today ____ minutes.
[2025-09-27 20:00] VITALS: BP 141/77; PULSE 88; RESP 18; TEMP 36.6; O2SAT 92
[2025-09-28] MEDS: OLANZapine 7.5 MG TABLET 15 MG PO ×2 (00:11→22:22)
[2025-09-28 08:00] VITALS: BP 133/76; PULSE 100; TEMP 36.7; O2SAT 99
[2025-09-28] MEDS: buPROPion HCl XL 150 MG TAB.ER.24H PO (09:06)
[2025-09-28] MEDS: Lidocaine 4 % Patch ADH..PATCH 1 PATCH TRANSDERMA (09:06)
[2025-09-28 09:07] VITALS: BP 110/62
[2025-09-28] MEDS: Fluticasone/Vilanterol 200/25 BLST.W.DEV 1 PUFF INHALE (09:08)
--- NOTE | 2025-09-28 09:13 | HO.PSYCHPN ---
Subjective Subjective Date of Service: 09/28/25 Reason For Visit: schizoaffective disorder Subjective Notes: Conditional Voluntary Healthcare Proxy: No Guardianship: No Medical Problems Affecting Mental Status: No Interim History: Pt reports she is feeling prepared to discharge. Denies SI,HI,AH,VH. She does worry about her apartment-and discussed the leak that was found during this admission. Reports yeast infection sx-Diflucan ordered and stiffness-benztropine 0.5 mg bid ordered as well. No other changes were made today. This afternoon she is dressed in holiday sweater, in the milieu, social with select peers and attending group. Medication Compliance: Yes Side effects from medications: No (?stiffness from atypicals-benztropine ordered) Attending Groups: Yes Review of Systems Acute medical concerns: No Review of Systems Review of Systems yeast infection sx-Diflucan ordered stiffness-benztropine ordered Mental Status Exam Mental Status Exam Patient Appearance: Appropriate Patient Orientation: Person, Place, Time and Situation Level of Consciousness: Alert Patient Behavior: Talkative Mood Description: Appropriate Affect Description: Appropriate Patient Cognition Impaired: No Ability to Follow Directions: Good Speech Pattern: Spontaneous Speech Memory Description: Intact Hallucinations: None Delusions: Not Present Thought Process: Intact and Goal Oriented Thought Content: positive for Intact, positive for Goal Oriented and positive for Suicidal Ideation (denies) Depressive Symptoms: Thoughts of /Suicide (denies) Judgement: Good Diagnostics Vital Signs (24Hr): Vital Signs - 24 hr 09/27/25 20:00 09/28/25 09:07 Temperature 97.9 F Pulse Rate 88 Respiratory Rate 18 Blood Pressure 141/77 H 110/62 Pulse Oximetry 92 Oxygen Delivery Method Room Air BMI result Body Mass Index 33.9 Medications Medications Current Medications Acetaminophen (Acetaminophen 325 Mg Tablet) 650 mg PO Q6H PRN PRN Reason: pain 1-10 Last Admin: 09/25/25 23:29 Dose: 650 mg Al Hydroxide/Mg Hydroxide (Magnesium Hydrox/Alum Hydrox 30 Ml Oral.Susp) 30 ml PO Q6H PRN PRN Reason: Heartburn/Nausea Amlodipine Besylate (Amlodipine Besylate 5 Mg Tablet) 5 mg PO DAILY [facility]; Protocol Last Admin: 09/28/25 09:07 Dose: 5 mg Apixaban (Apixaban 5 Mg Tablet) 5 mg PO BID [facility] Last Admin: 09/28/25 09:06 Dose: 5 mg Baclofen (Baclofen 10 Mg Tablet) 10 mg PO BID [facility] Last Admin: 09/28/25 09:07 Dose: 10 mg Benzocaine (Throat Lozenge, Medicated Lozenge) 1 lozenge MUCOUS MEM Q2H PRN PRN Reason: Sore Throat Last Admin: 09/22/25 18:40 Dose: 1 lozenge Bupropion HCl (Bupropion Hcl Xl 150 Mg Tab.Er.24h) 150 mg PO DAILY [facility] Last Admin: 09/28/25 09:06 Dose: 150 mg Clonazepam (Clonazepam 1 Mg Tablet) 1 mg PO TID PRN PRN Reason: anxiety Last Admin: 09/28/25 00:12 Dose: 1 mg Docusate Sodium (Docusate Sodium 100 Mg Capsule) 100 mg PO BID [facility] Last Admin: 09/28/25 09:07 Dose: 100 mg Fluticasone Propionate (Fluticasone Propionate Nasal 16 Gm [place]) 2 spray NOSTRIL-B DAILY [facility] Last Admin: 09/27/25 09:04 Dose: 2 spray Fluticasone/Vilanterol (Fluticasone/Vilanterol 200/25 Blst.W.Dev) 1 puff INHALE RDAILY [facility] Last Admin: 09/28/25 09:08 Dose: 1 puff Gabapentin (Gabapentin 300 Mg Capsule) 300 mg PO 0900,1500 [facility] Last Admin: 09/28/25 09:07 Dose: 300 mg Gabapentin (Gabapentin 600 Mg Tablet) 900 mg PO BEDTIME [facility] Last Admin: 09/28/25 00:09 Dose: 900 mg Hydroxyzine HCl (Hydroxyzine Hcl 25 Mg Tablet) 25 mg PO Q6H PRN PRN Reason: mild anxiety Last Admin: 09/28/25 00:11 Dose: 25 mg Lidocaine (Lidocaine 4 % Patch Adh..Patch) 1 patch TRANSDERMA DAILY [facility]; Protocol Last Admin: 09/28/25 09:06 Dose: 1 patch Lisinopril (Lisinopril 40 Mg Tablet) 40 mg PO DAILY [facility]; Protocol Last Admin: 09/28/25 09:07 Dose: 40 mg Loratadine (Loratadine 10 Mg Tablet) 10 mg PO DAILY PRN PRN Reason: allergy sx Last Admin: 09/25/25 08:36 Dose: 10 mg Magnesium Hydroxide (Milk Of Magnesia 30 Ml Oral.Susp) 30 ml PO DAILY PRN PRN Reason: Constipation Melatonin (Melatonin 3 Mg Tablet) 6 mg PO BEDTIME PRN PRN Reason: Insomnia Last Admin: 09/28/25 00:11 Dose: 6 mg Methadone HCl (Methadone Hcl 20 Mg/2 Ml Oral.Conc) 60 mg PO 0800,1800 [facility] Last Admin: 09/27/25 18:04 Dose: 60 mg Methylphenidate HCl (Methylphenidate Hcl 10 Mg Tablet) 20 mg PO TID@0700,1100,1600 [facility] Last Admin: 09/27/25 16:36 Dose: 20 mg Nicotine (Nicotine 14 Mg Patch.Td24) 14 mg TRANSDERMA DAILY [facility] Last Admin: 09/27/25 09:04 Dose: 14 mg Nicotine Polacrilex (Nicotine Polacrilex Lozenge 4 Mg Lozenge) 4 mg BUCCAL Q2H PRN PRN Reason: Nicotine Cravings Last Admin: 09/27/25 16:36 Dose: 4 mg Pt Own Medication ( (Biotene 2 Sprays)) 2 sprays PO QID PRN PRN Reason: Dry Mouth Last Admin: 09/27/25 13:05 Dose: 2 sprays Olanzapine (Olanzapine 7.5 Mg Tablet) 15 mg PO BEDTIME [facility] Last Admin: 09/28/25 00:11 Dose: 15 mg Olanzapine (Olanzapine 5 Mg Tablet) 5 mg PO BID PRN PRN Reason: psychosis,agitation Last Admin: 09/28/25 00:10 Dose: 5 mg Omeprazole (Omeprazole 20 Mg Capsule.Dr) 20 mg PO DAILY@0630 [facility] Last Admin: 09/28/25 06:39 Dose: 20 mg Ondansetron HCl (Ondansetron Odt 4 Mg Tab.Rapdis) 4 mg TRANSLINGU Q12H PRN PRN Reason: Nausea and Vomiting Last Admin: 09/27/25 18:06 Dose: 4 mg Paliperidone (Paliperidone Er 3 Mg Tab.Er.24) 3 mg PO DAILY [facility] Last Admin: 09/28/25 09:07 Dose: 3 mg Trazodone HCl (Trazodone Hcl 50 Mg Tablet) 150 mg PO BEDTIME [facility] Last Admin: 09/28/25 00:12 Dose: 150 mg Allergies Allergies Allergy/AdvReac Type Severity Reaction Status Date / Time No Known Allergies Allergy Verified 09/09/25 20:29 Assessment & Plan Assessment & Plan (1) Schizoaffective disorder: Status: Acute Code(s): F25.9 - Schizoaffective disorder, unspecified (2) Dysphagia: Status: Acute Code(s): R13.10 - Dysphagia, unspecified (3) Myofascial pain dysfunction syndrome: Status: Acute Code(s): M79.18 - Myalgia, other site (4) COPD (chronic obstructive pulmonary disease): Status: Acute Code(s): J44.9 - Chronic obstructive pulmonary disease, unspecified (5) Aspiration pneumonia: Qualifiers: Aspiration pneumonia type: due to regurgitated food Laterality: unspecified laterality Lung location: unspecified part of lung Qualified Code(s): J69.0 - Pneumonitis due to inhalation of food and vomit Status: Acute Code(s): J69.0 - Pneumonitis due to inhalation of food and vomit Plan 60 yo female, history of schizoaffective disorder, fibromyalgia, myofascial pain dysfunction syndrome, admitted from [facility] 09/09-09/20. Pt had reported poor sleep, fearful delusions-seeing flashes in her apartment, thinking someone was photographing her, feeling a presence in her home, belief that her furniture was controlled by an agency, and that someone was planning to kill her as they thought she was the devil and were planning to burn her alive. Family reported she had been off medicines and had recently moved to a new area, closer to her children as she felt her previous apartment was infested with rodents. Pt has been working with the team, adjusting medications, attending groups. She was focused on increasing Klonopin and Ritalin prior to experiencing a choking incident on 09/20 where she subsequently had an elevated temp and needed medical transfer for aspiration pneumonia. On medicine, antibiotics were started and continue PO upon return. Pt tells crisis she continues with SI and was not prepared for discharge although she has made improvements. She returns to the unit to continue to work on her symptoms. 09/24 Patient reports doing better; denies paranoid delusional thinking on inquiry. Staff reports patient remains self dialogueing. Patient asked for increase in both clonazepam and Adderall saying week day provider agreed to increase; real estate underwriter agreed to inquire further 09/25 Patient remains overall more organized in both speech and behavior. 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 Patient says she has no history of choking on food and in this situation the other day she just took a piece of chicken that was too big for her. Veneer Measurer agrees that she can have hard candy 09/27: No med changes today. Discharge planning with her team. 09/28: Diflucan x 1 dose for yeast infection sx post antibiotic rx Benztropine 0.5 mg bid CBCD, ChemP, A1c, Lipids, TSH on 09/29 Plan: Admit, CV, 5 minute checks with the walker Continue current regime Split Methadone for pain to 60 mg bid Meeting with OP Team via Zoom next week to prepare for discharge Message left for OP prescriber-pt wanting to increase Klonopin/Ritalin Reason for continued inpatient stay Substantial Risk for: rapid decompensation Time Spent With Patient Time: Total time managing care of this patient today ____ minutes.
[2025-09-28] MEDS: methADONE HCl 20 MG/2 ML ORAL.CONC 60 MG PO ×2 (09:23→17:57)
[2025-09-28] MEDS: Nicotine Polacrilex Lozenge 4 MG LOZENGE BUCCAL ×3 (09:28→17:58)
[2025-09-28 19:56] VITALS: BP 126/68; PULSE 84; RESP 18; TEMP 36.9; O2SAT 93
[2025-09-29 08:00] VITALS: PULSE 96; RESP 16; TEMP 36.3; O2SAT 95
[2025-09-29] MEDS: methADONE HCl 20 MG/2 ML ORAL.CONC 60 MG PO ×2 (08:09→18:55)
[2025-09-29] MEDS: buPROPion HCl XL 150 MG TAB.ER.24H PO (08:54)
[2025-09-29] MEDS: Nicotine 14 MG PATCH.TD24 TRANSDERMA (08:55)
[2025-09-29] MEDS: Nicotine Polacrilex Lozenge 4 MG LOZENGE BUCCAL ×5 (08:55→21:09)
[2025-09-29] MEDS: Lidocaine 4 % Patch ADH..PATCH 1 PATCH TRANSDERMA (08:56)
[2025-09-29] MEDS: Fluticasone/Vilanterol 200/25 BLST.W.DEV 1 PUFF INHALE (08:56)
--- NOTE | 2025-09-29 16:44 | HO.PSYCHPN ---
Subjective Subjective Date of Service: 09/29/25 Reason For Visit: schizoaffective disorder Subjective Notes: Conditional Voluntary Healthcare Proxy: No Guardianship: No Medical Problems Affecting Mental Status: No Interim History: Discharge planning in process. Pt to return home on 09/30. [facility] has declined her stay due to Methadone use. Pt will attend her new Methadone Clinic post DC. Son will accompany her home. Pt reporting fibromyalgia pain today, asks to remain in pt which was discussed. Message left for pt's sleep med MD Dr. Kimball [phone] as pt is requesting insurance PA for CPAP. Reports voices today telling her I am disgusting . Expressed anger that her stay has been so brief- other patients tell me it is due to insurance Discussed with pt that she has been here since 09/09. She reports she did not realize this. Denies SI,HI,VH. No sx of acute alan or psychosis. Team reports no physical distress this a.m. Reports pain and stiffness this afternoon. Medication Compliance: Yes Side effects from medications: No Attending Groups: No Review of Systems Acute medical concerns: No Medical Review of Systems: unchanged Review of Systems Review of Systems chronic pain Mental Status Exam Mental Status Exam Patient Appearance: Appropriate Patient Orientation: Person, Place, Time and Situation Level of Consciousness: Alert Patient Behavior: Talkative Mood Description: Appropriate Affect Description: Appropriate Patient Cognition Impaired: No Ability to Follow Directions: Good Speech Pattern: Spontaneous Speech Memory Description: Intact Hallucinations: None Delusions: Not Present Thought Process: Intact and Goal Oriented Thought Content: positive for Intact, positive for Goal Oriented and positive for Suicidal Ideation (denies) Depressive Symptoms: Thoughts of /Suicide (denies) Judgement: Good Diagnostics Vital Signs (24Hr): Vital Signs - 24 hr 09/28/25 19:56 09/29/25 08:00 Temperature 98.5 F 97.4 F Pulse Rate 84 96 Respiratory Rate 18 16 Blood Pressure 126/68 Pulse Oximetry 93 95 Oxygen Delivery Method Room Air BMI result Body Mass Index 33.9 Medications Medications Current Medications Acetaminophen (Acetaminophen 325 Mg Tablet) 650 mg PO Q6H PRN PRN Reason: pain 1-10 Last Admin: 09/25/25 23:29 Dose: 650 mg Acetaminophen (Acetaminophen 325 Mg Tablet) 650 mg PO Q6H PRN PRN Reason: Pain, Mild (Pain Scale 1-3) Al Hydroxide/Mg Hydroxide (Magnesium Hydrox/Alum Hydrox 30 Ml Oral.Susp) 30 ml PO Q6H PRN PRN Reason: Heartburn/Nausea Amlodipine Besylate (Amlodipine Besylate 5 Mg Tablet) 5 mg PO DAILY [facility]; Protocol Last Admin: 09/29/25 08:57 Dose: Not Given Apixaban (Apixaban 5 Mg Tablet) 5 mg PO BID [facility] Last Admin: 09/29/25 08:53 Dose: 5 mg Baclofen (Baclofen 10 Mg Tablet) 10 mg PO BID [facility] Last Admin: 09/29/25 08:53 Dose: 10 mg Benzocaine (Throat Lozenge, Medicated Lozenge) 1 lozenge MUCOUS MEM Q2H PRN PRN Reason: Sore Throat Last Admin: 09/22/25 18:40 Dose: 1 lozenge Benztropine Mesylate (Benztropine Mesylate 0.5 Mg Tablet) 0.5 mg PO BID [facility] Last Admin: 09/29/25 08:55 Dose: 0.5 mg Bupropion HCl (Bupropion Hcl Xl 150 Mg Tab.Er.24h) 150 mg PO DAILY [facility] Last Admin: 09/29/25 08:54 Dose: 150 mg Clonazepam (Clonazepam 1 Mg Tablet) 1 mg PO TID [facility] Docusate Sodium (Docusate Sodium 100 Mg Capsule) 100 mg PO BID [facility] Last Admin: 09/29/25 08:54 Dose: 100 mg Fluticasone Propionate (Fluticasone Propionate Nasal 16 Gm [place]) 2 spray NOSTRIL-B DAILY [facility] Last Admin: 09/29/25 09:54 Dose: Not Given Fluticasone/Vilanterol (Fluticasone/Vilanterol 200/25 Blst.W.Dev) 1 puff INHALE RDAILY [facility] Last Admin: 09/29/25 08:56 Dose: 1 puff Gabapentin (Gabapentin 300 Mg Capsule) 300 mg PO 0900,1500 [facility] Last Admin: 09/29/25 14:08 Dose: 300 mg Gabapentin (Gabapentin 600 Mg Tablet) 900 mg PO BEDTIME [facility] Last Admin: 09/28/25 22:20 Dose: 900 mg Hydroxyzine HCl (Hydroxyzine Hcl 25 Mg Tablet) 25 mg PO Q6H PRN PRN Reason: mild anxiety Last Admin: 09/28/25 22:22 Dose: 25 mg Lidocaine (Lidocaine 4 % Patch Adh..Patch) 1 patch TRANSDERMA DAILY [facility]; Protocol Last Admin: 09/29/25 08:56 Dose: 1 patch Lisinopril (Lisinopril 40 Mg Tablet) 40 mg PO DAILY [facility]; Protocol Last Admin: 09/29/25 08:58 Dose: Not Given Loratadine (Loratadine 10 Mg Tablet) 10 mg PO DAILY PRN PRN Reason: allergy sx Last Admin: 09/25/25 08:36 Dose: 10 mg Magnesium Hydroxide (Milk Of Magnesia 30 Ml Oral.Susp) 30 ml PO DAILY PRN PRN Reason: Constipation Melatonin (Melatonin 3 Mg Tablet) 6 mg PO BEDTIME PRN PRN Reason: Insomnia Last Admin: 09/28/25 22:21 Dose: 6 mg Methadone HCl (Methadone Hcl 20 Mg/2 Ml Oral.Conc) 60 mg PO 0800,1800 [facility] Last Admin: 09/29/25 08:09 Dose: 60 mg Methylphenidate HCl (Methylphenidate Hcl 10 Mg Tablet) 20 mg PO TID@0700,1100,1600 [facility] Last Admin: 09/29/25 15:37 Dose: 20 mg Nicotine (Nicotine 14 Mg Patch.Td24) 14 mg TRANSDERMA DAILY [facility] Last Admin: 09/29/25 08:55 Dose: 14 mg Nicotine Polacrilex (Nicotine Polacrilex Lozenge 4 Mg Lozenge) 4 mg BUCCAL Q2H PRN PRN Reason: Nicotine Cravings Last Admin: 09/29/25 14:10 Dose: 4 mg Pt Own Medication ( (Biotene 2 Sprays)) 2 sprays PO QID PRN PRN Reason: Dry Mouth Last Admin: 09/27/25 13:05 Dose: 2 sprays Olanzapine (Olanzapine 7.5 Mg Tablet) 15 mg PO BEDTIME [facility] Last Admin: 09/28/25 22:22 Dose: 15 mg Olanzapine (Olanzapine 5 Mg Tablet) 5 mg PO BID PRN PRN Reason: psychosis,agitation Last Admin: 09/28/25 22:22 Dose: 5 mg Omeprazole (Omeprazole 20 Mg Capsule.Dr) 20 mg PO DAILY@0630 [facility] Last Admin: 09/29/25 08:53 Dose: 20 mg Ondansetron HCl (Ondansetron Odt 4 Mg Tab.Rapdis) 4 mg TRANSLINGU Q12H PRN PRN Reason: Nausea and Vomiting Last Admin: 09/27/25 18:06 Dose: 4 mg Paliperidone (Paliperidone Er 3 Mg Tab.Er.24) 3 mg PO DAILY [facility] Last Admin: 09/29/25 08:54 Dose: 3 mg Trazodone HCl (Trazodone Hcl 50 Mg Tablet) 150 mg PO BEDTIME [facility] Last Admin: 09/28/25 22:24 Dose: 150 mg Allergies Allergies Allergy/AdvReac Type Severity Reaction Status Date / Time No Known Allergies Allergy Verified 09/09/25 20:29 Assessment & Plan Assessment & Plan (1) Schizoaffective disorder: Status: Acute Code(s): F25.9 - Schizoaffective disorder, unspecified (2) Dysphagia: Status: Acute Code(s): R13.10 - Dysphagia, unspecified (3) Myofascial pain dysfunction syndrome: Status: Acute Code(s): M79.18 - Myalgia, other site (4) COPD (chronic obstructive pulmonary disease): Status: Acute Code(s): J44.9 - Chronic obstructive pulmonary disease, unspecified (5) Aspiration pneumonia: Qualifiers: Aspiration pneumonia type: due to regurgitated food Laterality: unspecified laterality Lung location: unspecified part of lung Qualified Code(s): J69.0 - Pneumonitis due to inhalation of food and vomit Status: Acute Code(s): J69.0 - Pneumonitis due to inhalation of food and vomit Plan 60 yo female, history of schizoaffective disorder, fibromyalgia, myofascial pain dysfunction syndrome, admitted from [facility] 09/09-09/20. Pt had reported poor sleep, fearful delusions-seeing flashes in her apartment, thinking someone was photographing her, feeling a presence in her home, belief that her furniture was controlled by an agency, and that someone was planning to kill her as they thought she was the devil and were planning to burn her alive. Family reported she had been off medicines and had recently moved to a new area, closer to her children as she felt her previous apartment was infested with rodents. Pt has been working with the team, adjusting medications, attending groups. She was focused on increasing Klonopin and Ritalin prior to experiencing a choking incident on 09/20 where she subsequently had an elevated temp and needed medical transfer for aspiration pneumonia. On medicine, antibiotics were started and continue PO upon return. Pt tells crisis she continues with SI and was not prepared for discharge although she has made improvements. She returns to the unit to continue to work on her symptoms. 09/24 Patient reports doing better; denies paranoid delusional thinking on inquiry. Staff reports patient remains self dialogueing. Patient asked for increase in both clonazepam and Adderall saying day provider agreed to increase; report writer agreed to inquire further 09/25 Patient remains overall more organized in both speech and behavior. 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 Patient says she has no history of choking on food and in this situation the other day she just took a piece of chicken that was too big for her. Ore Crusher agrees that she can have hard candy 09/27: No med changes today. Discharge planning with her team. 09/28: Diflucan x 1 dose for yeast infection sx post antibiotic rx Benztropine 0.5 mg bid CBCD, ChemP, A1c, Lipids, TSH on 09/29 09/29 DC 09/30 Plan: Admit, CV, 5 minute checks with the walker Continue current regime Split Methadone for pain to 60 mg bid Meeting with OP Team via Zoom next week to prepare for discharge Message left for OP prescriber-pt wanting to increase Klonopin/Ritalin Reason for continued inpatient stay Substantial Risk for: stable for discharge Time Spent With Patient Time: Total time managing care of this patient today ____ minutes.
[2025-09-29 19:59] VITALS: BP 144/75; PULSE 90; RESP 18; TEMP 36.8; O2SAT 98
[2025-09-29] MEDS: OLANZapine 7.5 MG TABLET 15 MG PO (21:59)
[2025-09-30 08:00] VITALS: BP 112/60; PULSE 59; RESP 15; TEMP 36.4; O2SAT 94
[2025-09-30] MEDS: methADONE HCl 20 MG/2 ML ORAL.CONC 60 MG PO (08:07)
[2025-09-30] MEDS: Fluticasone/Vilanterol 200/25 BLST.W.DEV 1 PUFF INHALE (08:35)
[2025-09-30] MEDS: Lidocaine 4 % Patch ADH..PATCH 1 PATCH TRANSDERMA (08:37)
[2025-09-30] MEDS: Nicotine 14 MG PATCH.TD24 TRANSDERMA (08:39)
[2025-09-30] MEDS: buPROPion HCl XL 150 MG TAB.ER.24H PO (08:40)
[2025-09-30 08:41] VITALS: BP 112/60
--- NOTE | 2025-09-30 09:55 | P.PNPSI_ITS ---
Subjective Subjective Reason For Visit: schizoaffective disorder Diagnostics Vital Signs (24Hr): Vital Signs - 24 hr 09/29/25 19:59 09/30/25 08:00 09/30/25 08:41 Temperature 98.2 F 97.6 F Pulse Rate 90 59 Respiratory Rate 18 15 Blood Pressure 144/75 H 112/60 112/60 Pulse Oximetry 98 94 Oxygen Delivery Method Room Air Room Air 09/30/25 08:41 Temperature Pulse Rate Respiratory Rate Blood Pressure 112/60 Pulse Oximetry Oxygen Delivery Method BMI result Body Mass Index 33.9 Medications Medications Current Medications Acetaminophen (Acetaminophen 325 Mg Tablet) 650 mg PO Q6H PRN PRN Reason: pain 1-10 Last Admin: 09/29/25 22:05 Dose: 650 mg Acetaminophen (Acetaminophen 325 Mg Tablet) 650 mg PO Q6H PRN PRN Reason: Pain, Mild (Pain Scale 1-3) Al Hydroxide/Mg Hydroxide (Magnesium Hydrox/Alum Hydrox 30 Ml Oral.Susp) 30 ml PO Q6H PRN PRN Reason: Heartburn/Nausea Amlodipine Besylate (Amlodipine Besylate 5 Mg Tablet) 5 mg PO DAILY [facility]; Protocol Last Admin: 09/30/25 08:41 Dose: 5 mg Apixaban (Apixaban 5 Mg Tablet) 5 mg PO BID [facility] Last Admin: 09/30/25 08:41 Dose: 5 mg Baclofen (Baclofen 10 Mg Tablet) 10 mg PO BID [facility] Last Admin: 09/30/25 08:41 Dose: 10 mg Benzocaine (Throat Lozenge, Medicated Lozenge) 1 lozenge MUCOUS MEM Q2H PRN PRN Reason: Sore Throat Last Admin: 09/22/25 18:40 Dose: 1 lozenge Benztropine Mesylate (Benztropine Mesylate 0.5 Mg Tablet) 0.5 mg PO BID [facility] Last Admin: 09/30/25 08:40 Dose: 0.5 mg Bupropion HCl (Bupropion Hcl Xl 150 Mg Tab.Er.24h) 150 mg PO DAILY [facility] Last Admin: 09/30/25 08:40 Dose: 150 mg Clonazepam (Clonazepam 1 Mg Tablet) 1 mg PO TID [facility] Last Admin: 09/30/25 08:40 Dose: 1 mg Docusate Sodium (Docusate Sodium 100 Mg Capsule) 100 mg PO BID [facility] Last Admin: 09/30/25 08:44 Dose: Not Given Fluticasone Propionate (Fluticasone Propionate Nasal 16 Gm [place]) 2 spray NOSTRIL-B DAILY [facility] Last Admin: 09/30/25 08:36 Dose: 2 spray Fluticasone/Vilanterol (Fluticasone/Vilanterol 200/25 Blst.W.Dev) 1 puff INHALE RDAILY [facility] Last Admin: 09/30/25 08:35 Dose: 1 puff Gabapentin (Gabapentin 300 Mg Capsule) 300 mg PO 0900,1500 [facility] Last Admin: 09/30/25 08:40 Dose: 300 mg Gabapentin (Gabapentin 600 Mg Tablet) 900 mg PO BEDTIME [facility] Last Admin: 09/29/25 21:59 Dose: 900 mg Hydroxyzine HCl (Hydroxyzine Hcl 25 Mg Tablet) 25 mg PO Q6H PRN PRN Reason: mild anxiety Last Admin: 09/28/25 22:22 Dose: 25 mg Lidocaine (Lidocaine 4 % Patch Adh..Patch) 1 patch TRANSDERMA DAILY [facility]; Protocol Last Admin: 09/30/25 08:37 Dose: 1 patch Lisinopril (Lisinopril 40 Mg Tablet) 40 mg PO DAILY [facility]; Protocol Last Admin: 09/30/25 08:41 Dose: 40 mg Loratadine (Loratadine 10 Mg Tablet) 10 mg PO DAILY PRN PRN Reason: allergy sx Last Admin: 09/25/25 08:36 Dose: 10 mg Magnesium Hydroxide (Milk Of Magnesia 30 Ml Oral.Susp) 30 ml PO DAILY PRN PRN Reason: Constipation Melatonin (Melatonin 3 Mg Tablet) 6 mg PO BEDTIME PRN PRN Reason: Insomnia Last Admin: 09/28/25 22:21 Dose: 6 mg Methadone HCl (Methadone Hcl 20 Mg/2 Ml Oral.Conc) 60 mg PO 0800,1800 [facility] Last Admin: 09/30/25 08:07 Dose: 60 mg Methylphenidate HCl (Methylphenidate Hcl 10 Mg Tablet) 20 mg PO TID@0700,1100,1600 [facility] Last Admin: 09/30/25 08:41 Dose: 20 mg Nicotine (Nicotine 14 Mg Patch.Td24) 14 mg TRANSDERMA DAILY [facility] Last Admin: 09/30/25 08:39 Dose: 14 mg Nicotine Polacrilex (Nicotine Polacrilex Lozenge 4 Mg Lozenge) 4 mg BUCCAL Q2H PRN PRN Reason: Nicotine Cravings Last Admin: 09/29/25 21:09 Dose: 4 mg Pt Own Medication ( (Biotene 2 Sprays)) 2 sprays PO QID PRN PRN Reason: Dry Mouth Last Admin: 09/30/25 08:37 Dose: 2 sprays Olanzapine (Olanzapine 7.5 Mg Tablet) 15 mg PO BEDTIME [facility] Last Admin: 09/29/25 21:59 Dose: 15 mg Olanzapine (Olanzapine 5 Mg Tablet) 5 mg PO BID PRN PRN Reason: psychosis,agitation Last Admin: 09/28/25 22:22 Dose: 5 mg Omeprazole (Omeprazole 20 Mg Capsule.Dr) 20 mg PO DAILY@0630 [facility] Last Admin: 09/30/25 06:33 Dose: 20 mg Ondansetron HCl (Ondansetron Odt 4 Mg Tab.Rapdis) 4 mg TRANSLINGU Q12H PRN PRN Reason: Nausea and Vomiting Last Admin: 09/27/25 18:06 Dose: 4 mg Paliperidone (Paliperidone Er 3 Mg Tab.Er.24) 3 mg PO DAILY [facility] Last Admin: 09/30/25 08:40 Dose: 3 mg Trazodone HCl (Trazodone Hcl 50 Mg Tablet) 150 mg PO BEDTIME [facility] Last Admin: 09/29/25 21:59 Dose: 150 mg Allergies Allergies Allergy/AdvReac Type Severity Reaction Status Date / Time No Known Allergies Allergy Verified 09/09/25 20:29 Assessment & Plan Assessment & Plan (1) Schizoaffective disorder: Status: Acute Code(s): F25.9 - Schizoaffective disorder, unspecified (2) Dysphagia: Status: Acute Code(s): R13.10 - Dysphagia, unspecified (3) Myofascial pain dysfunction syndrome: Status: Acute Code(s): M79.18 - Myalgia, other site (4) COPD (chronic obstructive pulmonary disease): Status: Acute Code(s): J44.9 - Chronic obstructive pulmonary disease, unspecified (5) Aspiration pneumonia: Qualifiers: Aspiration pneumonia type: due to regurgitated food Laterality: unspecified laterality Lung location: unspecified part of lung Qualified Code(s): J69.0 - Pneumonitis due to inhalation of food and vomit Status: Resolved Code(s): J69.0 - Pneumonitis due to inhalation of food and vomit Plan 60 yo female, history of schizoaffective disorder, fibromyalgia, myofascial pain dysfunction syndrome, admitted from [facility] 09/09-09/20. Pt had reported poor sleep, fearful delusions-seeing flashes in her apartment, thinking someone was photographing her, feeling a presence in her home, belief that her furniture was controlled by an agency, and that someone was planning to kill her as they thought she was the devil and were planning to burn her alive. Family reported she had been off medicines and had recently moved to a new area, closer to her children as she felt her previous apartment was infested with rodents. Pt has been working with the team, adjusting medications, attending groups. She was focused on increasing Klonopin and Ritalin prior to experiencing a choking incident on 09/20 where she subsequently had an elevated temp and needed medical transfer for aspiration pneumonia. On medicine, antibiotics were started and continue PO upon return. Pt tells crisis she continues with SI and was not prepared for discharge although she has made improvements. She returns to the unit to continue to work on her symptoms. 09/24 Patient reports doing better; denies paranoid delusional thinking on inquiry. Staff reports patient remains self dialogueing. Patient asked for increase in both clonazepam and Adderall saying week day provider agreed to increase; health technical writer agreed to inquire further 09/25 Patient remains overall more organized in both speech and behavior. 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 Patient says she has no history of choking on food and in this situation the other day she just took a piece of chicken that was too big for her. Laundry Aide agrees that she can have hard candy 09/27: No med changes today. Discharge planning with her team. 09/28: Diflucan x 1 dose for yeast infection sx post antibiotic rx Benztropine 0.5 mg bid CBCD, ChemP, A1c, Lipids, TSH on 09/29 09/29 DC 09/30 Plan: Admit, CV, 5 minute checks with the walker Continue current regime Split Methadone for pain to 60 mg bid Meeting with OP Team via Zoom next week to prepare for discharge Message left for OP prescriber-pt wanting to increase Klonopin/Ritalin Time Spent With Patient Time: Total time managing care of this patient today ____ minutes.
--- NOTE | 2025-10-09 17:25 | PM.PSYDC ---
DS: Providers Provider Date of Service: 09/30/25 Date of admission: 09/22/25 15:00 Date of discharge: 09/30/25 Primary care physician: Unknown Physician Admitting clinician: Rachel Saenz Attending physician on admission: Miles Robles Attending physician on discharge: Miles Robles Discharging clinician: Rachel Saenz DS: Diagnosis Discharge Diagnosis (1) Schizoaffective disorder: Status: Acute (2) Dysphagia: Status: Acute (3) Myofascial pain dysfunction syndrome: Status: Acute (4) COPD (chronic obstructive pulmonary disease): Status: Acute (5) Aspiration pneumonia: Status: Resolved DS: Medications Discharge Medications Home Medications: Home Medications ?Medication ?Instructions ?Recorded ?Confirmed amlodipine 5 mg tablet 5 mg PO DAILY 09/10/25 09/22/25 apixaban 5 mg tablet (Eliquis) 5 mg PO BID 09/10/25 09/22/25 baclofen 10 mg tablet 10 mg PO BID 09/10/25 09/22/25 cetirizine 10 mg tablet 10 mg PO DAILY PRN allergies 09/10/25 09/22/25 esomeprazole magnesium 40 mg 40 mg PO DAILY@0630 09/10/25 09/22/25 capsule,delayed release gabapentin 300 mg capsule 600 mg PO BEDTIME 09/10/25 09/22/25 lisinopril 40 mg tablet 40 mg PO DAILY 09/10/25 09/22/25 melatonin 5 mg tablet 5 mg PO BEDTIME 09/10/25 09/22/25 ondansetron HCl 4 mg tablet 4 mg PO DAILY PRN nausea 09/10/25 09/22/25 Previous Rx's ?Medication ?Instructions ?Recorded Biotene Dry Mouth [place] 2 sprays PO QID PRN ##0 09/20/25 benzocaine 15 mg-menthol 3.6 mg 1 nandini mucous membrane Q2H PRN Sore 09/20/25 lozenges (Sore Throat (benzocaine Throat #0 ea with menthol)) docusate sodium 100 mg capsule 100 mg PO BID #0 caps 09/20/25 fluticasone furoate 200 1 inh inhalation RDAILY #0 ea 09/20/25 mcg-vilanterol 25 mcg/dose inhalation powder (Breo Ellipta) fluticasone propionate 50 2 spray intranasal DAILY #0 grams 09/20/25 mcg/actuation nasal spray,suspension gabapentin 300 mg capsule 300 mg PO BID@0800,1500 #0 caps 09/20/25 hydroxyzine HCl 25 mg tablet 25 mg PO Q6H PRN mild anxiety #0 09/20/25 tabs ipratropium 0.5 mg-albuterol 3 mg 3 ml inhalation RQ6H WHILE AWAKE 09/20/25 (2.5 mg base)/3 mL nebulization PRN Shortness Of Breath/Wheezing soln #0 mL magnesium hydroxide 400 mg/5 mL 30 ml PO DAILY PRN Constipation #0 09/20/25 oral suspension (Milk of Magnesia) mL nicotine (polacrilex) 2 mg buccal 2 mg buccal Q2H PRN Nicotine 09/20/25 lozenge Cravings #0 ea nicotine 14 mg/24 hr daily 14 mg transdermal DAILY #0 ea 09/20/25 transdermal patch pregabalin 25 mg capsule 25 mg PO BID #0 caps 09/20/25 lidocaine 4 % topical patch 1 patch transdermal DAILY #5 ea 09/22/25 (Lidocaine Pain Relief) acetaminophen 325 mg tablet 650 mg (2 x 325 mg) PO Q6H PRN 09/29/25 pain 1-10 #0 tabs benztropine 0.5 mg tablet 0.5 mg PO BID #25 tabs 09/29/25 bupropion HCl 150 mg 24 hr tablet, 150 mg PO DAILY #30 tabs 09/29/25 extended release clonazepam 1 mg tablet 1 mg PO TID #33 tabs 09/29/25 methadone 10 mg/mL oral 60 mg (6 mL) PO 0800,1800 #0 mL 09/29/25 concentrate (Methadose) olanzapine 7.5 mg tablet 15 mg (2 x 7.5 mg) PO BEDTIME #22 09/29/25 tabs paliperidone 3 mg tablet,extended 3 mg PO DAILY #11 tabs 09/29/25 release 24 hr (Invega) trazodone 150 mg tablet 150 mg PO BEDTIME #12 tabs 09/29/25 trazodone 50 mg tablet 50 mg PO BEDTIME MRX1 PRN Insomnia 09/29/25 #12 tabs clonazepam 1 mg tablet (Klonopin) 1 mg PO TID #36 tabs 09/30/25 methylphenidate HCl 20 mg tablet 20 mg PO TID #36 tabs 09/30/25 (Ritalin) Mental Status Exam Mental Status Exam Patient Appearance: Appropriate Patient Orientation: Person, Place, Time and Situation Level of Consciousness: Alert Patient Behavior: Talkative Mood Description: Appropriate Affect Description: Appropriate Patient Cognition Impaired: No Ability to Follow Directions: Good Speech Pattern: Spontaneous Speech Memory Description: Intact Hallucinations: None Delusions: Not Present Thought Process: Intact and Goal Oriented Thought Content: positive for Intact, positive for Goal Oriented and positive for Suicidal Ideation (denies) Depressive Symptoms: Thoughts of /Suicide (denies) Judgement: Good DS: Summary Hospital Course Hospital Course: Admission to adult psychiatry for exacerbation of schizoaffective disorder, ADHD, fibromyalgia, COPD, Myofascial pain syndrome. Pt admitted to 09/10/25 to 09/20/25. Pt was transferred to medicine 09/20/25 to 09/23/25 after a choking episode with aspiration. She returned to psychiatry on 09/23/25. Medications were evaluated and adjusted. Pt was offered full milieu to help her to strengthen coping skills. Team was able to connect with her out patient team to discuss progress and complete discharge planning. Pt' children were invovled in and supportive of her during her admission. Pt will return home. Team was able to find a Methadone clinic closer to her home and out patient providers who are affiliated with her residential support team. [facility] will assist pt as well upon discharge. Status at Discharge Functional status at discharge: independent ambulation Overall status at discharge: patient is progressing back to baseline Time Spent with Patient Time attestation: Total time managing care of this patient today ____ minutes. Time spent: Less than 30 minutes Discharge Plan Discharge Anticipated Discharge Date/Time: 09/30/25 09:00 Patient Disposition: Home, Self-Care Discharge Diagnosis: Schizoaffective Disorder COPD Fibromyalgia Dysphagia Myofascial Pain Dysfunction Syndrome Referrals: [facility] [Other] - 1 Week Referral Note: to restart services call prior to returning home. Gissel Ahumada MD: Primary Care [Other] - 10/06/25 2:00 pm Referral Note: Hospital discharge follow-up appointment with primary care physician office [facility] : [facility]: Taniya Giordano [Other] - 10/11/25 10:00 am Referral Note: Hospital Discharge Appointment Therapy/psych med. management evaluation Appointment in person at [facility] in [place], [place]. [facility]: Adult clinical community services [Other] - 1 Week Referral Note: Contact information to your ACCS team ACCS team clinician will follow-up with you after discharge back to your apartment. [facility] ([facility]) [Other] - 09/30/25 11:00 am Referral Note: Referral for MAT, Methadone services Appointment in person at [facility]. Discharge Medications: New acetaminophen 325 mg Tablet 650 mg PO Q6H PRN (Reason: pain 1-10) Qty: 0 0RF benztropine 0.5 mg Tablet 0.5 mg PO BID Qty: 25 0RF clonazepam 1 mg Tablet 1 mg PO TID Qty: 33 0RF methadone [Methadose] 10 mg/mL Concentrate 60 mg PO 0800,1800 Qty: 0 0RF Rx Instructions: Partial Fill upon patient request. bupropion HCl 150 mg Tablet Extended Release 24 Hr 150 mg PO DAILY Qty: 30 0RF olanzapine 7.5 mg Tablet 15 mg PO BEDTIME Qty: 22 0RF paliperidone [Invega] 3 mg Tablet Extended Release 24hr 3 mg PO DAILY Qty: 11 0RF methylphenidate HCl [Ritalin] 20 mg tablet 20 mg PO TID Qty: 36 0RF Rx Instructions: Partial Fill upon patient request. clonazepam [Klonopin] 1 mg tablet 1 mg PO TID Qty: 36 0RF Continued cetirizine 10 mg tablet 10 mg PO DAILY PRN (Reason: allergies) amlodipine 5 mg tablet 5 mg PO DAILY lisinopril 40 mg tablet 40 mg PO DAILY melatonin 5 mg tablet 5 mg PO BEDTIME Eliquis 5 mg tablet 5 mg PO BID ondansetron HCl 4 mg tablet 4 mg PO DAILY PRN (Reason: nausea) baclofen 10 mg tablet 10 mg PO BID esomeprazole magnesium 40 mg capsule,delayed release(DR/EC) 40 mg PO DAILY@0630 gabapentin 300 mg capsule 600 mg PO BEDTIME nicotine 14 mg/24 hr Patch 24 Hour 14 mg transdermal DAILY Qty: 0 0RF ipratropium-albuterol 0.5 mg-3 mg(2.5 mg base)/3 mL Solution For Nebulization 3 ml inhalation RQ6H WHILE AWAKE PRN (Reason: Shortness Of Breath/Wheezing) Qty: 0 0RF magnesium hydroxide [Milk of Magnesia] 400 mg/5 mL Suspension 30 ml PO DAILY PRN (Reason: Constipation) Qty: 0 0RF docusate sodium 100 mg Capsule 100 mg PO BID Qty: 0 0RF gabapentin 300 mg Capsule 300 mg PO BID@0800,1500 Qty: 0 0RF hydroxyzine HCl 25 mg Tablet 25 mg PO Q6H PRN (Reason: mild anxiety) Qty: 0 0RF fluticasone propionate 50 mcg/actuation [place],Suspension 2 spray intranasal DAILY Qty: 0 0RF nicotine (polacrilex) 2 mg Lozenge 2 mg buccal Q2H PRN (Reason: Nicotine Cravings) Qty: 0 0RF pregabalin 25 mg Capsule 25 mg PO BID Qty: 0 0RF Sore Throat (benzocaine-menth) 15-3.6 mg Lozenge 1 nandini mucous membrane Q2H PRN (Reason: Sore Throat) Qty: 0 0RF fluticasone furoate-vilanterol [Breo Ellipta] 200-25 mcg/dose Blister With Device 1 inh inhalation RDAILY Qty: 0 0RF Biotene Dry [place] 2 sprays PO QID PRNQty: 0 0RF lidocaine [Lidocaine Pain Relief] 4 % Adhesive Patch,Medicated 1 patch transdermal DAILY Qty: 5 0RF Protocol: Apply to: Apply to: Back trazodone 50 mg Tablet 50 mg PO BEDTIME MRX1 PRN (Reason: Insomnia) Qty: 12 0RF trazodone 150 mg tablet 150 mg PO BEDTIME Qty: 12 0RF Discontinued bupropion HCl 150 mg tablet sustained-release 12 hr 150 mg PO DAILY methylphenidate HCl 10 mg tablet 10 mg PO TID@0700,1100,1600 clonazepam 0.5 mg tablet 0.75 mg PO TID PRN (Reason: anxiety) olanzapine 5 mg tablet 5 mg PO BEDTIME olanzapine 10 mg tablet 10 mg PO BEDTIME olanzapine 5 mg Tablet 5 mg PO BID PRN (Reason: agitation) Qty: 0 0RF methadone [Methadose] 10 mg/mL Concentrate 120 mg PO DAILY@0800 Qty: 0 0RF Rx Instructions: Partial Fill upon patient request. risperidone 1 mg Tablet 1 mg PO BID Qty: 0 0RF amoxicillin-pot clavulanate [Augmentin] 500-125 mg tablet 1 tab PO BID 3 Days Qty: 6 0RF doxycycline hyclate 100 mg tablet 100 mg PO BID 3 Days Qty: 6 0RF Discharge Orders: Discharge Order (Routine); Ordered 09/30/25 Ordered By: Rachel Saenz Diet: Advance to usual diet Activity on Discharge: As tolerated Stand Alone Forms: Patient Portal Discharge page, Community Support Print Language: Norwegian Care Plan Goals: Mood and Behavioral Stabilization Health Concerns: Mood and Behavioral Stabilization Plan of Treatment: Attend scheduled appointments Work with your home care team to improve mobility and decrease pain Take medications as directed Assessment: Apprehensive about discharge, however agrees to plan of care and referrals for out pt services. Discharge Date/Time: 09/30/25 09:40
== END 2025-09-30 09:40 | disposition home or self-care (01) | DRG 885 ==
PROVIDERS: Admitting Provider Clinical Nurse Specialist Psychiatric/Mental Health, Adult; Visit Provider Clinical Nurse Specialist Psychiatric/Mental Health, Adult
DX: F25.9 Schizoaffective disorder, unspecified (principal); J69.0 Pneumonitis due to inhalation of food and vomit; J44.9 Chronic obstructive pulmonary disease, unspecified; I10 Essential (primary) hypertension; R13.10 Dysphagia, unspecified; M79.7 Fibromyalgia; F17.210 Nicotine dependence, cigarettes, uncomplicated; Z71.6 Tobacco abuse counseling; Z86.711 Personal history of pulmonary embolism; Z79.01 Long term (current) use of anticoagulants; Z79.51 Long term (current) use of inhaled steroids; Z79.899 Other long term (current) drug therapy

== ENCOUNTER → 2025-09-22 15:00 | Outpatient (BNV) | payer OTHER, MEDICAID, SELFPAY | PROVIDERS: Admitting Provider Clinical Nurse Specialist Psychiatric/Mental Health, Adult; Visit Provider Clinical Nurse Specialist Psychiatric/Mental Health, Adult | DX: F25.9 Schizoaffective disorder, unspecified (principal); R13.10 Dysphagia, unspecified; M79.18 Myalgia, other site; J44.9 Chronic obstructive pulmonary disease, unspecified; J69.0 Pneumonitis due to inhalation of food and vomit | CPT/HCPCS: 90792; 99231; 99232 ==

== ENCOUNTER → 2025-09-22 15:00 | Outpatient (BNV) | payer MEDICAID, SELFPAY | PROVIDERS: Admitting Provider Clinical Nurse Specialist Psychiatric/Mental Health, Adult; Visit Provider Nurse Practitioner Family | DX: J69.0 Pneumonitis due to inhalation of food and vomit (principal) | CPT/HCPCS: 99221 ==